=== PATIENT | female | born 1995 | race Caucasian/White ===

== ENCOUNTER → 2017-02-18 | Outpatient (CLI) | payer MEDICAID, OTHER ==
--- NOTE | 2017-02-18 21:12 | REP ---
Left knee, complete: 02/18/2017: Clinical history: Knee pain no known trauma or injury. Findings: No prior studies. Five views are provided. The medial and lateral compartments show no narrowing. The patellofemoral compartment is intact. There is no subluxation or dislocation of the patella. No loose body or osteochondral defect. No suprapatellar effusion evident. Impression: 1. Negative left knee series. Signed by Ismael Franklin MD 02/18/2017 09:35 P
== END ==
LOC: M ADAMS 18:01
PROVIDERS: ATTEND Physician Assistant
DX: M25.562 Pain in left knee (principal)

== ENCOUNTER → 2018-09-02 | Outpatient (REF) | payer MEDICAID ==
[2018-09-02 14:54] LABS: INFLUENZA A AMPLIFICATION POSITIVE (NEGATIVE); INFLUENZA B AMPLIFICATION NEGATIVE (NEGATIVE)
== END ==
LOC: M LAB REF 14:09
PROVIDERS: ATTEND Physician Assistant Medical
DX: J11.1 Influenza due to unidentified influenza virus with other respiratory manifestations (principal)

== ENCOUNTER 2020-09-03 12:37 | Emergency (ER) | payer OTHER ==
[~2020-09-03] VITALS: Ht 162.6 cm; Wt 103.9 kg
--- OUTSIDE RECORDS SUMMARY | 2020-09-03 12:44 | CCD ---
Author Author [facility] Organization [facility] Address Unknown Phone Unavailable Care Team Providers Care Open Claims Representative Name Role Phone Kourtney ALFRED Unavailable Unavailable TURRIN, EUFEMIA Unavailable Unavailable TURRIN, EUFEMIA Unavailable Unavailable TURRIN, EUFEMIA Unavailable Unavailable TURRIN, EUFEMIA Unavailable Unavailable Berta GAMINO MD Unavailable Unavailable Berta GAMINO MD Unavailable Unavailable Berta GAMINO MD Unavailable Unavailable Berta GAMINO MD Unavailable Unavailable Berta GAMINO MD Unavailable Unavailable Berta GAMINO MD Unavailable Unavailable Berta GAMINO MD Unavailable Unavailable Berta GAMINO MD Unavailable Unavailable Berta GAMINO MD Unavailable Unavailable Berta GAMINO MD Unavailable Unavailable Berta GAMINO MD Unavailable Unavailable Berta GAMINO MD Unavailable Unavailable Berta GAMINO MD Unavailable Unavailable Berta GAMINO MD Unavailable Unavailable Berta GAMINO MD Unavailable Unavailable Berta GAMINO MD Unavailable Unavailable Berta GAMINO MD Unavailable Unavailable Berta GAMINO MD Unavailable Unavailable Berta GAMINO MD Unavailable Unavailable Berta GAMINO MD Unavailable Unavailable Berta GAMINO MD Unavailable Unavailable Berta GAIMNO MD Unavailable Unavailable HANNYBerta SLOAN MD Unavailable Unavailable LETTIERE, A JUAN PA Unavailable Unavailable LETTIERE, A JUAN PA Unavailable Unavailable LETTIERE, A JUAN PA Unavailable Unavailable LETTIERE, A JUAN PA Unavailable Unavailable LETTIERE, A JUAN PA Unavailable Unavailable LETTIERE, A JUAN PA Unavailable Unavailable LETTIERE, A JUAN PA Unavailable Unavailable LETTIERE, A JUAN PA Unavailable Unavailable LETTIERE, A JUAN PA Unavailable Unavailable LETTIERE, A JUAN PA Unavailable Unavailable LETTIERE, A JUAN PA Unavailable Unavailable LETTIERE, A JUAN PA Unavailable Unavailable LETTIERE, A JUAN PA Unavailable Unavailable LETTIERE, A JUAN PA Unavailable Unavailable LETTIERE, A JUAN PA Unavailable Unavailable LETTIERE, A JUAN PA Unavailable Unavailable LETTIERE, A JUAN PA Unavailable Unavailable LETTIERE, A JUAN PA Unavailable Unavailable LETTIERE, A JUAN PA Unavailable Unavailable LETTIERE, A JUAN PA Unavailable Unavailable LETTIERE, A JUAN PA Unavailable Unavailable LETTIERE, A JUAN PA Unavailable Unavailable LETTIERE, A JUAN PA Unavailable Unavailable LETTIERE, A JUAN PA Unavailable Unavailable LETTIERE, A JUAN PA Unavailable Unavailable LETTIERE, A JUAN PA Unavailable Unavailable LETTIERE, A JUAN PA Unavailable Unavailable LETTIERE, A JUAN PA Unavailable Unavailable LETTIERE, A JUAN PA Unavailable Unavailable NO, PCP Unavailable Unavailable Re-disclosure Warning The records that you are about to access may contain information from federally-assisted alcohol or drug abuse programs. If such information is present, then the following federally mandated warning applies: This information has been disclosed to you from records protected by federal confidentiality rules (42 CFR part 2). The federal rules prohibit you from making any further disclosure of this information unless further disclosure is expressly permitted by the written consent of the person to whom it pertains or as otherwise permitted by 42 CFR part 2. A general authorization for the release of medical or other information is NOT sufficient for this purpose. The Federal rules restrict any use of the information to criminally investigate or prosecute any alcohol or drug abuse patient.The records that you are about to access may contain highly sensitive health information, the redisclosure of which is protected by Article 27-F of the [facility] Public Health law. If you continue you may have access to information: Regarding HIV / AIDS; Provided by facilities licensed or operated by the [facility] Office of Mental Health; or Provided by the [facility] Office for People With Developmental Disabilities. If such information is present, then the following [facility] mandated warning applies: This information has been disclosed to you from confidential records which are protected by state law. State law prohibits you from making any further disclosure of this information without the specific written consent of the person to whom it pertains, or as otherwise permitted by law. Any unauthorized further disclosure in violation of state law may result in a fine or detention sentence or both. A general authorization for the release of medical or other information is NOT sufficient authorization for further disc losure. Allergies and Adverse Reactions Type Description Substance Reaction Status Data Source(s ) No Known Drug Allergies No Known Drug Allergies [facility] No Known Environmental Allergies No Known Environmental Al lergies [facility] No Known Food Allergies No Known Food Allergies [facility] Family History Family Member Name Family Member Gender Family Member Status Date o f Status Description Data Source(s) Unknown Unknown Problem [facility] ([facility], [facility]) Encounters Encounter Providers Location Date Indications Data Source(s ) Emergency Attender: LIZY ALFREDConsultant: PCP NO 08/23/2020 09:50:00 PM EST - 08/23/2020 11:15:00 PM EST [facility] Patient discharged. Emergency Attender: EVA GAMINO MDConsultant: PCP NO 08/02/2020 11:04:00 PM EST - 08/03/2020 01:40:00 AM EST [facility] Patient discharged. Emergency Attender: EUFEMIA SLAUGHTERConsultant: PCP NO 04/11/2020 07:45:00 PM EDT - 04/11/2020 08:30:00 PM EDT [facility] Patient admitted. Outpatient Attender: JUAN torres 09/26/2019 03:50:00 PM EST [facility] ([facility], [facility]) Medications Medication Brand Name Start Date Product Form Dose Route Admi nistrative Instructions Pharmacy Instructions Status Indications Reaction Description Data Source(s) 20 mg 08/03/2020 12:00:00 AM EST tablet 15 TAKE THREE TABLETS BY MOUTH EVERY DAY TAKE THREE TABLETS BY MOUTH EVERY DAY SOLD: 08/04/2020 [facility] 300 mg 08/03/2020 12:00:00 AM EST capsule 40 TAKE ONE CAPSULE BY MOUTH FOUR TIMES A DAY TAKE ONE CAPSULE BY MOUTH FOUR TIMES A DAY SOLD: 08/04/2020 [facility] 500 mg 08/02/2020 12:00:00 AM EST capsule 22 TAKE 2 CAPSULES BY MOUTH IMMEDIATELY THEN 1 CAPSULE THREE TIMES A DAY TAKE 2 CAPSULES BY MOUTH IMMEDIATELY THEN 1 CAPSULE THREE TIMES A DAY SOLD: 08/02/2020 [facility] 5-325 mg 08/02/2020 12:00:00 AM EST tablet 15 TAKE ONE TABLET BY MOUTH TWICE A DAY NEEDED FOR PAIN MAXIMUM DAILY DOSE = 2 TABLETS TAKE ONE TABLET BY MOUTH TWICE A DAY NEEDED FOR PAIN MAXIMUM DAILY DOSE = 2 TABLETS SOLD: 08/02/2020 [facility] Amoxicillin 875 MG Oral Tablet Amoxicillin 09/26/2019 12:00:00 AM EST active [facility] ([facility]) Insurance Providers Payer name Policy type / Coverage type Policy ID Covered libertarian ID Covered libertarian's relationship to peters Policy Peters Plan Information UN COMM[employer]AN [facility] [id number] SP [id number] [facility] [id number] 18 [id number] UNHC AMERICHOICE XIX -O [id number] 18 [id number] MEDICAID [id number] SP [id number] MEDICAID M [id number] S [id number] [facility] [employer] Organization (HMO) [id number] Self [id number] [facility] [employer] (HMO) [id number] Self [id number] [facility] [employer] (HMO) [id number] Self [id number] [facility] [employer] (HMO) [id number] Self [id number] [facility] [employer] (HMO) [id number] Self [id number] [facility] [employer] (HMO) [id number] Self [id number] [employer]AN [facility] [id number] SP [id number] MEDICAID -O/P EMERGENCY ROOM [id number] 18 [id number] AMERICHOICE UNHC XIX HMO -I/P [id number] 18 [id number] AMERICHOICE UNHC XIX HMO -I/P [id number] 18 [id number] UNHC AMERICHOICE XIX -HMO [id number] 18 [id number] [facility]) P [id number] S [id number] [facility]) P [id number] S [id number] UNHC XIX HMO-O/P [id number] 18 [id number] [employer] [id number] SP [id number] MEDICAID - CLINIC [id number] Problems, Conditions, and Diagnoses Code Display Name Description Problem Type Effective Dates Data Source(s) K047 Periapical abscess without sinus Periapical absc ess without sinus Diagnosis 08/23/2020 09:50:00 PM [facility] K0889 Other specified disorders of teeth and s upporting structures Other specified disorders of teeth and supporting structures Diagnosis 08/23/2020 09:50:00 PM [facility] [id number] Unspecified place in unspeci fied non-institutional (private) residence as the place of occurrence of the external cause Unspecified place in unspecified non-institutional (private) residence as the place of occurrence of the external cause Diagnosis 08/02/2020 11:04:00 PM [facility] [id number] Striking against or struck by other obje cts, initial encounter Striking against or struck by other objects, initial encounter Diagnosis 08/02/2020 11:04:00 PM [facility] [id number] Allergy, unspecified, initial encounter Allergy, unspecified, initial encounter Diagnosis 08/02/2020 11:04:00 PM [facility] [id number] Cellulitis of face Cellulitis of face Diagnosis 06/2021 11:04:00 PM [facility] [id number] Unspecified injury of neck, initial enco unter Unspecified injury of neck, initial encounter Diagnosis 08/02/2020 11:04:00 PM [facility] [id number] Nicotine dependence, cigarettes, uncompl icated Nicotine dependence, cigarettes, uncomplicated Diagnosis 04/11/2020 07:45:00 PM EDT [facility] K046 Periapical abscess with sinus Periapical abscess with sinus Diagnosis 04/11/2020 07:45:00 PM EDT [facility] Results ID Date Data Source [id number] 08/23/2020 09:50:00 PM [facility] 1 OrderSheet [facility] Emergency Department [address] [place] [address] Phone #: ext- [phone] 08/23/2020 21:50 Patient: MARIA TERESA MATTHEW Sex: F : 1995 Age: 25yWEIGHT:81.6 kg HEIGHT:64 inches BMI:30.9ALLERGIES: AmoxicillinCHIEF COMPLAINT: jaw painDIAGNOSIS: Abscess, ToothacheLAB ORDERSOrder Description Priority Entered Acknowledged InitialedDIAGNOSTIC STUDY ORDERSOrder Description Priority Entered Acknowledged InitialedMEDICATION/IV/DRIP/FLUID ORDERSOrder Description Priority Entered Acknowledged InitialedToradol IM 60 mg 22:02 08/23/2020 Initialed: 22:09 Artemio Osorio(NOW x1) Lizy Alfred Refused: 22:09 Toradol IM 60 mg (NOW ; x1) was refused by patient because of states it does work.Lidocaine Viscous 22:15 08/23/2020 22:21 Bulluck,PO 20 mL (NOW) Rylan Ross ; Rylan Verbal order per; Lizy AlfredClindamycin PO 22:25 08/23/2020 22:30 Bulluck,150 mg Lizy Alfred Rylan ;Flexeril PO 10 mg 23:00 08/23/2020 Cancelled: Wrong Patient 23:02(NOW) Lizy Alfred Victoria ;Lidocaine Viscous 23:01 08/23/2020 23:12 Bulluck,PO 15 mL (NOW) Rylan Ross ; Rylan Verbal order per; Lizy AlrfedGENERAL ORDERSOrder Description Priority Entered Acknowledged Initialed[Electronically signed by Britt Petersen R.N. (23:35 08/23/2020)][Electronically signed by Lizy Alfred (05:10 08/24/2020)] 2 OrderSheet [facility] Emergency Department [address] [place] [address] Phone #: ext- [phone] 08/23/2020 21:50 Patient: MARIA TERESA MATTHEW Sex: F : 1995 Age: 25y[Electronically locked by Britt Petersen R.N. (23:35 08/23/2020)] Name Value Range Interpretation Code Description Data Sera rce(s) Supporting Document(s) ID Date Data Source [id number] 08/23/2020 09:50:00 PM EST [facility] 1 Medication Reconciliation Report [facility] Emergency Department [address] [place] [address] Phone #: ext- [phone] 08/23/2020 21:50 Patient: MARIA TERESA MATTHEW Sex: F : 1995 Age: 25yWeight: 81.6 kgHeight/Length: 64 in.BMI: 30.9ALLERGIES: AmoxicillinThe patient's Home Medications are listed below:CONTINUE TAKING THE FOLLOWING MEDICATIONS: Ibuprofen Oral predniSONE Oral 20 mg, dailyThe source(s) of the original Home Medication information:Not obtained.The following Medications were given to the patient in the Emergency Department:Lidocaine Viscous [PO] PO 20 mL, administered: 22:21 1Clindamycin [PO] PO 150 mg, administered: 22:30 1Lidocaine Viscous [PO] PO 15 mL, administered: 23:12 08/23/2020The following Medications were prescribed to the patient:clindamycin HCl 150 mg capsule Take 1 capsule four times a day for 7 days -- Dispense 28 capsule.Refills: 0. Substitution permitted.Pharmacy - [id number] - [id number] ; [place] [address]. Phone: FaxNumber: . -- Lizy Alfred Name Value Range Interpretation Code Description Data Sera rce(s) Supporting Document(s) ID Date Data Source [id number] 08/23/2020 09:50:00 PM [facility] 1 Medication Administration Record [facility] Emergency Department [address] [place] [address] Phone #: ext [phone] 08/23/2020 21:50 Patient: MARIA TERESA MATHTEW Sex: F : 1995 Age: 25yWeight: 81.6 kgHeight/Length: 64 inBMI: 30.9ALLERGIES: Amoxicillin Date/Time Medication Administered Medication OrderedGiven LIDOCAINE VISCOUS [PO] Lidocaine Viscous PO 20 mL22:21 08/23/2020 Dose: 20 mL PO (NOW)Rylan Ross,Given CLINDAMYCIN [PO] Clindamycin PO 150 mg22:30 08/23/2020 Dose: 150 mg POBuRylan snowden,Given LIDOCAINE VISCOUS [PO] Lidocaine Viscous PO 15 mL23:12 08/23/2020 Dose: 15 mL PO (NOW)Rylan Ross, Name Value Range Interpretation Code Description Data Sera rce(s) Supporting Document(s) ID Date Data Source [id number] 08/23/2020 09:50:00 PM [place] [address] General Instructions [facility] Emergency Department [address] [place] [address] Phone #: ext [phone] 08/23/2020 21:50 Patient: MARIA TERESA MATTHEW Sex: F : 1995 Age: 25yModerate dental pain.Single dental abscess (periapical abscess right upper incisor).INSTRUCTIONS(gargle with warm salt solution. take the antibiotic as prescribed. take motrin for pain. use the viscouslidocaine for pain and follow up with your dentist in am).Your Current Medications: Your current home medications have been reviewed.CONTINUE TAKING THE FOLLOWING MEDICATIONS:Ibuprofen Oral.predniSONE Oral : 20 mg daily.Prescription Medications:clindamycin HCl 150 mg capsule Take 1 capsule four times a day for 7 days -- Dispense 28 capsule.Refills: 0. Substitution permitted.Pharmacy - [id number] - [id number] ; [place] [address]. FaxNumber: .Follow-up:Follow up with your healthcare provider your dentist tomorrow. Call for an appointment. Reason for referral:evaluation and treatment. Summary of care provided to patient via paper. Screening today revealed thepatient's blood pressure to be in the hypertensive stage 2 range. The patient should follow up with aprimary care provider for blood pressure management. ADDITIONAL INFORMATIONDental Pain 2 General Instructions [facility] Emergency Department [address] [place] [address] Phone #: ext- [phone] 08/23/2020 21:50 Patient: MARIA TERESA MATTHEW Sex: F : 1995 Age: 25yA crack or cavity in a tooth can cause tooth pain. This is because the crack or cavity exposes thesensitive inner area of the tooth. An infection in the gum or the tooth's root can cause pain andswelling. The pain is often made worse when you have a hot or cold drink. It can also be worse whenyou bite on hard foods. Pain may spread from the tooth to your ear, or to the part of the jaw on thesame side.Home careFollow these tips when caring for yourself at home: Don't have hot and cold foods and drinks. Your tooth may be sensitive to changes in temperature. Use toothpaste made for sensitive teeth. [place] gently up and down instead of sideways. Brushing sideways can wear away root surfaces if they are exposed. If your tooth is chipped or cracked, see a dentist right away. For short-term pain relief, put clove oil right on the tooth. You can buy clove oil at pharmacies. Some pharmacies carry an rasg-xuy-rmecptm toothache kit. This has a paste you can put on the exposed tooth to make it less sensitive. 3 General Instructions [facility] Emergency Department [address] [place] [address] Phone #: ext- [phone] 08/23/2020 21:50 Patient: MARIA TERESA MATTHEW Sex: F : 1995 Age: 25y Use a cold pack. Put a cold pack on your jaw over the sore area to help reduce pain. Ask your healthcare provider about using zvjy-zxn-hcyntea medicine for pain. You may use this unless your provider prescribed another medicine. If you have long-term (chronic) liver or kidney disease, talk with your provider before using acetaminophen or ibuprofen. Also talk with your provider if you've had a stomach ulcer or GI (gastrointestinal) bleeding. Be aware of infection. If you have signs of an infection, you will be given an antibiotic. Take it as directed.Follow-up careFollow up with your dentist, or as advised. Your pain may go away with the treatment given today. Butonly a dentist can fully check and treat the cause of your pain. This will keep the pain from comingback.Call [phone] if any of these occur: Abnormal drowsiness Headache or stiff neck Weakness or fainting Trouble swallowing or breathingWhen to get medical adviceCall your healthcare provider right away if any of these occur: Your face gets swollen or red Pain gets worse or spreads to your neck Fever of 100.4F (38.0C) or higher, or as directed by your provider Pus drains from the tooth [phone] [employer]. [address] [place] [address]. All rights reserved. This information is not intended as asubstitute for professional medical care. Always follow your healthcare professional's instructions.Dental AbscessA dental abscess is an infection of the tooth socket. It often starts with a crack or cavity in the tooth. Apocket of pus forms between the tooth and the bone. The infection causes pain and swelling of the 4 General Instructions [facility] Emergency Department [address] [place] [address] Phone #: ext- [phone] 08/23/2020 21:50 Patient: MARIA TERESA MATTHEW Sex: F : 1995 Age: 25ygum, cheek, or jaw. The pain is often made worse by drinking hot or cold fluids, or biting on hardfoods. Pain may be felt in the facial sinus or in the ear. A severe infection can cause problems withswallowing and breathing.Causes Cavities Trauma Previous dental workSymptoms Pain Swelling around the tooth or face and cheek Redness Bad breath Bad taste in the mouth FeverYou will be started on an antibiotic. But, final treatment requires draining the pus. This can be done byremoving the tooth or getting a root canal. An oral surgeon typically removes diseased teeth. Anendodontist does a root canal. This involves drilling an opening in the tooth to get to access thecanals in the root. Once these are reached, the pus can be drained. Then the canals are cleaned andshaped before filling them with a special material called cm percha. After the infection has healed, acrown is placed over the tooth.Home careThe following guidelines will help you care for your abscess at home: Don't have hot or cold foods and liquids. Your tooth may be sensitive to temperature changes. If your tooth is chipped or cracked, or if there is a large open cavity, apply oil of cloves directly to the tooth to reduce pain. Oil of cloves is sold kaus-qrf-mthdsed in pharmacies. Some pharmacies carry an hugm-dak-jyyzsze "toothache kit." This contains oil of cloves and a paste, which can be applied over the exposed tooth to decrease sensitivity. Apply an ice pack (ice cubes in a plastic bag, wrapped in a towel) over the injured area for 10 to 20 minutes every 1 to 2 hours the first day for pain relief. Continue this 3 to 4 times a day until the pain and swelling goes away. To make an ice pack, put ice cubes in a plastic bag that 5 General Instructions [facility] Emergency Department [address] [place] [address] Phone #: ext- [phone] 08/23/2020 21:50 Patient: MARIA TERESA MATTHEW Sex: F : 1995 Age: 25y seals at the top. Wrap the bag in a clean, thin towel or cloth. Never put ice or an ice pack directly on the skin. You can take acetaminophen or ibuprofen for pain, unless you were given a different pain medicine to use. If you have chronic liver or kidney disease, have ever had a stomach ulcer or gastrointestinal bleeding, or are taking blood- thinning medicines, talk with your healthcare provider before using these medicines. An antibiotic will be prescribed. Take it as directed until completed, even if you are feeling better sooner.Follow-up careFollow up as advised with an filling station equipment mechanic, or oral surgeon. Even though your pain may improve withthe treatment given today, only a dentist, filling station equipment mechanic, or oral surgeon can provide full treatment forthis problem. If a culture was done, you will be told if the treatment needs to be changed. You can call in as directed for the results. If X-rays were taken, they will be reviewed by a specialist. You will be given the results, especially if they affect treatment.Call [phone] if any of these occur: Trouble breathing or swallowing, or wheezing Hoarse voice or trouble speaking Confusion Extreme drowsiness or trouble awakening Fainting or loss of consciousness Rapid heart rateWhen to seek medical adviceCall your healthcare provider right away if any of these occur: Swollen or red face or eyelid Pain gets worse or spreads to the neck You have a fever of 100.4F (38C) or higher, or as directed by your healthcare provider 6 General Instructions [facility] Emergency Department [address] [place] [address] Phone #: ext- [phone] 08/23/2020 21:50 Patient: MARAI TERESA MATTHEW Sex: F : 1995 Age: 25y Unusual drowsiness, a headache or stiff neck, or weakness Pus drains from the gum or tooth You can't open your mouth wide [phone] [employer]. [address] [place] [address]. All rights reserved. This information is not intended as asubstitute for professional medical care. Always follow your healthcare professional's instructions. You have been given the following additional information: Dental Pain Tooth Abscess(Electronically signed by Lizy Alfred 08/24/2020 05:10) Name Value Range Interpretation Code Description Data Sera rce(s) Supporting Document(s) ID Date Data Source [id number] 08/23/2020 09:50:00 PM EST [facility] 1 Clinical Report - Nurses [facility] Emergency Department [address] [place] [address] Phone #: ext- [phone] 08/23/2020 21:50 Patient: MARIA TERESA MATTHEW Sex: F : 1995 Age: 25yTRIAGEArrived by private vehicle. Historian: patient.Triage time: 21:45 08/23/2020. Acuity: LEVEL 5.Chief Complaint: JAW PAIN.Alert. No acute distress.Symptoms are intermittent (2 months). She has had facial pain. She has had swelling of the jaw.SEPSIS SCREEN: SEPSIS SCREEN NEGATIVE. No suspected or confirmed signs of infection present.--22:00 08/23/20 Artemio Osorio21:52 08/23/20. BP: 151/87 taken on the right arm, via an automated monitor, while sitting. MAP: 108.HR: 99. RR: 16 (regular, unlabored and normal). O2 saturation: 99% on room air. Temp: 98.4 F (oral). Painlevel now: 04/30. --22:00 08/23/20 Artemio Osorio.Weight: 81.6 kg. Height/Length: 64 inches. BMI: 30.9. --21:59 08/23/20 Artemio Osorio.MedicationspredniSONE Oral 20 mg, daily. --21:54 08/23/20 Artemio Osorio Ibuprofen Oral. --21:55 08/23/20 Artemio Osorio.AllergiesAmoxicillin.(facial swelling) --21:55 08/23/20 Artemio Osorio.HistorySOCIAL HX: Current every day heavy tobacco smoker- less than 1 pack per day. No alcohol use or druguse. She was offered HIV testing but declined and hepatitis C testing but declined.SELF HARM ASSESSMENT: Self harm assessment was performed. The patient answered "no" to thequestion(s) "Have you recently felt down, depressed, or hopeless?", "Do you have thoughts of harming orkilling yourself?", "Do you have a plan for harming or killing yourself?", "Have you recently had thoughtsabout harming or killing others?", "Do you have any dangerous items in your possession?", "Have younoticed less interest or pleasure in doing things?", "Are you here because you tried to hurt yourself?" and"Have you ever tried to hurt yourself before today?".ABUSE ASSESSMENT: Abuse assessment. Abuse denied. No report of abuse.NUTRITIONAL RISK ASSESSMENT: The nutritional risk assessment revealed no deficiencies. 2 Clinical Report - Nurses [facility] Emergency Department [address] [place] [address] Phone #: ext- [phone] 08/23/2020 21:50 Patient: MARIA TERESA MATTHEW Sex: F : 1995 Age: 25y FUNCTIONAL ASSESSMENT: Functional assessment: no impairments noted. LEARNING NEEDS ASSESSMENT: The learning needs assessment revealed no barriers. FALL RISK ASSESSMENT: Fall risk assessment completed. No risk factors identified. SKIN INTEGRITY ASSESSMENT: Skin integrity risk assessment completed. No skin integrity risk identified. --22:00 08/23/20 Artemio Osorio SOCIAL HX: The patient has not traveled outside the [place] Infectious disease exposure: The patient was not exposed to Coronavirus. --22:08/23/20 Artemio Osorio. Interventions Identification and allergy band on patient. --22:00 08/23/20 Artemio Osorio.PHYSICAL ASSESSMENTGENERAL / NEURO / PSYCH: Alert. Oriented X 4. Appears in no acute distress. Appears in pain.HEENT: Dental tenderness. Dental decay. --22:08/23/20 Artemio Osorio.NURSING PROGRESS NOTESThe plan of care for this patient has been created. Two patient identifiers checked. Call light placed inreach. Bed placed in lowest position. Brakes of bed on. --22:08/23/20 Artemio Osorio 22:08/23/2020 Toradol IM 60 mg (NOW x1) was refused by patient because of states it does work. --22:08/23/20 Artemio Osorio 22:08/23/2020 Lidocaine Viscous PO 20 mL given. Allergies verified and confirmed 5 rights. Information reviewed with patient including reason for taking this medication, signs of allergic reaction and precautions. Verbalizes understanding. --22:08/23/20 Rylan Ross 22:30 08/23/2020 Clindamycin PO 150 mg given. Allergies verified and confirmed 5 rights. Information reviewed with patient including reason for taking this medication, signs of allergic reaction and precautions. Verbalizes understanding. --22:30 08/23/20 Rylan Ross 23:12 08/23/2020 Lidocaine Viscous PO 15 mL given Allergies verified and confirmed 5 rights. Information reviewed with patient including reason for taking this medication, signs of allergic reaction and precautions. Verbalizes understanding. (Sent home w/ pt per MD orders). --23:12 08/23/20 Rylan Ross.DISPOSITION / DISCHARGE 23:15 08/23/20. Condition at departure: stable. ( DC instructions explained, s/s of concern and follow up care discussed. Pt verbalizes understanding. Pt to bring dose of viscous lidocaine home to use - instructions reviewed. No other needs.). No learning barriers present. Discharge instructions provided and reviewed with the patient. Patient verbalized understanding. Written instructions provided in [place]. The patient was discharged by the physician. She was discharged home and accompanied by family. 3 Clinical Report - Nurses [facility] Emergency Department [address] [place] [address] Phone #: ext- [phone] 08/23/2020 21:50 Patient: MARIA TERESA MATTHEW Sex: F : 1995 Age: 25y She left ambulatory and via private vehicle. Family member driving. --23:27 08/23/20 Britt Petersen R.N. 23:15 08/23/20. BP: 140/92. MAP: 108. HR: 98. RR: 20. O2 saturation: 99% on room air. Temp: deferred. Pain level now: 6/10. Additional comments: Pain worse when standing up / chewing / facial movement. --23:27 08/23/20 Britt Petersen R.N.Locked/Released at 08/23/2020 23:35 by Britt Petersen R.N. Name Value Range Interpretation Code Description Data Sera rce(s) Supporting Document(s) ID Date Data Source [id number] 08/23/2020 09:50:00 PM EST [facility] 1 Clinical Report - Physicians/Mid Levels [facility] Emergency Department [address] [place] [address] Phone #: ext- [phone] 08/23/2020 21:50 Patient: MARIA TERESA MATTHEW Sex: F : 1995 Age: 25y Time Seen: 21:52 08/23/2020; initial patient contact, initial documentation. Arrived- By private vehicle. Historian- patient. Disposition decision: 22:59 08/23/2020.HISTORY OF PRESENT ILLNESS Chief Complaint: mouth pain. This started since february. she has domenic seen by a dentist and had caps placed on the upper incisor. she has had multiple dental xrays done. no evidence of infection but was placed on Amoxicillin by her dentist. she developed an allergic reaction to it and was seen in the ER 2 weeks ago and placed on Clindamycin. she felt better but now started having unbearable pain again. no drooling of saliva no facial swelling and is still present and worsening. It was gradual in onset. Pain described as severe. No sore throat, mouth sores, nasal discharge or congestion or ear pain. No swollen jaw or face, jaw pain or facial pain. She has had toothache.REVIEW OF SYSTEMSLast normal menstrual period- 1 week ago. No fever, eye discomfort, cough, difficulty breathing or chestpain. No nausea, diarrhea, abdominal pain, difficulty with uri nation or headache. No fainting episodes,joint pain, skin rash, enlarged lymph nodes or vomiting. All other systems reviewed and are negative.PAST HISTORYSee nurses notes. Problems: . Otitis Media. Vomiting. UTI - Urinary Tract Infection. Cellulitis Check. Abnormal Test. Ear Infection. Dental Abscess. Dental Pain. Allergic Reaction. Cellulitis. MENIGIOMA. None. Normal Exam. Tonsillitis [Resolved]. Additional Surgeries: Adenoidectomy. Tonsillectomy. 2 Clinical Report - Physicians/Mid Levels [facility] Emergency Department [address] [place] [address] Phone #: ext- [phone] 08/23/2020 21:50 Patient: MARIA TERESA MATTHEW Sex: F : 1995 Age: 25y Tympanostomy Tubes. Medications: Ibuprofen Oral. predniSONE Oral 20 mg, daily. Allergies: Amoxicillin.(facial swelling).SOCIAL HISTORYNever smoker. No alcohol use or drug use.ADDITIONAL NOTESThe nursing notes have been reviewed.PHYSICAL EXAMVital Signs: 08/23/2020 21:52 BP: sitting 151/87. MAP: 108. HR: 99. RR: 16. O2 saturation: 99% on roomair. Temp: 98.4 F. Pain level now: 04/30. Oxygen sa turation normal.Appearance: Alert. No acute distress.Head: Normal external inspection.Eyes: Pupils equal, round and reactive to light. Conjunctivae and eyelids normal.ENT: Dental tenderness. Pharynx normal. Lips normal. No trismus present. Uvula midline. Nopharyngeal erythema, mouth ulcerations, tonsillar exudate, peritonsillar mass or dental decay. No trismus.(patient has tenderness on palpation on the right upper incisor gum area. tooth is tender on palpation.no visible abscess noted.).Neck: Lymphadenopathy. Thyroid not normal. Neck not supple. Trachea midline.CVS: Normal heart rhythm and rate. Heart sounds normal. Pulses normal.Respiratory: No respiratory distress. Painless inspiration. Breath sounds normal. Chest nontender.Abdomen: Soft and nontender. No organomegaly.Skin: Normal skin color. No rash. Normal skin turgor.Extremities: Extremities exhibit normal ROM. Extremities nontender.Neuro: Oriented X 3.PROGRESS AND PROCEDURESCourse of Care: 22:08 08/23/20. Patient offered toradol and refused. 22:34 08/23/20. Patient given viscous lidocaine for pain and clindamycin. advised to follow up with her dentist in am. Patient counseled in person regarding the patient's stable condition, diagnosis and need for follow-up. Patient agrees with plan of care. 22:37. Disposition: Discharged home in stable condition. Condition: good and stable. Discharge decision based on the following: patient's condition is stable; patient's exam is stable; stable condition on multiple repeat evaluations; social support is adequate; transportation is available; follow-up is 3 Clinical Report - Physicians/Mid Levels [facility] Emergency Department [address] [place] [address] Phone #: ext- [phone] 08/23/2020 21:50 Patient: MARIA TERESA MATTHEW Sex: F : 1995 Age: 25y available; clinical impression is consistent with outpatient treatment.CLINICAL IMPRESSION Moderate dental pain. Single dental abscess (periapical abscess right upper incisor).INSTRUCTIONS (gargle with warm salt solution. take the antibiotic as prescribed. take motrin for pain. use the visc ous lidocaine for pain and follow up with your dentist in am). Your Current Medications: Your current home medications have been reviewed. CONTINUE TAKING THE FOLLOWING MEDICATIONS: Ibuprofen Oral. predniSONE Oral : 20 mg daily. Prescription Medications: clindamycin HCl 150 mg capsule Take 1 capsule four times a day for 7 days -- Dispense 28 capsule. Refills: 0. Substitution permitted. Pharmacy - [facility] #04 - [id number] ; [place] [address]. . Follow-up: Follow up with your healthcare provider your dentist tomorrow. Call for an appointment. Reason for referral: evaluation and treatment. Summary of care provided to patient via paper. Screening today revealed the patient's blood pressure to be in the hypertensive stage 2 range. The patient should follow up with a primary care provider for blood pressure management.(Electronically signed by Lizy Alfred 08/24/2020 05:10) Name Value Range Interpretation Code Description Data Sera rce(s) Supporting Document(s) ID Date Data Source [id number] 08/02/2020 11:04:00 PM EST [facility] 1 OrderSheet [facility] Emergency Department [address] [place] [address] Phone #: ext- [phone] 08/02/2020 22:50 Patient: MARIA TERESA MATTHEW Sex: F : 1995 Age: 24yWEIGHT:81.6 kg (S) HEIGHT:64 inches (S) BMI:30.9ALLERG IES: No Known Drug AllergyCHIEF COMPLAINT: neckDIAGNOSIS: Cellulitis of skin, Cellulitis check, Immune hypersensitivity reactionLAB ORDERSOrder Description Priority Entered Acknowledged InitialedCBC w Diff STAT 23:17 08/02/2020 23:27 Eva Pace MD; Rebecca RNCMP STAT 23:08/02/2020 23:27 Eva Pace MD; Rebecca LOPEZHCG Serum Qual STAT 23:17 08/02/2020 23:27 Eva Pace MD; Rebecca LOPEZDIAGNOSTIC STUDY ORDERSOrder Description Priority Entered Acknowledged InitialedCT Maxillofacial W/ STAT 23:08/02/2020 Ack'd: 23:27 00:27 08/03/2020Eva Donovan MD; Lupillo Fernandez RN Lupillo Fernandez RN(Oxygen?(No))(IV?(Yes)) Reason for Study: Infection, SwellingMEDICATION/IV/DRIP/FLUID ORDERSOrder Description Priority Entered Acknowledged InitialedBenadryl IVP 25 mg 00:03 08/03/2020 00:28 Eva Pace MD; Rebecca RNPepcid IVPB 20 00:03 08/03/2020 00:29 Stevmorenomg/50mL (Hanny Ness Norma MD; Rebecca LOPEZInfuse over 30minutes.)SOLU-Medrol IVP 00:03 08/03/2020 00:28 Eva Corcoran MD; Rebecca LOPEZGENERAL ORDERSOrder Description Priority Entered Acknowledged Initialed[Electronically signed by Lupillo Fernandez RN (01:40 08/03/2020)][Electronically signed by Eva Gamino MD (02:53 08/03/2020)] 2 OrderSheet [facility] Emergency Department [address] [place] [address] Phone #: ext- [phone] 08/02/2020 22:50 Patient: MARIA TERESA MATTHEW Sex: F : 1995 Age: 24y[Electronically locked by Lupillo Fernandez RN (01:40 08/03/2020)] Name Value Range Interpretation Code Description Data Sera rce(s) Supporting Document(s) ID Date Data Source [id number] 08/02/2020 11:04:00 PM EST [facility] 1 Medication Reconciliation Report [facility] Emergency Department [address] [place] [address] Phone #: ext- [phone] 08/02/2020 22:50 Patient: MARIA TERESA MATTHEW Sex: F : 1995 Age: 24yWeight: 81.6 kgHeight/Length: 64 in.BMI: 30.9ALLERGIES: No Known Drug AllergyThe patient's Home Medications are listed below:STOP TAKING THE FOLLOWING MEDICATIONS: Amoxicillin Oral (500 mg) 1 capsule, 3x a dayCONTINUE TAKING THE FOLLOWING MEDICATIONS: HYDROcodone-Acetaminophen Oral (5-325 mg) 1 tablet, 2x a day Ibuprofen Oral 200 mg, q4h, prnThe source(s) of the original Home Medication information:patientThe following Medications were given to the patient in the Emergency Department:Benadryl [IVP] IVP 25 mg, administered: 00:23 08/03/2020olu-Medrol [IVP] IVP 125 mg, administered: 00:23 1Pepcid [IVPB] IVPB bolus 0, then 20 mg 100 mg/min, administered: 00:29 08/03/2020The following Medications were prescribed to the patient:clindamycin HCl 300 mg capsule Take 1 capsule four times a day for 10 days -- Dispense 40 capsule.Refills: 0. Substitution permitted.[facility] #[facility] - [id number] ; [place] [address]. FaxNumber: [phone].prednisone 20 mg tablet Take 3 tablet once a day -- Dispense 15 tablet. Refills: 0. Substitutionpermitted.[facility] #[facility] - [id number] ; [place] [address]. 2 Medication Reconciliation Report [facility] Emergency Department [address] [place] [address] Phone #: [phone]- [phone] 08/02/2020 22:50 Patient: MARIA TERESA MATTHEW Sex: F : 1995 Age: 24yFaxNumber: . -- Eva Gamino MD Name Value Range Interpretation Code Description Data Sera rce(s) Supporting Document(s) ID Date Data Source [id number] 08/02/2020 11:04:00 PM EST [facility] 1 Medication Administration Record [facility] Emergency Department [address] [place] [address] Phone #: [phone] 08/02/2020 22:50 Patient: MARIA TERESA MATTHEW Sex: F : 1995 Age: 24yWeight: 81.6 kgHeight/Length: 64 inBMI: 30.9ALLERGIES: No Known Drug Allergy Date/Time Medication Administered Medication OrderedGiven BENADRYL [IVP] (DIPHENHYDRAMINE Benadryl IVP 25 mg00:08/03/2020 HCL)Lupillo Fernandez RN Dose: 25 mg IVP Site: #1 left ACStart PEPCID [IVPB] Pepcid IVPB 20 mg/50mL (NOW00:08/03/2020 Dose: 20 mg IVPB x1, Infuse over 30 minutes.)Lupillo Fernandez RN Rate: 100 mg/min---- Dispensed: 50 mL bagStop Site: #1 left AC00:51 1Sjonnathan Fernandez RNGiven SOLU-MEDROL [IVP] SOLU-Medrol IVP 125 mg00:23 08/03/2020 (METHYLPREDNISOLONE SODIUMStevmoreno Fernandez RN SUCC) Dose: 125 mg IVP Site: #1 left AC Name Value Range Interpretation Code Description Data Sera rce(s) Supporting Document(s) ID Date Data Source [id number] 08/02/2020 11:04:00 PM EST [facility] 1 General Instructions [facility] Emergency Department [address] [place] [address] Phone #: ext- [phone] 08/02/2020 22:50 Patient: MARIA TERESA MATTHEW Sex: F : 1995 Age: 24yAllergic reaction.Cellulitis.Cellulitis of the right and left cheek area.INSTRUCTIONS(Stop taking the amoxil. I have sent a prescription to your pharmacy for clindamycin. it is a differentantibiotic. I have also sent a prescription for prednisone. please also take benadryl and pepcid asinstructed. return if worse or any new symptoms. Please follow up with your primary care physician andyour dentist in 1-2 days. I would strongly suggest you try to not take the hydrocodone. take tylenol andmotrin instead for your pain.).Warnings: INFECTION: Watch for signs of infection (increasing heat and redness, pus-like drainage,swelling, or increased pain). Return or see your doctor if these signs occur.GENERAL WARNINGS: Return or contact your physician immediately if your condition worsens orchanges unexpectedly, if not improving as expected, or if other problems arise.Your Current Medications: Your current home medications have been reviewed.STOP TAKING THE FOLLOWING MEDICATIONS:Amoxicillin Oral : Capsule 500 mg, 1 capsule 3x a day.CONTINUE TAKING THE FOLLOWING MEDICATIONS:HYDROcodone-Acetaminophen Oral : Tablet 5-325 mg, 1 tablet 2x a day.Ibuprofen Oral : 200 mg q4h, prn.Prescription Medications:clindamycin HCl 300 mg capsule Take 1 capsule four times a day for 10 days -- Dispense 40 capsule.Refills: 0. Substitution permitted.[facility] [address] - [id number] ; [place] [address]. FaxNumber: [phone].prednisone 20 mg tablet Take 3 tablet once a day -- Dispense 15 tablet. Refills: 0. Substitutionpermitted.[facility] #[address] - [id number] ; [place] [address]. FaxNumber: .Follow- up:Follow up with your doctor in two days even if well. Call for an appointment. Reason for referral: evaluation.Summary of care provided to patient via paper. 2 General Instructions [facility] Emergency Department [address] [place] [address] Phone #: ext- [phone] 08/02/2020 22:50 Patient: MARIA TERESA MATTHEW Sex: F : 1995 Age: 24yUnderstanding of the discharge instructions verbalized by patient. ADDITIONAL INFORMATIONGeneral Allergic ReactionsAn allergic reaction is a set of symptoms caused by an allergen. An allergen is something that causesyour immune system to react abnormally. It releases various chemicals. These include histamine.Histamine causes swelling and itching. An allergic reaction may affect the entire body. This is called ageneral allergic reaction. Often symptoms affect only one part of the body. This is called a localallergic reaction.You are having an allergic reaction. Almost anything can cause one. Different people are allergic todifferent things. It is usually something that you ate or swallowed, came into contact with by getting orputting it on your skin or clothes, or something you breathed in the air. This can be very annoying andsometimes scary.Most people think of allergic reactions when they have a rash or itchy skin. Other symptoms caninclude: Itching of the eyes, nose, and roof of the mouth Runny or stuffy nose Watery eyes Sneezing or coughing A blocked feeling in the ear Red, raised, itchy rash called hives Red and purple spots Rash, redness, welts, blisters Itching, burning, stinging, pain Dry, flaky, cracking, scaly skinSevere symptoms include: Swelling of the face, lips, or other parts of the body Hoarse voice Trouble swallowing, feeling like your throat is closing 3 General Instructions [facility] Emergency Department [address] [place] [address] Phone #: ext- [phone] 08/02/2020 22:50 Patient: MARIA TERESA MATTHEW Sex: F : 1995 Age: 24y Trouble breathing, wheezing Nausea, vomiting, diarrhea, stomach cramps Feeling faint or lightheaded, rapid heart rateSometimes the cause may be obvious. But there are so many things that can cause a reaction thatyou may not be able to figure it out. The most important things to help find your allergen are toremember: When it started What you were doing at the time or just before that What activities you were involved in If you were exposed to anything newBelow are some common causes of allergies. Some of these can cause severe general allergicreactions. Others can cause mild to moderate symptoms. But remember that almost anything cancause a reaction. You may not even be aware that you came into contact with one of these things: Dust, mold, pollen Plants (common ones are poison elvie and poison oak, but there are many others) Animals Foods such as shrimp, shellfish, peanuts, milk products, gluten, and eggs Food colorings, flavorings, and additives Insect bites or stings such as bees, mosquitoes, fleas, and ticks Medicines such as penicillin, sulfa medicines, aspirin, and ibuprofen. But any medicine can cause a reaction. Jewelry such as nickel or gold. This can be new, or something you've worn for a while, including zippers and buttons. Latex such as in gloves, clothes, toys, balloons, or some tapes. Some people allergic to latex may also have problems with foods like bananas, avocados, kiwi, papaya, or chestnuts. Lotions, perfumes, cosmetics, soaps, shampoos, skincare products, nail products Chemicals or dyes in clothing, linen, threshing machine operator, hair dyes, soaps, iodineMany viruses and common colds can cause a rash that is not an allergic reaction. Sometimes it ishard to tell the difference between allergies, sensitivity, or an intolerance to something. This is 4 General Instructions [facility] Emergency Department [address] [place] [address] Phone #: [phone]- [phone] 08/02/2020 22:50 [facility]: [id number] Sex[facility] F : 1995 Age: 24yespecially true with food. Many things can cause diarrhea, vomiting, stomach cramps, and skinirritation.Home careThe goal of treatment is to help relieve the symptoms and get you feeling better. The rash will usuallyfade over several days. But it can sometimes last a couple of weeks. Over the next couple of days,there may be times when it gets a little worse, and then better again. Here are some things to do: If you know what you are allergic to, stay away from it. Future exposures may cause similar or sometimes worse symptoms. Don't wear tight clothing and stay away from anything that heats up your skin such as hot showers or baths, and direct sunlight. Heat will make itching worse. An ice pack will relieve local areas of intense itching and redness. To make an ice pack, put ice cubes in a plastic bag that seals at the top. Wrap it in a thin, clean towel. Don't put the ice directly on the skin because it can damage the skin. Oral diphenhydramine is an [id number] antihistamine sold at pharmacies and grocery stores. Unless a prescription antihistamine was given, diphenhydramine may be used to reduce itching if large areas of the skin are involved. It may make you sleepy. So be careful using it in the daytime or when going to school, working, or driving. Note: Don't use diphenhydramine if you have glaucoma or if you are a man with trouble urinating because of an enlarged prostate. There are other antihistamines that won't make you so sleepy. These are good choices for daytime use. Ask your healthcare provider or pharmacist for suggestions. Don't use diphenhydramine cream on your skin unless prescribed. It may cause a worse reaction in some people. To help prevent an infection, don't scratch the affected area. Scratching may worsen the reaction and damage your skin. It can also lead to an infection. Always check the affected 5 General Instructions [facility] Emergency Department [address] [place] [address] Phone #: ext- [phone] 08/02/2020 22:50 Patient: MARIA TERESA MATTHEW Sex: F : 1995 Age: 24y areas for signs of an infection. Call your healthcare provider and ask what you can use to help decrease the itching. To decrease your exposure to allergens, try the following: o Use heat-steam to clean your home. o Use high-efficiency particulate (HEPA) vacuums and filters. o Stay away from food and pet triggers. o Kill any cockroaches and use pest control to keep further infestations from happening. o Clean your house often.Follow-up careFollow up with your healthcare provider, or as advised. If you had a severe reaction today, or if youhave had several mild to medium allergic reactions in the past, ask your provider about allergytesting. This can help you find out what you are allergic to. If you had a severe reaction that includeddizziness, fainting, or trouble breathing or swallowing, ask your provider about carryingauto-injectable epinephrine.Call [phone] if any of these occur: Trouble breathing or swallowing, wheezing Cool, moist, pale skin Shortness of breath Hoarse voice or trouble speaking Confusion Very drowsy or trouble awakening Fainting or loss of consciousness Rapid heart rate Feeling of dizziness or weakness or a sudden drop in blood pressure Feeling of doom Feeling lightheaded 6 General Instructions [facility] Emergency Department [address] [place] [address] Phone #: ext- [phone] 08/02/2020 22:50 Patient: MARIA TERESA MATTHEW Sex: F : 1995 Age: 24y Severe nausea or vomiting, or diarrhea Seizure Swelling in the face, eyelids, lips, mouth, throat, or tongue DroolingWhen to seek medical adviceCall your healthcare provider or get medical care right away if any of these occur: Spreading areas of itching, redness, or swelling Nausea or stomach cramps or abdominal pain Continuing or recurring symptoms Spreading areas of redness, swelling, or itching Signs of infection at the affected site: o Spreading redness o Increased pain or swelling o Fluid or colored drainage from the site o Fever of 100.4F (38C) or above lasting for 24 to 48 hours, or as directed by your provider 2019 [employer]. [address] [place] [address]. All rights reserved. This information is not intended as asubstitute for professional medical care. Always follow your healthcare professional's instructions.Medicine Reaction: AllergicYou are having an allergic reaction to a medicine you have taken. This may cause an itchy rash andsometimes swelling of various parts of the body. It could also cause trouble swallowing or breathing.The rash may take a few hours or up to 2 weeks to go away. In the future, remember to tell yourhealthcare provider about your allergy to this medicine so that medicines of this type won't be usedagain.Any medicine can cause an allergic reaction. But most allergic reactions are caused by: Penicillin and related medicines Antibiotics containing sulfonamides (sulfa ,medicines) Aspirin 7 General Instructions [facility] Emergency Department [address] [place] [address] Phone #: ext- [phone] 08/02/2020 22:50 Patient: MARIA TERESA MATTHEW Sex: F : 1995 Age: 24y Ibuprofen or other nonsteroidal anti-inflammatory drugs (NSAIDs) Seizure medicinesVaccines may also trigger allergies. People whose parents or siblings have allergies are at a higherrisk of developing a medicine allergy. Allergy testing may sometimes be needed to figure out thecause.Symptoms may occur within minutes, hours, or even weeks after exposure to the medicine. It can michelle mild or severe reaction, or potentially life threatening. Most of us think of allergic reactions when wehave a rash or itchy skin. Symptoms can include: Rash, hives, redness, welts, blisters Itching, burning, stinging, pain Dry, flaky, cracking, scaly skin Belly (abdominal) cramps or nausea or stomach pain Fever. Sometimes fever is the only symptom of a medicine reaction. In older adults, the risk of fever increases with the number of medicines the person takes.More severe symptoms include: Swelling of the face or lips, or drooling Trouble swallowing, feeling like your throat is closing Trouble breathing, wheezing Hoarse voice or trouble speaking Severe nausea or vomiting or diarrhea Feeling faint or lightheaded, rapid heart rate Blistering of the skin or ulcers in the mouth or on the genitalsHome care 8 General Instructions [facility] Emergency Department [address] [place] [address] Phone #: ext- [phone] 08/02/2020 22:50 Patient: MARIA TERESA MATTHEW Sex: F : 1995 Age: 24yThe goal of treatment is to help relieve the symptoms and get you feeling better. Mild to mediummedicine reactions usually respond quickly to taking antihistamines or steroids and stopping themedicine. The rash will usually fade over several days. But it can sometimes last a couple of weeks.Over the next couple of days, there may be times when it gets a little worse and then better again.Here are some things to do: Dispose of the medicine safely and don't take it again. The next reaction could be the same or worse. Call your healthcare provider to discuss adding this medicine's allergy reaction to your electronic medical record. When getting a new medicine, always tell the healthcare provider that you are allergic to this medicine. Make certain the provider writes it down in your medical record. Don't wear tight clothing and stay way from anything that heats up your skin (hot showers or baths, direct sunlight). Heat will make itching worse. An ice pack will relieve local areas of intense itching and redness. To make an ice pack, put ice cubes in a plastic bag that seals at the top. Wrap the bag in a clean, thin towel or cloth. Don't put ice directly on the skin. To help prevent an infection, don't scratch the affected area. Scratching may worsen the reaction. It can damage your skin and lead to an infection. Always check the affected site for signs of an infection. Your provider may give you a prescription antihistamine. If you are not given a prescription antihistamine, oral diphenhydramine is an utxa-yev-nfptvps antihistamine available at pharmacies and grocery stores. This may be used to reduce itching if large areas of the skin are involved. This antihistamine may make you sleepy, so be careful us ing it in the daytime or when going to school, working, or driving. Note: Don't use diphenhydramine if you have glaucoma or if you are a man with trouble urinating due to an 9 [facility] Emergency Department [address] [place] [address] Phone #: ext- [phone] 08/02/2020 22:50 Patient: MARIA TERESA MATTHEW Sex: F : 1995 Age: 24y enlarged prostate. There are other antihistamines that cause less drowsiness and are a good choice for daytime use. Ask your pharmacist or healthcare provider for suggestions. Don't use diphenhydramine cream on your skin. It can cause a worse skin reaction for some people. Contact your healthcare provider and ask what can be used on the affected area to help decrease the itching.Follow-up careFollow up with your healthcare provider, or as advised, if your symptoms do not continue to improveor they get worse.Call [phone] if any of these occur: Shortness of breath Cool, moist, pale skin Swelling in the face, eyelids, mouth, tongue, or lips Drooling Trouble breathing or swallowing, wheezing New or worsening swelling in the mouth, throat, or tongue Hoarse voice or trouble speaking Fainting or loss of consciousness Rapid heart rate Feeling of dizziness or weakness or a sudden drop in blood pressure Feeling of doom Feeling lightheaded Severe nausea, vomiting, or diarrheaWhen to seek medical adviceCall your healthcare provider or get medical care right away if any of these occur: Continuing or recurring symptoms 10 General Instructions [facility] Emergency Department [address] [place] [address] Phone #: ext- [phone] 08/02/2020 22:50 Patient: MARIA TERESA MATTHEW Sex: F : 1995 Age: 24y Nausea, abdominal cramps, or stomach pain Spreading areas of itching, redness, or swelling Blistering of the skin, or sores or ulcers in the mouth or on the genitals Signs of infection: o Spreading redness o Increased pain or swelling o Fever of 100.4F (38C) or above lasting for 24 to 48 hours, or as directed by your provider o Fluid or colored drainage from the affected area [employer]. [address] [place] [address], [place] [address]. All rights reserved. This information is not intended as asubstitute for professional medical care. Always follow your healthcare professional's instructions.CellulitisCellulitis is an infection of the deep layers of skin. A break in the skin, such as a cut or scratch, can letbacteria under the skin. If the bacteria get to deep layers of the skin, it can be serious. If not treated,cellulitis can get into the bloodstream and lymph nodes. The infection can then spread throughout thebody. This causes serious illness.Cellulitis causes the affected skin to become red, swollen, warm, and sore. The reddened areas havea visible border. An open sore may leak fluid (pus). You may have a fever, chills, and pain.Cellulitis is treated with antibiotics taken for 7 to 10 days. An open sore may be cleaned and coveredwith cool wet gauze. Symptoms should get better 1 to 2 days after treatment is started. Make sure totake all the antibiotics for the full number of days until they are gone. Keep taking the medicine even ifyour symptoms go away.Home careFollow these tips: Limit the use of the part of your body with cellulitis. If the infection is on your leg, keep your leg raised while sitting. This helps reduce swelling. Take all of the antibiotic medicine exactly as directed until it is gone. Don't miss any doses, especially dur ing the first 7 days. Don't stop taking the medicine when your symptoms get better. Keep the affected area clean and dry. 11 General Instructions [facility] Emergency Department [address] [place] [address] Phone #: ext- [phone] 08/02/2020 22:50 Patient: MARIA TERESA MATTHEW Sex: F : 1995 Age: 24y Wash your hands with soap and clean, running water before and after touching your skin. Anyone else who touches your skin should also wash his or her hands. Don't share towels.Follow- up careFollow up with your healthcare provider, or as advised. If your infection doesn't go away on the firstantibiotic, your healthcare provider will prescribe a different one.When to seek medical adviceCall your healthcare provider right away if any of these occur: Red areas that spread Swelling or pain that gets worse Fluid leaking from the skin (pus) Fever higher of 100.4 F (38.0 C) or higher after 2 days on antibiotics [id number] [employer]. [address] [place] [address], [place] [address]. All rights reserved. This information is not intended as asubstitute for professional medical care. A lways follow your healthcare professional's instructions. You have been given the following additional information: General Allergic Reactions Medicine Reaction: Allergic Cellulitis(Electronically signed by Eva Gamino MD 08/03/2020 02:53) Name Value Range Interpretation Code Description Data Sera rce(s) Supporting Document(s) ID Date Data Source [id number] 08/02/2020 11:04:00 PM EST [facility] 1 Clinical Report - Nurses [facility] Emergency Department [address] [place] [address] Phone #: ext- [phone] 08/02/2020 22:50 Patient: MARIA TERESA MATTHEW Sex: F : 1995 Age: 24yTRIAGEArrived by private vehicle. Historian: patient.Triage time: 22:54 08/02/2020. Acuity: LEVEL 4.Chief Complaint: (swelling to upper lip).Onset was gradual. (2 days ago). 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 SEPSIS SCREEN NEGATIVE. No suspected or confirmedsigns of infection present. --23:08/02/20 Lupillo Fernandez RN22:54 08/02/20. BP: 146/99 (regular adult cuff) taken on the right arm, via an automated monitor, whilelying. MAP: 114. HR: 106 (regular, normal rate and strong). RR: 16 (regular, unlabored and normal). Q2pnljvikpgu: 99% on room air. Temp: 97.2 F (oral). Pain level now: 7/10. --23:01 08/02/20 Lupillo Fernandez RN.Weight: 81.6 kg stated. Height/Length: 64 inches Per Patient. BMI: 30.9. --22:59 08/02/20 Lupillo Fernandez RN.MedicationsAmoxicillin Oral (Capsule 500 mg) 1 capsule, 3x a day. --22:56 08/02/20 Lupillo Fernandez RN HYDROcodone-Acetaminophen Oral (Tablet 5-325 mg) 1 tablet, 2x a day. --22:57 08/02/20 JOHN Coleman Ibuprofen Oral 200 mg, q4h as needed. --22:58 08/02/20 Lupillo Fernandez RN.AllergiesNo Known Drug Allergy. --22:58 08/02/20 Lupillo Fernandez RN.Medication/allergy information source: the patient. --23:08/02/20 Lupillo Fernandez RN.HistoryPAST MEDICAL HX: Negative. Immunizations: up-to-date. Last normal menstrual period- Jul 26 2020.SURGERY HX: Adenoidectomy. Tympanostomy tube placement. Tonsillectomy.SOCIAL HX: Current every day heavy tobacco smoker (cigarette)- less than 1 pack per day. No alcoholuse or drug use. The patient was offered HIV testing but declined and hepatitis C testing but declined. 2 Clinical Report - Nurses [facility] Emergency Department [address] [place] [address] Phone #: ext- [phone] 08/02/2020 22:50 Patient: MARIA TERESA MATTHEW Sex: F : 1995 Age: 24y The patient has not traveled outside the [place] Infectious disease exposure: No infectious disease exposure. Patient is not a known carrier of tuberculosis, hepatitis, HIV, MRSA or VRE. SELF HARM ASSESSMENT: Self harm assessment was performed. The patient answered "no" to the question(s) "Have you recently felt down, depressed, or hopeless?", "Do you have thoughts of harming or killing yourself?", "Do you have a plan for harming or killing yourself?", "Have you recently had thoughts about harming or killing others?", "Do you have any dangerous items in your possession?", "Have you noticed less interest or pleasure in doing things?", "Are you here because you tried to hurt yourself?" and "Have you ever tried to hurt yourself before today?". ABUSE ASSESSMENT: No report of abuse. FALL RISK ASSESSMENT: Fall risk assessment completed. No risk factors identified. --23:08/02/20 Lupillo Fernandez RN. Assessment The patient states feels the same. --:08/02/20 Lupillo Fernandez RN.PHYSICAL ASSESSMENTAmbulatory to room.GENERAL / NEURO / PSYCH: Alert. Oriented X 4. Appears in distress.HEENT: Pupils equal, round and reactive to light. No facial asymmetry noted. Mucous membranes arepink.RESPIRATORY: Respirations not labored. Chest nontender. Breath sounds within normal limits.CVS: Capillary refill less than 2 seconds. Pulses within normal limits.GI / : Abdomen soft and nontender and normal bowel sounds.SKIN: Skin intact. Skin is warm and dry. Normal skin turgor. --23:08/02/20 Lupillo Fernandez RN.NURSING PROGRESS NOTESHead of bed elevated 30 degrees. Reassurance given to the patient. Call light placed in reach of patient.Bed placed in lowest position. Brakes of bed on. Patient ready for evaluation- ED physician notified.--23:08/02/20 Lupillo Fernandez RN 00:17 08/03/2020 Site #1 started via IV in the left antecubital space with an 20g angiocath, with aseptic technique and good blood return; one attempt. Saline lock flushed with 10 mL saline. --00:27 08/03/20 Lupillo Fernandez RN 00:23 08/03/2020 Benadryl (diphenhydrAMINE HCl) IVP 25 mg given over 30 second(s) via site #1. Allergies verified and confirmed 5 rights. IV patency established. IV site checked: no pain, redness, or swelling. IV flushed thoroughly pre- and post-medication administration. IVP given by RN. Information reviewed with patient including reason for taking this medication, signs of allergic reaction, precautions and sedative warning. Verbalizes understanding. --00:08/03/20 Lupillo Fernandez RN 3 Clinical Report - Nurses [facility] Emergency Department [address] [place] [address] Phone #: ext- [phone] 08/02/2020 22:50 --- Patient: MARIA TERESA MATTHEW Sex: F : 1995 Age: 24y 00:23 08/03/2020 Solu-Medrol (methylPREDNISolone Sodium Succ) IVP 125 mg given over 2 minute(s) via site #1. Allergies verified and confirmed 5 rights. IV patency established. IV site checked: no pain, redness, or swelling. IV flushed thoroughly pre- and post-medication administration. IVP given by RN. Information reviewed with patient including reason for taking this medication, signs of allergic reaction and precautions. Verbalizes understanding. --00:08/03/20 Lupillo Fernandez RN 00:29 08/03/2020 Started 20 mg of Pepcid IVPB in bag #1 50 mL; at 100 mg/min via site #1. via IV pump. Allergies verified and confirmed 5 rights. IV patency established. IV site checked: no pain, redness, or swelling. IV flushed thoroughly pre- and post-medication administration. Information reviewed with patient including reason for taking this medication, signs of allergic reaction and precautions. Verbalizes understanding. --00:29 08/03/20 Lupillo Fernandez RN 00:51 08/03/2020 Pepcid IVPB via IV site #1 Discontinued: bag #1 completed. Total amount infused: 50 mL. IV patency established. IV site checked: no pain, redness, or swelling. IV flushed thoroughly. --00:51 08/03/20 Lupillo Fernandez RN.DISPOSITION / DISCHARGE Sterling Coma Scale: 15- eyes open- spontaneous (4); best verbal response- oriented (5); best motor response- obeys commands (6). Departure time: 01:40 08/03/2020. Condition at departure: improved. No learning barriers present. Discharge instructions provided and reviewed with the patient. Reviewed medication(s) side effects, precautions, dosing and course information. Prescription(s) sent electronically to pharmacy. Reviewed referral to a dentist and family practice for followup. Patient verbalized understanding. Written instructions provided in [place]. The patient was discharged home and accompanied by in processing instructor. She left ambulatory and via private vehicle. Physics Tutor driving. --01:40 08/03/20 Lupillo Fernandez RN 01:38 08/03/20. BP: 128/78 (regular adult cuff) taken on the right arm, via an automated monitor, while lying. MAP: 94. HR: 72 (regular, normal rate and strong). RR: 16 (regular, unlabored and normal). O2 saturation: 98% on room air. Temp: 98.3 F (oral). Pain level now: 10. --01:40 08/03/20 Lupillo Fernandez RN.Locked/Released at 08/03/2020 01:40 by Lupillo Fernandez RN Name Value Range Interpretation Code Description Data Sera rce(s) Supporting Document(s) ID Date Data Source [id number] 0001 08/02/2020 11:04:00 PM [facility] 1 Clinical Report - Physicians/Mid Levels [facility] Emergency Department [address] [place] [address] Phone #: ext- [phone] 08/02/2020 22:50 [id number] Sex[facility] F : 1995 Age: 24y Arrived- By private vehicle. Historian- patient. Disposition decision: 01:13 08/03/2020.HISTORY OF PRESENT ILLNESS Chief Complaint: INJURY TO NECK. The injury occurred yesterday. This was not caused by a direct blow or an incised wound. Patient did not fall. ( veneers placed in june). Occurred at home. The patient complains of mild pain. No blow to the head, neck pain or loss of consciousness. Not dazed.REVIEW OF SYSTEMSThe patient has had oral swelling of the lip (upper). No difficulty swallowing. No seizure, numbness,hearing loss or loss of vision. No chest pain or pain, weakness, difficulty breathing or bladder dysfunction.No laceration, fever, chills, fever or eye irritation. No ear pain, nasal congestion, runny nose, sinus pain orcough. No abdominal pain, constipation, diarrhea, nausea or vomiting. No urinary frequency, hematuria,back pain, skin rash or headache. No weakness, easy bruising or difficulty with urination. Has notrecently been ill.PAST HISTORYSee nurses notes. Additional Surgeries: Adenoidectomy. Tonsillectomy. Tonsillectomy Adenoidectomy. Tympanostomy Tubes. Medications: Ibuprofen Oral 200 mg, q4h as needed. HYDROcodone-Acetaminophen Oral (Tablet 5-325 mg) 1 tablet, 2x a day. Amoxicillin Oral (Capsule 500 mg) 1 capsule, 3x a day. Allergies: No Known Drug Allergy.SOCIAL HISTORYNo drug use.ADDITIONAL NOTESThe nursing notes have been reviewed. 2 Clinical Report - Physicians/Mid Levels [facility] Emergency Department [address] [place] [address] Phone #: ext- [phone] 08/02/2020 22:50 Patient: MARIA TERESA MATTHEW 10 Sex: F : 1995 Age: 24yPHYSICAL EXAMVital Signs: 08/03/2020 01:38 BP: lying 128/78. MAP: 94. HR: 72. RR: 16. O2 saturation: 98% on roomair. Temp: 98.3 F. Pain level now: 10/29.08/02/2020 22:54 BP: lying 146/99. MAP: 114. HR: 106. RR: 16. O2 saturation: 99% on room air. Temp:97.2 F. Pain level now: 01/28. Have been reviewed and appear to be correct. Blood pressure normal.Mean arterial pressure- normal. Heart rate normal. Respiratory rate normal. Temperature normal.Oxygen saturation normal.Appearance: Alert. No acute distress.Head: Head non-tender. No swelling of head. Right cheek: mild swelling. Left cheek: mild swelling.Mouth: mild swelling (upper lip).Eyes: Pupils equal, round and reactive to light. EOM intact.ENT: Pharynx normal.Neck: Painless ROM. Non-tender.CVS: Normal heart rhythm and rate. Heart sounds normal. Pulses normal.Respiratory: Painless inspiration. Breath sounds normal. Chest nontender.Abdomen: Soft and nontender.Back: No tenderness. ROM normal.Skin: Skin intact. Skin warm and dry. Normal skin color. Normal skin turgor. (no gas in the tissue tothe face. no palpable abscess).Extremities: Normal inspection. Pelvis stable. Extremities atraumatic. No lower extremity edema.Neuro: Oriented X 3. Mood/affect normal. Speech normal.LABS, X-RAYS, AND EKGLaboratory Tests: CBC w Diff: (NAS: 08/02/2020 23:26) ( MsgRcvd 08/02/2020 23:38) Final results Test Result Flag Units (Reference) CBC W/AUTOMATED DIFF COMPLETE BLOOD COUNT WB C 13.2 H 10/uL (4.2 - 11.0) RBC 5.04 10/uL (4.20 - 5.40) HEMOGLOBIN 14.1 g/dL (12.0 - 16.0) HEMATOCRIT 42.1 % (37.0 - 47.0) MCV 83.5 fL (81.0 - 101) MCH 28.0 pg (27.0 - 34.0) MCHC 33.5 g/dL (31.0 - 36.0) RDW 13.2 % (11.5 - 14.5) PLATELETS 364 10/uL (150 - 450) MPV 9.7 fL (7.4 - 10.4) NEUT 61.0 % (37.0 - 80.0) LYMPH 30.1 % (25.0 - 40.0) MONO 6.5 % (3.0 - 8.0) EOS 1.6 % (0.0 - 7.0) BASO 0.4 % (0.0 - 2.5) %IG 0.4 H % (0.0 - 0.0) %NRBC 0.0 % (0.0 - 0.0) #NEUT 8.06 H 10/uL (2.00 - 6.90) #LYMPH 3.98 H 10/uL (0.60 - 3.40) #MONO 0.86 10/uL (0.00 - 0.90) #EOS 0.21 10/uL (0.00 - 0.70) #BASO 0.05 10/uL (0.00 - 0.20) 3 Clinical Report - Physicians/Mid Levels [facility] Emergency Department [address] [place] [address] Phone #: ext- [phone] 08/02/2020 22:50 Patient: MARIA TERESA MATTHEW Sex: F : 1995 Age: 24y #IG 0.05 10/uL (0.00 - 0.10) #NRBC 0.00 10/uL (0.00 - 0.00) MANUAL DIFF NOT INDICATED RBC MORPH NOT INDICATEDCMP: (NAS: 08/02/2020 23:26) ( MsgRcvd 08/03/2020 00:12) Final results Test Result Flag Units (Reference) COMPREHENSIVE METABOLIC PANEL COMPREHENSIVE METABOLIC PANEL SODIUM 138 mEq/L (134 - 153) POTASSIUM 4.0 mEq/L (3.6 - 5.0) CHLORIDE 103 mEq/L (98 - 107) CO2 26 MEQ/L (22 - 30) GLUCOSE 112 H MG/DL (65 - 110) BUN <4 L MG/DL (7 - 21) CREATININE 0.6 L MG/DL (0.7 - 1.5) BUN/CREAT 7 L (8 - 27) TOTAL PROTEIN 6.4 G/DL (6.3 - 8.2) ALBUMIN 3.9 G/DL (3.9 - 5.0) GLOBULIN 2.5 GM/DL (2.4 - 3.2) A/G RATIO 1.6 (0.8 - 2.0) CALCIUM 8.9 MG/DL (8.4 - 10.2) TOTAL BILI <0.7 MG/DL (0.2 - 1.3) ALKALINE PHOS 69 U/L (38 - 126) SGOT/AST 9 U/L (5 - 40) SGPT/ALT 15 U/L (7 - 56) ANI ON GAP 9.0 mmol/L (8.0 - 16.0) AGE 24 yrs NON-AA GFR >60 mL/min AFR AMER GFR >60 mL/min Male GFR Interprentation 20-49 yrs >60 mL/min Elngkf86-12 yrs >56 mL/min Normal 60-69 yrs >49 mL/min Normal 70-79yrs>42 mL/min Normal 80 and above >35 mL/min Normal Female GFRInterpretation 20-39 yrs >60 mL/min Normal 40-49 yrs >58 mL/minNormal 50- 59 yrs >51 mL/min Normal 60-69 yrs >45 mL/min Ybchgy40-80 yrs >39 mL/min Normal 80 and above >32 mL/min NormalBeta-HCG, Qual Serum: (NAS: 08/02/2020 23:26) ( MsgRcvd 08/02/2020 23:58) Final results Test Result Flag Units (Reference) HCG SERUM QUAL NEGATIVE (NORMAL: NEGAT HCG SERUM QL REENTER NEGATIVE (NORMAL: NEGAT { KIT LOT # [id number] ){ KIT EXP [id number] ){ PROCEDURAL CONTROL VALID)CT Maxillofacial W/ Cont: (NAS: 08/02/2020 23:17) ( MsgRcvd 08/03/2020 00:39) Final results Exam CT MAXILLOFACIAL W/CONTRAST [facility] [address] [place] [address] ---------NAME--------- NUMBER SEX AGE ADMIT DISC. XRAY# F/C TYPE VIPUL [place] [id number] F 24 08/02/20 [id number] NA E/R DATE OF : 1995 M/R# [id number] #: [id number] TR-04 LOCATION: EMERGENCY DEPT TRANSCRIBED: 08/03/[address] MAXILLOFACIAL W/CONTRAST [id number] COMPLETED:08/03/20 27 DLA 2101 4 Clinical Report - Physicians/Mid Levels [facility] Emergency Department [address] [place] [address] Phone #: ext- [phone] 08/02/2020 22:50 Patient: MARIA TERESA MATTHEW Sex: F : 1995 Age: 24y Reason(s): Infection Swelling PHYSICIAN: ALEC R A D I O L O G Y R E P O R T ======= PATIENT HISTORY: ACTUAL DOSE 299.2 mGy*cm swollen lip Patient has negative beta. Verification of 2 patient identifiers performed. Time Out performed. correct body part and side all verified prior to examination. Exam has been sent to [facility] Radiology - If further information is needed, the number is . Report will be faxed to ED and/or Xray. / COR (DICOM Hx) EXAM: CT Maxillofacial Without IV contrast. CLINICAL HISTORY:ACTUAL DOSE 299.2 mGy*cm swollen lip Patient has negative beta. Verification of 2 patient identifiers performed. Time Out performed. correct body part and side all verified prior to examination. Exam has been sent to [facility] - If further information is needed, the number is . Report will be faxed to ED and/or Xray. TECHNIQUE: Axial computed tomography images of the face without intravenous contrast. Sagittal and coronal reformatted images were generated. CONTRAST:Without COMPARISON:None provided. FINDINGS: FACIAL BONES/ORBITS: No acute fracture or aggressive appearing osseous lesion. The mandible is intact. The orbits are normal. No retrobulbar hematoma or mass. The paranasal sinuses appear clear. SOFT TISSUES: The soft tissues are unremarkable. No radiopaque foreign body or focal fluid collection seen. IMPRESSION: No acute facial bone fracture. While performing the above CT examination, radiation dose reduction was accomplished utilizing automated exposure control, adjusting of the mA and kV based on the patient's body size and/or the use of imperative reconstructive techniques. Electronically Signed By: Chaitanya Sanderson MD , Radiologist Date/Time: 08/03/20 00:38.PROGRESS AND PROCEDURESCourse of Care: pt is a 24 year old female who presents to the ED for evaluation of her swelling to herupper lip. she had new veneers placed to her 2 front teeth. she states she has had mild swelling. she 5 Clinical Report - Physicians/Mid Levels [facility] Emergency Department [address] [place] [address] Phone #: ext- [phone] 08/02/2020 22:50 Patient: MARIA TERESA MATTHEW Sex: F : 1995 Age: 24y saw her dentist and was started on amoxicillin today. she developed significant swelling to her upper lip and midface. she denied any fever or chills. labs grossly nl with exception of mildly elevated wbc. ct maxillofacial shows no obvious abscess. Pt was instructed to stop taking the amoxicillin and a rx for doxycycline was written for the patient. she was given solumedrol, pepcid and benadryl in the ED. She felt better. I instructed her to f/u with her pcp and dentist in 1-2 days or to return if worse or any new symptoms. pt voiced understanding of all instructions. Patient/family counseled. Disposition: Condition: good and stable.CLINICAL IMPRESSION Allergic reaction. Cellulitis. Cellulitis of the right and left cheek area.INSTRUCTIONS (Stop taking the amoxil. I have sent a prescription to your pharmacy for clindamycin. it is a different antibiotic. I have also sent a prescription for prednisone. please also take benadryl and pepcid as instructed. return if worse or any new symptoms. Please follow up with your primary care physician and your dentist in 1-2 days. I would strongly suggest you try to not take the hydrocodone. take tylenol and motrin instead for your pain.). Warnings: INFECTION: Watch for signs of infection (increasing heat and redness, pus-like drainage, swelling, or increased pain). Return or see your doctor if these signs occur. GENERAL WARNINGS: Return or contact your physician immediately if your condition worsens or changes unexpectedly, if not improving as expected, or if other problems arise. Your Current Medications: Your current home medications have been reviewed. STOP TAKING THE FOLLOWING MEDICATIONS: Amoxicillin Oral : Capsule 500 mg, 1 capsule 3x a day. CONTINUE TAKING THE FOLLOWING MEDICATIONS: HYDROcodone- Acetaminophen Oral : Tablet 5-325 mg, 1 tablet 2x a day. Ibuprofen Oral : 200 mg q4h, prn. Prescription Medications: clindamycin HCl 300 mg capsule Take 1 capsule four times a day for 10 days -- Dispense 40 capsule. Refills: 0. Substitution permitted. Pharmacy - [facility] - [id number] ; [place] [address]. . 6 Clinical Report - Physicians/Mid Levels [facility] Emergency Department [address] [place] [address] Phone #: ext- [phone] 08/02/2020 22:50 Patient: MARIA TERESA MATTHEW Sex: F : 1995 Age: 24y prednisone 20 mg tablet Take 3 tablet once a day -- Dispense 15 tablet. Refills: 0. Substitution permitted. Pharmacy - [facility] - [id number] ; [place] [address]. . Follow-up: Follow up with your doctor in two days even if well. Call for an appointment. Reason for referral: evaluation. Summary of care provided to patient via paper. Understanding of the discharge instructions verbalized by patient.(Electronically signed by Eva Gamino MD 08/03/2020 02:53) Name Value Range Interpretation Code Description Data Sera rce(s) Supporting Document(s) ID Date Data Source [id number] 08/03/2020 12:38:[address] [address] ---------NAME--------- NUMBER SEX AGE ADMIT DISC. XRAY# F/C TYPE VIPUL Hampton [id number] F 24 08/02/20 [id number] NA E/R DATE OF : 1995 M/R# [id number] PH#: [phone] TR-04 LOCATION: EMERGENCY DEPT TRANSCRIBED: 08/03/[address] MAXILLOFACIAL W/CONTRAST 45065 COMPLETED:08/03/20 27 DLA 3836 Reason(s): Infection Swelling PHYSICIAN: ALEC======= R A D I O L O G Y R E P O R T PATIENT HISTORY:ACTUAL DOSE 299.2 mGy*cm swollen lipPatient has negative beta. Verification of 2 patient identifiers performed.Time Out performed. correct body part and side all verified prior toexamination. Exam has been sent to [facility] Radiology - If further informationis needed, the number is . Report will be faxed to ED and/orXray. / COR (DICOM Hx)EXAM: CT Maxillofacial Without IV contrast.CLINICAL HISTORY:ACTUAL DOSE 299.2 mGy*cm swollen lip Patient has negative beta.Verification of 2 patient identifiers performed. Time Out performed. correctbody part and side all verified prior to examination. [facility] If further information is needed, the number [phone]. Report will be faxed to ED and/or Xray.TECHNIQUE: Axial computed tomography images of the face without intravenouscontrast. Sagittal and coronal reformatted images were generated.CONTRAST:WithoutCOMPARISON:None provided.FINDINGS:FACIAL BONES/ORBITS: No acute fracture or aggressive appearing osseous lesion.The mandible is intact. The orbits are normal. No retrobulbar hematoma or mass.The paranasal sinuses appear clear.SOFT TISSUES: The soft tissues are unremarkable. No radiopaque foreign body orfocal fluid collection seen.IMPRESSION:No acute facial bone fracture.While performing the above CT examination, radiation dose reduction wasaccomplished utilizing automated exposure control, adjusting of the mA and kVbased on the patient's body size and/or the use of imperative reconstructivetechniques.Electronically Signed By:Chaitanya Sanderson MD , RadiologistDate/Time: 08/03/20 00:38 Name Value Range Interpretation Code Description Data Sera rce(s) Supporting Document(s) ID Date Data Source [id number] 08/03/2020 12:11:00 AM EST [facility] Name Value Range Interpretation Code Description Data [facility](s) Supporting Document(s) COMPREHENSIVE METABOLIC PANEL [facility] COMPREHENSIVE METABOLIC PANEL Sodium [Moles/volume] in Serum or Plasma 138 mEq/L 134 - 153 [facility] Potassium [Moles/volume] in Serum or Plasma 4.0 mEq/L 3.6 - 5.0 [facility] Chloride [Moles/volume] in Serum or Plasma 103 mEq/L 98 - 107 [facility] Carbon dioxide, total [Moles/volume] in Serum or Plasma 26 MEQ/L 22 - 30 [facility] Glucose [Mass/volume] in Serum or Plasma 112 MG/DL 65 - 110 H [facility] BUN <4 MG/DL 7 - 21 L [facility] Creatinine [Mass/volume] in Serum or Plasma 0.6 MG/DL 0.7 - 1.5 L [facility] BUN/CREAT 7 8 - 27 L [facility] Protein [Mass/volume] in Serum or Plasma 6.4 G/DL 6.3 - 8.2 [facility] Albumin [Mass/volume] in Serum or Plasma 3.9 G/DL 3.9 - 5.0 [facility] Globulin [Mass/volume] in Serum by calculation 2.5 GM/DL 2.4 - 3.2 [facility] A/G RATIO 1.6 0.8 - 2.0 [facility] Calcium [Mass/volume] in Serum or Plasma 8.9 MG/DL 8.4 - 10.2 [facility] Bilirubin.total [Mass/volume] in Serum or Plasma <0.7 MG/DL 0.2 - 1.3 [facility] Alkaline phosphatase [Enzymatic activity/volume] in Serum or Plasma 69 U/L 38 - 126 [facility] Aspartate aminotransferase [Enzymatic activity/volume] in Se rum or Plasma 9 U/L 5 - 40 [facility] Alanine aminotransferase [Enzymatic activity/volume] in Seru m or Plasma 15 U/L 7 - 56 [facility] Anion gap 3 in Serum or Plasma 9.0 mmol/L 8.0 - 16.0 [facility] AGE 24 yrs [facility] NON-AA GFR >60 mL/min [facility] AFR AMER GFR >60 mL/min [facility] Male GFR In terprentation 20-49 yrs >60 mL/min Normal 50-59 yrs >56 mL/min Normal 60-69 yrs >49 mL/min Normal 70-79yrs >42 mL/min Normal 80 and above >35 mL/min Normal Female GFR Interpretation 20-39 yrs >60 mL/min Normal 40-49 yrs >58 mL/min Normal 50-59 yrs >51 mL/min Normal 60-69 yrs >45 mL/min Normal 70-79 yrs >39 mL/min Normal 80 and above >32 mL/min Normal ID Date Data Source [id number] 08/02/2020 11:56:00 PM EST [facility] Name Value Range Interpretation Code Description Data Sera rce(s) Supporting Document(s) HCG SERUM QUAL NEGATIVE NORMAL: NEGATIVE [facility] HCG SERUM QL REENTER NEGATIVE NORMAL: NEGATIVE [facility] { KIT LOT # [id number] ){ KIT EXP DATE 04-26-21 ){ PROCEDURAL CONTROL VALID ) ID Date Data Source [id number] 08/02/2020 11:38:00 PM [facility] Name Value Range Interpretation Code Description Data Sera rce(s) Supporting Document(s) CBC W/AUTOMATED DIFF [facility] COMPLETE BLOOD COUNT Leukocytes [#/volume] in Blood by Automated count 13.2 10^3/uL 4.2 - 11.0 H [facility] Erythrocytes [#/volume] in Blood by Automated count 5.04 10^6/uL 4. 20 - 5.40 [facility] Hemoglobin [Mass/volume] in Blood 14.1 g/dL 12.0 - 16.0 [facility] Hematocrit [Volume Fraction] of Blood by Automated count 42.1 % 3 7.0 - 47.0 [facility] Erythrocyte mean corpuscular volume [Entitic volume] by Auto mated count 83.5 fL 81.0 - 101 [facility] Erythrocyte mean corpuscular hemoglobin [Entitic mass] by Automated count 28.0 pg 27.0 - 34.0 [facility] Erythrocyte mean corpuscular hemoglobin concentration [Mass/volume] by Automated count 33.5 g/dL 31.0 - 36.0 [facility] Erythrocyte distribution width [Ratio] by Automated count 13.2 % 11.5 - 14.5 [facility] Platelets [#/volume] in Blood by Automated count 364 10^3/uL 150 - 45 0 [facility] Platelet mean volume [Entitic volume] in Blood by Automated count 9.7 fL 7.4 - 10.4 [facility] Neutrophils/100 leukocytes in Blood by Automated count 61.0 % 37. 0 - 80.0 [facility] Lymphocytes/100 leukocytes in Blood by Manual count 30.1 % 25.0 - 40.0 [facility] Monocytes/100 leukocytes in Blood by Automated count 6.5 % 3.0 - 8.0 [facility] Eosinophils/100 leukocytes in Blood by Automated count 1.6 % 0.0 - 7.0 [facility] Basophils/100 leukocytes in Blood by Automated count 0.4 % 0.0 - 2.5 [facility] %IG 0.4 % 0.0 - 0.0 H [facility] %NRBC 0.0 % 0.0 - 0.0 [facility] al Neutrophils [#/volume] in Blood by Automated count 8.06 10^3/uL 2.00 - 6.90 H [facility] Lymphocytes [#/volume] in Blood by Automated count 3.98 10^3/uL 0.60 - 3.40 H [facility] Monocytes [#/volume] in Blood by Automated count 0.86 10^3/uL 0.00 - 0.90 [facility] Eosinophils [#/volume] in Blood by Automated count 0.21 10^3/uL 0.00 - 0.70 [facility] Basophils [#/volume] in Blood by Automated count 0.05 10^3/uL 0.00 - 0.20 [facility] #IG 0.05 10^3/uL 0.00 - 0.10 [facility] #NRBC 0.00 10^3/uL 0.00 - 0.00 [facility] MANUAL DIFF NOT INDICATED [facility] RBC MORPH NOT INDICATED [facility] ID Date Data Source [id number] 04/11/2020 07:45:00 PM EDT [facility] 1 OrderSheet [facility] Emergency Department [address] [place] [address] Phone #: ext- [phone] 04/11/2020 19:29 Patient: MARIA TERESA MATTHEW Sex: F : 1995 Age: 24yWEIGHT:89.8 kg (S) HEIGHT:64 inches (S) BMI:34.0ALLERGIES: No Known Drug AllergyCHIEF COMPLAINT: dental pain, swelling of jaw/face, toothacheDIAGNOSIS: Dental abscessLAB ORDERSOrder Description Priority Entered Acknowledged InitialedDIAGNOSTIC STUDY ORDERSOrder Description Priority Entered Acknowledged InitialedMEDICATION/IV/DRIP/FLUID ORDERSOrder Description Priority Entered Acknowledged InitialedAugmentin PO 875 20:03 04/11/2020 20:16 mg Grey Vieyra R.N.;Toradol IM 30 mg 20:03 04/11/2020 20:16 Grey Vieyra R.N.;Lidocaine Viscous 20:03 04/11/2020 20:17 IRINEO Vieyra 20 mL (now and Grey Chawla R.N.to go home) [place];GENERAL ORDERSOrder Description Priority Entered Acknowledged Initialed[Electronically signed by Cammy Vieyra R.N. (20:30 04/11/2020)][Electronically signed by Grey Davison (21:25 04/11/2020)][Electronically locked by Cammy Vieyra R.N. (20:30 04/11/2020)] Name Value Range Interpretation Code Description Data Sera rce(s) Supporting Document(s) ID Date Data Source [id number] 04/11/2020 07:45:00 PM EDT [facility] 1 Medication Reconciliation Report [facility] Emergency Department [address] [place] [address] Phone #: ext- [phone] 04/11/2020 19:29 Patient: MARIA TERESA MATTHEW Sex: F : 1995 Age: 24yWeight: 89.8 kgHeight/Length: 64 in.BMI: 34.0ALLERGIES: No Known Drug AllergyThe patient's Home Medications are listed below:NONE.The source(s) of the original Home Medication information:Not obtained.The following Medications were given to the patient in the Emergency Department:Augmentin [PO] PO 875 mg, administered: 04/11/2020 8:16:00 PMToradol [IM] IM 30 mg, administered: 04/11/2020 8:16:00 PMLidocaine Viscous [PO] PO 20 mL, administered: 04/11/2020 8:17:00 PMThe following Medications were prescribed to the patient:Augmentin 875 mg-125 mg tablet Take 1 tablet twice a day as directed for 10 days -- Dispense 20tablet. Refills: 0. Substitution permitted.Pharmacy - [facility] [id number] [place] [facility] - [address] [place] [address] ; [place] [address]. . -- MARIA DE JESUS Ruiz Name Value Range Interpretation Code Description Data Sera rce(s) Supporting Document(s) ID Date Data Source [id number] 04/11/2020 07:45:00 PM EDT [facility] 1 Medication Administration Record [facility] Emergency Department [address] [place] [address] Phone #: ext- [phone] 04/11/2020 19:29 Patient: MARIA TERESA MATTHEW Sex: F : 1995 Age: 24yWeight: 89.8 kgHeight/Length: 64 inBMI: 34ALLERGIES: No Known Drug Allergy Date/Time Medication Administered Medication OrderedGiven AUGMENTIN [PO] (AMOXICILLIN-POT Augmentin PO 875 mg20:16 04/11/2020 CLAVULANATE)Cammy Vieyra R.N. Dose: 875 mg Tablets POGiven TORADOL [IM] (KETOROLAC Toradol IM 30 mg20:16 04/11/2020 TROMETHAMINE)Camym Vieyra R.N. Dose: 30 mg IMGiven LIDOCAINE VISCOUS [PO] Lidocaine Viscous PO 20 mL (now20:17 04/11/2020 Dose: 20 mL Solution/Elixir PO and to go h ome)Cammy Vieyra R.N. Name Value Range Interpretation Code Description Data Sera rce(s) Supporting Document(s) ID Date Data Source [id number] 04/11/2020 07:45:00 PM EDT [facility] 1 General Instructions [facility] Emergency Department [address] [place] [address] Phone #: ext- [phone] 04/11/2020 19:29 Patient: MARIA TERESA MATTHEW Sex: F : 1995 Age: 24yPeriapical dental abscess with sinus tract.INSTRUCTIONSYour Current Medications: .No home medication.Prescription Medications:Augmentin 875 mg-125 mg tablet Take 1 tablet twice a day as directed for 10 days -- Dispense 20tablet. Refills: 0. Substitution permitted.Pharmacy - [facility] [id number] [place] [facility] - [id number] [place] [address] ; [place] [address]. .Follow-up:Follow up with a specialist Dentist as scheduled. Reason for referral: evaluation and treatment. Summaryof care provided to patient.Understanding of the discharge instructions verbalized by patient. ADDITIONAL INFORMATIONDental AbscessA dental abscess is an infection of the tooth socket. It often starts with a crack or cavity in the tooth. Apocket of pus forms between the tooth and the bone. The infection causes pain and swelling of thegum, cheek, or jaw. The pain is often made worse by drinking hot or cold fluids, or biting on hardfoods. Pain may be felt in the facial sinus or in the ear. A severe infection can cause problems withswallowing and breathing.Causes Cavities Trauma Previous dental work 2 General Instructions [facility] Emergency Department [address] [place] [address] Phone #: ext- [phone] 04/11/2020 19:29 Patient: MARIA TERESA MATTHEW Sex: F : 1995 Age: 24ySymptoms Pain Swelling around the tooth or face and cheek Redness Bad breath Bad taste in the mouth FeverYou will be started on an antibiotic. But, final treatment requires draining the pus. This can be done byremoving the tooth or getting a root canal. An oral surgeon typically removes diseased teeth. Anendodontist does a root canal. This involves drilling an opening in the tooth to get to access thecanals in the root. Once these are reached, the pus can be drained. Then the canals are cleaned andshaped before filling them with a special material called cm percha. After the infection has healed, acrown is placed over the tooth.Home careThe following guidelines will help you care for your abscess at home: Don't have hot or cold foods and liquids. Your tooth may be sensitive to temperature changes. If your tooth is chipped or cracked, or if there is a large open cavity, apply oil of cloves directly to the tooth to reduce pain. Oil of cloves is sold ypna-fcb-kxxapye in pharmacies. Some pharmacies carry an rwfa-ecl-hzebger "toothache kit." This contains oil of cloves and a paste, which can be applied over the exposed tooth to decrease sensitivity. Apply an ice pack (ice cubes in a plastic bag, wrapped in a towel) over the injured area for 10 to 20 minutes every 1 to 2 hours the first day for pain relief. Continue this 3 to 4 times a day until the pain and swelling goes away. To make an ice pack, put ice cubes in a plastic bag that seals at the top. Wrap the bag in a clean, thin towel or cloth. Never put ice or an ice pack directly on the skin. You can take acetaminophen or ibuprofen for pain, unless you were given a different pain medicine to use. If you have chronic liver or kidney disease, have ever had a stomach ulcer or gastrointestinal bleeding, or are taking blood-thinning medicines, talk with your healthcare provider before using these medicines. An antibiotic will be prescribed. Take it as directed until completed, even if you are feeling better sooner. 3 General Instructions [facility] Emergency Department [address] [place] [address] Phone #: ext- [phone] 04/11/2020 19:29 Patient: MARIA TERESA MATTHEW Sex: F : 1995 Age: 24yFollow-up careFollow up as advised with an filling station equipment mechanic, or oral surgeon. Even though your pain may improve withthe treatment given today, only a dentist, filling station equipment mechanic, or oral surgeon can provide full treatment forthis problem. If a culture was done, you will be told if the treatment needs to be changed. You can call in as directed for the results. If X-rays were taken, they will be reviewed by a specialist. You will be given the results, especially if they affect treatment.Call [phone] if any of these occur: Trouble breathing or swallowing, or wheezing Hoarse voice or trouble speaking Confusion Extreme drowsiness or trouble awakening Fainting or loss of consciousness Rapid heart rateWhen to seek medical adviceCall your healthcare provider right away if any of these occur: Swollen or red face or eyelid Pain gets worse or spreads to the neck You have a fever of 100.4F (38C) or higher, or as directed by your healthcare provider Unusual drowsiness, a headache or stiff neck, or weakness Pus drains from the gum or tooth You can't open your mouth wide [id number] [employer]. [address] [place] [address]. All rights reserved. This information is not intended as asubstitute for professional medical care. Always follow your healthcare professional's instructions.Dental Cavity 4 General Instructions [facility] Emergency Department [address] [place] [address] Phone #: ext- [phone] 04/11/2020 19:29 Patient: MARIAT ERESA MATTHEW Sex: F : 1995 Age: 24yA dental cavity is a pit or crater in the surface of a tooth. This exposes the sensitive inner layer of thetooth and causes pain. If the cavity isn't treated, it will get bigger. It may enter the pulp and cause aninfection or abscess in the bone at the root end (apex) of the tooth. An infection in the tooth is a muchmore serious problem than a cavity. If the tooth gets infected, you will need a root canal or the entiretooth taken out (extraction).The pain in your tooth may be made worse by eating sweets or drinking hot or cold beverages. It mayspread from the tooth to your ear or the area of your jaw on the same side.Home careFollow these tips when caring for yourself at home: Don't have sweets and hot and cold foods and drinks. Your tooth may be sensitive to changes in temperature. If your tooth is chipped or cracked, or if there is a large open cavity, put oil of cloves directly on the tooth to relieve pain. You can buy oil of cloves at drugstores. Some pharmacies carry an vjgq-fmz-pgfkqxf "toothache kit." This contains a paste that you can put on the exposed tooth to make it less sensitive. 5 General Instructions [facility] Emergency Department [address] [place] [address] Phone #: ext- [phone] 04/11/2020 19:29 Patient: MARIA TERESA MATTHEW Sex: F : 1995 Age: 24y Put a cold pack on your jaw over the sore area to help reduce pain. You may use alwr-xcp-gcaxbde medicine to ease pain, unless another medicine was prescribed. If you have chronic liver or kidney disease, talk with your healthcare provider before using acetaminophen or ibuprofen. Also talk with your provider if you've had a stomach ulcer or GI bleeding. If you have signs of an infection, you will be given an antibiotic. Take it as directed.Follow-up careFollow up with your dentist, or as advised. Your pain may go away with the treatment given today. Butonly a dentist can fully look at and treat this problem to prevent further tooth damage.Call [phone] if any of these occur: Difficulty swallowing or breathing Weakness or fainting Unusual drowsiness Headache or stiff neckWhen to seek medical adviceCall your healthcare provider right away if any of these occur: Redness or swelling of the face Pain gets worse or spreads to your neck Fever of 100.4 F (38C) or higher, or as directed by your healthcare provider Pus drains from the tooth or gum [phone] [employer]. [address] [place] [address], [place] [address]. All rights r eserved. This information is not intended as asubstitute for professional medical care. Always follow your healthcare professional's instructions.Dental Pain 6 General Instructions [facility] Emergency Department [address] [place] [address] Phone #: ext- [phone] 04/11/2020 19:29 Patient: MARIA TERESA MATTHEW Sex: F : 1995 Age: 24yA crack or cavity in a tooth can cause tooth pain. This is because the crack or cavity exposes thesensitive inner area of the tooth. An infection in the gum or the root of the tooth can cause pain andswelling. The pain is often made worse when you drink hot or cold beverages. It can also be worsewhen you bite on hard foods. Pain may spread from the tooth to your ear or the area of the jaw on thesame side.Home careFollow these tips when caring for yourself at home: Don't have hot and cold foods and drinks. Your tooth may be sensitive to changes in temperature. Use toothpaste made for sensitive teeth. [place] gently up and down instead of sideways. Brushing sideways can wear away root surfaces if they are exposed. If your tooth is chipped or cracked, or if there is a large open cavity, put oil of cloves directly on the tooth to relieve pain. You can buy oil of cloves at drugstores. Some pharmacies carry an amez-htj-knxziks "toothache kit." This contains a paste that you can put on the exposed tooth to make it less sensitive. 7 General Instructions [facility] Emergency Department [address] [place] [address] Phone #: [phone]- [phone] 04/11/2020 19:29 Patient: MARIA TERESA MATTHEW Sex: F : 1995 Age: 24y Put a cold pack on your jaw over the sore area to help reduce pain. You may use aegk-iuy-yvzsuqt medicine to ease pain, unless your doctor prescribed another medicine. If you have chronic liver or kidney disease, talk with your healthcare provider before using acetaminophen or ibuprofen. Also talk with your provider if you've had a stomach ulcer or GI bleeding. If you have signs of an infection, you will be given an antibiotic. Take it as directed.Follow-up careFollow up with your dentist, or as advised. Your pain may go away with the treatment given today. Butonly a dentist can fully look at and treat the cause of your pain. This will keep the pain from comingback.Call 911Call 911 if any of these occur: Unusual drowsiness Headache or stiff neck Weakness or fainting Difficulty swallowing or breathingWhen to seek medical adviceCall your health care provider right away if any of these occur: Your face becomes swollen or red Pain gets worse or spreads to your neck Fever of 100.4 F (38.0 C) or higher, or as directed by your healthcare provider Pus drains from the tooth [id number] [employer]. [address] [place] [address]. All rights reserved. This information is not intended as asubstitute for professional medical care. Always follow your healthcare professional's instructions. You have been given the following additional information: Tooth Abscess Dental Cavity Dental Pain 8 General Instructions [facility] Emergency Department [address] [place] [address] Phone #: ext- [phone] 04/11/2020 19:29 Patient: MARIA TERESA MATTHEW Sex: F : 1995 Age: 24y(Electronically signed by MARIA DE JESUS Ruiz 04/11/2020 21:25) Name Value Range Interpretation Code Description Data Sera rce(s) Supporting Document(s) ID Date Data Source [id number] 04/11/2020 07:45:00 PM EDT [facility] 1 Clinical Report - Nurses [facility] Emergency Department [address] [place] [address] Phone #: ext- [phone] 04/11/2020 19:29 Patient: MARIA TERESA MATTHEW Sex: F : 1995 Age: 24yTRIAGEArrived by private vehicle. Historian: patient.Triage time: 19:33 04/11/2020. Acuity: LEVEL 5.Chief Complaint: RIGHT LOWER TOOTHACHE and JAW PAIN.Alert. No acute distress.Onset was gradual. (2 days ago). 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 (last dose at 16:30 hrs).SEPSIS SCREEN: SIRS Screen negative. Sepsis Screen negative. No suspected or confirmed signs ofinfection present. --19:39 04/11/20 Brown Navarro R.N.19:33 04/11/20. BP: 151/91. MAP: 111. HR: 95. RR: 16. O2 saturation: 100%. Temp: 97.3 F. Pain levelnow: 7/10. --19:39 04/11/20 Brown Navarro R.N.Acuity: LEVEL 5. --19:39 04/11/20 Brown Navarro R.N.Weight: 89.8 kg stated. Height/Length: 64 inches Per Patient. BMI: 34. --19:36 04/11/20 Brown Navarro R.N.MedicationsNone. --19:34 04/11/20 Brown Navarro R.N.AllergiesNo Known Drug Allergy. --19:34 04/11/20 Brown Navarro R.N.PROBLEMS:None. --19:35 04/11/20 Brown Navarro R.N.ADDITIONAL SURGERIES:Adenoidectomy.Tonsillectomy.Tympanostomy Tubes. --19:35 04/11/20 Brown Navarro R.N.HistoryPAST MEDICAL HX: Immunizations: up-to-date. Last normal menstrual period- Apr 10.SOCIAL HX: Light tobacco smoker (cigarette)- less than 1/2 a pack per day. The patient was offered HIVtesting but declined. Patient education was provided. The patient was offered hepatitis C testing but 2 Clinical Report - Nurses [facility] Emergency Department [address] [place] [address] Phone #: ext- [phone] 04/11/2020 19:29 Patient: MARIA TERESA MATTHEW Sex: F : 1995 Age: 24y declined. Patient education was provided. The patient has not traveled outside the [place] Infectious disease exposure: The patient was not exposed to chicken pox, measles, mumps, meningitis, staph, strep, mono, C-diff, MRSA, VRE, CRE, influenza, Omar flu, H1N1 flu, Hepatitis A, B and C, Coronavirus, MERS, SARS, tuberculosis, Ebola, HIV or Typhoid. SELF HARM ASSESSMENT: Self harm assessment was performed. The patient answered "no" to the question(s) "Have you recently felt down, depressed, or hopeless?", "Do you have thoughts of harming or killing yourself?", "Do you have a plan for harming or killing yourself?", "Have you recently had thoughts about harming or killing others?", "Do you have any dangerous items in your possession?", "Have you noticed less interest or pleasure in doing things?", "Are you here because you tried to hurt yourself?" and "Have you ever tried to hurt yourself before today?". ABUSE ASSESSMENT: Abuse assessment. Abuse denied. No suspicion of abuse. NUTRITIONAL RISK ASSESSMENT: The nutritional risk assessment revealed no deficiencies. FUNCTIONAL ASSESSMENT: Functional assessment: no impairments noted. LEARNING NEEDS ASSESSMENT: The learning needs assessment revealed no barriers. FALL RISK ASSESSMENT: Fall risk assessment completed. No risk factors identified. SKIN INTEGRITY ASSESSMENT: Skin integrity risk assessment completed. No skin integrity risk identified. --19:39 04/11/20 Brown Navarro R.N. Assessment The patient states feels the same. --19:39 04/11/20 Brown Navarro R.N. Interventions Advanced care plan. Patient does not have advanced directive. --19:39 04/11/20 Brown Navarro R.N.PHYSICAL ASSESSMENTAmbulatory to room.GENERAL / NEURO / PSYCH: Alert. Oriented X 4. Appears in pain.HEENT: Pupils equal, round and reactive to light. Pharynx within normal limits. Voice within normallimits. Moderate dental tenderness (left lower molar). Left lower second molar(s): (partially brokenmolar). ( Pt reports feeling the L lower molar break while eating a few months ago. She has anappointment to be seen next week, but the pain worsened so she came to the ER.). Mucous membranesare pink.RESPIRATORY: Respirations not labored.CVS: Capillary refill less than 2 seconds.SKIN: Skin is warm and dry. Normal skin turgor. --19:45 04/11/20 Cammy Vieyra R.N.NURSING PROGRESS NOTES 3 Clinical Report - Nurses [facility] Emergency Department [address] [place] [address] Phone #: ext- [phone] 04/11/2020 19:29 Patient: MARIA TERESA MATTHEW Sex: F : 1995 Age: 24y 20:16 04/11/2020 Augmentin (Amoxicillin-Pot Clavulanate) PO Tablets 875 mg given. Allergies verified and confirmed 5 rights. Information reviewed with patient including reason for taking this medication. Verbalizes understanding. --20:16 04/11/20 Cammy Vieyra R.N. 20:16 04/11/2020 Toradol (Ketorolac Tromethamine) IM 30 mg given. Given in the right deltoid. Allergies verified and confirmed 5 rights. Information reviewed with patient including reason for taking this medication. Verbalizes understanding. --20:16 04/11/20 Cammy Vieyra R.N. 20:17 04/11/2020 Lidocaine Viscous PO Solution/Elixir 20 mL given. Allergies verified and confirmed 5 rights. Information reviewed with patient including reason for taking this medication. Verbalizes understanding. --20:17 04/11/20 Cammy Vieyra R.N.DISPOSITION / DISCHARGE Condition at departure: improved and stable. No learning barriers present. Discharge instructions provided and reviewed with the patient. Reviewed medication(s) side effects information. Prescription(s) sent electronically to pharmacy. Reviewed referral to a dentist. Patient verbalized understanding. Written instructions provided in [place]. No treatment instructions. The patient was discharged by the physician. She was discharged home. She left ambulatory and via private vehicle. Patient driving. --20:30 04/11/20 Cammy Vieyra R.N. 20:28 04/11/20. BP: 149/92. MAP: 111. HR: 90. RR: 16. O2 saturation: 99%. Temp: 98.1 F. Pain level now: 0/10. --20:30 04/11/20 Cammy Vieyra R.N.Locked/Released at 04/11/2020 20:30 by Cammy Vieyra R.N. Name Value Range Interpretation Code Description Data Sera rce(s) Supporting Document(s) ID Date Data Source [id number] 04/11/2020 07:45:00 PM EDT [facility] 1 Clinical Report - Physicians/Mid Levels [facility] Emergency Department [address] [place] [address] Phone #: ext- [phone] 04/11/2020 19:29 [id number] Sex[facility] F : 1995 Age: 24y Time Seen: 20:00 04/11/2020. Arrived- By private vehicle. Historian- patient.HISTORY OF PRESENT ILLNESS Chief Complaint: DENTAL PAIN. TOOTHACHE and SWELLING OF JAW / FACE. This started 3 days ago and is still present. It was abrupt in onset and has been constant. Pain described as moderate. No sore throat, mouth sores, nasal discharge or congestion or ear pain. No swollen face or facial pain. She has had toothache, swelling of the jaw and jaw pain. Similar symptoms previously. Patient has had similar symptoms once. Recent medical care: Not recently seen/assessed.REVIEW OF SYSTEMSLast normal menstrual period- ended yesterday. No fever, eye discomfort, cough, difficulty breathing orchest pain. No nausea, diarrhea, abdominal pain, difficulty with urination or headache. No faintingepisodes, joint pain, skin rash, enlarged lymph nodes or vomiting.PAST HISTORYProblems:None. Additional Surgeries: Adenoidectomy. Tonsillectomy. Tympanostomy Tubes. Medications: None. Allergies: No Known Drug Allergy.SOCIAL HISTORYLight tobacco smoker (cigarette)- less than 1/2 a pack per day. No alcohol use or drug use.PHYSICAL EXAMVital Signs: 04/11/2020 19:33 BP: 151/91. MAP: 111. HR: 95. RR: 16. O2 saturation: 100%. Temp: 97.3F. Pain level now: 7/10. Have been reviewed as abnormal. Hypertensive. Oxygen saturation normal.Appearance: Alert. No acute distress.Head: Normal external inspection. 2 Clinical Report - Physicians/[facility] Emergency Department [address] [place] [address] Phone #: ext- [phone] 04/11/2020 19:29 Patient: MARIA TERESA MATTHEW Sex: F : 1995 Age: 24y Eyes: Pupils equal, round and reactive to light. Conjunctivae and eyelids normal. ENT: Moderate, localized dental decay with gingival tenderness, induration and swelling (upper left second molar). Ears normal. Nose normal. Pharynx normal. Lips normal. Gums normal. No trismus present. Uvula midline. Neck: Normal inspection. Trachea midline. No adenopathy. Thyroid normal. Neck supple. CVS: Normal heart rate. Respiratory: No respiratory distress. Abdomen: Nontender. Skin: Normal skin color. No rash. Normal skin turgor. Extremities: Extremities nontender. Neuro: Oriented X 3.PROGRESS AND PROCEDURESCourse of Care: :Apr 11 2020. Evaluation after observation. (Discussed exam findings and pt isagreeable with dx and tx plan.). Patient counseled in person regarding the patient's stable condition, diagnosis and need for follow-up. Patient agrees with plan of care. 20:Apr 11 2020. Disposition: Discharged home in good and improved condition (:Apr 11 2020).CLINICAL IMPRESSION Periapical dental abscess with sinus tract.INSTRUCTIONS Your Current Medications: . No home medication. Prescription Medications: Augmentin 875 mg-125 mg tablet Take 1 tablet twice a day as directed for 10 days -- Dispense 20 tablet. Refills: 0. Substitution permitted. Pharmacy - [facility] [id number] [facility] [id number] [place] [address] ; [place] [address]. . Follow- up: Follow up with a specialist Dentist as scheduled. Reason for referral: evaluation and treatment. Summary of care provided to patient. Understanding of the discharge instructions verbalized by patient. 3 Clinical Report - Physicians/Mid Levels [facility] Emergency Department [address] [place] [address] Phone #: ext- [phone] 04/11/2020 19:29 Patient: MARIA TERESA MATTHEW Sex: F : 1995 Age: 24y(Electronically signed by MARIA DE JESUS Ruiz 04/11/2020 21:25) Name Value Range Interpretation Code Description Data Sera rce(s) Supporting Document(s) Procedure Vital Signs ID Date Data Source UNK Name Value Range Interpretation Code Description Data Source(s) Body mass index (BMI) [Ratio] 32.6 kg/m2 32.6 k g/m2 [facility] ([facility], [facility]) Body height 64 [in_i] 64 [in_i] [facility] ([facility], [facility]) 5'4" Body weight 190.00 [lb_av] 190.00 [lb_av] [facility] ([facility], [facility]) Body temperature 98.2 [degF] 98.2 [degF] [facility] ([facility], [facility]) Oxygen saturation in Arterial blood by Pulse oximetry 99 % 99 % [facility] ([facility], [facility]) Respiratory rate 16 /min 16 /min [facility] ( [facility], [facility]) Heart rate 102 /min 102 /min [facility] ([facility], [facility]) Diastolic blood pressure 85 mm[Hg] 85 mm[Hg] [facility] ([facility], [facility]) Systolic blood pressure 124 mm[Hg] 124 mm[Hg] [facility] ([facility], [facility])
[2020-09-03] MEDS ORDERED: IBUP200C25 PO (12:48)
[2020-09-03] MEDS ORDERED: CLIN150C15 (12:48)
[2020-09-03] MEDS ORDERED: ACET500T15 PO (12:48)
--- OUTSIDE RECORDS SUMMARY | 2020-09-03 13:15 | CCD ---
Author Author [facility] Organization [facility] Address Unknown Phone Unavailable Care Team Providers Care Carpenter Refrigerator Name Role Phone Kourtney ALFRED Unavailable Unavailable [...] Unavailable Unavailable Berta GAMINO MD Unavailable Unavailable HANNYBerta SLOAN MD Unavailable [...] is protected by Article 27-F of the [facility] Public Health law. If you continue you may have access to information: Regarding HIV / AIDS; Provided by facilities licensed or operated by the [facility] Office of Mental Health; or Provided by the [facility] Office for People With Developmental Disabilities. If such information is present, then the following [facility] mandated warning applies: This information has been [...] law may result in a fine or [place] health care [place] sentence or both. A general authorization for the release of medical or other information is NOT sufficient authorization for further disc losure. Allergies and Adverse Reactions Type Description Substance Reaction Status Data Source(s ) No Known Drug Allergies No Known Drug Allergies [facility] No Known Environmental Allergies No Known Environmental Al lergies [facility] No Known Food Allergies No Known Food Allergies [facility] Family History Family Member Name Family Member Gender Family Member Status Date o f Status Description Data Source(s) Unknown Unknown Problem [facility] ([facility], [facility]) Encounters Encounter Providers Location Date Indications Data Source(s ) Emergency Attender: LIZY ALFREDConsultant: PCP NO 08/23/2020 09:50:00 PM EST - 08/23/2020 11:15:00 PM EST [facility] Patient discharged. Emergency Attender: JOSÉ GAMINO MDConsultant: PCP NO 08/02/2020 11:04:00 PM EST - 08/03/2020 01:40:00 AM EST [facility] Patient discharged. Emergency Attender: EUFEMIA SLAUGHTERConsultant: PCP NO 04/11/2020 07:45:00 PM EDT - 04/11/2020 08:30:00 PM EDT [facility] Patient admitted. Outpatient Attender: JUAN torres 09/26/2019 03:50:00 PM EST [facility] ([facility], [facility]) Medications Medication Brand Name Start Date [...] MOUTH FOUR TIMES A DAY SOLD: 08/04/2020 [facility] 500 mg 08/02/2020 12:00:00 AM EST [...] Amoxicillin 09/26/2019 12:00:00 AM EST active [facility] ([facility], [facility] Insurance Providers Payer name Policy type / Coverage type Policy ID Covered green party ID Covered green party's relationship to peters Policy Peters Plan Information TULIO [id number] SP [id number] [facility] PLAN [facility] [id number] SP [id number] [place] [place] [id number] 18 [id number] UNHC AMERICHOICE XIX -O [id number] 18 [id number] MEDICAID [id number] SP [id number] MEDICAID M [id number] S [id number] [facility] Health Maintenance Organization (HMO) [id number] Self [id number] [facility] Health Maintenance Organization (HMO) [id number] Self [id number] [facility] Health Maintenance Organization (HMO) [id number] Self [id number] [facility] Health Maintenance Organization (HMO) [id number] Self [id number] [facility] Health Maintenance Organization (HMO) [id number] Self [id number] [facility] Health Maintenance Organization (HMO) [id number] Self [id number] [employer] PLAN [facility] [id number] SP [id number] MEDICAID -O/P EMERGENCY ROOM [id number] 18 [id number] AMERICHOICE UNHC XIX HMO -I/P [id number] 18 [id number] AMERICHOICE UNHC XIX HMO -I/P [id number] 18 [id number] UNHC AMERICHOICE XIX -HMO [id number] 18 [id number] [facility] P [id number] S [id number] [facility]) P [id number] S [id number] UNHC XIX HMO-O/P [id number] [facility] [id number] MEDICAID - CLINIC [id number] 18 CU [id number] Problems, Conditions, and Diagnoses Code Display Name Description Problem Type Effective Dates Data Source(s) K047 Periapical abscess without sinus Periapical absc ess without sinus Diagnosis 08/23/2020 09:50:00 PM [facility] K0889 Other specified disorders of teeth and s upporting structures Other specified disorders of teeth and supporting structures Diagnosis 08/23/2020 09:50:00 PM [facility] [id number] Unspecified place in unspeci fied non-institutional (private) residence as the place of occurrence of the external cause Unspecified place in unspecified non-institutional (private) residence as the place of occurrence of the external cause Diagnosis 08/02/2020 11:04:00 PM [facility] [id number] Striking against or struck by other obje cts, initial encounter Striking against or struck by other objects, initial encounter Diagnosis 08/02/2020 11:04:00 PM [facility] [id number] Allergy, unspecified, initial encounter Allergy, unspecified, initial encounter Diagnosis 08/02/2020 11:04:00 PM [facility] B50507 Cellulitis of face Cellulitis of face Diagnosis 06/2021 11:04:00 PM [facility] Z232ILL Unspecified injury of neck, initial enco unter Unspecified injury of neck, initial encounter Diagnosis 08/02/2020 11:04:00 PM [facility] V42671 Nicotine dependence, cigarettes, uncompl icated Nicotine dependence, cigarettes, uncomplicated Diagnosis 04/11/2020 07:45:00 PM EDT [facility] K046 Periapical abscess with sinus Periapical abscess with sinus Diagnosis 04/11/2020 07:45:00 PM EDT [facility] Results ID Date Data Source [id number] 08/23/2020 09:50:00 PM [facility] 1 OrderSheet [facility] Emergency Department [address] [place] [address] Phone #: ext- [phone] 08/23/2020 21:50 [id number] Sex: F : 1995 Age: 25yWEIGHT:81.6 kg [...] Ross ; Rylan Verbal order per; Lizy AlfredGENERAL ORDERSOrder Description Priority Entered Acknowledged Initialed[Electronically signed by Britt Petersen R.N. (23:35 08/23/2020)][Electronically signed by Lizy Alfred (05:10 08/24/2020)] 2 OrderSheet [facility] Emergency Department [address] [place] [address] Phone #: ext- [phone] 08/23/2020 21:50 Patient: MARIA TERESA MATTHEW Sex: F : 1995 Age: 25y[Electronically locked by Britt Petersen R.N. (23:35 08/23/2020)] Name Value Range Interpretation Code Description Data Sera rce(s) Supporting Document(s) ID Date Data Source [id number] 08/23/2020 09:50:00 PM EST [facility] 1 Medication Reconciliation Report [facility] Emergency Department [address] [place] [address] Phone #: ext- [phone] 08/23/2020 21:50 Patient: [...] Dispense 28 capsule.Refills: 0. Substitution permitted.Pharmacy - [facility] #[facility] - [id number] ; [place] [address]. Phone: FaxNumber: . -- Lizy Alfred Name Value Range Interpretation Code Description Data Sera rce(s) Supporting Document(s) ID Date Data Source [id number] 08/23/2020 09:50:00 PM [facility] 1 Medication Administration Record [facility] Emergency Department [address] [place] [address] Phone #: ext- [phone] 08/23/2020 21:50 Patient: [...] rce(s) Supporting Document(s) ID Date Data Source [id number] 08/23/2020 09:50:00 PM [facility] 1 General Instructions [facility] Emergency Department [address] [place] [address] Phone #: ext- [phone] 08/23/2020 21:50 Patient: [...] Dispense 28 capsule.Refills: 0. Substitution permitted.Pharmacy - [facility] - [id number] ; [place] [address]. FaxNumber: .Follow-up:Follow up with your healthcare provider your dentist tomorrow. Call for an appointment. Reason for referral:evaluation and treatment. Summary of care provided to patient via paper. Screening today revealed thepatient's blood pressure to be in the hypertensive stage 2 range. The patient should follow up with aprimary care provider for blood pressure management. ADDITIONAL INFORMATIONDental Pain 2 General Instructions [facility] Emergency Department [address] [place] [address] Phone #: ext- [phone] 08/23/2020 21:50 Patient: MARIA TERESA MATTHEW Sex: [...] temperature. Use toothpaste made for sensitive teeth. Bryant gently up and down instead of sideways. Brushing sideways can wear away root surfaces if they are exposed. If your tooth is chipped or cracked, see a dentist right away. For short-term pain relief, put clove oil right on the tooth. You can buy clove oil at pharmacies. Some pharmacies carry an mmbh-sku-tyhupjz toothache kit. This has a paste you can put on the exposed tooth to make it less sensitive. 3 General Instructions [facility] Emergency Department [address] [place] [address] Phone #: ext- [phone] 08/23/2020 21:50 Patient: MARIA TERESA MATTHEW Sex: F : 1995 Age: 25y Use a cold pack. Put a cold pack on your jaw over the sore area to help reduce pain. Ask your healthcare provider about using rgml-rma-eycitdl medicine for pain. You may use this [...] This will keep the pain from comingback.Call [phone] if any of these occur: Abnormal drowsiness Headache or stiff neck Weakness or fainting Trouble swallowing or breathingWhen to get medical adviceCall your healthcare provider right away if any of these occur: Your face gets swollen or red Pain gets worse or spreads to your neck Fever of 100.4F (38.0C) or higher, or as directed by your provider Pus drains from the tooth [phone] [employer] [address] [place] [address], [place] [address]. All rights reserved. This information is not intended as asubstitute for professional medical care. Always follow your healthcare professional's instructions.Dental AbscessA dental abscess is an infection of the tooth socket. It often starts with a crack or cavity in the tooth. Apocket of pus forms between the tooth and the bone. The infection causes pain and swelling of the 4 General Instructions [facility] Emergency Department [address] [place] [address] Phone #: ext- [phone] 08/23/2020 21:50 Patient: MARIA TERESA MATTHEW Sex: [...] reduce pain. Oil of cloves is sold uqle-gpa-ucskwqu in pharmacies. Some pharmacies carry an ulnc-jgi-qjgzkfe "toothache kit." This contains oil of cloves [...] a plastic bag that 5 General Instructions [facility] Emergency Department [address] [place] [address] Phone #: ext- [phone] 08/23/2020 21:50 Patient: [...] sooner.Follow-up careFollow up as advised with an drag car racer, or oral surgeon. Even though your pain may improve withthe treatment given today, only a dentist, drag car racer, or oral surgeon can provide full treatment forthis problem. If a culture was done, you will be told if the treatment needs to be changed. You can call in as directed for the results. If X-rays were taken, they will be reviewed by a specialist. You will be given the results, especially if they affect treatment.Call [phone] if any of these occur: Trouble breathing [...] by your healthcare provider 6 General Instructions [facility] Emergency Department [address] [place] [address] Phone #: ext- [phone] 08/23/2020 21:50 Patient: MARIA TERESA MATTHEW Sex: F : 1995 Age: 25y Unusual drowsiness, a headache or stiff neck, or weakness Pus drains from the gum or tooth You can't open your mouth wide [phone] [employer] [address] [place] [address]. All rights reserved. This information is not intended as asubstitute for professional medical care. Always follow your healthcare professional's instructions. You have been given the following additional information: Dental Pain Tooth Abscess(Electronically signed by Lizy Alfred 08/24/2020 05:10) Name Value Range Interpretation Code Description Data Sera rce(s) Supporting Document(s) ID Date Data Source [id number] 08/23/2020 09:50:00 PM EST [facility] 1 Clinical Report - Nurses [facility] Emergency Department [address] [place] [address] Phone #: ext- [phone] 08/23/2020 21:50 Patient: [...] no deficiencies. 2 Clinical Report - Nurses [facility] Emergency Department [address] [place] [address] Phone #: ext- [phone] 08/23/2020 21:50 Patient: MARIA TERESA MATTHEW Sex: F : 1995 Age: 25y FUNCTIONAL ASSESSMENT: Functional assessment: no impairments noted. LEARNING NEEDS ASSESSMENT: The learning needs assessment revealed no barriers. FALL RISK ASSESSMENT: Fall risk assessment completed. No risk factors identified. SKIN INTEGRITY ASSESSMENT: Skin integrity risk assessment completed. No skin integrity risk identified. --22:00 08/23/20 Arteimo Osorio SOCIAL HX: The patient has not traveled outside the [place] Infectious disease exposure: The patient was not exposed to Coronavirus. --22:02 08/23/20 Artemio Osorio. Interventions Identification and allergy band on patient. --22:00 08/23/20 Artemio Osorio.PHYSICAL ASSESSMENTGENERAL / NEURO / PSYCH: Alert. Oriented X 4. Appears in no acute distress. Appears in pain.HEENT: Dental tenderness. Dental decay. --22:03 08/23/20 Artemio Osorio.NURSING PROGRESS NOTESThe plan of care for this patient has been created. Two patient identifiers checked. Call light placed inreach. Bed placed in lowest position. Brakes of bed on. --22:01 08/23/20 Artemio Osorio 22:08/23/2020 Toradol IM 60 mg (NOW x1) was refused by patient because of states it does work. --22:08/23/20 Artemio Osorio 22:08/23/2020 Lidocaine Viscous PO 20 mL given. Allergies verified and confirmed 5 rights. Information reviewed with patient including reason for taking this medication, signs of allergic reaction and precautions. Verbalizes understanding. --22:21 08/23/20 Rylan Ross 22:30 08/23/2020 Clindamycin PO 150 [...] Patient verbalized understanding. Written instructions provided in Chadian. The patient was discharged by the physician. She was discharged home and accompanied by family. 3 Clinical Report - Nurses [facility] Emergency Department [address] [place] [address] Phone #: ext- [phone] 08/23/2020 21:50 Patient: [...] rce(s) Supporting Document(s) ID Date Data Source [id number] 08/23/2020 09:50:00 PM [facility] 1 Clinical Report - Physicians/Mid Levels [facility] Emergency Department [address] [place] [address] Phone #: ext- [phone] 08/23/2020 21:50 Patient: MARIA TERESA MATTHEW Sex: [...] Tonsillectomy. 2 Clinical Report - Physicians/Mid Levels [facility] Emergency Department [address] [place] [address] Phone #: ext- [phone] 08/23/2020 21:50 Patient: MARIA TERESA MATTHEW Sex: F : 1995 Age: 25y Tympanostomy Tubes. Medications: Ibuprofen Oral. predniSONE Oral 20 mg, daily. Allergies: Amoxicillin.(facial swelling).SOCIAL HISTORYNever smoker. No alcohol use or drug use.ADDITIONAL NOTESThe nursing notes have been reviewed.PHYSICAL EXAMVital Signs: 08/23/2020 21:52 BP: sitting 151/87. MAP: 108. HR: 99. RR: 16. O2 saturation: 99% on roomair. Temp: 98.4 F. Pain level now: 10/10. Oxygen sa turation normal.Appearance: Alert. No acute [...] 08/23/20. Patient offered toradol and refused. 22:34 02/02/21. Patient given viscous lidocaine for pain and [...] is 3 Clinical Report - Physicians/Mid Levels [facility] Emergency Department [address] [place] [address] Phone #: ext- [phone] 08/23/2020 21:50 Patient: MARIA TERESA MATTHEW Sex: [...] capsule. Refills: 0. Substitution permitted. Pharmacy - [facility] #[facility] - [id number] ; [place] [address]. . Follow-up: Follow up with your healthcare [...] rce(s) Supporting Document(s) ID Date Data Source [id number] 08/02/2020 11:04:00 PM EST [facility] 1 OrderSheet [facility] Emergency Department [address] [place] [address] Phone #: ext- [phone] 08/02/2020 22:50 Patient: MARIA TERESA MATTHEW Sex: F : 1995 Age: 24yWEIGHT:81.6 kg (S) HEIGHT:64 inches (S) BMI:30.9ALLERG IES: No Known Drug AllergyCHIEF COMPLAINT: neckDIAGNOSIS: Cellulitis of skin, Cellulitis check, Immune hypersensitivity reactionLAB ORDERSOrder Description Priority Entered Acknowledged InitialedCBC w Diff STAT 23:17 08/02/2020 23:27 José Pace MD; Rebecca RNCMP STAT 23:08/02/2020 23:27 José Pace MD; Rebecca LOPEZHCG Serum Qual STAT 23:08/02/2020 23:27 José Pace MD; Rebecca LOPEZDIAGNOSTIC STUDY ORDERSOrder Description Priority Entered Acknowledged InitialedCT Maxillofacial W/ STAT 23:08/02/2020 Ack'd: 23:27 00:27 08/03/2020José Donovan MD; Lupillo Fernandez RN(Oxygen?(No))(IV?(Yes)) Reason for Study: Infection, SwellingMEDICATION/IV/DRIP/FLUID ORDERSOrder Description Priority Entered Acknowledged InitialedBenadryl IVP 25 mg 00:03 08/03/2020 00:28 José Pace MD; Rebecca RNPepcid IVPB 20 00:03 08/03/2020 00:29 Stevmorenomg/50mL (NOW Hanny wilhelm Norma MD; Rebecca LOPEZInfuse over 30minutes.)SOLU-Medrol IVP 00:03 08/03/2020 00:28 José Corcoran MD; Rebecca LOPEZGENERAL ORDERSOrder Description Priority Entered Acknowledged Initialed[Electronically signed by Lupillo Fernandez RN (01:40 08/03/2020)][Electronically signed by José Gamino MD (02:53 08/03/2020)] 2 OrderSheet [facility] Emergency Department [address] [place] [address] Phone #: ext- [phone] 08/02/2020 22:50 Patient: MARIA TERESA MATTHEW Sex: F : 1995 Age: 24y[Electronically locked by Lupillo Fernandez RN (01:40 08/03/2020)] Name Value Range Interpretation Code Description Data Sera rce(s) Supporting Document(s) ID Date Data Source [id number] 08/02/2020 11:04:00 PM EST [facility] 1 Medication Reconciliation Report [facility] Emergency Department [address] [place] [address] Phone #: ext- [phone] 08/02/2020 22:50 Patient: [...] Emergency Department:Benadryl [IVP] IVP 25 mg, administered: 00:08/03/2020olu-Medrol [IVP] IVP 125 mg, administered: 00:1Pepcid [IVPB] IVPB bolus 0, then 20 mg 100 mg/min, administered: 00:29 08/03/2020The following Medications were prescribed to the patient:clindamycin HCl 300 mg capsule Take 1 capsule four times a day for 10 days -- Dispense 40 capsule.Refills: 0. Substitution permitted.[facility] #[facility] - [id number] ; [place] [address]. FaxNumber: .prednisone 20 mg tablet Take 3 tablet once a day -- Dispense 15 tablet. Refills: 0. Substitutionpermitted.[facility] #93 - [id number] ; [place] [address]. 2 Medication Reconciliation Report [facility] Emergency Department [address] [place] [address] Phone #: ext- [phone] 08/02/2020 22:50 Patient: MARIA TERESA MATTHEW Sex: F : 1995 Age: 24yFaxNumber: . -- José Gamino MD Name Value Range Interpretation Code Description Data Sera rce(s) Supporting Document(s) ID Date Data Source [id number] 08/02/2020 11:04:00 PM EST [facility] 1 Medication Administration Record [facility] Emergency Department [address] [place] [address] Phone #: [phone] 08/02/2020 22:50 Patient: MARIA TERESA MATTHEW Sex: F : 1995 Age: 24yWeight: 81.6 kgHeight/Length: 64 inBMI: 30.9ALLERGIES: No Known Drug Allergy Date/Time Medication Administered Medication OrderedGiven BENADRYL [IVP] (DIPHENHYDRAMINE Benadryl IVP 25 mg00:23 08/03/2020 HCL)Lupillo Fernandez RN Dose: 25 mg IVP Site: #1 left ACStart PEPCID [IVPB] Pepcid IVPB 20 mg/50mL (NOW00:29 08/03/2020 Dose: 20 mg IVPB x1, Infuse over 30 minutes.)Lupillo Fernandez RN Rate: 100 mg/min---- Dispensed: 50 mL bagStop Site: #1 left AC00:51 08/03/2020jonnathan Fernandez RNGiven SOLU-MEDROL [IVP] SOLU-Medrol IVP 125 mg00:23 08/03/2020 (METHYLPREDNISOLONE SODIUMStevmoreno Fernandez RN SUCC) Dose: 125 mg IVP Site: #1 left AC Name Value Range Interpretation Code Description Data Sera rce(s) Supporting Document(s) ID Date Data Source [id number] 08/02/2020 11:04:00 PM EST [facility] 1 General Instructions [facility] Emergency Department [address] [place] [address] Phone #: ext- [phone] 08/02/2020 22:50 Patient: [...] days -- Dispense 40 capsule.Refills: 0. Substitution permitted.[facility] #96 - [id number] ; [place] [address]. FaxNumber: .prednisone 20 mg tablet Take 3 tablet once a day -- Dispense 15 tablet. Refills: 0. Substitutionpermitted.[facility] #31 - [id number] ; [place] [address]. FaxNumber: .Follow- up:Follow up with your doctor in two days even if well. Call for an appointment. Reason for referral: evaluation.Summary of care provided to patient via paper. 2 General Instructions [facility] Emergency Department [address] [place] [address] Phone #: ext- [phone] 08/02/2020 22:50 Patient: [...] your throat is closing 3 General Instructions [facility] Emergency Department [address] [place] [address] Phone #: ext- [phone] 08/02/2020 22:50 Patient: MARIA TERESA MATHTEW Sex: F : 1995 Age: 24y Trouble [...] products Chemicals or dyes in clothing, linen, industrial machine assembler, hair dyes, soaps, iodineMany viruses and common colds can cause a rash that is not an allergic reaction. Sometimes it ishard to tell the difference between allergies, sensitivity, or an intolerance to something. This is 4 General Instructions [facility] Emergency Department [address] [place] [address] Phone #: [phone]- [phone] 08/02/2020 22:50 Patient: MARIA TERESA MATTHEW Sex: F : 1995 Age: 24yespecially true [...] damage the skin. Oral diphenhydramine is an ghdi-lqb-vcponnw antihistamine sold at pharmacies and grocery stores. [...] Always check the affected 5 General Instructions [facility] Emergency Department [address] [place] [address] Phone #: ext- [phone] 08/02/2020 22:50 Patient: [...] swallowing, ask your provider about carryingauto-injectable epinephrine.Call [phone] [phone] if any of these occur: Trouble breathing or swallowing, wheezing Cool, moist, pale skin Shortness of breath Hoarse voice or trouble speaking Confusion Very drowsy or trouble awakening Fainting or loss of consciousness Rapid heart rate Feeling of dizziness or weakness or a sudden drop in blood pressure Feeling of doom Feeling lightheaded 6 General Instructions [facility] Emergency Department [address] [place] [address] Phone #: ext- [phone] 08/02/2020 22:50 Patient: [...] as directed by your provider 2019 [employer] [address] [place] [address]. All rights reserved. This information is not [...] sulfonamides (sulfa ,medicines) Aspirin 7 General Instructions [facility] Emergency Department [address] [place] [address] Phone #: ext- [phone] 08/02/2020 22:50 Patient: [...] on the genitalsHome care 8 General Instructions [facility] [facility] Emergency Department [address] [place] [address] Phone #: ext- [phone] 08/02/2020 22:50 Patient: [...] a prescription antihistamine, oral diphenhydramine is an ncne-ogq-tygwzhk antihistamine available at pharmacies and grocery stores. [...] with trouble urinating due to an 9 General Instructions [facility] Emergency Department [address] [place] [address] Phone #: ext- [phone] 08/02/2020 22:50 Patient: [...] not continue to improveor they get worse.Call [phone] if any of these occur: Shortness of [...] Continuing or recurring symptoms 10 General Instructions [facility] Emergency Department [address] [place] [address] Phone #: ext- [phone] 08/02/2020 22:50 Patient: [...] colored drainage from the affected area [employer] [address] [place] [address], [place] [address]. All rights reserved. This information is not [...] area clean and dry. 11 General Instructions [facility] Emergency Department [address] [place] [address] Phone #: ext- [phone] 08/02/2020 22:50 Patient: [...] or higher after 2 days on antibiotics [id number] [employer] [address] [place] [address], [place] [id number]. All rights reserved. This information is not intended as asubstitute for professional medical care. A lways follow your healthcare professional's instructions. You have been given the following additional information: General Allergic Reactions Medicine Reaction: Allergic Cellulitis(Electronically signed by José Gamino MD 08/03/2020 02:53) Name Value Range Interpretation Code Description Data Sera rce(s) Supporting Document(s) ID Date Data Source [id number] 08/02/2020 11:04:00 PM EST [facility] 1 Clinical Report - Nurses [facility] Emergency Department [address] [place] [address] Phone #: ext- [phone] 08/02/2020 22:50 Patient: MARIA TERESA MATTHEW Sex: F : 1995 Age: 24yTRIAGEArrived by private vehicle. Historian: patient.Triage time: 22:54 08/02/2020. Acuity: LEVEL 4.Chief Complaint: (swelling to upper lip).Onset was gradual. (2 days ago). ( around upper gum and has moved to upper lip with pain going intonose and left eye).Treatment CONSERVATION PLANNER:(Amoxi cillin,hydrocodone 5-325).SEPSIS SCREEN: SIRS SCREEN NEGATIVE. SEPSIS SCREEN NEGATIVE. No suspected or confirmedsigns of infection present. --23:01 08/02/20 Lupillo Fernandez RN22:54 08/02/20. BP: 146/99 (regular adult cuff) taken on the right arm, via an automated monitor, whilelying. MAP: 114. HR: 106 (regular, normal rate and strong). RR: 16 (regular, unlabored and normal). J8ixfshajwyb: 99% on room air. Temp: 97.2 F (oral). Pain level now: 01/28. --23:01 08/02/20 Lupillo Fernandez RN.Weight: 81.6 kg [...] Lupillo Fernandez RN.Medication/allergy information source: the patient. --23:01 08/02/20 Lupillo Fernandez RN.HistoryPAST MEDICAL HX: Negative. Immunizations: up-to-date. Last normal menstrual period- Jul 26 2020.SURGERY HX: Adenoidectomy. Tympanostomy tube placement. Tonsillectomy.SOCIAL HX: Current every day heavy tobacco smoker (cigarette)- less than 1 pack per day. No alcoholuse or drug use. The patient was offered HIV testing but declined and hepatitis C testing but declined. 2 Clinical Report - Nurses [facility] Emergency Department [address] [place] [address] Phone #: ext- [phone] 08/02/2020 22:50 Patient: [...] Assessment The patient states feels the same. --23:08/02/20 Lupillo Fernandez RN.PHYSICAL ASSESSMENTAmbulatory to room.GENERAL / [...] and dry. Normal skin turgor. --23:08/02/20 Lupillo Feranndez RN.NURSING PROGRESS NOTESHead of bed elevated 30 [...] Fernandez RN 3 Clinical Report - Nurses [facility] Emergency Department [address] [place] [address] Phone #: ext- [phone] 08/02/2020 22:50 --- Patient: [id number] Sex[facility] : 1995 Age: 24y 00:23 [...] precautions. Verbalizes understanding. --00:08/03/20 Lupillo Fernandez RN 00:51 08/03/2020 Pepcid IVPB via IV site #1 Discontinued: bag #1 completed. Total amount infused: 50 mL. IV patency established. IV site checked: no pain, redness, or swelling. IV flushed thoroughly. --00:51 08/03/20 Lupillo Fernandez RN.DISPOSITION / DISCHARGE [place] Coma Scale: 15- eyes open- spontaneous (4); [...] Patient verbalized understanding. Written instructions provided in Chadian. The patient was discharged home and accompanied by physician's assistant. She left ambulatory and via private vehicle. 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 --01:40 08/03/20 Lupillo Fernandez RN 01:38 08/03/20. BP: 128/78 (regular adult cuff) taken on the right arm, via an automated monitor, while lying. MAP: 94. HR: 72 (regular, normal rate and strong). RR: 16 (regular, unlabored and normal). O2 saturation: 98% on room air. Temp: 98.3 F (oral). Pain level now: 10/29. --01:40 08/03/20 Lupillo Fernandez RN.Locked/Released at 08/03/2020 01:40 by Lupillo Fernandez RN Name Value Range Interpretation Code Description Data Sera rce(s) Supporting Document(s) ID Date Data Source [id number] 08/02/2020 11:04:00 PM [facility] 1 Clinical Report - Physicians/Mid Levels [facility] Emergency Department [address] [place] [address] Phone #: ext- [phone] 08/02/2020 22:50 Patient: MARIA TERESA MATTHEW Sex: F : 1995 Age: 24y Arrived- [...] reviewed. 2 Clinical Report - Physicians/Mid Levels [facility] Emergency Department [address] [place] [address] Phone #: ext- [phone] 08/02/2020 22:50 Patient: [...] 0.20) 3 Clinical Report - Physicians/Mid Levels [facility] Emergency Department [address] [place] [address] Phone #: ext- [phone] 08/02/2020 22:50 Patient: [...] Male GFR Interprentation 20-49 yrs >60 mL/min Iftsdi85-47 yrs >56 mL/min Normal 60-69 yrs >49 mL/min Normal 70-79yrs>42 mL/min Normal 80 and above >35 mL/min Normal Female GFRInterpretation 20-39 yrs >60 mL/min Normal 40-49 yrs >58 mL/minNormal 50- 59 yrs >51 mL/min Normal 60-69 yrs >45 mL/min Azujkr87-60 yrs >39 mL/min Normal 80 and above >32 mL/min NormalBeta-HCG, Qual Serum: (NAS: 08/02/2020 23:26) ( MsgRcvd 08/02/2020 23:58) Final results Test Result Flag Units (Reference) HCG SERUM QUAL NEGATIVE (NORMAL: NEGAT HCG SERUM QL REENTER NEGATIVE (NORMAL: NEGAT { KIT LOT # [id number] ){ KIT EXP [id number] ){ PROCEDURAL CONTROL VALID)CT Maxillofacial W/ Cont: (NAS: 08/02/2020 23:17) ( MsgRcvd 08/03/2020 00:39) Final results Exam CT MAXILLOFACIAL W/CONTRAST [address] [place] [address] ---------NAME--------- NUMBER SEX AGE ADMIT DISC. XRAY# F/C TYPE VIPUL Hampton [id number] F 24 08/02/20 [id number] NA E/R DATE OF : 1995 M/R# [id number] #: [id number] TR-04 LOCATION: EMERGENCY DEPT TRANSCRIBED: 08/03/[address] MAXILLOFACIAL W/CONTRAST 11754 COMPLETED:08/03/20 27 DLA 2101 4 Clinical Report - Physicians/Mid Levels [facility] Emergency Department [address] [place] [address] Phone #: ext- [phone] 08/02/2020 22:50 Patient: MARIA TERESA MATTHEW Sex: [...] to examination. Exam has been sent to [facility] - If further information is needed, [...] to examination. Exam has been sent to [facility] - If further information is needed, [...] she 5 Clinical Report - Physicians/Mid Levels [facility] Emergency Department [address] [place] [address] Phone #: [phone] ext- [phone] 08/02/2020 22:50 Patient: MARIA TERESA MATTHEW Sex: [...] capsule. Refills: 0. Substitution permitted. Pharmacy - [facility] - [id number] ; [place] [address]. . 6 Clinical Report - Physicians/Mid Levels [facility] Emergency Department [address] [place] [address] Phone #: ext- [phone] 08/02/2020 22:50 Patient: MARIA TERESA MATTHEW Sex: F : 1995 Age: 24y prednisone 20 mg tablet Take 3 tablet once a day -- Dispense 15 tablet. Refills: 0. Substitution permitted. Pharmacy - [facility] - [id number] ; [place] [address]. . Follow-up: Follow up with your doctor in two days even if well. Call for an appointment. Reason for referral: evaluation. Summary of care provided to patient via paper. Understanding of the discharge instructions verbalized by patient.(Electronically signed by José Gamino MD 08/03/2020 02:53) Name Value Range Interpretation Code Description Data Sera rce(s) Supporting Document(s) ID Date Data Source [id number] 08/03/2020 12:38:00 [place] [address] ---------NAME--------- NUMBER SEX AGE ADMIT DISC. XRAY# F/C TYPE VIPUL Hampton [id number] F 24 08/02/20 [id number] NA E/R DATE OF : 1995 M/R# [id number] #: [id number] TR-04 LOCATION: EMERGENCY DEPT TRANSCRIBED: 08/03/[address] MAXILLOFACIAL W/CONTRAST 87461 COMPLETED:08/03/20 27 DLA 1523 Reason(s): Infection Swelling PHYSICIAN: ALEC======= R A D I O L O G Y R E P O R T PATIENT HISTORY:ACTUAL DOSE 299.2 mGy*cm swollen lipPatient has negative beta. Verification of 2 patient identifiers performed.Time Out performed. correct body part and side all verified prior toexamination. Exam has been sent to [facility] - If further informationis needed, the number is . Report will be faxed to ED and/orXray. / COR (DICOM Hx)EXAM: CT Maxillofacial Without IV contrast.CLINICAL HISTORY:ACTUAL DOSE 299.2 mGy*cm swollen lip Patient has negative beta.Verification of 2 patient identifiers performed. Time Out performed. correctbody part and side all verified prior to examination. [facility] further information is needed, the number [phone]. Report will be faxed to ED and/or [...] rce(s) Supporting Document(s) ID Date Data Source [id number] 08/03/2020 12:11:00 AM EST [facility] Name Value Range Interpretation Code Description Data Sera rce(s) Supporting Document(s) COMPREHENSIVE METABOLIC PANEL [facility] COMPREHENSIVE METABOLIC PANEL Sodium [Moles/volume] in Serum or Plasma 138 mEq/L 134 - 153 [facility] Potassium [Moles/volume] in Serum or Plasma 4.0 mEq/L 3.6 - 5.0 [facility] Chloride [Moles/volume] in Serum or Plasma 103 mEq/L 98 - 107 [facility] Carbon dioxide, total [Moles/volume] in Serum or Plasma 26 MEQ/L 22 - 30 [facility] Glucose [Mass/volume] in Serum or Plasma 112 MG/DL 65 - 110 H [facility] BUN <4 MG/DL 7 - 21 L [facility] al Creatinine [Mass/volume] in Serum or Plasma 0.6 MG/DL 0.7 - 1.5 L [facility] BUN/CREAT 7 8 - 27 L [facility] al Protein [Mass/volume] in Serum or Plasma 6.4 G/DL 6.3 - 8.2 [facility] Albumin [Mass/volume] in Serum or Plasma 3.9 G/DL 3.9 - 5.0 [facility] Globulin [Mass/volume] in Serum by calculation 2.5 GM/DL 2.4 - 3.2 [facility] A/G RATIO 1.6 0.8 - 2.0 [facility] Calcium [Mass/volume] in Serum or Plasma 8.9 MG/DL 8.4 - 10.2 [facility] Bilirubin.total [Mass/volume] in Serum or Plasma <0.7 MG/DL 0.2 - 1.3 [facility] Alkaline phosphatase [Enzymatic activity/volume] in Serum or Plasma 69 U/L 38 - 126 [facility] Aspartate aminotransferase [Enzymatic activity/volume] in Se rum or Plasma 9 U/L 5 - 40 [facility] Alanine aminotransferase [Enzymatic activity/volume] in Seru m or Plasma 15 U/L 7 - 56 [facility] Anion gap 3 in Serum or Plasma 9.0 mmol/L 8.0 - 16.0 [facility] AGE 24 yrs [facility] NON-AA GFR >60 mL/min [facility] AFR AMER GFR >60 mL/min [facility] Male GFR In terprentation 20-49 [...] >32 mL/min Normal ID Date Data Source [id number] 08/02/2020 11:56:00 PM EST [facility] Name Value Range Interpretation Code Description Data Sera rce(s) Supporting Document(s) HCG SERUM QUAL NEGATIVE NORMAL: NEGATIVE [facility] HCG SERUM QL REENTER NEGATIVE NORMAL: NEGATIVE [facility] { KIT LOT # [id number] ){ KIT EXP DATE 04-26-21 ){ PROCEDURAL CONTROL VALID ) ID Date Data Source [id number] 08/02/2020 11:38:00 PM [facility] Name Value Range Interpretation Code Description Data Sera rce(s) Supporting Document(s) CBC W/AUTOMATED DIFF [facility] COMPLETE BLOOD COUNT Leukocytes [#/volume] in Blood by Automated count 13.2 10^3/uL 4.2 - 11.0 H [facility] Erythrocytes [#/volume] in Blood by Automated count 5.04 10^6/uL 4. 20 - 5.40 [facility] Hemoglobin [Mass/volume] in Blood 14.1 g/dL 12.0 - 16.0 [facility] Hematocrit [Volume Fraction] of Blood by Automated count 42.1 % 3 7.0 - 47.0 [facility] Erythrocyte mean corpuscular volume [Entitic volume] by Auto mated count 83.5 fL 81.0 - 101 [facility] Erythrocyte mean corpuscular hemoglobin [Entitic mass] by Automated count 28.0 pg 27.0 - 34.0 [facility] Erythrocyte mean corpuscular hemoglobin concentration [Mass/volume] by Automated count 33.5 g/dL 31.0 - 36.0 [facility] Erythrocyte distribution width [Ratio] by Automated count 13.2 % 11.5 - 14.5 [facility] Platelets [#/volume] in Blood by Automated count 364 10^3/uL 150 - 45 0 [facility] Platelet mean volume [Entitic volume] in Blood by Automated count 9.7 fL 7.4 - 10.4 [facility] Neutrophils/100 leukocytes in Blood by Automated count 61.0 % 37. 0 - 80.0 [facility] Lymphocytes/100 leukocytes in Blood by Manual count 30.1 % 25.0 - 40.0 [facility] Monocytes/100 leukocytes in Blood by Automated count 6.5 % 3.0 - 8.0 [facility] Eosinophils/100 leukocytes in Blood by Automated count 1.6 % 0.0 - 7.0 [facility] Basophils/100 leukocytes in Blood by Automated count 0.4 % 0.0 - 2.5 [facility] %IG 0.4 % 0.0 - 0.0 [facility] 0.0 % 0.0 - 0.0 [facility] al Neutrophils [#/volume] in Blood by Automated count 8.06 10^3/uL 2.00 - 6.90 H [facility] Lymphocytes [#/volume] in Blood by Automated count 3.98 10^3/uL 0.60 - 3.40 H [facility] Monocytes [#/volume] in Blood by Automated count 0.86 10^3/uL 0.00 - 0.90 [facility] Eosinophils [#/volume] in Blood by Automated count 0.21 10^3/uL 0.00 - 0.70 [facility] Basophils [#/volume] in Blood by Automated count 0.05 10^3/uL 0.00 - 0.20 [facility] #IG 0.05 10^3/uL 0.00 - 0.10 [facility] ospital #NRBC 0.00 10^3/uL 0.00 - 0.00 [facility] MANUAL DIFF NOT INDICATED [facility] RBC MORPH NOT INDICATED [facility] spital ID Date Data Source [id number] 04/11/2020 07:45:00 PM EDT [facility] 1 OrderSheet [facility] Emergency Department [address] [place] [address] Phone #: ext- [phone] 04/11/2020 19:29 Patient: [...] (now and Grey Chawla R.N.to go home) MARIA DE JESUS;GENERAL ORDERSOrder Description Priority Entered Acknowledged Initialed[Electronically signed by Cammy Vieyra R.N. (20:30 04/11/2020)][Electronically signed by Grey Davison (21:25 04/11/2020)][Electronically locked by Cammy Vieyra R.N. (20:30 04/11/2020)] Name Value Range Interpretation Code Description Data Sera rce(s) Supporting Document(s) ID Date Data Source [id number] 04/11/2020 07:45:00 PM EDT [facility] 1 Medication Reconciliation Report [facility] Emergency Department [address] [place] [address] Phone #: ext- [phone] 04/11/2020 19:29 Patient: [...] Dispense 20tablet. Refills: 0. Substitution permitted.Pharmacy - [facility] [address] [place] - [address] [facility] [place] ; [place] [address]. . -- MARIA DE JESUS Ruiz Name Value Range Interpretation Code Description Data Sera rce(s) Supporting Document(s) ID Date Data Source [id number] 04/11/2020 07:45:00 PM EDT [facility] 1 Medication Administration Record [facility] Emergency Department [address] [place] [address] Phone #: ext- [phone] 04/11/2020 19:29 Patient: MARIA TERESA MATTHEW Sex: F : 1995 Age: 24yWeight: 89.8 kgHeight/Length: 64 inBMI: 34ALLERGIES: No Known Drug Allergy Date/Time Medication Administered Medication OrderedGiven AUGMENTIN [PO] (AMOXICILLIN-POT Augmentin PO 875 mg20:16 04/11/2020 CLAVULANATE)Cammy Vieyra R.N. Dose: 875 mg Tablets POGiven TORADOL [IM] (KETOROLAC Toradol IM 30 mg20:16 04/11/2020 TROMETHAMINE)Cammy Vieyra R.N. Dose: 30 mg IMGiven LIDOCAINE VISCOUS [PO] Lidocaine Viscous PO 20 mL (now20:17 04/11/2020 Dose: 20 mL Solution/Elixir PO and to go h ome)Cammy Vieyra R.N. Name Value Range Interpretation Code Description Data Sera rce(s) Supporting Document(s) ID Date Data Source [id number] 04/11/2020 07:45:00 PM EDT [facility] 1 General Instructions [facility] Emergency Department [address] [place] [address] Phone #: ext- [phone] 04/11/2020 19:29 Patient: MARIA TERESA MATTHEW Sex: F : 1995 Age: 24yPeriapical dental abscess with sinus tract.INSTRUCTIONSYour Current Medications: .No home medication.Prescription Medications:Augmentin 875 mg-125 mg tablet Take 1 tablet twice a day as directed for 10 days -- Dispense 20tablet. Refills: 0. Substitution permitted.Pharmacy - [facility] [address] [place]AB[place] - [address] [facility] [place] ; [place] [address]. .Follow-up:Follow up with a specialist Dentist as [...] Trauma Previous dental work 2 General Instructions [facility] Emergency Department [address] [place] [address] Phone #: ext- [phone] 04/11/2020 19:29 Patient: [...] reduce pain. Oil of cloves is sold pcqc-qej-eblalio in pharmacies. Some pharmacies carry an vmxd-tdd-zfhngkw "toothache kit." This contains oil of cloves [...] are feeling better sooner. 3 General Instructions [facility] Emergency Department [address] [place] [address] Phone #: ext- [phone] 04/11/2020 19:29 Patient: MARIA TERESA MATTHEW Sex: F : 1995 Age: 24yFollow-up careFollow up as advised with an drag car racer, or oral surgeon. Even though your pain may improve withthe treatment given today, only a dentist, drag car racer, or oral surgeon can provide full treatment forthis problem. If a culture was done, you will be told if the treatment needs to be changed. You can call in as directed for the results. If X-rays were taken, they will be reviewed by a specialist. You will be given the results, especially if they affect treatment.Call [phone] if any of these occur: Trouble breathing [...] tooth You can't open your mouth wide [phone] [employer] [address] [place] [address]. All rights reserved. This information is not intended as asubstitute for professional medical care. Always follow your healthcare professional's instructions.Dental Cavity 4 General Instructions [facility] Emergency Department [address] [place] [address] Phone #: ext- [phone] 04/11/2020 19:29 Patient: [...] cloves at drugstores. Some pharmacies carry an seht-ctz-kdpkbrh "toothache kit." This contains a paste that you can put on the exposed tooth to make it less sensitive. 5 General Instructions [facility] Emergency Department [address] [place] [address] Phone #: ext- [phone] 04/11/2020 19:29 Patient: MARIA TERESA MATTHEW Sex: F : 1995 Age: 24y Put a cold pack on your jaw over the sore area to help reduce pain. You may use qynl-vbl-tpizjod medicine to ease pain, unless another medicine [...] this problem to prevent further tooth damage.Call [phone] if any of these occur: Difficulty swallowing [...] Pus drains from the tooth or gum [phone] [employer] [address] [place] [address]. All rights r eserved. This information is not intended as asubstitute for professional medical care. Always follow your healthcare professional's instructions.Dental Pain 6 General Instructions [facility] Emergency Department [address] [place] [address] Phone #: ext- [phone] 04/11/2020 19:29 Patient: [...] temperature. Use toothpaste made for sensitive teeth. Bryant gently up and down instead of sideways. Brushing sideways can wear away root surfaces if they are exposed. If your tooth is chipped or cracked, or if there is a large open cavity, put oil of cloves directly on the tooth to relieve pain. You can buy oil of cloves at drugstores. Some pharmacies carry an zgbv-tbw-ksertxq "toothache kit." This contains a paste that you can put on the exposed tooth to make it less sensitive. 7 General Instructions [facility] Emergency Department [address] [place] [address] Phone #: [phone] ext- [phone] 04/11/2020 19:29 Patient: MARIA TERESA MATTHEW Sex: F : 1995 Age: 24y Put a cold pack on your jaw over the sore area to help reduce pain. You may use ihez-lyz-yahxezq medicine to ease pain, unless your doctor [...] healthcare provider Pus drains from the tooth [phone] [employer] [address] [place] [address]. All rights reserved. This information is not intended as asubstitute for professional medical care. Always follow your healthcare professional's instructions. You have been given the following additional information: Tooth Abscess Dental Cavity Dental Pain 8 General Instructions [facility] Emergency Department [address] [place] [address] Phone #: ext- [phone] 04/11/2020 19:29 Patient: MARIA TERESA MATTHEW Sex: F : 1995 Age: 24y(Electronically signed by MARIA DE JESUS Ruiz 04/11/2020 21:25) Name Value Range Interpretation Code Description Data Sera rce(s) Supporting Document(s) ID Date Data Source [id number] 04/11/2020 07:45:00 PM EDT [facility] 1 Clinical Report - Nurses [facility] Emergency Department [address] [place] [address] Phone #: ext- [phone] 04/11/2020 19:29 Patient: MARIA TERESA MATTHEW Sex: F : 1995 Age: 24yTRIAGEArrived by private vehicle. Historian: patient.Triage time: 19:33 04/11/2020. Acuity: LEVEL 5.Chief Complaint: RIGHT LOWER TOOTHACHE and JAW PAIN.Alert. No acute distress.Onset was gradual. (2 days ago). 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 (last dose at 16:30 hrs).SEPSIS SCREEN: [...] testing but 2 Clinical Report - Nurses [facility] Emergency Department [address] [place] [address] Phone #: ext- [phone] 04/11/2020 19:29 Patient: MARIA TERESA MATTHEW Sex: [...] PROGRESS NOTES 3 Clinical Report - Nurses [facility] Emergency Department [address] [place] [address] Phone #: ext- [phone] 04/11/2020 19:29 Patient: MARIA TERESA MATTHEW Sex: [...] Patient verbalized understanding. Written instructions provided in [place]. No treatment instructions. The patient was discharged [...] rce(s) Supporting Document(s) ID Date Data Source [id number] 04/11/2020 07:45:00 PM EDT [facility] 1 Clinical Report - Physicians/Mid Levels [facility] Emergency Department [address] [place] [address] Phone #: ext- [phone] 04/11/2020 19:29 Patient: MARIA TERESA MATTHEW Sex: F : 1995 Age: 24y Time [...] Normal external inspection. 2 Clinical Report - Physicians/Mid Levels [facility] Emergency Department [address] [place] [address] Phone #: ext- [phone] 04/11/2020 19:29 Patient: MARIA TERESA MATTHEW Sex: [...] Oriented X 3.PROGRESS AND PROCEDURESCourse of Care: 20:Apr 11 2020. Evaluation after observation. (Discussed exam [...] tablet. Refills: 0. Substitution permitted. Pharmacy - [facility] [id number] [facility] - [id number] [place] [address] ; [place] [address]. . Follow- up: Follow up with a specialist Dentist as scheduled. Reason for referral: evaluation and treatment. Summary of care provided to patient. Understanding of the discharge instructions verbalized by patient. 3 Clinical Report - Physicians/Mid Levels [facility] Emergency Department [address] [place] [address] Phone #: ext- [phone] 04/11/2020 19:29 Patient: MARIA TERESA MATTHEW Sex: F : 1995 Age: 24y(Electronically signed by MARIA DE JESUS Ruiz 04/11/2020 21:25) Name Value Range Interpretation Code Description Data Sera rce(s) Supporting Document(s) Procedure Vital Signs ID Date Data Source UNK Name Value Range Interpretation Code Description Data Source(s) Body mass index (BMI) [Ratio] 32.6 kg/m2 32.6 k g/m2 [facility] ([facility], [facility]) Body height 64 [in_i] 64 [in_i] [facility] ([facility], [facility]) 5'4" Body weight 190.00 [lb_av] 190.00 [lb_av] [facility] ([facility], [facility]) Body temperature 98.2 [degF] 98.2 [degF] [facility] ([facility], [facility]) Oxygen saturation in Arterial blood by Pulse oximetry 99 % 99 % [facility] ([facility], [facility]) Respiratory rate 16 /min 16 /min [facility] ( [facility], [facility]) Heart rate 102 /min 102 /min [facility] ([facility], [facility]) Diastolic blood pressure 85 mm[Hg] 85 mm[Hg] [facility] ([facility], [facility]) Systolic blood pressure 124 mm[Hg] 124 mm[Hg] [facility] ([facility], [facility])
[2020-09-03] MEDS ORDERED: MORPHINE 4 MG/ML 1ML VIAL/SYRINGE (J2270) IV ONE (14:45)
[2020-09-03] MEDS ORDERED: PANTOPRAZOLE 40MG VIAL (C9113 PER 1) IV ONE (14:45)
[2020-09-03] MEDS ORDERED: NS 1,000 ML IV ONE (14:45)
[2020-09-03 15:00] LABS: BASO # 0.1 10^3/uL (0.0-0.2); BASO % 0.4 % (0.0-1.0); EOS # 0.1 10^3/uL (0.0-0.5); EOS % 0.8 % (0.0-3.0); HEMOGLOBIN 14.2 g/dl (12.0-15.5); LYMPH # 3.4 10^3/uL (1.5-5.0); LYMPH % 22.6 % (24.0-44.0); MEAN CORPUSCULAR HEMOGLOBIN 26.8 pg (27.0-33.0); MEAN CORPUSCULAR HGB CONC 31.6 g/dl (32.0-36.5); MEAN CORPUSCULAR VOLUME 84.9 fl (80.0-96.0); MONO # 0.9 10^3/uL (0.0-0.8); MONO % 5.8 % (2.0-8.0); NEUTROPHILS # 10.3 10^3/uL (1.5-8.5); NEUTROPHILS % 69.8 % (36.0-66.0); PLATELET COUNT, AUTOMATED 343 10^3/uL (150-450); WHITE BLOOD COUNT 14.8 10^3/uL (4.0-10.0)
[2020-09-03] MEDS ORDERED: ISOVUE-370 76% 100ML VIAL As Ordered ONE (15:21)
[2020-09-03] MEDS ORDERED: CLINDAMYCIN 600 MG in IV 1 EA IV ONE (15:30)
[2020-09-03] MEDS ORDERED: KETOROLAC 30 MG/ML 1ML VIAL IV ONE (15:30)
--- NOTE | 2020-09-03 16:09 | REP ---
INDICATION: right upper 3rd molar infection r/o abscess. COMPARISON: None. TECHNIQUE: Helical scanning is acquired following the intravenous injection of 75 mL of Isovue 370. Coronal and sagittal MPR images are generated. 3 mm axial slices are re-formatted. FINDINGS: There is moderate mucosal thickening in the inferior aspect of the right maxillary sinus. The paranasal sinuses are otherwise clear. The posterior most maxillary molar on each side demonstrates erosion consistent with dental caries bilaterally, right more so than left. On the right, there is a periapical radiolucency in the maxillary alveolus around the root of this posterior maxillary molar. This radiolucency measures 10 mm x 5 mm. It has broken through the lateral cortex of the maxillary alveolus and there is adjacent soft tissue swelling. There is no evidence of fluid collection or abscess. There is mild shotty lymphadenopathy in the neck. The largest lymph node is a right submandibular lymph node measuring 2.1 x 1.2 by 1.2 cm. The submandibular and parotid glands are normal and symmetric. Deep facial soft tissues are symmetric and unremarkable. No vascular abnormality is seen. No mandibular abnormality is observed. IMPRESSION: Findings consistent with a small periapical abscess associated with the right posterior-most maxillary molar which has eroded through the lateral cortex of the maxillary alveolus. There is adjacent soft tissue swelling but no abscess seen. There is a carious molar in the maxilla on the left as well. Mild submandibular lymphadenopathy. <Electronically signed by Jayme Monge > 09/03/20 [id number]
[2020-09-03 16:29] VITALS: BP 126/82
[2020-09-03] MEDS ORDERED: CLEO300C2 PO (16:31)
[2020-09-03] MEDS ORDERED: ULTR50TA8 PO (16:31)
[2020-09-03] MEDS ORDERED: DIFL150T PO (16:36)
== END 2020-09-03 16:47 | disposition home or self-care (01) ==
LOC: M ED 12:37
DX: K04.7 Periapical abscess without sinus (principal); Z88.1 Allergy status to other antibiotic agents
CPT/HCPCS: 70487; 80047; 84702; 85025; 96361; 96365; 96375; 99283; C9113; J1885; J2270; Q9967

== ENCOUNTER 2021-06-12 16:20 | Emergency (ER) | payer OTHER ==
[~2021-06-12] VITALS: Ht 162.6 cm; Wt 90.9 kg
[~2021-06-12 16:20] MED LIST: ACET500T15 PO; CLEO300C2 PO; CLIN150C17; DIFL150T PO; IBUP200C25 PO; ULTR50TA8 PO
--- NOTE | 2021-06-12 17:37 | REP ---
INDICATION: VAGINAL BLEEDING COMPARISON: None. TECHNIQUE: Transabdominal and transvaginal 1st trimester obstetrical ultrasound with color Doppler evaluation FINDINGS: Anteverted uterus measures 9.3 x 4.9 x 5.6 cm. The endometrial complex is distended to 30 mm and demonstrates hemorrhagic debris without intrauterine . Findings are most compatible with spontaneous in progress and correlation with serial HCG levels recommended. The right ovary is normal in appearance and vascularity measuring 4.0 x 4.0 x 4.5 cm (RI 0.48) and includes 4.3 cm presumed corpus luteal cyst. Left ovary not visualized. IMPRESSION: Hemorrhagic debris distends the endometrial canal without intrauterine . Findings suggest spontaneous in progress and correlation with serial HCG levels recommended. <Electronically signed by Kailash Hinson > 06/12/21 [id number]
[2021-06-12 17:41] LABS: BASO % 0.3 % (0.0-1.0); EOS # 0.2 10^3/uL (0.0-0.5); EOS % 1.4 % (0.0-3.0); HEMATOCRIT 42.2 % (36.0-47.0); HEMOGLOBIN 13.8 g/dl (12.0-15.5); LYMPH # 3.3 10^3/uL (1.5-5.0); LYMPH % 26.7 % (24.0-44.0); MEAN CORPUSCULAR HEMOGLOBIN 27.1 pg (27.0-33.0); MEAN CORPUSCULAR HGB CONC 32.7 g/dl (32.0-36.5); MEAN CORPUSCULAR VOLUME 82.7 fl (80.0-96.0); MONO # 0.7 10^3/uL (0.0-0.8); MONO % 5.8 % (2.0-8.0); NEUTROPHILS # 8.2 10^3/uL (1.5-8.5); NEUTROPHILS % 65.2 % (36.0-66.0); PLATELET COUNT, AUTOMATED 312 10^3/uL (150-450); WHITE BLOOD COUNT 12.5 10^3/uL (4.0-10.0)
--- OUTSIDE RECORDS SUMMARY | 2021-06-12 17:58 | CCD ---
Author Author [facility] Organization [facility] Address Unknown Phone Unavailable Care Team Providers Care Flight Engineer Helicopter Name Role Phone NO, PCP Unavailable Unavailable TURRIN, EUFEMIA Unavailable Unavailable TURRIN, [...] Unavailable Unavailable Berta GAMINO MD Unavailable Unavailable Kourtney ALFRED MD Unavailable Unavailable Kourtney ALFRED MD Unavailable Unavailable Kourtney ALFRED MD Unavailable Unavailable Kourtney ALFRED MD Unavailable Unavailable Kourtney ALFRED MD Unavailable Unavailable Kourtney ALFRED MD Unavailable Unavailable Kourtney ALFRED MD Unavailable Unavailable Kourtney ALFRED MD Unavailable Unavailable Kourtney ALFRED MD Unavailable Unavailable Kourtney ALFRED MD Unavailable Unavailable Kourtney ALFRED MD Unavailable Unavailable Re-disclosure Warning The records that [...] is protected by Article 27-F of the [facility] Public Health law. If you continue you may have access to information: Regarding HIV / AIDS; Provided by facilities licensed or operated by the [facility] Office of Mental Health; or Provided by the [facility] Office for People With Developmental Disabilities. If such information is present, then the following [facility] mandated warning applies: This information has [...] law may result in a fine or group home sentence or both. A general authorization for the release of medical or other information is NOT sufficient authorization for further disc losure. Allergies and Adverse Reactions Type Description Substance Reaction Status Data Source(s ) No Known Drug Allergies No Known Drug Allergies [facility] No Known Environmental Allergies No Known [facility] No Known Food Allergies No Known Food Allergies [facility] Family History Family Member Name Family Member Gender Family Member Status Date o f Status Description Data Source(s) Unknown Unknown Problem [facility] ([facility] Encounters Encounter Providers Location Date Indications Data Source(s ) Emergency Attender: EUFEMIA Rizviant: PCP NO 03/29/2021 11:50:00 AM EDT - 03/29/2021 08:09:[address] [facility] Patient discharged. Emergency Attender: LIZY ALFRED MDConsultant: PCP NO 08/23/2020 09:50:00 PM EST - 08/23/2020 11:15:00 PM [facility] Patient discharged. Emergency Attender: JOSÉ GAMINO MDConsultant: PCP NO 08/02/2020 11:04:00 PM EST - 08/03/2020 01:40:00 AM [facility] Patient discharged. Emergency Attender: EUFEMIA Tuttlesultant: PCP NO 04/11/2020 07:45:00 PM EDT - 04/11/2020 08:30:[address] [facility] Patient admitted. Medications Medication Brand Name Start Date Product Form Dose Route Admi nistrative Instructions Pharmacy Instructions Status Indications Reaction Description Data Source(s) 300 mg 03/29/2021 12:00:00 AM EDT capsule 14 TAKE ONE CAPSULE BY MOUTH TWICE A DAY TAKE ONE CAPSULE BY MOUTH TWICE A DAY SOLD: 03/30/2021 [facility] 250 mg 03/29/2021 12:00:00 AM EDT tablet 4 TAKE ONE TABLET BY MOUTH EVERY DAY TAKE ONE TABLET BY MOUTH EVERY DAY SOLD: 03/30/2021 [facility] 20 mg 08/03/2020 12:00:00 AM EST tablet [...] DAILY DOSE = 2 TABLETS SOLD: 08/02/2020 [facility] Insurance Providers Payer name Policy type / Coverage type Policy ID Covered green party ID Covered green party's relationship to peters Policy Peters Plan Information [facility] [id number] 18 [id number] [place] [id number] SP [id number] UNHC COMMUNITY PLAN [id number] SP [id number] UNHC AMERICHOICE XIX -HMO [id number] 18 [id number] MEDICAID [id number] SP [id number] MEDICAID M [id number] S [id number] [facility] Health Maintenance Organization ([facility]) [id number] Self 1 [id number] [facility] Health Maintenance Organization (O) [id number] Self 1 [id number] [facility] Health Maintenance Organization (O) [id number] Self 1 [id number] [facility] Health Maintenance Organization (O) [id number] Self 1 [id number] [facility] Health Maintenance Organization (O) [id number] Self 1 [id number] [facility] Health Maintenance Organization ([facility]) [id number] Self 1 [id number] UNHC COMMUNITY PLAN [facility] [id number] SP [id number] MEDICAID -O/P EMERGENCY ROOM [id number] 18 [id number] AMERICHOICE UNHC XIX HMO -I/P [id number] 18 [id number] AMERICHOICE UNHC XIX HMO -I/P [id number] 18 [id number] UNHC AMERICHOICE XIX -HMO [id number] 18 [id number] [facility](MCAID) P [id number] S [id number] [facility](MCAID) P [id number] S [id number] UNHC XIX HMO-O/P [id number] BLUE [employer] THOMAS PLAN [id number] MEDICAID - CLINIC [id number] Problems, Conditions, and Diagnoses Code Display Name Description Problem Type Effective Dates Data Source(s) Z3A00 Weeks of gestation of not spec ified Weeks of gestation of not specified Diagnosis 03/29/2021 11:50:00 AM EDT [facility] [id number] CONTACT WITH AND SUSPECTED EXPOSURE TO C OVID-19 CONTACT WITH AND SUSPECTED EXPOSURE TO COVID-19 Diagnosis 03/29/2021 11:50:00 AM EDT [facility] B42744 Nicotine dependence, cigarettes, uncompl icated Nicotine dependence, cigarettes, uncomplicated Diagnosis 03/29/2021 11:50:00 AM EDT [facility] V14738 Smoking (tobacco) complicating , first trimester Smoking (tobacco) complicating , first trimester Diagnosis 02/2021 11:50:00 AM EDT [facility] J159 Unspecified bacterial pneumonia Unspecified bacterial pneumonia Diagnosis 03/29/2021 11:50:00 AM EDT [facility] C23278 Diseases of the respiratory system complicating , first trimester Diseases of the respiratory system compl icating , first trimester Diagnosis 03/29/2021 11:50:00 AM EDT [facility] M30201 Other specified related condit ions, first trimester Other specified related conditions, first trimester Diagnosis 03/29/2021 11:50:00 AM EDT [facility] K047 Periapical abscess without sinus Periapical absc ess without sinus Diagnosis 08/23/2020 09:50:00 PM [facility] K0889 Other specified disorders of teeth and s upporting structures Other specified disorders of teeth and supporting structures Diagnosis 08/23/2020 09:50:00 PM [facility] U78072 Unspecified place in unspeci fied non-institutional (private) residence as the place of occurrence of the external cause Unspecified place in unspecified non-institutional (private) residence as the place of occurrence of the external cause Diagnosis 08/02/2020 11:04:00 PM [facility] [id number] Striking against or struck by other obje cts, initial encounter Striking against or struck by other objects, initial encounter Diagnosis 08/02/2020 11:04:00 PM [facility] [id number] Allergy, unspecified, initial encounter Allergy, unspecified, initial encounter Diagnosis 08/02/2020 11:04:00 PM [facility] D07928 Cellulitis of face Cellulitis of face Diagnosis 06/2021 11:04:00 PM [facility] [id number] Unspecified injury of neck, initial enco unter Unspecified injury of neck, initial encounter Diagnosis 08/02/2020 11:04:00 PM [facility] Surgeries/Procedures No Information Results ID Date Data Source [id number] 03/29/2021 11:50:00 AM EDT [facility] 1 OrderSheet [facility] Emergency Department [address] [place] [address] Phone #: ext- [phone] 03/29/2021 11:39 Patient: MARIA TERESA MATTHEW Sex: F : 1995 Age: 25yWEIGHT:90.7 kg (S) HEIGHT:64 inches (S) BMI:34.3ALLERGIES: PenicillinsCHIEF COMPLAINT: fever, sore throat, muscle aches, possible, COVID-19 exposure:, possible, flu exposure:DIAGNOSIS: Patient currently , Pneumonia, Severe acute respiratory syndrome coronavirusLAB ORDERSOrder Description Priority Entered Acknowledged InitialedCBC w Diff STAT 12:03/29/2021 Ack'd: 12:07 12:31 David Gan Ryan Ryan P.A.-C;CMP STAT 12:03/29/2021 Ack'd: 12:07 12:31 David Gan Ryan Ryan P.A.-C;Lipase STAT 12:06 03/29/2021 Ack'd: 12:07 12:31 David Gan Ryan Ryan P.A.-C;PT/PTT STAT 12:06 03/29/2021 Ack'd: 12:07 12:31 David Gan Ryan Ryan P.A.-C;Troponin-T STAT 12:06 03/29/2021 Ack'd: 12:07 12:31 David Gan Ryan Ryan P.A.-C;TSH STAT 12:06 03/29/2021 Ack'd: 12:07 12:31 David Gan Ryan Ryan P.A.-C;Urinalysis (Clean STAT 12:06 03/29/2021 Ack'd: 12:07Catch) Homer Darling P.A.-C;HCG Serum Qual STAT 12:06 03/29/2021 Ack'd: 12:07 12:31 David Gan Ryan Ryan P.A.-C;Influenza Nasal A B STAT 12:06 03/29/2021 Ack'd: 12:07 12:31 David Gan Ryan Ryan P.A.-C;Influenza Nasal A B STAT 12:19 03/29/2021 12:31 David Gan P.A.-C;COVID-19 CAH STAT 12:19 03/29/2021 12:31 Malik 2 Sheebaheet [facility] Emergency Department [address] [place] [address] Phone #: ext- [phone] 03/29/2021 11:39 Patient: MARIA TERESA MATTHEW Sex: F : 1995 Age: 25y(Symptomatic as David CoronelDefined by CDC) P.A.-C;() (NotFirst Test) (NotHospitalized)(Unknown if) (NotResident inCongregate CareSetting) (NotEmployed inHealthcare Setting)HCG Serum Quant STAT 13:27 03/29/2021 Ack'd: 14:52 Homer Darling P.A.-C;CORONAVIRUS STAT 13:27 03/29/2021 Ack'd: 14:52COVID-19 Homer Darling(Symptomatic as P.A.-C;Defined by CDC)() (NotFirst Test) (NotHospitalized)() (NotResident inCongregate CareSetting) (NotEmployed inHealthcare Setting)DIAGNOSTIC STUDY ORDERSOrder Description Priority Entered Acknowledged InitialedCT CTA CHEST STAT 12:06 03/29/2021 Ack'd: 12:07 Homer Gan(NONCOR) W LEE ANN Lieberman Cancelled: Other 13:25 Zach PP P.A.-C; Nohemy P.A.-C(Oxygen?(No))(IV?(Yes)) Reason for Study: PENDING HCG and CMP: Tachy; ? PE vs COVID vs other.CT CTA CHEST STAT 14:52 03/29/2021 Ack'd: 15:16(NONCOR) W Homer VelazquezINC PP P.A.-C;(Oxygen?(No))(IV?(Yes)) Reason for Study: Tachy, low o2; ? PE vs COVID vs other. Pt is unvaccinated and noted slight rhonic 3 OrderSheet [facility] Emergency Department [address] [place] [address] Phone #: ext- [phone] 03/29/2021 11:39 [facility]: [id number] Sex[facility] F : 1995 Age: 25yMEDICATION/IV/DRIP/FLUID ORDERSOrder Description Priority Entered Acknowledged InitialedIV NS : Bolus 500 12:06 03/29/2021 12:35 Malik,mL, then 100 mL/hr David Faulkner.A.-C;Tylenol 1 g PO X1 12:06 03/29/2021 12:36 Malik,dose: 1000 mg David Coronel(NOW x1) P.A.-C;Ativan IVP 1 mg 12:03/29/2021 12:36 Malik,(HIGH ALERT David CoronelMEDICATION) P.A.-C;Rocephin 18:11 03/29/2021 18:25 Mili(1gm/50mL) IVPB David Ratliff [id number] mg with P.A.-C;Dextrose 50 mlspike bag (D5W) Reason for ordering with alerts: Clinical consideration given -- 18:11 03/29/2021 David Del Rio-CAzithromycin PO 18:11 03/29/2021 18:25 Enjqu388 mg X1 Dose: David Ratliff RN500 mg (NOW x1) P.A.-C; Reason for ordering with alerts: Clinical consideration given -- 18:11 03/29/2021 David Del Rio-CGENERAL ORDERSOrder Description Priority Entered Acknowledged InitialedBlood Pressure 12:06 03/29/2021 12:06 Malik,Monitor David Del Rio-C;Procurement Clerk 12:03/29/2021 12:06 Malik,(continuous) David Del Rio-C;EKG 12:06 03/29/2021 12:19 Tristan Tori Whitaker P.A.-C; Stwx0NIH 12:06 03/29/2021 12:06 David Gan P.A.-C;Obtain Old EKG 12:03/29/2021 12:06 David Gan P.A.-C;Obtain Old Records 12:03/29/2021 12:07 Malik, 4 OrderSheet [facility] Emergency Department [address] [place] [address] Phone #: ext- [phone] 03/29/2021 11:39 Patient: MARIA TERESA MATTHEW Sex: F : 1995 Age: 25y David Coronel P.A.-C;Pulse oximeter 12:06 03/29/2021 12:07 Malik(Continuous) David Coronel P.A.-C;Saline Lock 12:06 03/29/2021 12:07 David Gan P.A.-C;Vitals 12:06 03/29/2021 12:07 David Gan;[Electronically signed by Kristina Soler (20:09 03/29/2021)][Electronically signed by David Lieberman P.A.-C (12:58 03/31/2021)][Electronically locked by Kristina Soler (20:09 03/29/2021)] Name Value Range Interpretation Code Description Data Sera rce(s) Supporting Document(s) ID Date Data Source [id number] 03/29/2021 11:50:00 AM EDT [facility] 1 Medication Reconciliation Report [facility] Emergency Department [address] [place] [address] Phone #: [phone]- [phone] 03/29/2021 11:39 Patient: [facility]THE[id number] Sex: F : 1995 Age: 25yWeight: 90.7 kgHeight/Length: 64 in.BMI: 34.3ALLERGIES: PenicillinsThe patient's Home Medications are listed below:NONE.The source(s) of the original Home Medication information:Not obtained.The following Medications were given to the patient in the Emergency Department:IV NS IV Fluids bolus 500 mL wide open, then 100 mL/hr, administered: 12:35 03/29/2021Tylenol [PO] PO 1000 mg, administered: 12:36 03/29/2021tivan [IVP] IVP 1 mg, administered: 12:36 03/29/2021OCEPHIN (1GM/50ML) [IVPB] IVPB bolus 0, then 1 gm 100 mL/hr, administered: 18:20 03/29/2021zithromycin [PO] PO 500 mg, administered: 18:20 03/29/2021The following Medications were prescribed to the patient:azithromycin 250 mg tablet Take 1 tablet once a day for 4 days -- Day 1 given in the ER. Dispense 4tablet. Refills: 0. Substitution permitted.[facility] - [id number] ; [place] [address]. FaxNumber: .cefdinir 300 mg capsule Take 1 capsule twice a day for 7 days -- Dispense 14 capsule. Refills: 0.Substitution permitted.[facility] #[facility] - [id number] ; [place] [address]. FaxNumber: . -- David Lieberman P.A.-C Name Value Range Interpretation Code Description Data Sera rce(s) Supporting Document(s) ID Date Data Source [id number] 03/29/2021 11:50:00 AM EDT [facility] 1 Medication Administration Record [facility] Emergency Department [address] [place] [address] Phone #: ext- [phone] 03/29/2021 11:39 Patient: MARIA TERESA MATTHEW Sex: F : 1995 Age: 25yWeight: 90.7 kgHeight/Length: 64 inBMI: 34.3ALLERGIES: Penicillins Date/Time Medication Administered Medication OrderedStart IV NS IV NS : Bolus 500 mL, then 35300:35 03/29/2021 Dose: IV Fluids mL/hrHomer Gan, Rate: 100 mL/hr over 4 hour(s)---- Bolus: 500 mL wide openStop Dispensed: 1000 mL bag20:07 03/29/2021 Site: #1 left Kristina Pablo,Given TYLENOL [PO] (APAP) Tylenol 1 g PO X1 dose: 1000 mg12:36 03/29/2021 Dose: 1000 mg Tablets PO (NOW x1)Homer GanGiven ATIVAN [IVP] (LORAZEPAM) Ativan IVP 1 mg (HIGH ALERT12:36 03/29/2021 Dose: 1 mg IVP MEDICATION)Homer Gan, Site: #1 left ACStart ROCEPHIN (1GM/50ML) [IVPB] Rocephin (1gm/50mL) IVPB 959874:20 03/29/2021 (CEFTRIAXONE SODIUM) mg with Dextrose 50 ml spike Spencer Ratliff RN Dose: 1 gm IVPB (D5W)---- Rate: 100 mL/hr over 30 minute(s)Stop Dispensed: 50 mL bag20:08 03/29/2021 Site: #1 left Kristina Pablo,Given AZITHROMYCIN [PO] Azithromycin PO 500 mg X1 Dose:18:20 03/29/2021 Dose: 500 mg Tablets PO 500 mg (NOW x1)Mili Ratliff RN Name Value Range Interpretation Code Description Data Sera rce(s) Supporting Document(s) ID Date Data Source [id number] 03/29/2021 11:50:00 AM EDT [facility] 1 General Instructions [facility] Emergency Department [address] [place] [address] Phone #: ext- [phone] 03/29/2021 11:39 Patient: MARIA TERESA MATTHEW Sex: F : 1995 Age: 25y Bacterial pneumonia. First trimester ; positive test in emergency department. Coronavirus COVID- 19 presumed (confirmatory testing pending) with pneumonia.INSTRUCTIONS Rest at home (You are on a self quarantine x 10 days. This may be extended or decreased by [facility]. It is all dependent on when your test results are in.). Drink plenty of fluids. No dietary restrictions. ([facility]: [phone]. Please contact them in approx 3-4 days if you have not heard from them. You are on a self quarantine x 10 days. This may be extended or decreased by [facility]. It is all dependent on when your test results are in. I recommend to purchase a small finger pulse oximeter to monitor your O2 saturation at home. If becomes too low (<90%), please contact your PCP or return to the ER. Recommend to utilize OTC Tylenol to control inflammation and pain management. Recommend to follow the instructions on the bottle and not to exceed.). Warnings: GENERAL WARNINGS: Return or contact your physician immediately if your condition worsens or changes unexpectedly, if not improving as expected, or if other problems arise. SPECIFICALLY, return if you develop chest pain, difficulty breathing or fever. Prescription Medications: azithromycin 250 mg tablet Take 1 tablet once a day for 4 days -- Day 1 given in the ER. Dispense 4 tablet. Refills: 0. Substitution permitted. Pharmacy - [facility] #21 - [id number] ; [place] [address]. . cefdinir 300 mg capsule Take 1 capsule twice a day for 7 days -- Dispense 14 capsule. Refills: 0. Substitution permitted. Pharmacy - [facility] #04 - [id number] ; [place] [address]. . Follow-up: Return to the emergency department as needed. Follow up with your healthcare provider in about two 2 General Instructions [facility] Emergency Department [address] [place] [address] Phone #: ext- [phone] 03/29/2021 11:39 Patient: MARIA TERESA MATTHEW Sex: F : 1995 Age: 25y days if not better. Call for an appointment. Understanding of the discharge instructions verbalized by patient. ADDITIONAL INFORMATIONUnderstanding Coronavirus Disease 2019 (COVID- 19)Coronavirus disease 2019 (COVID-19) is a virus that causes a respiratory illness. It is caused by acoronavirus called 2019 novel coronavirus (2019-nCoV). There are many types of coronavirus.Coronaviruses are a very common cause of br onchitis. They may sometimes cause lung infection(pneumonia). Symptoms can range from mild to severe respiratory illness. These viruses are alsofound in some animals. COVID-19 was first found in people in [facility], in late 2019. In 2020,several cases of COVID-19 have been confirmed in the [place] COVID-19 is a rapidly-emerginginfectious disease. This means that scientists are actively researching it. There are informationupdates regularly.Public health officials are working to find the source. How the virus spreads is not yet fullyunderstood, but it seems to spread and infect people fairly easily. Some people who have beeninfected in an area may be unsure how or where they became infected. The virus may be spreadthrough droplets of fluid that a person coughs or sneezes into the air. It may be spread if you touch asurface with virus on it, such as a handle or object, and then touch your eyes, nose, or mouth.For the latest information, visit the CDC website at www.cdc.gov/coronavirus/2019-ncov. What are the symptoms of COVID-19?Some people have no symptoms or mild symptoms. Symptoms may appear 2 to 14 days aftercontact with the virus. Symptoms can include: Fever Coughing Trouble breathingWhat are possible complications from COVID-19?In many cases, this virus can cause infection (pneumonia) in both lungs. In some cases, this cancause .How is COVID-19 diagnosed?Your healthcare provider will ask about your symptoms. He or she will also ask about your recent 3 General Instructions [facility] Emergency Department [address] [place] [address] Phone #: ext- [phone] 03/29/2021 11:39 Patient: MARIA TERESA MATTEHW Sex: F : 1995 Age: 25ytravel and contact with sick people. If your healthcare provider thinks you may have COVID-19, sonali espinoza will work closely with your local health department and the CDC on testing. Follow all instructionsfrom your healthcare provider. COVID-19 is diagnosed by: Nasal and throat swab. A cotton-tipped swab is wiped inside your nose or throat. This is done to check for viruses in your nasal mucus. Sputum culture. A small sample of mucus coughed from your lungs (sputum) is collected if you have a cough. It is checked for the virus.How is COVID-19 treated?There is currently no medicine to treat the virus. Treatment is done to help your body while it fightsthe virus. This is known as supportive care. Supportive care may include: Pain medicine. These include acetaminophen and ibuprofen. They are used to help ease pain and reduce fever. Bed rest. This helps your body fight the illness.For severe illness, you may need to stay in the hospital. Care during severe illness may include: IV (intravenous) fluids.These are given through a vein to help keep your body hydrated. Oxygen. Supplemental oxygen or ventilation with a breathing machine (ventilator) may be given. This is done so you get enough oxygen in your body.Are you at risk for COVID-19?You are at risk for infection if you've been to a place where people have been sick with this virus or ifthere are people with COVID-19 in your area. You are at risk if you: Recently traveled to an area with a COVID-19 outbreak Had contact with a sick person who recently traveled to an area with a COVID-19 outbreak Had contact with a person who was diagnosed with or who may have COVID-19How can COVID-19 be prevented?There is no vaccine yet. The best prevention is to not have contact with the virus. The CDC advisesthat people should not travel to areas where there are COVID-19 outbreaks right now for any reasonthat is not urgent. For the most current CDC travel advisories, visit the CDC website atwww.cdc.gov/coronavirus/2019-ncov/travelers. 4 General Instructions [facility] Emergency Department [address] [place] [address] Phone #: ext- [phone] 03/29/2021 11:39 Patient: MARIA TERESA MATTHEW Sex: F : 1995 Age: 25y To help prevent spreading the infection, wash your hands often, or use an alcohol-based hand avionics technician.The CDC advises that you shouldn't wear a face mask if you are not sick.To protect yourself from COVID-19: Wash your hands often with soap and clean, running water for at least 20 seconds. If you don't have access to soap and water, use an alcohol-based hand avionics technician often. Make sure it has at least 60% alcohol. Don't touch your eyes, nose, or mouth unless you have clean hands. Don't have contact with people who are sick. Follow local instructions about being in public. For example, you may be told to not use public transport for a period of time. Experts don't know if animals spread 2019-nCoV. But it's always a good idea to wash your hands after touching any animals. Don't touch animals that may be sick. 5 General Instructions [facility] Emergency Department [address] [place] [address] Phone #: ext- [phone] 03/29/2021 11:39 -- Patient: MARIA TERESA MATTHEW Sex: F : 1995 Age: 25y Don't share eating or drinking tools with sick people. Don't kiss someone who is sick. Clean surfaces often with disinfectant.If you were in an area with COVID-19 in the last 14 days: Call your healthcare provider. He or she can talk with local health staff to see what action may be needed. Follow all instructions from your provider. Take your temperature every morning and evening for at least 14 days. This is to check for fever. Keep a record of the readings. Keep watch for symptoms of the virus. Tell your provider right away if you have symptoms. Stay home if you are sick for any reason.If you were in an area with COVID-19 and have a fever or other symptoms: Stay home. Don't panic. Keep in mind that other illnesses can cause similar symptoms. Stay away from work, school, and public places. Limit physical contact with family members. Don't kiss anyone or share eating or drinking utensils. Clean surfaces you touch with disinfectant. This is to help prevent the virus from spreading. Cough or sneeze into a tissue, then throw away the tissue in the trash. Or cough or sneeze into the bend of your elbow. Wear a face mask. Call your healthcare provider. Explain that you have been exposed to COVID-19 and have symptoms. Do this before going to any hospital. Wait for instructions. Keep in mind that healthcare staff may wear protective equipment such as masks, gowns, gloves, and eye protection. You may be put in a separate room. This is to prevent the possible virus from spreading. Tell the healthcare staff about recent travel. This includes local travel on public transport. Staff may need to find other people you have been in contact with. Follow all instructions the [facility] staff give you.If you have been diagnosed with COVID-19 6 General Instructions [facility] [address] [place] [address] Phone #: [phone]- [phone] 03/29/2021 11:39 Patient: MARIA TERESA MATTHEW Sex: F : 1995 Age: 25y Stay home. Don't leave your home unless you need to get medical care. Follow all instructions from your healthcare provider. Call your healthcare provider's office before going. They can prepare and give you instructions. This will help prevent the virus from spreading. Don't go to work, school, or public areas. Don't use public transport or taxis. Stay away from other people in your home. Wear a face mask. This is to protect other people from your germs. They do not need to wear face masks. Don't share household items or food. Cover your face with a tissue when you cough or sneeze. Throw the tissue away. Then wash your hands. Wash your hands often.Caregivers should: Follow all instructions from healthcare staff. Wear protective clothing as advised. Make sure the sick person wears a mask. Wash hands often. Keep track of the sick person's symptoms. Clean surfaces, fabrics, and laundry thoroughly. Keep other people away from the sick person.When to call your healthcare providerCall your healthcare provider: If you've recently traveled and have symptoms If you have been diagnosed with COVID-19 and your symptoms are worse 5440-[address] [employer] [place] [address], [place] [address]. All rights reserved. This information is not intended as asubstitute for professional medical care. Always follow your healthcare professional's instructions. 7 Ge neral Instructions [facility] Department [address] [place] [address] Phone #: [phone]- [phone] 03/29/2021 11:39 Patient: MARIA TERESA MATTHEW Sex: F : 1995 Age: 25yPneumonia (Adult)Pneumonia is an infection deep in the lungs. It is in the small air sacs (alveoli). It may be caused by avirus, fungus, or bacteria. Pneumonia caused by bacteria is often treated with an antibiotic. Severecases may need to be treated in the hospital. Milder cases can be treated at home. Pneumoniasymptoms are a lot like flu symptoms. They include fever, cough (dry or with phlegm), headache,muscle weakness, and pain. These symptoms often get worse in the first 2 days. But they often startto get better in the first week of treatment.Home care 8 General Instructions [facility] [address] [place] [address] Phone #: [phone]- [phone] 03/29/2021 11:39 Patient: MARIA TERESA MATTHEW Sex: F : 1995 Age: 25yFollow these guidelines when caring for yourself at home: Get plenty of rest. Don't let yourself get overly tired when you go back to your activities. Participate in activities as directed by your healthcare provider. Stop smoking. This is the most important step you can take to help treat pneumonia. If you need help stopping smoking, talk with your healthcare provider. Stay away from smoke and other irritants. Stay away from secondhand smoke. Don't let anyone smoke in your home. Prevent lung infections. Ask your healthcare provider about the flu and pneumonia vaccines. Take steps to prevent colds and other lung infections. Practice correct handwashing. Wash your hands often with soap and water. Use hand avionics technician when you can't wash your hands. Stay away from crowds during cold and flu season. Use pain medicine as directed. You may use acetaminophen or ibu profen to control fever or pain, unless another medicine was prescribed. If you have chronic liver or kidney disease, talk with your healthcare provider before using these medicines. Also talk with your provider if you've had a stomach ulcer or GI (gastrointestinal) bleeding. Don't give aspirin to a child younger than age 19 unless directed by the provider. Taking aspirin can put a child at risk for Renee syndrome. This is a rare but very serious disorder. It most often affects the brain and the liver. Eat a light diet as needed. You may not feel like eating, so a light diet is fine. Follow the treatment plan as advised by your healthcare provider. Drink plenty of water and fluids. This can make mucus thinner and easier to cough up. Ask your healthcare provider how much water you should drink. For many people, 6 to 8 glasses (8 ounces each) a day is a good goal. Other fluids include sport drinks, sodas without caffeine, juices, tea, or soup. If you also have heart or kidney disease, check with your provider before you drink extra fluids. Finish all prescription medicine. Take antibiotic or antiviral medicine as prescribed by your healthcare provider, even if you are feeling better after a few days. Take the medicine until it is all gone. Try to stay away from air pollution. If you live in an area with air pollution, track the Air Quality Index (AQI) reports and plan your outdoor activities with the AQI recommendations in mindFollow-up careFollow up with your healthcare provider in the next 2 to 3 days, or as advised. This is to be sure themedicine is helping you get better. 9 General Instructions [facility] Department [address] [place] [address] Phone #: [phone]- [phone] 03/29/2021 11:39 Patient: MARIA TERESA MATTHEW Sex: F : 1995 Age: 25 yIf you are 65 or older, you should get a pneumococcal vaccine and a yearly flu (influenza) shot. Youshould also get these vaccines if you have chronic lung disease such as asthma, emphysema, orCOPD. A second type of pneumonia vaccine is also available for people over age 65 and thoseyounger than 65 with certain health conditions. Talk with your healthcare provider about whichpneumococcal vaccine is best for you.Call 450Rall 838if any of these occur: Unable to speak or swallow Lips or skin looks blue, purple, or gorman Feeling dizzy or faint Unable to wake up or loss of consciousness Feeling of doom Trouble breathing or wheezing Shortness of breath gets worse or doesn't get better with treatment Rapid breathing (more than 25 breaths per minute) Coughing up blood Chest pain gets worse with breathing or doesn't get better with treatmentWhen to get medical adviceCall your healthcare provider right away if any of these occur: You don't get better in the first 2 days of treatment Fever of 100.4F (38C) or higher, or as directed by your healthcare provider Shaking chills Cough with phlegm that doesn't get better, or get worse Shortness of breath with activities Weakness, dizziness, or fainting that gets worse Thirst or dry mouth that gets worse Sinus pain, headache, or a stiff neck 10 General Instructions [facility] Department [address] [place] [address] Phone #: [phone]- [phone] 03/29/2021 11:39 Patient: MARIA TERESA MATTHEW Sex: F : 1995 Age: 25y Chest pain with breathing or coughing Symptoms that get worse or not improving [id number] [employer]. [address] [place] [address]. All rights reserved. This information is not intendedas a substitute for professional medical care. Always follow your healthcare professional's instructions.PregnancyYour exam today shows that you are . symptomsDuring your body's hormones change. This causes physical and emotional changes. Thisis normal. Knowing what to expect is important for your piece of mind and so you know when to seekhelp for a problem. Here are some of the most common symptoms: Morning sickness or nausea. This can happen any time of the day or night. Tender, swollen breasts Need to urinate frequently Tiredness or fatigue Dizziness Indigestion or heartburn 11 General Instructions [facility] [address] [place] [address] Phone #: [phone]- [phone] 03/29/2021 11:39 Patient: MARIA TERESA MATTHEW Sex: F : 1995 Age: 25y Food cravings or turn-offs Constipation Emotional changes. This can range from anxiety to excitement to depression.General care for a healthy pregnancyHere are things you can do to help make sure your baby is born healthy: Rest when you feel tired. This is especially true in the later months of . Drink more fluids. Your body needs more fluids than you may be used to. Drink 8 to10 glasses of juice, milk, or water every day. Eat well-balanced meals. Eat at regular times to give your body enough protein. You can expect to gain about 30 pounds during the . Don't try to diet or lose weight while you are . Take a vitamin every day. This helps you meet the extra nutritional needs of . Don't take any other medicine during your unless your healthcare provider tells you to. This includes prescription medicines and those you buy over the counter. Many medicines can harm the growing baby. If you have nausea or vomiting, don't eat greasy or fried foods. Eat several smaller meals throughout the day rather than 3 large meals. If you smoke, you must stop. The nicotine you breathe in goes right to the baby. Stay away from alcohol, even in moderate amounts. Daily drinking will harm your baby and can cause permanent brain damage. Don't use recreational drugs, especially cocaine, crack, and heroin. These will harm your baby. Also avoid marijuana. If you were using recreational drugs or prescribed medicine when you found out that you were , talk with your healthcare provider about possible effects on your growing baby. If you have medical problems that you need to take medicine for, talk with your healthcare provider.Follow-up careCall your healthcare provider to arrange for care. care is important. You can seeyour family provider, a specialist (bag hanger), a activity manager, or a primary care clinic. 12 General Instructions [facility] [address] [place] [address] Phone #: [phone]- [phone] 03/29/2021 11:39 --- Patient: MARIA TERESA MATTHEW Sex: F : 1995 Age: 25yWhen to seek medical adviceCall your healthcare provider right away if any of these occur: Vaginal bleeding Pain in your belly (abdomen) or back that is moderate or severe Lots of vomiting, or you can't keep any fluids down for 6 hours Burning feeling when you urinate Headache, dizziness, or rapid weight gain Fever Vision changes or blurred vision 4880-[address] [employer] [place] [address], [place] [address]. All rights reserved. This information is not intended as asubstitute for professional medical care. Always follow your healthcare professional's instructions.PregnancyYour exam today shows that you are . symptomsDuring your body's hormones change. This causes physical and emotional changes. This 13 General Instructions [facility] [address] [place] [address] Phone #: [phone]- [phone] 03/29/2021 11:39 Patient: MARIA TERESA MATTHEW Sex: F : 1995 Age: 25yis normal. Knowing what to expect is important for your piece of mind and so you know when to seekhelp for a problem. Here are some of the most common symptoms: Morning sickness or nausea. This can happen any time of the day or night. Tender, swollen breasts Need to urinate frequently Tiredness or fatigue Dizziness Indigestion or heartburn Food cravings or turn-offs Constipation Emotional changes. This can range from anxiety to excitement to depression.General care for a healthy pregnancyHere are things you can do to help make sure your baby is born healthy: Rest when you feel tired. This is especially true in the later months of . Drink more fluids. Your body needs more fluids than you may be used to. Drink 8 to10 glasses of juice, milk, or water every day. Eat well-balanced meals. Eat at regular times to give your body enough protein. You can expect to gain about 30 pounds during the . Don't try to diet or lose weight while you are . Take a vitamin every day. This helps you meet the extra nutritional needs of . Don't take any other medicine during your unless your healthcare provider tells you to. This includes prescription medicines and those you buy over the counter. Many medicines can harm the growing baby. If you have nausea or vomiting, don't eat greasy or fried foods. Eat several smaller meals throughout the day rather than 3 large meals. If you smoke, you must stop. The nicotine you breathe in goes right to the baby. Stay away from alcohol, even in moderate amounts. Daily drinking will harm your baby and can cause permanent brain damage. 14 General Instructions [facility] Emergency Department [address] [place] [address] Phone #: [phone]- [phone] 03/29/2021 11:39 Patient: [facility]W [id number] Sex: F : 1995 Age: 25y Don't use recreational drugs, especially cocaine, crack, and heroin. These will harm your baby. Also avoid marijuana. If you were using recreational drugs or prescribed medicine when you found out that you were , talk with your healthcare provider about possible effects on your growing baby. If you have medical problems that you need to take medicine for, talk with your healthcare provider.Follow-up careCall your healthcare provider to arrange for care. care is important. You [facility] provider, a specialist (bag hanger), a activity manager, or a primary care clinic.When to seek medical adviceCall your healthcare provider right away if any of these occur: Vaginal bleeding Pain in your belly (abdomen) or back that is moderate or severe Lots of vomiting, or you can't keep any fluids down for 6 hours Burning feeling when you urinate Headache, dizziness, or rapid weight gain Fever Vision changes or blurred vision [id number] [employer]. [address] [place] [address], [place] [address]. All rights reserved. This information is not intended as asubstitute for professional medical care. Always follow your healthcare professional's instructions. Prevention steps for People with confirmed or suspected COVID-19 (including persons under investigation) who do not need to be hospitalized And People with confirmed COVID-19 who were hospitalized and determined to be medically stable to go home Your healthcare provider and public health staff will evaluate whether you can be cared for at home. If it isdetermined that you do not need to be hospitalized and can be isolated at home, you will be monitored by [facility] [place]. You should follow the prevention steps below until a healthcare provider or[facility] or [place] [facility] says you can return to your normal activities. 15 General Instructions [facility] [address] [place] [address] Phone #: [phone] 03/29/2021 11:39 Patient: MARIA TERESA MATTHEW Sex: F : 1995 Age: 25y Stay home except to get medical care People who are m ildly ill with COVID-19 are able to isolate at home during their illness. You should restrict activities outside yourhome, except for getting medical care. Do not go to work, school, or public areas. Avoid using public transportation, ride-sharing, ortaxis. Separate yourself from other people and animals in your home People: As much as possible, you should stay in a specificroom and away from other people in your home. Also, you should use a separate bathroom, if available.Animals: You should restrict contact with pets and other animals while you are sick with COVID-19, just like you would around otherpeople. Although there have not been reports of pets or other animals becoming sick with COVID- 19, it is still recommended thatpeople sick with COVID-19 limit contact with animals until more information is known about the virus. When possible, have anothermember of your household care for your animals while you are sick. If you are sick with COVID-19, avoid contact with your pet,including petting, snuggling, being kissed or licked, and sharing food. If you must care for your pet or be around animals while you aresick, wash your hands before and after you interact with pets and wear a facemask. See https://www.cdc.gov/coronavirus/2019-ncov/faq.html#4654-gBtQ-fvf-animals for more information. Call ahead before visiting your doctor If you have a medical appointment, call the healthcare provider and tell them that you have or may have COVID-19. This will helpthe healthcare provider's office take steps to keep other people from getting infected or exposed. Wear a facemask You should wear a facemask when you are around other people {e.g., sharing a room or vehicle} or pets and before you enter [facility]. If you are not able to wear a facemask {for example, because it causes trouble breathing}, thenpeople who live with you should not stay in the same room with you, or they should wear a facemask if they enter your room. Cover your coughs and sneezes Cover your mouth and nose with a tissue when you cough or sneeze. Throw used tissues in a lined trash can. Immediately washyour hands with soap and water for at least 20 seconds or, if soap and water are not available, clean your hands with analcohol-based hand avionics technician that contains at least 60% alcohol. Clean your hands often Wash your hands often with soap and water for at least 20 seconds, especially after blowing your nose, coughing, or sneezing;going to the bathroom; and before eating or preparing food. If soap and water are not readily available, use an alcohol-based handsanitizer with at least 60% alcohol, coverin g all surfaces of your hands and rubbing them together until they feel dry. Soap and water are the best option if hands are visibly dirty. Avoid touching your eyes, nose, and mouth with unwashedhands. Flu Like Symptoms / Coronavirus Exposure - 30a Page 1 of 2 Avoid sharing personal household items You should not share dishes, drinking glasses, cups, eating utensils, towels, or bedding with other people or pets in yourhome. After using these items, they should be washed thoroughly with soap and water. Clean all "high-touch" surfaces everyday High touch surfaces include counters, tabletops, doorknobs, bathroom fixtures, toilets, phones, keyboards, tablets, and bedsidetables. Also, clean any surfaces that may have blood, stool, or body fluids on them. Use a household cleaning spray or wipe,according to the label instructions. Labels contain instructions for safe and effective use of the cleaning product including precautions you should take when applyingthe product, such as wearing gloves and making sure you have good ventilation during use of the product. Monitor your symptomshttps://www.tsystem.com/index.php Seek prompt medical attention if your illness is worsening {e.g., difficulty breathing}. Before seeking care, call your healthcareprovider and tell them that you have, or are being evaluated for, COVID-19. Put on a facemask before you enter the facility. 16 General Instructions [facility] Department [address] [place] [address] Phone #: [phone]- [phone] 03/29/2021 11:39 Patient: MARIA TERESA MATTHEW Sex: F : 1995 Age: 25yThese steps will help the healthcare provider's office to keep other people in the office or waiting room from getting infected orexposed. Ask your healthcare provider to call the local or state health department. Persons who are placed under activemonitoring or facilitated self-monitoring should follow instructions provided by their local health department or occupational healthprofessionals, as appropriate. When working with your local health department check their available hours.If you have a medical emergency and need to call 911, notify the dispatch personnel that you have, or are being evaluated forCOVID-19. If possible, put on a facemask before emergency medical services arrive.Discontinuing home isolationPatients with confirmed COVID-19 should remain under home isolation precautions until the risk of secondary transmission toothers is thought to be low. The decision to discontinue home isolation precautions should be made on a [id number] basis, inconsultation with healthcareproviders and state and local health departments.Contacts Fotofeedback.Online informationhttps://www.cdc.gov/coronavirus/2019- ncov/about/index.html Content source: National Center for Immunization and Respiratory Diseases (NCIRD), Division of Viral Diseases Recommended precautions for household members, intimate partners, and caregivers in a nonhealthcare setting1 of A patient with symptomatic laboratory-confirmed COVID-19 or A patient under investigationHousehold members, intimate partners, and caregivers in a nonhealthcare setting may have close contact2 with aperson with symptomatic, laboratory-confirmed COVID-19 or a person under investigation. Close contacts shouldmonitor their health; they should call their healthcare provider right away if they develop symptoms suggestive of COVID-19 {e.g., fever, cough, shortness of breath} {see Interim [place] Guidance for Risk Assessment and Public Health Management of Persons with Potential 17 General Instructions [facility] Department [address] [place] [address] Phone #: [phone]- [phone] 03/29/2021 11:39 Patient: MARIA TERESA MATTHEW Sex: F : 1995 Age: 25y Coronavirus Disease 2019 {COVID-19} Exposure in Travel- associated or Community Settings.}Close contacts should also follow these recommendations: Make sure that you understand and can help the patient follow their healthcare provider's instructions for medication{s} and care. You should help the patient with basic needs in the home and provide support for getting groceries, prescriptions, and other personal needs. Monitor the patient's symptoms. If the patient is getting sicker, call his or her healthcare provider and tell them that the patient has laboratory-confirmed COVID-19. This will help the healthcare provider's office take steps to keep other people in the office or waiting room from getting infected. Ask the healthcare p sagar to call the local or state health department for additional guidance. If the patient has a medical emergency and you need to call 911, notify the dispatch personnel that the patient has, or is being evaluated for COVID-19. Household members should stay in another room or be from the patient as much as possible. Household members should use a separate bedroom and bathroom, if available. Prohibit visitors who do not have an essential need to be in the home. Household members should care for any pets in the home. Do not handle pets or other animals while sick. For more information, see COVID-19 and Animals. Make sure that shared spaces in the home have good air flow, such as by an air conditioner or an opened window, weather permitting. Perform hand hygiene frequently. Wash your hands often with soap and water for at least 20 seconds or use an alcohol-based hand avionics technician that contains 60 to 95% alcohol, covering all surfaces of your hands and rubbing them together until they feel dry. Soap and water should be used preferentially if hands are visibly dirty.Avoid touching your eyes, nose, and mouth with unwashed hands. The patient should wear a facemask when around other people, except when unable {for example, because it causes trouble breathing}. You, as the caregiver should always wear a mask, regardless if the patient has one on or not whenever you are in the same room as the patient. Wear a disposable facemask and gloves when you touch or have contact with the patient's blood, stool, or body fluids, such as saliva, sputum, nasal mucus, vomit, urine. Throw out disposable facemasks and gloves after using them. Do not reuse. When removing personal protective equipment, first remove and dispose of gloves. Then, immediately clean your hands with soap and water or alcohol- based hand avionics technician. Next, remove and dispose of facemask, and immediately clean your hands again with soap and water or alcohol-based hand avionics technician. Avoid sharing household items with the patient. You should not share dishes, drinking glasses, cups, eating utensils, towels, bedding, or other items. After the patient uses these items, you should wash them thoroughly {see below "Wash laundry thoroughly"}. Flu Like Symptoms / Coronavirus Exposure - 30a Page 2 of 2 Clean all "high-touch" surfaces, such as counters, tabletops, doorknobs, bathroom fixtures, toilets, phones, keyboards, tablets, and bedside tables, every day. Also, clean any surfaces that may have blood, stool, or body fluids on them. Use a household cleaning spray or wipe, according to the label instructions. Labels contain instructions for safe and effective use of the cleaning product including precautions you should take when applying the product, such as wearing gloves and making sure you have good ventilation during use of the product. Wash laundry thoroughly. Immediately remove and wash clothes or bedding that have blood, stool, or body fluids on them. Wear disposable gloves while handling soiled items and keep soiled items away from your body. Clean your hands {with soap and water or an alcohol-based hand avionics technician} immediately after removing your gloves. https://www.[employer]/index.php Read and follow directions on labels of laundry or clothing items and detergent. In general, using a normal laundry detergent according to washing machine instructions and dry thoroughly using the warmest temperatures recommended on the clothing label. 18 General Instructions [facility] Emergency Department [address] [place] [address] Phone #: ext- [phone] 03/29/2021 11:39 Patient: MARIA TERESA MATTHEW Sex: F : 1995 Age: 25[address] Place all used disposable gloves, facemasks, and other contaminated items in a lined container before disposing of them with other household waste. Clean your hands {with soap and water or an alcohol-based hand avionics technician} immediately after handling these items. Soap and water should be used preferentially if hands are visibly dirty. Discuss any additional questions with your state or local health department or healthcare provider. Check available hours when contacting your local health department.Contacts 2020 [employer].Online information https://www.cdc.gov/coronavirus/2019-ncov/about/index.htmlContent source: National Center for Immunization and Respiratory Diseases (NCIRD), Division of Viral DiseasesFootnotes 1Home healthcare personnel should refer to I nterim Infection Prevention and Control Recommendations for Patients with Known or Patients Under Investigationfor Coronavirus Disease 2019 (COVID-19) in a Healthcare Setting. 2Close contact is defined as-1. being within approximately 6 feet (2 meters) of a COVID-19 case for a prolonged period of time; close contact can occur while caring for, living with, visiting, or sharing a health care waiting area or room with a COVID-19 case - or -2. having direct contact with infectious secretions of a COVID-19 case (e.g., being coughed on 19 General Instructions [facility] Emergency Department [address] [place] [address] Phone #: ext- [phone] 03/29/2021 11:39 Patient: MARIA TERESA MATTHEW Sex: F : 1995 Age: 25y You have been given the following additional information: Coronavirus Di sease 2019 (COVID-19) Pneumonia (Adult) , New Dx , New Dx COVID-19 Rest at home (You are on a self quarantine x 10 days. This may be extended or decreased by [facility]. It is all dependent on when your test results are in.).(Electronically signed by David Lieberman P.A.-C 03/31/2021 12:58) Name Value Range Interpretation Code Description Data Sera rce(s) Supporting Document(s) ID Date Data Source [id number] 03/29/2021 11:50:00 AM EDT [facility] 1 Clinical Report - Nurses [facility] Emergency Department [address] [place] [address] Phone #: ext- [phone] 03/29/2021 11:39 Patient: MARIA TERESA MATTHEW Sex: F : 1995 Age: 25yTRIAGEArrived by private vehicle. Historian: patient.Triage time: 11:40 03/29/2021. Acuity: LEVEL 3.Chief Complaint: SHORTNESS OF BREATH and COUGH.11:40 03/29/21. Alert. No acute distress.Onset. (4 days ago). ( Cough began 03/25 clear to yellowish sputum, started feeling SOB yesterday).SEPSIS SCREEN: SIRS SCREEN NEGATIVE: heart rate greater than 90. SEPSIS SCREEN NEGATIVE.Possible sources of infection: pneumonia. --11:46 03/29/21 Mili Ratliff RN11:40 03/29/21. BP: 126/66. MAP: 86. HR: 125. RR: 18. O2 saturation: 97%. Temp: 98 F. Pain level now:4/10. Describes the quality as aching. It has been constant. Pain level at maximum: 7/10. No radiationnoted. It is worsened by movement and deep breathing. --11:46 03/29/21 Mili Ratliff RN.Weight: 90.7 kg stated. Height/Length: 64 inches Per Patient. BMI: 34.3. --11:39 03/29/21 Mili Ratliff RN.MedicationsNone. --11:43 03/29/21 Mili Ratliff RN.AllergiesPenicillins.(facial swelling) --11:43 03/29/21 Mili Ratliff RN.PROBLEMS:no known problems.ADDITIONAL SURGERIES:Adenoidectomy.Tonsillectomy.Tympanostomy Tubes. --11:44 03/29/21 Mili Ratliff RN.Xhhrwjj37:40 03/29/21.PAST MEDICAL HX: Immunizations: up-to-date. Last normal menstrual period was 2 weeks ago.SOCIAL HX: Heavy tobacco smoker (cigarette)- less than 1 pack per day. No alcohol use or drug use.The patient was offered HIV testing but declined. Hepatitis C testing offered to patient. The patient hasnot traveled outside the [place] 2 Clinical Report - Nurses [facility] Emergency Department [address] [place] [address] Phone #: ext- [phone] 03/29/2021 11:39 [id number] Sex[facility] F : 1995 Age: 25y Infectious disease exposure: No infectious disease exposure. It is unknown if the patient has been exposed to Coronavirus. (Denies travel). Patient is not a known carrier of hepatitis, HIV, MRSA, VRE or CRE. SELF HARM ASSESSMENT: Self harm assessment was performed. The patient answered "no" to the question(s) "Do you have thoughts of harming or killing yourself?" and "Have you recently had thoughts about harming or killing others?". ABUSE ASSESSMENT: Abuse assessment. The patient had positive responses to the question(s) "Do you feel safe in your home?" (yes). Abuse denied. No report of abuse. NUTRITIONAL RISK ASSESSMENT: The nutritional risk assessment revealed no deficiencies. FUNCTIONAL ASSESSMENT: Functional assessment: no impairments noted. LEARNING NEEDS ASSESSMENT: The learning needs assessment revealed no barriers. FALL RISK ASSESSMENT: Fall risk assessment completed. No risk factors identified. SKIN INTEGRITY ASSESSMENT: Skin integrity risk assessment completed. No skin integrity risk identified. --11:46 03/29/21 Mili Ratliff RN. Interventions 11:40 03/29/21. To treatment room. Transported via stretcher. --11:46 03/29/21 Mili Ratliff RN.PHYSICAL ASSESSMENTGENERAL / NEURO / PSYCH: Alert. Oriented X 4. Appears anxious.HEENT: Mucous membranes are pink.RESPIRATORY: Mild respiratory distress. The patient can speak in full sentences. Cough productive ofclear, yellow sputum. Chest nontender. No chest wall tenderness. Decreased breath sounds in thebases bilaterally. Expiratory and inspiratory bilateral wheezes diffusely. No accessory muscle use,rhonchi, prolonged expiration or crackles.CVS: Cardiac rhythm: sinus tachycardia. Capillary refill less than 2 seconds.GI / : Abdomen soft and nontender. Bowel sounds within normal limits.SKIN: Skin is warm and dry. Normal skin turgor. --12:41 03/29/21 Homer Gan.NURSING PROGRESS NOTES11:40 03/29/21. Head of bed elevated. Two patient identifiers checked. Call light placed in reach. Siderails up x 1. Bed placed in lowest position. Brakes of bed on. Patient ready for evaluation- ED physiciangurjit PRETTY notified. --11:46 03/29/21 Mili Ratliff RN 12:03 03/29/21. BP: 130/96. HR: 120. RR: 16. O2 saturation: 97%. --12:03 03/29/21 Tristan international logistics analystTori BoykinC[facility]1 EKG time: (12:13 03/29/2021). EKG was performed by a mary and shown to the PA. --12:19 03/29/21 Tristan 3 Cl inical Report - Nurses [facility] Emergency Department [address] [place] [address] Phone #: ext- [phone] 03/29/2021 11:39 Patient: MARIA TERESA MATTHEW Sex: F : 1995 Age: 25yED Tori BoykinCleveland Clinic [facility] Hospital112:35 03/29/2021 Site #1 started via IV in the left antecubital space with an 20g angiocath, with aseptictechnique and good blood return; one attempt. Saline lock flushed with 10 mL saline. --12:35 03/29/21Homer Gan12:35 03/29/2021 Started bag #1 1000 mL IV Fluids IV NS; bolus of 500 mL wide open then at 100 mL/hrover 4 hour(s) via site #1 via IV pump. Allergies verified and confirmed 5 rights. IV patency established. IVsite checked: no pain, redness, or swelling. IV flushed thoroughly pre- and post-medication administration.Information reviewed with patient including reason for taking this medication and precautions. Verbalizesunderstanding. --12:35 03/29/21 Homer Gan12:36 03/29/2021 Tylenol (APAP) PO Tablets 1000 mg given. Allergies verified and confirmed 5 rights.Information reviewed with patient including reason for taking this medication, signs of allergic reaction andprecautions. Verbalizes understanding. --12:36 03/29/21 Homer Gan12:36 03/29/2021 Ativan (LORazepam) IVP 1 mg given via site #1. Allergies verified and confirmed 5rights. IV patency established. IV site checked: no pain, redness, or swelling. IV flushed thoroughly pre-and post-medication administration. IVP given by RN. Information reviewed with patient including reasonfor taking this medication, signs of allergic reaction, precautions and sedative warning. Verbalizesunderstanding. --12:36 03/29/21 Homer Gan13:03/29/21. BP: 97/77. HR: 99. RR: 29. O2 saturation: 98%. --13:03/29/21 [facility] Cfcc219:03/29/21. BP: 124/76. HR: 103. RR: 29. O2 saturation: 93%. --14:03/29/21 Sumpto,Flazio Slce7Owpzrcshbb of patient in place. Reassurance given to the patient.Rounding: Pain: assessed pain level. Position: states comfortable. Personal care / toileting: denies toiletingneeds. Proximity of possessions / care items: call light within easy reach. Plug ins: assured IV pumpplugged in; checked status of equipment in use; located all cords, tubes, and lines to prevent fall hazard.Set expectations: advised patient of rounding protocol timing and asked if they needed anything else at thistime. Reassessment after fluids administered. She is calm and resting quietly. Overall patient status isthe same- she states feels the same. Two patient identifiers checked. Call light placed in reach. Siderails up x 2. Bed placed in lowest position. Brakes of bed on. --14:03/29/21 Homer Gan15:03/29/21. BP: 97/55. HR: 91. RR: 22. O2 saturation: 97%. --15:03/29/21 [facility] Duuo312:06 03/29/21. BP: 106/57. HR: 91. RR: 28. O2 saturation: 95%. --16:06 03/29/[address] [facility] 4 Clinical Report - Nurses [facility] Emergency Department [address] [place] [address] Phone #: ext- [phone] 03/29/2021 11:39 Patient: MARIA TERESA MATTHEW Sex: F : 1995 Age: 25yMonitoring of patient in place. Reassurance given to the patient. Reassessment after fluidsadministered. She reports no complaints and she is calm and resting quietly.RESPIRATORY: Breath sounds normal.CVS: Normal sinus rhythm noted.SKIN: Skin is warm and dry. Skin color within normal limits. Two patient identifiers checked. Call lightplaced in reach. Side rails up x 2. Bed placed in lowest position. Brakes of bed on. --16:14 03/29/21Homer Gan17:03/29/21. BP: 125/81. HR: 82. RR: 21. O2 saturation: 98%. --17:26 03/29/[address] [facility] ClinicsDaneToriPremier Health [facility] Hospital NorthAuor7Xgmktikvec of patient in place. Reassurance given to the patient. Reassessment after fluidsadministered. She reports no complaints and she is calm and resting quietly. Overall patient status is thesame- she states feels the same.CVS: Normal sinus rhythm noted.SKIN: Skin is warm and dry. Skin color within normal limits. Call light placed in reach. Side rails up x 2.Bed placed in lowest position. Brakes of bed on. Patient waiting for results and disposition. --17: Homer Gan18:03/29/21. BP: 125/74. HR: 103. RR: 26. O2 saturation: 99%. --18:06 03/29/[address] [facility] Tori Boykin ER Hyix155:20 03/29/2021 Started 1 gm of ROCEPHIN (1GM/50ML) (cefTRIAXone Sodium) IVPB in bag #1 50 mL;at 100 mL/hr over 30 minute(s) via site #1. via IV pump. Allergies verified and confirmed 5 rights. IVpatency established. IV site checked: no pain, redness, or swelling. IV flushed thoroughly pre- andpost- medication administration. Information reviewed with patient including reason for taking thismedication, signs of allergic reaction and precautions. Verbalizes understanding. --18:25 03/29/21 JOHN Lin18:20 03/29/2021 Azithromycin PO Tablets 500 mg given. Allergies verified and confirmed 5 rights.Information reviewed with patient including reason for taking this medication, signs of allergic reaction andprecautions. Verbalizes understanding. --18:25 03/29/21 Mili Ratliff RNRounding: Pain: assessed pain level and denies pain. Position: states comfortable and repositioned.Personal care / toileting: denies toileting needs. Proximity of possessions / care items: call light within easyreach. Plug ins: assured IV pump plugged in; checked status of equipment in use; located all cords, tubes,and lines to prevent fall hazard. Set expectations: advised patient of rounding protocol timing and asked ifthey needed anything else at this time. Reassessment after medication administered. No adversereaction. Reassessment after fluids administered. She reports no complaints and she is calm and restingquietly. Overall patient status is the same- she states feels the same. Two patient identifiers checked.Call light placed in reach. Side rails up x 2. Bed placed in lowest position. Brakes of bed on. --18: Homer Gan19:02 03/29/21. BP: 129/89. HR: 92. RR: 21. O2 saturation: 97%. --19:03 03/29/[address] [facility] Tori Boykin, Lul Clinical Report - Nurses [facility] Emergency Department [address] [place] [address] Phone #: ext- [phone] 03/29/2021 11:39 Patient: [facility] TERESA MATTHEW [id number] Sex: F : 1995 Age: 25y ER Tech1.DISPOSITION / DISCHARGE 19:57 03/29/21. BP: 124/78. HR: 91. RR: 17. O2 saturation: 100%. Temp: 97.9 F. --19:57 03/29/[address] [facility], [facility] Tech1 20:07 03/29/2021 Site #1 removed upon discharge. Catheter intact. Bandaid applied. --20:03/29/21 Kristina Soler 20:07 03/29/2021 IV Fluids IV NS via IV site #1 Discontinued: bag #1 infused. Total amount infused: 1000 mL. IV patency established. IV site checked: no pain, redness, or swelling. IV flushed thoroughly. --20:03/29/21 Kristina Soler Departure time: 20:03/29/2021. Condition at departure: stable. No learning barriers present. Discharge instructions provided and reviewed with the patient. Reviewed warnings. Reviewed medication(s). Treatments reviewed. Activity restrictions reviewed. Patient verbalized understanding. Written instructions provided in Omani. The patient was discharged by the physician. She was discharged home and unaccompanied at time of discharge. She left ambulatory and via private vehicle. [employer] driving. --20:03/29/21 Kristina Soler 20:03/29/21. Pain level now 0/10. --20:08 03/29/21 Kristina Soler 20:03/29/2021 ROCEPHIN (1GM/50ML) IVPB via IV site #1 Discontinued: completed. Total amount infused: 50 mL. IV patency established. IV site checked: no pain, redness, or swelling. IV flushed thoroughly. --20:03/29/21 Kristina Soler.Locked/Released at 03/29/2021 20:09 by Kristina Soler Name Value Range Interpretation Code Description Data Sera rce(s) Supporting Document(s) ID Date Data Source [id number] 03/29/2021 11:50:00 AM EDT [facility] 1 Clinical Report - Physicians/Mid Levels [facility] Emergency Department [address] [place] [address] Phone #: ext- [phone] 03/29/2021 11:39 Patient: MARIA TERESA MATTHEW Sex: F : 1995 Age: 25y Time Seen: 12:03 03/29/2021; initial patient contact, initial documentation. Arrived- By private vehicle. Historian- patient. Disposition decision: 19:44 03/29/2021.HISTORY OF PRESENT ILLNESS Chief Complaint: FEVER, SORE THROAT and MUSCLE ACHES and possible FLU EXPOSURE and COVID-19 EXPOSURE. This started about 4 days ago and is still present. The patient has had a cough, chest discomfort, difficulty breathing, fever and chills. She has had muscle aches but not been confused. No headache, sinus drainage, nasal congestion or discharge or sore throat. No chest pain, nausea, vomiting, diarrhea or loss of appetite. No sputum production. The patient is not a healthcare worker. No recent travel. No significant recent events. (Pt presents toe ER with productive cough for the last few days adn ntoed slight increased SOB. No CP or dyspnea. Pt denies any recent travel and indicdates she is NOT vaccinated.). Similar symptoms previously. None. Recent medical care: Not recently seen/assessed.REVIEW OF SYSTEMSLast normal menstrual period was 2 weeks ago. She has had fatigue. No weight loss, photophobia,sinus pain, toothache or weakness. No dizziness, palpitations, calf pain, abdominal pain or bloody stools.No urinary incontinence, joint pain, enlarged lymph nodes or back pain. All other systems reviewed andare negative.PAST HISTORYSee nurses notes. Problems: Cellulitis Check. Dental Pain. Dental Abscess. Cellulitis. Abnormal Test. Allergic Reaction. Ear Infection. UTI - Urinary Tract Infection. Vomiting. Otitis Media. MENIGIOMA. None. Normal Exam. 2 Clinical Report - Physicians/Mid Levels [facility] Emergency Department [address] [place] [address] Phone #: ext- [phone] 03/29/2021 11:39 Patient: MARIA TERESA MATTHEW Sex: F : 1995 Age: 25y Tonsillitis [Resolved]. Abscess [Resolved]. [Resolved]. Additional Surgeries: Adenoidectomy. Tonsillectomy. Tonsillectomy Adenoidectomy. Tympanostomy Tubes. Immunizations: Immunization status is up-to-date. Immunizations received: (NO COVID). Medications: None. Allergies: Penicillins.(facial swelling).SOCIAL HISTORYHeavy tobacco smoker- less than 1 pack per day. No alcohol use or drug use.ADDITIONAL NOTESThe nursing notes have been reviewed.PHYSICAL EXAMVital Signs: 03/29/2021 11:40 BP: 126/66. MAP: 86. HR: 125. RR: 18. O2 saturation: 97%. Temp: 98 F.Pain level now: 4/10. Have been reviewed. Blood pressure normal. Tachycardic. Oxygen saturationnormal.Appearance: Alert. No acute distress.Eyes: Eyelids appear norm al to inspection. Conjunctivae and sclerae appear normal to inspection.Corneas appear normal to inspection. Pupils equal, round and reactive to light. Accommodation normal.EOMs intact. Periorbital areas appear normal to inspection. Anterior chambers clear.ENT: Normal ENT inspection. Airway intact. TM's normal. Ears normal. Nose normal. Nares normal.Pharynx normal. Moist mucous membranes. Uvula midline. Voice normal.Neck: Normal inspection. Neck supple.CVS: Tachycardia. Normal heart rhythm. No JVD present. Pulses normal. Capillary refill normal.Strong peripheral pulses. Pulses: right radial 2+; left radial 2+; right dorsalis pedis 2+; left dorsalis pedis2+; right posterior tibial 2+; left posterior tibial 2+.Respiratory: Chest normal on inspection. No respiratory distress. Unlabored respirations. Mild rhonchipresent bilaterally. Good chest movement. Breath sounds normal and equal.Abdomen: Normal inspection. Soft and nontender. Bowel sounds normal. No distention.Skin: Skin warm and dry.Extremities: Extremities exhibit normal ROM. No lower extremity edema. No calf tenderness. No lowerextremity edema.Neuro: Awake. Alert. Mood/affect normal. Speech normal. No motor deficit. No sensory deficit. 3 Clinical Report - Physicians/Mid Levels [facility] Department [address] [place] [address] Phone #: [phone]- [phone] 03/29/2021 11:39 Patient: MARIA TERESA MATTHEW Sex: F : 1995 Age: 25y Psych: Cognition normal. Thought process and content normal. Insight and judgement normal.LABS, X-RAYS, AND EKGEKG: sinus rhythm w/ PAC; o/w normal ECG. Reviewed by attendgn. Laboratory Tests: CT CTA CHEST NON-CORONARY W CON INC PP: (NAS: 03/29/2021 14:52) ( MsgRcvd 03/29/2021 19:36) In Progress Test Result Flag Units (Reference) CT CTA CHEST NON-CORONARY [place] [address] PHONE: [phone] FAX: [phone] -- Name .................. : VIPUL Hampton Acct Number.................. : [id number] ROOM. ................. : TR-05 MR Number ................... : [id number] Stay type ............. : E/R Discharge Date......... ... : Admit Date ......... : 03/29/21 Admit Phys .................... : KASANDRA NEREYDA Date of ....... : 1995 Family Phys ................... : NO PCP Phone .................. : [phone] Age ................................ : 25 Film# .................. .:[id number] Sex ................................. : F -- Unsigned transcriptions are preliminary reports and do not represent a medical or legal document CT CTA CHEST NON-CORONARY W C [id number] COMPLETE:03/29/21 14:52 [id number] Reason(s): Tachy, low o2; ? PE vs COVID vs other. Pt is unvaccinated and n -- -- -- -- CT CHEST WITH IV CONTRAST -- INDICATION: Tachycardia, hypoxia, pulmonary embolism versus Covid 19. Patient is not -- vaccinated. COMPARISON: None CONTRAST: 75 mL IsoVue 370 -- One or more of the following dose reduction techniques were utilized in effectively lowering the patient's radiation dose for this examination: Automated Exposure Control, Adjustment of the mA and/or kV according to patient size, or Iterative reconstruction. -- FINDINGS: The examination is degraded by patient motion. -- VASCULAR: The main and segmental pulmonary vessels are presumably well-visualized and no filling defects are seen. Peripheral pulmonary vessels are not well-visualized due to patient -- motion. -- LUNGS: Multifocal patchy groundglass o pacities are seen in both lungs in a perihilar and peripheral distribution. -- PLEURA AND PERICARDIUM: No pleural or pericardial effusions. -- MEDIASTINUM AND LORETA: No mediastinal or hilar adenopathy or masses. -- CHEST WALL: No axillary adenopathy. -- SKELETAL: Skeletal structures are within normal limits. 4 Clinical Report - Physicians/Mid Levels [facility] Department [address] [place] [address] Phone #: ext- [phone] 03/29/2021 11:39 Patient: MARIA TERESA MATTHEW Sex: F : 1995 Age: 25y -- UPPER ABDOMEN: Unremarkable. -- -- IMPRESSION: -- -- Page 1of 2 [place] [address] PHONE: [phone] FAX: [phone] -- Name .................. : VIPUL Hampton Acct Number.................. : [id number] ROOM. ................. : TR-05 MR Number ................... : [id number] Stay type ............. : E/R Discharge Date......... ... : Admit Date ......... : 03/29/21 Admit Phys .................... : KASANDRA DAWN Date of ....... : 1995 Family Phys ................... : NO PCP Phone .................. : [phone] Age ................................ : 25 Film# .................. .:[id number] Sex ................................. : F -- Unsigned transcriptions are preliminary reports and do not represent a medical or legal document CT CTA CHEST NON-CORONARY W C [id number] COMPLETE:03/29/21 14:52 [id number] Reason(s): Tachy, low o2; ? PE vs COVID vs other. Pt is unvaccinated and n -- -- 1. The examination is degraded by patient motion. 2. Multifocal pulmonary opacities suspicious for Covid pneumonia. 3. No pulmonary embolism identified. -- -- Electronically Reviewed and Signed By JOCELYNE SIGNMIRACLETECELE -- Transcribe Initials: JOHNNY , Transcribe Date: 03/29/21 19:21, Dictation Date: -- -- <<REPDIST>> -- -- -- -- Page 2of 2 --Beta-HCG, Quant Serum: (NAS: 03/29/2021 12:31) ( MsgRcvd 03/29/2021 15:52) Final results Test Result Flag Units (Reference) HCG QUANT 103.7 mIU/mL Interpretation: Less than 5 mU/mL: Negative6-10 mU/mL: Borderline (suggest repeat in 48 hours) >10: PositiveApprox HCG range (mU/mL) Weeks post LMP 5.4-708 mU/mL 3-4 Tyahk086-56855 mU/mL 5-6 Weeks 4059-128502 mU/mL 7-8 Nbdfo75141-936176 mU/mL 9-10 Weeks 27066-07824 mU/mL 12-14 Tzuyg36503-05938 mU/mL 15-16 Weeks 8240-14960 mU/mL 17-18 WeeksInfluenza Nasal A B: (NAS: 03/29/2021 12:31) ( MsgRcvd 03/29/2021 12:50) CanceledCOVID-19 CAH: (NAS: 03/29/2021 12:31) ( MsgRcvd 03/29/2021 13:02) Final results 5 Clinical Report - Physicians/Mid Levels [facility] Emergency Department [address] [place] [address] Phone #: ext- [phone] 03/29/2021 11:39 Patient: MARIA TERESA MATTHEW Sex: F : 1995 Age: 25y Test Result Flag Units (Reference) COVID-19 NOT DETECTED COVID-19 REENTER NOT DETECTED { PROCEDURAL CONTROL VALID KIT LOT # _[id number] 03/29/21.1302.TAD. KIT EXP DATE _05.16.21 03/29/21.130.TAD. NORMAL RANGE IS NOT DETECTEDThe COVID-19 assay is a rapidmolecular in vitro diagnostic testutilizing an isothermal nucleic acid amplification technology for thequalitativedetection of nucleic acid from the SARS-CoV-2 viral RNA in directnasal or nasopharyngeal swabs. Testing shouldbe performed within the first 7days of the onset of symptoms.NEGATIVE RESULTS SHOULD BE TREATED PRESUMPTIVEAND, IF INCONSISTENT WITHCLINICAL SIGNS AND SYMPTOMS OR NECESSARY FOR PATIENT MANAGEMENT, SHOULD BETESTED WITHDIFFERENT AUTHORIZED OR CLEARED MOLECULAR TESTS. NEGATIVE RESULTSDO NOT PRECLUDE SARS-CoV-2 INFECTION AND SHOULDNOT BE USED THE SOLE BASISFOR PATIENT MANAGEMENT DECISIONS.CBC w Diff: (NAS: 03/29/2021 12:31) ( [facility] 03/29/2021 12:46) Final results Test Result Flag Units (Reference) CBC W/AUTOMATED DIFF COMPLETE BLOOD COUNT WBC 11.6 H 10/uL (4.2 - 11.0) RBC 4.99 10/uL (4.20 - 5.40) HEMOGLOBIN 14.0 g/dL (12.0 - 16.0) HEMATOCRIT 40.5 % (37.0 - 47.0) MCV 81.2 fL (81.0 - 101) MCH 28.1 pg (27.0 - 34.0) MCHC 34.6 g/dL (31.0 - 36.0) RDW 12.9 % (11.5 - 14.5) PLATELETS 288 10/uL (150 - 450) MPV 10.0 fL (7.4 - 10.4) NEUT 71.8 % (37.0 - 80.0) LYMPH 18.0 L % (25.0 - 40.0) MONO 8.4 H % (3.0 - 8.0) EOS 1.0 % (0.0 - 7.0) BASO 0.4 % (0.0 - 2.5) %IG 0.4 H % (0.0 - 0.0) %NRBC 0.0 % (0.0 - 0.0) #NEUT 8.32 H 10/uL (2.00 - 6.90) #LYMPH 2.09 10/uL (0.60 - 3.40) #MONO 0.97 H 10/uL (0.00 - 0.90) #EOS 0.12 10/uL (0.00 - 0.70) #BASO 0.05 10/uL (0.00 - 0.20) #IG 0.05 10/uL (0.00 - 0.10) #NRBC 0.00 10/uL (0.00 - 0.00) MANUAL DIFF NOT INDICATED RBC MORPH NOT INDICATEDCMP: (NAS: 03/29/2021 12:31) ( [facility] 03/29/2021 13:08) Final results Test Result Flag Units (Reference) COMPREHENSIVE METABOLIC PANEL COMPREHENSIVE METABOLIC PANEL SODIUM 138 mEq/L (134 - 153) POTASSIUM 3.7 mEq/L (3.6 - 5.0) CHLORIDE 102 mEq/L (98 - 107) CO2 20 L MEQ/L (22 - 30) GLUCOSE 115 H MG/DL (70 - 99) BUN 3 L MG/DL (7 - 21) CREATININE 0.6 L MG/DL (0.7 - 1.5) BUN/CREAT 5 L (8 - 27) 6 Clinical Report - Physicians/Mid Levels [facility] Emergency Department [address] [place] [address] Phone #: ext- [phone] 03/29/2021 11:39 Patient: MARIA TERESA MATTHEW Sex: F : 1995 Age: 25y TOTAL PROTEIN 6.5 G/DL (6.3 - 8.2) ALBUMIN 4.2 G/DL (3.9 - 5.0) GLOBULIN 2.3 L GM/DL (2.4 - 3.2) A/G RATIO 1.8 (0.8 - 2.0) CALCIUM 9.3 MG/DL (8.4 - 10.2) TOTAL BILI <0.7 MG/DL (0.2 - 1.3) ALKALINE PHOS 71 U/L (38 - 126) SGOT/AST 14 U/L (5 - 40) SGPT/ALT 14 U/L (7 - 56) ANION GAP 16.0 mmol/L (8.0 - 16.0) AGE 25 yrs NON- AA GFR >60 mL/min AFR AMER GFR >60 mL/min Male GFR Interprentation 20-49 yrs >60 mL/min Moomop83-11 yrs >56 mL/min Normal 60-69 yrs >49 mL/min Normal 70-79yrs>42 mL/min Normal 80 and above >35 mL/min Normal Female GFRInterpretation 20-39 yrs >60 mL/min Normal 40-49 yrs >58 mL/minNormal 50-59 yrs >51 mL/min Normal 60-69 yrs >45 mL/min Asqibb70-35 yrs >39 mL/min Normal 80 and above >32 mL/min NormalLipase: (NAS: 03/29/2021 12:31) ( [facility] 03/29/2021 13:07) Final results Test Result Flag Units (Reference) LIPASE 18 U/L (13 - 60)PT/PTT: (NAS: 03/29/2021 12:06) ( [facility] 03/29/2021 12:39) CanceledTroponin-T: (NAS: 03/29/2021 12:31) ( [facility] 03/29/2021 13:08) Final results Test Result Flag Units (Reference) TROPONIN T <0.01 NG/ML (0.00 - 0.10) TROPONIN T0.1 ng/ml Recommended as the clinical threshold value forTroponin T.TSH: (NAS: 03/29/2021 12:31) ( [facility] 03/29/2021 13:18) Final results Test Result Flag Units (Reference) TSH 2.75 uIU/mL (0.47 - 5.01)Beta-HCG, Qual Serum: (NAS: 03/29/2021 12:31) ( [facility] 03/29/2021 13:03) Final results Test Result Flag Units (Reference) HCG SERUM QUAL POSITIVE (NORMAL: NEGAT HCG SERUM QL REENTER POSITIVE (NORMAL: NEGAT { KIT LOT # [id number] ){ KIT EXP DATE07.21.22 ){ PROCEDURAL CONTROL VALID)Influenza Nasal A B: (NAS: 03/29/2021 12:31) ( [facility] 03/29/2021 12:59) Final results Test Result Flag Units (Reference) INFLUENZA A NEGATIVE (NORMAL: NEGAT INFLUENZA B NEGATIVE (NORMAL: NEGAT INFLUENZA A REENTER NEGATIVE (NORMAL: NEGAT INFLUENZA B REENTER NEGATIVE (NORMAL: NEGAT PROCEDURAL CONTROL VALID KIT LOT # _[id number] 03/29/21.1256.JNL. KIT EXP DATE _10/29/21 03/29/21.1256.JNL.The Influenza A utilizing an isothermal nucleic acid amplification technology for thequalitativedetection of influenza A and B viral RNA.Negative results do not preclude influenza virus infection and should 7 Clinical Report - Physicians/Mid Levels [facility] Emergency Department [address] [place] [address] Phone #: ext- [phone] 03/29/2021 11:39 Patient: MARIA TERESA MATTHEW Sex: F : 1995 Age: 25y not beused as the sole basis for diagnosis, treatment or other patient managementdecisions. EKG: (NAS: 03/29/2021 12:06) ( MsgRcvd 03/29/2021 15:20) In Progress CT CTA CHEST NON-CORONARY W CON INC PP: (NAS: 03/29/2021 12:06) ( MsgRcvd 03/29/2021 13:25) Canceled Reason(s): PENDING HCG and CMP: Tachy; ? PE vs COVID vs other. Reason(s): PENDING HCG and CMP: Tachy; ? PE vs COVID vs other. TRANSPORTATION: WC IV? IV?(Yes) O2? Oxygen?(No) Ro.PROGRESS AND PROCEDURESCourse of Care: Enter room and pt lying peacefully in bed in NAD. Patient stable. Denies a ny newissues, concerns, or complaints. NAD, AOx3, interacting well and appropriately, no use of accessory muscle, able to speak full sentences, stable, non-toxic looking. Pt is unvaccinated. Pt sts she has had fever/chills and productive cough since . Progressviely gettig worse. PE demos NV intact b/l UE adn LE. Noted tachy. Slgiht b/l rhonic. ? COVID vs PE vs other. WIll obtian labs and imaigng for furhter eval. Pending results. 13:28 03/29/21. Reviewed results. Noted positive pregnacy; will cancel CTA for now. Pending further labs. Enter room and patient lying and sleeping peacefully in bed in NAD. Patient stable. Denies any new issues, concerns, or complaints. Is surprised by . LMP 2 weeks ago; sts must be significally early. 14:10 03/29/21. Discussed wiht attending results; and vitals. Sts can shield pt for CTA as pt is tachy and flucutating hypoxia. ? PE vs COVID vs other. 14:53 03/29/21. Discussed iw pt and sts she is willing to sign waiver for eval. Understands risks of radiation/contrast and pregancy. 18:13 03/29/21. Reviewed results. Discussed iwth attending. Enter room and patient lying peacefully in bed in NAD. Patient stable. Denies any new issues, concerns, or complaints. Expresses she understnads and agrees. Indicates she is willing to try rocephin. discussed wiht attending and agrees to utilize. Very small chance of cross-reactivity. Reviewed results. Discussed with attending. Contemplate admission due to high suspicion and ? early vitals, but pt has been stable and noted currenlty normal. Attendign indicates to discharge. 8 Clinical Report - Physicians/Mid Levels [facility] Emergency Department [address] [place] [address] Phone #: ext- [phone] 03/29/2021 11:39 Patient: MARIA TERESA MATTHEW Sex: F : 1995 Age: 25y Enter room and patient lying peacefully in bed in NAD. Patient stable. Denies any new issues, concerns, or complaints. Discussed results with pt. Discussed tx plan with pt. Discussed and counseled on stable condition. Discussed importance of a f/u with PCP. Discussed return to ER criteria. Answered their questions. Indicates and verbalizes that they understand, agree, and will comply with above. Denies any new questions or concerns. Patient has ca pacity to understand. Discharge decision based on the following: patient's condition is stable; patient's exam is stable; social support is adequate; transportation is available; follow-up is available. Discussed of OTC Tylenol to control inflammation and pain management. Informed to follow directions on bottle that are appropriate for age and/or weight. Discussed case with health care provider (Kasandra). Disposition: Discharged home in good and improved condition. Condition: good and stable.CLINICAL IMPRESSION Bacterial pneumonia. First trimester ; positive test in emergency department. Coronavirus COVID-19 presumed (confirmatory testing pending) with pneumonia.INSTRUCTIONS Rest at home (You are on a self quarantine x 10 days. This may be extended or decreased by [facility]. It is all dependent on when your test results are in.). Drink plenty of fluids. No dietary restrictions. ([facility]: [phone]. Please contact them in approx 3-4 days if you have not heard from them. You are on a self quarantine x 10 days. This may be extended or decreased by [facility]. It is all dependent on when your test results are in. I recommend to purchase a small finger pulse oximeter to monitor your O2 saturation at home. If becomes too low (<90%), please contact your PCP or return to the ER. Recommend to utilize OTC Tylenol to control inflammation and pain management. Recommend to follow the instructions on the bottle and not to exceed.). Warnings: GENERAL WARNINGS: Return or contact your physician immediately if your condition 9 Clinical Report - Physicians/Mid Levels [facility] Emergency Department [address] [place] [address] Phone #: ext- [phone] 03/29/2021 11:39 Patient: MARIA TERESA MATTHEW Sex: F : 1995 Age: 25y worsens or changes unexpectedly, if not improving as expected, or if other problems arise. SPECIFICALLY, return if you develop chest pain, difficulty breathing or fever. Prescription Medications: azithromycin 250 mg tablet Take 1 tablet once a day for 4 days -- Day 1 given in the ER. Dispense 4 tablet. Refills: 0. Substitution permitted. [facility] #28 - [id number] ; [place] [address]. . cefdinir 300 mg capsule Take 1 capsule twice a day for 7 days -- Dispense 14 capsule. Refills: 0. Substitution permitted. [facility] [employer] #17 - [id number] ; [place] [address]. FaxNumber: [phone]. Follow-up: Return to the emergency department as needed. Follow up with your healthcare provider in about two days if not better. Call for an appointment. Understanding of the discharge instructions verbalized by patient.(Electronically signed by David Lieberman P.A.-C 03/31/2021 12:58) Name Value Range Interpretation Code Description Data Sera rce(s) Supporting Document(s) ID Date Data Source [id number] 03/29/2021 11:50:00 AM EDT [facility] for MARIA TERESA MATTHEW VisitID: [id number] Date: 10:43covid test negative, senior writer called pt's phone number no answer and unable to leave message(Electronically signed by Joyce Figueroa R.N. - 04/02/2021 10:43) Name Value Range Interpretation Code Description Data Sera rce(s) Supporting Document(s) ID Date Data Source [id number] 03/30/2021 01:27:00 PM EDT [facility] [address] [place] [address] PHONE: [phone] FAX: [phone] Name ..............: VIPUL Hampton Acct Number ...........................: [id number] ROOM. ............: TR-05 Number ............................: [id number] Stay type.........: E/R Discharge Date...............:03/29/21 Admit Date .....: 03/29/21 Admit Phys .............................: KASANDRA DAWN Date of ..: 1995 Family Phys ...........................: NO PCP Phone..............: [phone] Age.................................:25 Film# ...............:[id number] Sex.................................:F Unsigned transcriptions are preliminary reports and do [id number] COMPLETE:03/29/21 15:17 [id number] [id number] Please See Scanned Results. Name Value Range Interpretation Code Description Data Sera rce(s) Supporting Document(s) ID Date Data Source [id number] 03/29/2021 09:08:00 PM EDT [facility] [address] [place] [address] PHONE: [phone] FAX: [phone] Name .................. : VIPUL Hampton Acct Number.................. : [id number] ROOM. ................. : TR-05 MR Number ................... : [id number] Stay type ............. : E/R Discharge Date......... ... : Admit Date ......... : 03/29/21 Admit Phys .................... : KASANDRA DAWN Date of ....... : 1995 Family Phys ................... : NO PCP Phone .................. : [phone] Age ................................ : 25 Film# .................. .:[id number] Sex ................................. : F Unsigned transcriptions are preliminary reports and do not represent a medical or legal document CT CTA CHEST NON-CORONARY W C [id number] COMPLETE:03/29/21 14:52 Reason(s): Tachy, low o2; ? PE vs COVID vs other. Pt is unvaccinated and n CT CHEST WITH IV CONTRAST INDICATION: Tachycardia, hypoxia, pulmonary embolism versus Covid 19. Patient is not vaccinated. COMPARISON: None CONTRAST: 75 mL IsoVue 370 One or more of the following dose reduction techniques were utilized in effectively lowering the patient's radiation dose for this examination: Automated Exposure Control, Adjustment of the mA and/or kV according to patient size, or Iterative reconstruction. FINDINGS: The examination is degraded by patient motion. VASCULAR: The main and segmental pulmonary vessels are presumably well-visualized and no filling defects are seen. Peripheral pulmonary vessels are not well-visualized due to patient motion. LUNGS: Multifocal patchy groundglass opacities are seen in both lungs in a perihilar and peripheral distribution. PLEURA AND PERICARDIUM: No pleural or pericardial effusions. MEDIASTINUM AND LORETA: No mediastinal or hilar adenopathy or masses. CHEST WALL: No axillary adenopathy. SKELETAL: Skeletal structures are within normal limits. UPPER ABDOMEN: Unremarkable. IMPRESSION: Page 1 of 2 [facility] [address] [place] [address] PHONE: [phone] FAX: [phone] Name .................. : VIPUL Hampton Acct Number.................. : [id number] ROOM. ................. : TR-05 MR Number ................... : [id number] Stay type ............. : E/R Discharge Date......... ... : Admit Date ......... : 03/29/21 Admit Phys .................... : KASANDRA DAWN Date of ....... : 1995 Family Phys ................... : NO PCP Phone .................. : [phone] Age ................................ : 25 Film# .................. .:[id number] Sex ................................. : F Unsigned transcriptions are preliminary reports and do not represent a medical or legal document CT CTA CHEST NON-CORONARY W C [id number] COMPLETE:03/29/21 14:52 [id number] Reason(s): Tachy, low o2; ? PE vs COVID vs other. Pt is unvaccinated and n 1. The examination is degraded by patient motion. 2. Multifocal pulmonary opacities suspicious for Covid pneumonia. 3. No pulmonary embolism identified. Electronically Reviewed and Signed By Eric Leung MD , 03/29/21 21:08, CELE Transcribe Initials: DZ , Transcribe Date: 03/29/21 19:21, Dictation Date: Co py for: [facility] via fax Copy for: EMERGENCY DEPT via modem Copy for: [facility] MED REC DISCHARGED Page 2 of 2 Name Value Range Interpretation Code Description Data Sera rce(s) Supporting Document(s) ID Date Data Source [id number] 03/29/2021 02:55:00 PM EDT [facility] Name Value Range Interpretation Code Description Data Sera rce(s) Supporting Document(s) SARS coronavirus 2 RNA Not Detected [facility] and reported by [facility]. ID Date Data Source [id number] 04/01/2021 03:49:00 PM EDT [facility] Name Value Range Interpretation Code Description Data Sera rce(s) Supporting Document(s) SARS-CoV-2, YESSI Not Detected Not Detected [facility] This nucleic acid amplification test was developed and its performancecharacteristics determined by [employer]. Nucleic acidamplification tests include RT-PCR and TMA. This test has not beenFDA cleared or approved. This test has been authorized by FDA underan Emergency Use Authorization (EUA). This test is only authorizedfor the duration of time the declaration that circumstances existjustifying the authorization of the emergency use of in vitrodiagnostic tests for detection of SARS-CoV-2 virus and/or diagnosisof COVID-19 infection under section 564(b)(1) of the Act, 21 U.S.C.360bbb-3(b) (1), unless the authorization is terminated or revokedsooner.When diagnostic testing is negative, the possibility of a falsenegative result should be considered in the context of a patient'srecent exposures and the presence of clinical signs and symptomsconsistent with COVID- 19. An individual without symptoms of COVID-19and who is not shedding SARS-CoV-2 virus would expect to have anegative (not detected) result in this assay. ID Date Data Source [id number] 03/29/2021 12:31:00 PM EDT [facility] Name Value Range Interpretation Code Description Data Sera rce(s) Supporting Document(s) COVID19 Case rprt NOT DETECTED [facility] This lab was ordered by [facility] and reported by [facility]. ID Date Data Source [id number] 03/29/2021 01:02:00 PM EDT [facility] NOT DETECTEDNOT DETECTED{ PROC EDURAL CONTROL VALID KIT LOT # _[id number] 03/29/21.1302.TAD. KIT EXP DATE _05.16.21 03/29/21.1302.TAD. NORMAL RANGE IS NOT DETECTEDThe COVID-19 assay is a rapid molecular in vitro diagnostic testutilizing an isothermal nucleic acid amplification technology for thequalitative detection of nucleic acid from the SARS-CoV-2 viral RNA in directnasal or nasopharyngeal swabs. Testing should be performed within the first 7days of the onset of symptoms.NEGATIVE RESULTS SHOULD BE TREATED PRESUMPTIVE AND, IF INCONSISTENT WITHCLINICAL SIGNS AND SYMPTOMS OR NECESSARY FOR PATIENT MANAGEMENT, SHOULD BETESTED WITH DIFFERENT AUTHORIZED OR CLEARED MOLECULAR TESTS. NEGATIVE RESULTSDO NOT PRECLUDE SARS-CoV-2 INFECTION AND SHOULD NOT BE USED THE SOLE BASISFOR PATIENT MANAGEMENT DECISIONS. Name Value Range Interpretation Code Description Data Sera rce(s) Supporting Document(s) ID Date Data Source [id number] 03/29/2021 03:51:00 PM EDT [facility] Name Value Range Interpretation Code Description Data Sera rce(s) Supporting Document(s) Choriogonadotropin.intact [Units/volume] in Serum or Plasma 103.7 mIU /mL [facility] Interpr etation: Less than 5 mU/mL: Negative 6-10 mU/mL: Borderline (suggest repeat in 48 hours) >10: Positive Approx HCG range (mU/mL) Weeks post LMP 5.4-708 mU/mL 3-4 Weeks 217-86286 mU/mL 5-6 Weeks 4059-743853 mU/mL 7-8 Weeks 43013-786846 mU/mL 9-10 Weeks 01842-67797 mU/mL 12-14 Weeks 40425-66633 mU/mL 15-16 Weeks 8240- 44936 mU/mL 17-18 Weeks ID Date Data Source [id number] 03/29/2021 01:18:00 PM EDT [facility] Name Value Range Interpretation Code Description Data Sera rce(s) Supporting Document(s) Thyrotropin [Units/volume] in Serum or Plasma by Detec tion limit <= 0.05 mIU/L 2.75 uIU/mL 0.47 - 5.01 [facility] ID Date Data Source [id number] 03/29/2021 01:08:00 PM EDT [facility] Name Value Range Interpretation Code Description Data Sera rce(s) Supporting Document(s) COMPREHENSIVE METABOLIC PANEL [facility] COMPREHENSIVE METABOLIC PANEL Sodium [Moles/volume] in Serum or Plasma 138 mEq/L 134 - 153 [facility] Potassium [Moles/volume] in Serum or Plasma 3.7 mEq/L 3.6 - 5.0 [facility] Chloride [Moles/volume] in Serum or Plasma 102 mEq/L 98 - 107 [facility] Carbon dioxide, total [Moles/volume] in Serum or Plasma 20 MEQ/L 22 - 30 L [facility] Glucose [Mass/volume] in Serum or Plasma 115 MG/DL 70 - 99 H [facility] BUN 3 MG/DL 7 - 21 L [facility] Creatinine [Mass/volume] in Serum or Plasma 0.6 MG/DL 0.7 - 1.5 L [facility] BUN/CREAT 5 8 - 27 L [facility] Protein [Mass/volume] in Serum or Plasma 6.5 G/DL 6.3 - 8.2 [facility] Albumin [Mass/volume] in Serum or Plasma 4.2 G/DL 3.9 - 5.0 [facility] Globulin [Mass/volume] in Serum by calculation 2.3 GM/DL 2.4 - 3.2 L [facility] A/G RATIO 1.8 0.8 - 2.0 [facility] Calcium [Mass/volume] in Serum or Plasma 9.3 MG/DL 8.4 - 10.2 [facility] Bilirubin.total [Mass/volume] in Serum or Plasma <0.7 MG/DL 0.2 - 1.3 [facility] Alkaline phosphatase [Enzymatic activity/volume] in Serum or Plasma 71 U/L 38 - 126 [facility] Aspartate aminotransferase [Enzymatic activity/volume] in Serum or Plasma 14 U/L 5 - 40 [facility] Alanine aminotransferase [Enzymatic activity/volume] in Seru m or Plasma 14 U/L 7 - 56 [facility] Anion gap 3 in Serum or Plasma 16.0 mmol/L 8.0 - 16.0 [facility] AGE 25 yrs [facility] al NON-AA GFR >60 mL/min [facility] ital AFR AMER GFR >60 mL/min [facility] Male GFR In terprentation 20-49 [...] >32 mL/min Normal ID Date Data Source [id number] 03/29/2021 01:08:00 PM EDT [facility] Name Value Range Interpretation Code Description Data Sera rce(s) Supporting Document(s) TROPONIN T <0.01 NG/ML 0.00 - 0.10 [facility] ospital TROPONIN T0.1 ng/ml Recommended as the c linical threshold value forTroponin T. ID Date Data Source [id number] 03/29/2021 01:07:00 PM EDT [facility] Name Value Range Interpretation Code Description Data Sera rce(s) Supporting Document(s) Lipase [Enzymatic activity/volume] in Serum or Plasma 18 U/L 13 - 60 [facility] ID Date Data Source [id number] 03/29/2021 01:02:00 PM EDT [facility] Name Value Range Interpretation Code Description Data Sera rce(s) Supporting Document(s) HCG SERUM QUAL POSITIVE NORMAL: NEGATIVE [facility] HCG SERUM QL REENTER POSITIVE NORMAL: NEGATIVE [facility] { KIT LOT # [id number] ){ KIT EXP DATE 07.21.22 ){ PROCEDURAL CONTROL VALID ) ID Date Data Source [id number] 03/29/2021 12:56:00 PM EDT [facility] Name Value Range Interpretation Code Description Data Sera rce(s) Supporting Document(s) Influenza virus A Ag [Presence] in Nasopharynx by Immunoassa y NEGATIVE NORMAL: NEGATIVE [facility] Influenza virus B Ag [Presence] in Nasopharynx by Immunoassa y NEGATIVE NORMAL: NEGATIVE [facility] NEGATIVENEGATIVE PROCEDURAL CO NTROL VALID KIT LOT # _[id number] 03/29/21.1256.JNL. KIT EXP DATE _10/29/21 03/29/21.1256.JNL.The Influenza A & B assay is a rapid molecular in vitro diagnostic testutilizing an isothermal nucleic acid amplification technology for thequalitative detection of influenza A and B viral RNA.Negative results do not preclude influenza virus infection and should not beused as the sole basis for diagnosis, treatment or other patient managementdecisions. ID Date Data Source [id number] 03/29/2021 12:44:00 PM EDT [facility] Name Value Range Interpretation Code Description Data Sera rce(s) Supporting Document(s) CBC W/AUTOMATED DIFF [facility] COMPLETE BLOOD COUNT Leukocytes [#/volume] in Blood by Automated count 11.6 10^3/uL 4.2 - 11.0 H [facility] Erythrocytes [#/volume] in Blood by Automated count 4.99 10^6/uL 4. 20 - 5.40 [facility] Hemoglobin [Mass/volume] in Blood 14.0 g/dL 12.0 - 16.0 [facility] Hematocrit [Volume Fraction] of Blood by Automated count 40.5 % 3 7.0 - 47.0 [facility] Erythrocyte mean corpuscular volume [Entitic volume] by Auto mated count 81.2 fL 81.0 - 101 [facility] Erythrocyte mean corpuscular hemoglobin [Entitic mass] by Automated count 28.1 pg 27.0 - 34.0 [facility] Erythrocyte mean corpuscular hemoglobin concentration [Mass/volume] by Automated count 34.6 g/dL 31.0 - 36.0 [facility] Erythrocyte distribution width [Ratio] by Automated count 12.9 % 11.5 - 14.5 [facility] Platelets [#/volume] in Blood by Automated count 288 10^3/uL 150 - 45 0 [facility] Platelet mean volume [Entitic volume] in Blood by Automated count 10.0 fL 7.4 - 10.4 [facility] Neutrophils/100 leukocytes in Blood by Automated count 71.8 % 37. 0 - 80.0 [facility] Lymphocytes/100 leukocytes in Blood by Manual count 18.0 % 25.0 - 40.0 L [facility] Monocytes/100 leukocytes in Blood by Automated count 8.4 % 3.0 - 8.0 H [facility] Eosinophils/100 leukocytes in Blood by Automated count 1.0 % 0.0 - 7.0 [facility] Basophils/100 leukocytes in Blood by Automated count 0.4 % 0.0 - 2.5 [facility] %IG 0.4 % 0.0 - 0.0 [facility] 0.0 % 0.0 - 0.0 [facility] al Neutrophils [#/volume] in Blood by Automated count 8.32 10^3/uL 2.00 - 6.90 H [facility] Lymphocytes [#/volume] in Blood by Automated count 2.09 10^3/uL 0.60 - 3.40 [facility] Monocytes [#/volume] in Blood by Automated count 0.97 10^3/uL 0.00 - 0.90 H [facility] Eosinophils [#/volume] in Blood by Automated count 0.12 10^3/uL 0.00 - 0.70 [facility] Basophils [#/volume] in Blood by Automated count 0.05 10^3/uL 0.00 - 0.20 [facility] #IG 0.05 10^3/uL 0.00 - 0.10 [facility] #NRBC 0.00 10^3/uL 0.00 - 0.00 [facility] MANUAL DIFF NOT INDICATED [facility] RBC MORPH NOT INDICATED [facility] spital ID Date Data Source [id number] 08/23/2020 09:50:00 PM EST [facility] 1 OrderSheet [facility] Emergency Department [address] [place] [address] Phone #: ext- [phone] 08/23/2020 21:50 Patient: [...] per; Lizy AlfredClindamycin PO 22:25 08/23/2020 22:30 Vandana,150 mg Lizy Alfred ;Flexeril PO 10 mg 23:00 08/23/2020 Cancelled: Wrong Patient 23:02(NOW) Lizy Alfred Victoria ;Lidocaine Viscous 23:01 08/23/2020 23:12 Vandana,PO 15 mL (NOW) Rylan Ross ; Rylan Verbal order per; Lizy AlfredGENERAL ORDERSOrder Description Priority Entered Acknowledged Initialed[Electronically signed by Britt Petersen R.N. (23:35 08/23/2020)][Electronically signed by Lizy Alfred (05:10 08/24/2020)] 2 OrderSheet [facility] Emergency Department [address] [place] [address] Phone #: ext- [phone] 08/23/2020 21:50 Patient: MARIA TERESA MATTHEW Sex: F : 1995 Age: 25y[Electronically locked by Britt Petersen R.N. (23:35 08/23/2020)] Name Value Range Interpretation Code Description Data Sera rce(s) Supporting Document(s) ID Date Data Source [id number] 08/23/2020 09:50:00 PM EST [facility] 1 Medication Reconciliation Report [facility] Emergency Department [address] [place] [address] Phone #: ext- [phone] 08/23/2020 21:50 Patient: [...] Viscous [PO] PO 20 mL, administered: 22:21 08/23/2020lindamycin [PO] PO 150 mg, administered: 22:30 08/23/2020idocaine Viscous [PO] PO 15 mL, administered: 23:12 08/23/2020The following Medications were prescribed to the patient:clindamycin HCl 150 mg capsule Take 1 capsule four times a day for 7 days -- Dispense 28 capsule.Refills: 0. Substitution permitted.Pharmacy - [facility] #04 - [id number] ; [place] [address]. Phone: FaxNumber: . -- Lizy Alfred Name Value Range Interpretation Code Description Data Sera rce(s) Supporting Document(s) ID Date Data Source [id number] 08/23/2020 09:50:00 PM EST [facility] 1 Medication Administration Record [facility] Emergency Department [address] [place] [address] Phone #: ext- [phone] 08/23/2020 21:50 Patient: MARIA TERESA MATTHEW Sex: F : 1995 Age: 25yWeight: 81.6 kgHeight/Length: 64 inBMI: 30.9ALLERGIES: Amoxicillin Date/Time Medication Administered Medication OrderedGiven LIDOCAINE VISCOUS [PO] Lidocaine Viscous PO 20 mL22:21 08/23/2020 Dose: 20 mL PO (NOW)Rylan Ross,Given CLINDAMYCIN [PO] Clindamycin PO 150 mg22:30 08/23/2020 Dose: 150 mg PORylan Ross,Given LIDOCAINE VISCOUS [PO] Lidocaine Viscous PO 15 mL23:12 08/23/2020 Dose: 15 mL PO (NOW)Rylan Ross, Name Value Range Interpretation Code Description Data Sera e(s) Supporting Document(s) ID Date Data Source [id number] 08/23/2020 09:50:00 PM EST [facility] 1 General Instructions [facility] Emergency Department [address] [place] [address] Phone #: ext- [phone] 08/23/2020 21:50 Patient: [...] Dispense 28 capsule.Refills: 0. Substitution permitted.Pharmacy - [facility] #04 - [id number] ; [place] [address]. FaxNumber: .Follow-up:Follow up with your healthcare provider your dentist tomorrow. Call for an appointment. Reason for referral:evaluation and treatment. Summary of care provided to patient via paper. Screening today revealed thepatient's blood pressure to be in the hypertensive stage 2 range. The patient should follow up with aprimary care provider for blood pressure management. ADDITIONAL INFORMATIONDental Pain 2 General Instructions [facility] Emergency Department [address] [place] [address] Phone #: ext- [phone] 08/23/2020 21:50 Patient: [...] temperature. Use toothpaste made for sensitive teeth. [place] gently up and down instead of sideways. Brushing sideways can wear away root surfaces if they are exposed. If your tooth is chipped or cracked, see a dentist right away. For short-term pain relief, put clove oil right on the tooth. You can buy clove oil at pharmacies. Some pharmacies carry an govo-vgb-pywthrl toothache kit. This has a paste you can put on the exposed tooth to make it less sensitive. 3 General Instructions [facility] Emergency Department [address] [place] [address] Phone #: ext- [phone] 08/23/2020 21:50 Patient: MARIA TERESA MATTHEW Sex: F : 1995 Age: 25y Use a cold pack. Put a cold pack on your jaw over the sore area to help reduce pain. Ask your healthcare provider about using nqen-kgz-uornscw medicine for pain. You may use this [...] 911Call 911 if any of these occur: Abnormal [...] your provider Pus drains from the tooth [phone] [employer]. [address] [place] [address]. All rights reserved. This information is not intended as asubstitute for professional medical care. Always follow your healthcare professional's instructions.Dental AbscessA dental abscess is an infection of the tooth socket. It often starts with a crack or cavity in the tooth. Apocket of pus forms between the tooth and the bone. The infection causes pain and swelling of the 4 General Instructions [facility] Emergency Department [address] [place] [address] Phone #: ext- [phone] 08/23/2020 21:50 Patient: MARIA TERESA MATTHEW Sex: [...] reduce pain. Oil of cloves is sold bokc-xiu-kmespzl in pharmacies. Some pharmacies carry an vjph-syt-pjhteza "toothache kit." This contains oil of cloves [...] a plastic bag that 5 General Instructions [facility] Emergency Department [address] [place] [address] Phone #: ext- [phone] 08/23/2020 21:50 Patient: [...] sooner.Follow-up careFollow up as advised with an pharmacy operations specialist, or oral surgeon. Even though your pain may improve withthe treatment given today, only a dentist, pharmacy operations specialist, or oral surgeon can provide full treatment forthis problem. If a culture was done, you will be told if the treatment needs to be changed. You can call in as directed for the results. If X-rays were taken, they will be reviewed by a specialist. You will be given the results, especially if they affect treatment.Call [phone] if any of these occur: Trouble breathing [...] by your healthcare provider 6 General Instructions [facility] Emergency Department [address] [place] [address] Phone #: ext- [phone] 08/23/2020 21:50 Patient: MARIA TERESA MATTHEW Sex: F : 1995 Age: 25y Unusual drowsiness, a headache or stiff neck, or weakness Pus drains from the gum or tooth You can't open your mouth wide [phone] [employer]. [address] [place] [address]. All rights reserved. This information is not intended as asubstitute for professional medical care. Always follow your healthcare professional's instructions. You have been given the following additional information: Dental Pain Tooth Abscess(Electronically signed by Lizy Alfred 08/24/2020 05:10) Name Value Range Interpretation Code Description Data Sera rce(s) Supporting Document(s) ID Date Data Source [id number] 08/23/2020 09:50:00 PM EST [facility] 1 Clinical Report - Nurses [facility] Emergency Department [address] [place] [address] Phone #: ext- [phone] 08/23/2020 21:50 Patient: MARIA TERESA MATTHEW Sex: [...] no deficiencies. 2 Clinical Report - Nurses [facility] Emergency Department [address] [place] [address] Phone #: ext- [phone] 08/23/2020 21:50 Patient: [...] states it does work. --22:08/23/20 Artemio Osorio 22:21 08/23/2020 Lidocaine Viscous PO 20 mL given. Allergies verified and confirmed 5 rights. Information reviewed with patient including reason for taking this medication, signs of allergic reaction and precautions. Verbalizes understanding. --:08/23/20 Rylan Ross 22:30 08/23/2020 Clindamycin PO 150 mg given. Allergies verified and confirmed 5 rights. Information reviewed with patient including reason for taking this medication, signs of allergic reaction and precautions. Verbalizes understanding. --:30 08/23/20 Rylan Ross 23:12 08/23/2020 Lidocaine Viscous [...] Patient verbalized understanding. Written instructions provided in Omani. The patient was discharged by the physician. She was discharged home and accompanied by family. 3 Clinical Report - Nurses [facility] Emergency Department [address] [place] [address] Phone #: ext- [phone] 08/23/2020 21:50 Patient: MARIA TERESA MATTHEW Sex: F : 1995 Age: 25y She left ambulatory and via private vehicle. Family member driving. --23:27 08/23/20 Britt Petersen R.N. 23:15 08/23/20. BP: 140/92. MAP: 108. HR: 98. RR: 20. O2 saturation: 99% on room air. Temp: deferred. Pain level now: 12/29. Additional comments: Pain worse when standing up / chewing / facial movement. --23:27 08/23/20 Britt Petersen R.N.Locked/Released at 08/23/2020 23:35 by Britt Petersen R.N. Name Value Range Interpretation Code Description Data Sera rce(s) Supporting Document(s) ID Date Data Source [id number] 08/23/2020 09:50:00 PM [facility] 1 Clinical Report - Physicians/Mid Levels [facility] Emergency Department [address] [place] [address] Phone #: ext- [phone] 08/23/2020 21:50 Patient: MARIA TERESA MATTHEW Sex: [...] Adenoidectomy. Tonsillectomy. 2 Clinical Report - Physicians/Mid [facility] Emergency Department [address] [place] [address] Phone #: ext- [phone] 08/23/2020 21:50 Patient: [...] is 3 Clinical Report - Physicians/Mid Levels [facility] Emergency Department [address] [place] [address] Phone #: ext- [phone] 08/23/2020 21:50 [id number] Sex[facility] F : 1995 Age: 25y available; [...] capsule. Refills: 0. Substitution permitted. Pharmacy - [facility] #04 - [id number] ; [place] [address]. . Follow-up: Follow up with your healthcare [...] rce(s) Supporting Document(s) ID Date Data Source [id number] 08/02/2020 11:04:00 PM EST [facility] 1 OrderSheet [facility] Emergency Department [address] [place] [address] Phone #: ext- [phone] 08/02/2020 22:50 Patient: MARIA TERESA MATTHEW Sex: F : 1995 Age: 24yWEIGHT:81.6 kg (S) HEIGHT:64 inches (S) BMI:30.9ALLERG IES: No Known Drug AllergyCHIEF COMPLAINT: neckDIAGNOSIS: Cellulitis of skin, Cellulitis check, Immune hypersensitivity reactionLAB ORDERSOrder Description Priority Entered Acknowledged InitialedCBC w Diff STAT 23:17 08/02/2020 23:27 José Pace MD; Rebecca RNCMP STAT 23:17 08/02/2020 23:27 José Pace MD; Rebecca LOPEZHCG Serum Qual STAT 23:17 08/02/2020 23:27 José Pace MD; Rebecca LOPEZDIAGNOSTIC STUDY ORDERSOrder Description Priority Entered Acknowledged InitialedCT Maxillofacial W/ STAT 23:17 08/02/2020 Ack'd: 23:27 00:27 08/03/2020ont José Gamino MD; Lupillo Fernandez RN(Oxygen?(No))(IV?(Yes)) Reason for Study: Infection, SwellingMEDICATION/IV/DRIP/FLUID ORDERSOrder Description Priority Entered Acknowledged InitialedBenadryl IVP 25 mg 00:03 08/03/2020 00:28 José Pace MD; Rebecca RNPepcid IVPB 20 00:03 08/03/2020 00:29 Lupillomg/50mL (NOW x1Skip Norma MD; Rebecca LOPEZInfuse over 30minutes.)SOLU-Medrol IVP 00:03 08/03/2020 00:28 Deepti vieyra g José Gamino MD; Rebecca LOPEZGENERAL ORDERSOrder Description Priority Entered Acknowledged Initialed[Electronically signed by Lupillo Fernandez RN (01:40 08/03/2020)][Electronically signed by José Gamnio MD (02:53 08/03/2020)] 2 OrderSheet [facility] Emergency Department [address] [place] [address] Phone #: ext- [phone] 08/02/2020 22:50 Patient: MARIA TERESA MATTHEW Sex: F : 1995 Age: 24y[Electronically locked by Lupillo Fernandez RN (01:40 08/03/2020)] Name Value Range Interpretation Code Description Data Sera rce(s) Supporting Document(s) ID Date Data Source [id number] 08/02/2020 11:04:00 PM EST [facility] 1 Medication Reconciliation Report [facility] Emergency Department [address] [place] [address] Phone #: ext- [phone] 08/02/2020 22:50 Patient: [...] days -- Dispense 40 capsule.Refills: 0. Substitution permitted.[facility] #53 - [id number] ; [place] [address]. FaxNumber: .prednisone 20 mg tablet Take 3 tablet once a day -- Dispense 15 tablet. Refills: 0. Substitutionpermitted.[facility] #12 - [id number] ; [place] [id number]. 2 Medication Reconciliation Report [facility] Emergency Department [address] [place] [address] Phone #: vjn- [phone] 08/02/2020 22:50 Patient: MARIA TERESA MATTHEW Sex: F : 1995 Age: 24yFaxNumber: . -- José Gamino MD Name Value Range Interpretation Code Description Data Sera rce(s) Supporting Document(s) ID Date Data Source [id number] 08/02/2020 11:04:00 PM EST [facility] 1 Medication Administration Record [facility] Emergency Department [address] [place] [address] Phone #: [phone]- [phone] 08/02/2020 22:50 Patient: MARIA TERESA MATTHEW Sex: [...] [IVP] SOLU-Medrol IVP 125 mg00:23 08/03/2020 (METHYLPREDNISOLONE ARTUROStevmoreno Fernandez RN SUCC) Dose: 125 mg IVP Site: #1 left Name Value Range Interpretation Code Description Data Sera rce(s) Supporting Document(s) ID Date Data Source [id number] 08/02/2020 11:04:00 PM EST [facility] 1 General Instructions [facility] Emergency Department [address] [place] [address] Phone #: ext- [phone] 08/02/2020 22:50 Patient: [...] days -- Dispense 40 capsule.Refills: 0. Substitution permitted.[facility] #16 - [id number] ; [place] [address]. FaxNumber: [phone].prednisone 20 mg tablet Take 3 tablet once a day -- Dispense 15 tablet. Refills: 0. Substitutionpermitted.[facility] #00 - [id number] ; [place] [address]. FaxNumber: .Follow- up:Follow up with your doctor in two days even if well. Call for an appointment. Reason for referral: evaluation.Summary of care provided to patient via paper. 2 General Instructions [facility] Emergency Department [address] [place] [address] Phone #: ext- [phone] 08/02/2020 22:50 Patient: [...] your throat is closing 3 General Instructions [facility] Emergency Department [address] [place] [address] Phone #: ext- [phone] 08/02/2020 22:50 Patient: [...] products Chemicals or dyes in clothing, linen, editor, hair dyes, soaps, iodineMany viruses and common colds can cause a rash that is not an allergic reaction. Sometimes it ishard to tell the difference between allergies, sensitivity, or an intolerance to something. This is 4 General Instructions [facility] Emergency Department [address] [place] [address] Phone #: [phone] jgc- [phone] 08/02/2020 22:50 Patient: MARIA TERESA MATTHEW Sex: [...] damage the skin. Oral diphenhydramine is an qmji-lzl-lvypbnx antihistamine sold at pharmacies and grocery stores. [...] Always check the affected 5 General Instructions [facility] Emergency Department [address] [place] [address] Phone #: ext- [phone] 08/02/2020 22:50 Patient: [...] swallowing, ask your provider about carryingauto-injectable epinephrine.Call [phone] if any of these occur: Trouble breathing or swallowing, wheezing Cool, moist, pale skin Shortness of breath Hoarse voice or trouble speaking Confusion Very drowsy or trouble awakening Fainting or loss of consciousness Rapid heart rate Feeling of dizziness or weakness or a sudden drop in blood pressure Feeling of doom Feeling lightheaded 6 General Instructions [facility] Emergency Department [address] [place] [address] Phone #: ext- [phone] 08/02/2020 22:50 Patient: [...] as directed by your provider 2019 [employer]. [address] [place] [address], [place] [address]. All rights reserved. This information is not [...] sulfonamides (sulfa ,medicines) Aspirin 7 General Instructions [facility] Emergency Department [address] [place] [address] Phone #: ext- [phone] 08/02/2020 22:50 Patient: [...] on the genitalsHome care 8 General Instructions [facility] Emergency Department [address] [place], [place] [address] Phone #: ext- [phone] 08/02/2020 22:50 Patient: MARIA TERESA MATTHEW [id number] Sex: F : 1995 Age: 24yThe goal [...] a prescription antihistamine, oral diphenhydramine is an kfej-vbi-aswgrth antihistamine available at pharmacies and grocery stores. [...] urinating due to an 9 General Instructions [facility] Emergency Department [address] [place] [address] Phone #: ext- [phone] 08/02/2020 22:50 Patient: [...] not continue to improveor they get worse.Call [phone] [phone] if any of these occur: Shortness of [...] Continuing or recurring symptoms 10 General Instructions [facility] Emergency Department [address] [place] [address] Phone #: ext- [phone] 08/02/2020 22:50 Patient: [...] colored drainage from the affected area [employer]. [address] [place] [address]. All rights reserved. This information is not [...] area clean and dry. 11 General Instructions [facility] Emergency Department [address] [place] [address] Phone #: ext- [phone] 08/02/2020 22:50 Patient: MARIA TERESA MATTHEW Sex: [...] or higher after 2 days on antibiotics [id number] [employer]. [address] [place] [address]. All rights reserved. This information is not intended as asubstitute for professional medical care. A lways follow your healthcare professional's instructions. You have been given the following additional information: General Allergic Reactions Medicine Reaction: Allergic Cellulitis(Electronically signed by José Gamino MD 08/03/2020 02:53) Name Value Range Interpretation Code Description Data Sera rce(s) Supporting Document(s) ID Date Data Source [id number] 08/02/2020 11:04:00 PM EST [facility] 1 Clinical Report - Nurses [facility] Emergency Department [address] [place] [address] Phone #: ext- [phone] 08/02/2020 22:50 Patient: MARIA TERESA MATTHEW Sex: F : 1995 Age: 24yTRIAGEArrived by private vehicle. Historian: patient.Triage time: 22:54 08/02/2020. Acuity: LEVEL 4.Chief Complaint: (swelling to upper lip).Onset was gradual. (2 days ago). ( around upper gum and has moved to upper lip with pain going intonose and left eye).Treatment INGOT PASSER:(Amoxi cillin,hydrocodone 5-325).SEPSIS SCREEN: SIRS SCREEN NEGATIVE. SEPSIS SCREEN NEGATIVE. No suspected or confirmedsigns of infection present. --23:01 08/02/20 Lupillo Fernandez RN22:54 08/02/20. BP: 146/99 (regular adult cuff) taken on the right arm, via an automated monitor, whilelying. MAP: 114. HR: 106 (regular, normal rate and strong). RR: 16 (regular, unlabored and normal). L4uppnkocbyf: 99% on room air. Temp: 97.2 F (oral). Pain level now: 10. --23:01 08/02/20 Lupillo Fernandez RN.Weight: 81.6 kg [...] but declined. 2 Clinical Report - Nurses [facility] Emergency Department [address] [place] [address] Phone #: ext- [phone] 08/02/2020 22:50 Patient: MARIA TERESA MATTHEW Sex: [...] risk assessment completed. No risk factors identified. --23:01 08/02/20 Lupillo Fernandez RN. Assessment The patient states feels the same. --23:01 08/02/20 Lupillo Fernandez RN.PHYSICAL ASSESSMENTAmbulatory to room.GENERAL / [...] is warm and dry. Normal skin turgor. --23:02 08/02/20 Lupillo Fernandez RN.NURSING PROGRESS NOTESHead of bed elevated 30 degrees. Reassurance given to the patient. Call light placed in reach of patient.Bed placed in lowest position. Brakes of bed on. Patient ready for evaluation- ED physician notified.--23:02 08/02/20 Lupillo Fernandez RN 00:17 08/03/2020 Site #1 [...] reaction, precautions and sedative warning. Verbalizes understanding. --00:28 08/03/20 Lupillo Fernandez RN 3 Clinical Report - Nurses [facility] Emergency Department [address] [place] [address] Phone #: ext- [phone] 08/02/2020 22:50 --- [...] of allergic reaction and precautions. Verbalizes understanding. --00:28 08/03/20 Lupillo Fernandez RN 00:29 08/03/2020 Started 20 [...] --00:51 08/03/20 Lupillo Fernandez RN.DISPOSITION / DISCHARGE Prashant Coma Scale: 15- eyes open- spontaneous (4); [...] Patient verbalized understanding. Written instructions provided in Omani. The patient was discharged home and accompanied by imcu specialist. She left ambulatory and via private vehicle. [employer] driving. --01:40 08/03/20 Lupillo Fernandez RN 01:38 [...] rce(s) Supporting Document(s) ID Date Data Source [id number] 08/02/2020 11:04:00 PM EST [facility] 1 Clinical Report - Physicians/Mid Levels [facility] Emergency Department [address] [place] [address] Phone #: ext- [phone] 08/02/2020 22:50 Patient: [...] reviewed. 2 Clinical Report - Physicians/Mid Levels [facility] Emergency Department [address] [place] [address] Phone #: ext- [phone] 08/02/2020 22:50 Patient: MARIA TERESA MATTHEW 10 [...] 0.20) 3 Clinical Report - Physicians/Mid Levels [facility] Emergency Department [address] [place] [address] Phone #: ext- [phone] 08/02/2020 22:50 Patient: MAR[facility] TERESA MATTHEW [id number] Sex: F : 1995 Age: 24y #IG [...] Male GFR Interprentation 20-49 yrs >60 mL/min Pfjitw77-06 yrs >56 mL/min Normal 60-69 yrs >49 mL/min Normal 70-79yrs>42 mL/min Normal 80 and above >35 mL/min Normal Female GFRInterpretation 20-39 yrs >60 mL/min Normal 40-49 yrs >58 mL/minNormal 50- 59 yrs >51 mL/min Normal 60-69 yrs >45 mL/min Htsqdw10-68 yrs >39 mL/min Normal 80 and above >32 mL/min NormalBeta-HCG, Qual Serum: (NAS: 08/02/2020 23:26) ( MsgRcvd 08/02/2020 23:58) Final results Test Result Flag Units (Reference) HCG SERUM QUAL NEGATIVE (NORMAL: NEGAT HCG SERUM QL REENTER NEGATIVE (NORMAL: NEGAT { KIT LOT # [id number] ){ KIT EXP [id number] ){ PROCEDURAL CONTROL VALID)CT Maxillofacial W/ Cont: (NAS: 08/02/2020 23:17) ( MsgRcvd 08/03/2020 00:39) Final results Exam CT MAXILLOFACIAL W/[place] [address] ---------NAME--------- NUMBER SEX AGE ADMIT DISC. XRAY# F/C TYPE VIPUL [place] [id number] F 24 08/02/20 [id number] NA E/R DATE OF : 1995 M/R# [id number] #: [id number] TR-04 LOCATION: EMERGENCY DEPT TRANSCRIBED: 08/03/[address] MAXILLOFACIAL W/CONTRAST [id number] COMPLETED:08/03/20 27 DLA 4846 4 Clinical Report - Physicians/Mid Levels [facility] Emergency Department [address] [place] [address] Phone #: ext- [phone] 08/02/2020 22:50 Patient: MARIA TERESA MATTHEW Sex: F : 1995 Age: 24y Reason(s): Infection Swelling PHYSICIAN: BENITEZRM R A D I O L O G Y R E P O R T ======= PATIENT HISTORY: ACTUAL DOSE 299.2 mGy*cm swollen lip Patient has negative beta. Verification of 2 patient identifiers performed. Time Out performed. correct body part and side all verified prior to examination. Exam has been sent to [facility] - If further information is needed, [...] to examination. Exam has been sent to [facility] - If further information is needed, [...] she 5 Clinical Report - Physicians/Mid Levels [facility] Emergency Department [address] [place] [address] Phone #: [phone]- [phone] 08/02/2020 22:50 Patient: MARIA TERESA MATTHEW Sex: [...] Dispense 40 capsule. Refills: 0. Substitution permitted. [employer] #04 - [id number] ; [place] [address]. . 6 Clinical Report - Physicians/Mid Levels [facility] Emergency Department [address] [place] [address] Phone #: ext- [phone] 08/02/2020 22:50 Patient: MARIA TERESA MATTHEW Sex: F : 1995 Age: 24y prednisone 20 mg tablet Take 3 tablet once a day -- Dispense 15 tablet. Refills: 0. Substitution permitted. [employer] #04 - [id number] ; [place] [address]. . Follow-up: Follow up with your doctor in two days even if well. Call for an appointment. Reason for referral: evaluation. Summary of care provided to patient via paper. Understanding of the discharge instructions verbalized by patient.(Electronically signed by José Gamino MD 08/03/2020 02:53) Name Value Range Interpretation Code Description Data Sera rce(s) Supporting Document(s) ID Date Data Source [id number] 08/03/2020 12:38:00 AM [facility] [address] [facility] [place] [address] ---------NAME--------- NUMBER SEX AGE ADMIT DISC. XRAY# F/C TYPE VIPUL [place] [id number] F 24 08/02/20 [id number] NA E/R DATE OF : 1995 M/R# [id number] #: [id number] TR-04 LOCATION: EMERGENCY DEPT TRANSCRIBED: 08/03/[address] MAXILLOFACIAL W/CONTRAST [id number] COMPLETED:08/03/20 27 DLA 3 Reason(s): Infection Swelling PHYSICIAN: ALEC======= R A D I O L O G Y R E P O R T PATIENT HISTORY:ACTUAL DOSE 299.2 mGy*cm swollen lipPatient has negative beta. Verification of 2 patient identifiers performed.Time Out performed. correct body part and side all verified prior toexamination. Exam has been sent to [facility] - If further informationis needed, the number is . Report will be faxed to ED and/orXray. / COR (DICOM Hx)EXAM: CT Maxillofacial Without IV contrast.CLINICAL HISTORY:ACTUAL DOSE 299.2 mGy*cm swollen lip Patient has negative beta.Verification of 2 patient identifiers performed. Time Out performed. correctbody part and side all verified prior to examination. [facility] - If further information is needed, the number [phone]. Report will be faxed to ED and/or [...] rce(s) Supporting Document(s) ID Date Data Source [id number] 08/03/2020 12:11:00 AM EST [facility] Name Value Range Interpretation Code Description Data Sera rce(s) Supporting Document(s) COMPREHENSIVE METABOLIC PANEL [facility] COMPREHENSIVE METABOLIC PANEL Sodium [Moles/volume] in Serum or Plasma 138 mEq/L 134 - 153 [facility] Potassium [Moles/volume] in Serum or Plasma 4.0 mEq/L 3.6 - 5.0 [facility] Chloride [Moles/volume] in Serum or Plasma 103 mEq/L 98 - 107 [facility] Carbon dioxide, total [Moles/volume] in Serum or Plasma 26 MEQ/L 22 - 30 [facility] Glucose [Mass/volume] in Serum or Plasma 112 MG/DL 65 - 110 H [facility] BUN <4 MG/DL 7 - 21 L [facility] Creatinine [Mass/volume] in Serum or Plasma 0.6 MG/DL 0.7 - 1.5 L [facility] BUN/CREAT 7 8 - 27 [facility] Protein [Mass/volume] in Serum or Plasma 6.4 G/DL 6.3 - 8.2 [facility] Albumin [Mass/volume] in Serum or Plasma 3.9 G/DL 3.9 - 5.0 [facility] Globulin [Mass/volume] in Serum by calculation 2.5 GM/DL 2.4 - 3.2 [facility] A/G RATIO 1.6 0.8 - 2.0 [facility] Calcium [Mass/volume] in Serum or Plasma 8.9 MG/DL 8.4 - 10.2 [facility] Bilirubin.total [Mass/volume] in Serum or Plasma <0.7 MG/DL 0.2 - 1.3 [facility] Alkaline phosphatase [Enzymatic activity/volume] in Serum or Plasma 69 U/L 38 - 126 [facility] Aspartate aminotransferase [Enzymatic activity/volume] in Se rum or Plasma 9 U/L 5 - 40 [facility] Alanine aminotransferase [Enzymatic activity/volume] in Seru m or Plasma 15 U/L 7 - 56 [facility] Anion gap 3 in Serum or Plasma 9.0 mmol/L 8.0 - 16.0 [facility] AGE 24 yrs [facility] al NON-AA GFR >60 mL/min [facility] ital AFR AMER GFR >60 mL/min [facility] Male GFR In terprentation 20-49 [...] >32 mL/min Normal ID Date Data Source [id number] 08/02/2020 11:56:00 PM EST [facility] Name Value Range Interpretation Code Description Data Sera rce(s) Supporting Document(s) HCG SERUM QUAL NEGATIVE NORMAL: NEGATIVE [facility] HCG SERUM QL REENTER NEGATIVE NORMAL: NEGATIVE [facility] { KIT LOT # [id number] ){ KIT EXP DATE 04-26-21 ){ PROCEDURAL CONTROL VALID ) ID Date Data Source [id number] 08/02/2020 11:38:00 PM EST [facility] Name Value Range Interpretation Code Description Data Sera rce(s) Supporting Document(s) CBC W/AUTOMATED DIFF [facility] COMPLETE BLOOD COUNT Leukocytes [#/volume] in Blood by Automated count 13.2 10^3/uL 4.2 - 11.0 H [facility] Erythrocytes [#/volume] in Blood by Automated count 5.04 10^6/uL 4. 20 - 5.40 [facility] Hemoglobin [Mass/volume] in Blood 14.1 g/dL 12.0 - 16.0 [facility] Hematocrit [Volume Fraction] of Blood by Automated count 42.1 % 3 7.0 - 47.0 [facility] Erythrocyte mean corpuscular volume [Entitic volume] by Auto mated count 83.5 fL 81.0 - 101 [facility] Erythrocyte mean corpuscular hemoglobin [Entitic mass] by Automated count 28.0 pg 27.0 - 34.0 [facility] Erythrocyte mean corpuscular hemoglobin concentration [Mass/volume] by Automated count 33.5 g/dL 31.0 - 36.0 [facility] Erythrocyte distribution width [Ratio] by Automated count 13.2 % 11.5 - 14.5 [facility] Platelets [#/volume] in Blood by Automated count 364 10^3/uL 150 - 45 0 [facility] Platelet mean volume [Entitic volume] in Blood by Automated count 9.7 fL 7.4 - 10.4 [facility] Neutrophils/100 leukocytes in Blood by Automated count 61.0 % 37. 0 - 80.0 [facility] Lymphocytes/100 leukocytes in Blood by Manual count 30.1 % 25.0 - 40.0 [facility] Monocytes/100 leukocytes in Blood by Automated count 6.5 % 3.0 - 8.0 [facility] Eosinophils/100 leukocytes in Blood by Automated count 1.6 % 0.0 - 7.0 [facility] Basophils/100 leukocytes in Blood by Automated count 0.4 % 0.0 - 2.5 [facility] %IG 0.4 % 0.0 - 0.0 [facility] %NRBC 0.0 % 0.0 - 0.0 [facility] Neutrophils [#/volume] in Blood by Automated count 8.06 10^3/uL 2.00 - 6.90 H [facility] Lymphocytes [#/volume] in Blood by Automated count 3.98 10^3/uL 0.60 - 3.40 H [facility] Monocytes [#/volume] in Blood by Automated count 0.86 10^3/uL 0.00 - 0.90 [facility] Eosinophils [#/volume] in Blood by Automated count 0.21 10^3/uL 0.00 - 0.70 [facility] Basophils [#/volume] in Blood by Automated count 0.05 10^3/uL 0.00 - 0.20 [facility] #IG 0.05 10^3/uL 0.00 - 0.10 [facility] #NRBC 0.00 10^3/uL 0.00 - 0.00 [facility] MANUAL DIFF NOT INDICATED [facility] RBC MORPH NOT INDICATED [facility] Procedure Social History No Information
[2021-06-12 18:23] LABS: ALBUMIN 3.4 GM/DL (3.2-5.2); ALT/SGPT 59 U/L (12-78); BILIRUBIN,DIRECT < 0.1 MG/DL (0.0-0.2); BILIRUBIN,TOTAL 0.1 MG/DL (0.2-1.0); BLOOD UREA NITROGEN 9 MG/DL (7-18); CALCIUM LEVEL 9.1 MG/DL (8.5-10.1); CARBON DIOXIDE LEVEL 25 MEQ/L (21-32); CHLORIDE LEVEL 109 MEQ/L (98-107); CREATININE FOR GFR 0.67 MG/DL (0.55-1.30); GLOMERULAR FILTRATION RATE > 60.0 (>60); GLUCOSE, FASTING 90 MG/DL (70-100); HCG, SERUM QUANTITATIVE 5 MIU/ML; POTASSIUM SERUM 4.4 MEQ/L (3.5-5.1); SODIUM LEVEL 140 MEQ/L (136-145); TOTAL PROTEIN 6.8 GM/DL (6.4-8.2)
[2021-06-12] MEDS ORDERED: NS 1,000 ML IV ONE (19:00)
[2021-06-12 20:41] VITALS: BP 122/61
== END 2021-06-12 20:42 | disposition home or self-care (01) ==
LOC: EDBD 16:20 → M ED 16:20
DX: N92.0 Excessive and frequent menstruation with regular cycle (principal); E66.9 Obesity, unspecified; F17.210 Nicotine dependence, cigarettes, uncomplicated; Z88.0 Allergy status to penicillin

== ENCOUNTER 2021-06-21 18:09 | Emergency (ER) | payer OTHER ==
[~2021-06-21] VITALS: Ht 162.6 cm; Wt 90.9 kg
[2021-06-21] MEDS ORDERED: NS 1,000 ML IV ONE ×2 (18:45→20:50)
[2021-06-21] MEDS ORDERED: KETOROLAC 30 MG/ML 1ML VIAL IV ONE (18:45)
[2021-06-21 19:10] LABS: BASO % 0.3 % (0.0-1.0); EOS # 0.1 10^3/uL (0.0-0.5); EOS % 0.5 % (0.0-3.0); HEMATOCRIT 43.1 % (36.0-47.0); HEMOGLOBIN 14.4 g/dl (12.0-15.5); LYMPH # 1.7 10^3/uL (1.5-5.0); LYMPH % 18.4 % (24.0-44.0); MEAN CORPUSCULAR HEMOGLOBIN 27.2 pg (27.0-33.0); MEAN CORPUSCULAR HGB CONC 33.4 g/dl (32.0-36.5); MEAN CORPUSCULAR VOLUME 81.5 fl (80.0-96.0); MONO # 0.5 10^3/uL (0.0-0.8); MONO % 5.8 % (2.0-8.0); NEUTROPHILS # 6.9 10^3/uL (1.5-8.5); NEUTROPHILS % 74.7 % (36.0-66.0); PLATELET COUNT, AUTOMATED 369 10^3/uL (150-450); RED BLOOD COUNT 5.29 10^6/uL (4.00-5.40); WHITE BLOOD COUNT 9.2 10^3/uL (4.0-10.0)
[2021-06-21 19:45] LABS: C REACTIVE PROTEIN QUANTITATIV 3.58 MG/DL (0.00-0.30); HCG, SERUM QUANTITATIVE < 1.0 MIU/ML; LIPASE 95 U/L (73-393)
[2021-06-21] MEDS ORDERED: ISOVUE-370 76% 100ML VIAL As Ordered ONE (19:49)
[2021-06-21 21:02] VITALS: BP 136/88
[2021-06-21] MEDS ORDERED: ACETAMINOPHEN 325 MG TAB PO ONE (21:50)
[2021-07-21] MEDS ORDERED: OMEP40CA5 (22:55)
[2021-07-27] MEDS ORDERED: SUCR1TAB56 (21:31)
[2021-07-27] MEDS ORDERED: ONDA4TAB6 (21:31)
[2021-07-27] MEDS ORDERED: FAMO20TA5 (21:31)
== END 2021-06-21 22:09 | disposition home or self-care (01) ==
LOC: EDBD 18:09 → M ED 18:09
DX: R10.2 Pelvic and perineal pain (principal); N92.6 Irregular menstruation, unspecified; E86.0 Dehydration; K76.0 Fatty (change of) liver, not elsewhere classified; F17.200 Nicotine dependence, unspecified, uncomplicated; Z88.0 Allergy status to penicillin
CPT/HCPCS: 74177; 76705; 76830; 76856; 80047; 81001; 83605; 83690; 84702; 85025; 86140; 86850; 86900; 86901; 87040; 87086; 88307; 93976; 96361; 96374; 99284; J1885; Q9967

== ENCOUNTER 2021-06-27 21:32 | Emergency (ER) | payer OTHER ==
[~2021-06-27] VITALS: Ht 162.6 cm; Wt 101.6 kg
--- OUTSIDE RECORDS SUMMARY | 2021-06-27 21:37 | CCD | Continuity of Care Document ---
Author Author Edilma CABRERA DO Organization Unknown Address [address] [place] [address] Phone [phone] Problems Description No Information Available Social History Type Date Description Comments Sex Unknown ETOH Use Denies alcohol use Recreational Drug Use THC Tobacco Use Start: Unknown Patient is a current smoker, smo kes every day Tattoo/Piercing Tattoo Allergies and adverse reactions Active Allergies Criticality Reaction | Severity Comments Date Penicillin G Unable to assess criticality Difficulty swallowing, Swelling of eyelid, Tongue swelling 06/22/2021 Medications Description No Active Medications Immunizations Description No Information Available Vital Signs Date Vital Result Comment 06/22/2021 2:25pm BP Systolic 118 mmHg BP Diastolic 76 mmHg Heart Rate 106 /min Body Temperature 97.6 F O2 % BldC Oximetry 97 % Weight 228.25 lb Weight 103.534 kg Height 64 inches 5'4" BMI (Body Mass Index) 39.2 kg/m2 BSA (Body Surface Area) 2.07 m2 Results Test Acquired Date Facility Test Result H/L Range Note Xray 06/22/2021 [facility] [address] [place] [address] [phone] Pelvic <pending> Procedures Date Code Description Status 06/22/2021 [id number] Office/Outpatient [facility] 30 -44 Minutes Completed Medical Devices Description No Information Available Encounters Type Date Location Provider Dx Diagnosis Office Visit 06/22/2021 2:15p [facility] Eriberto Cabrera DO O03.9 Complete or unsp spontaneous without complication Assessments Date Code Description Provider 06/22/2021 O03.9 Complete or unspecif ied spontaneous without complication Eriberto Cabrera DO Plan of Treatment 06/22/2021 - Eriberto Cabrera DO* O03.9 Complete or unspecified spontaneous without complication* Instructions:* 1) will get beta-hCG today and Saturday. 2) will get pelvic ultrasound on Saturday to see if there is anything left in the uterus. 3) return to clinic as needed. * All * New Medication:* No Active Medications - Functional Status Description No Information Available Mental Status Description No Information Available Referrals Description No Information Available
--- OUTSIDE RECORDS SUMMARY | 2021-06-27 21:37 | CCD | Continuity of Care Document ---
Author Author Edilma CABRERA DO Organization Unknown Address [address] [place] [address] Phone [phone] Problems Description No Information Available Social History [...] Test Result H/L Range Note Xray 06/22/2021 [facility] [address] [place] [address] [phone] Pelvic <pending> Procedures Date Code Description Status 06/22/2021 [id number] Office/Outpatient [facility] 30 -44 Minutes Completed Medical Devices [...]
--- OUTSIDE RECORDS SUMMARY | 2021-06-27 21:38 | CCD | Continuity of Care Document ---
Author Author Edilma CABRERA DO Organization Unknown Address [address] [place] [address] Phone [phone] Problems Description No Information Available Social History [...] Test Result H/L Range Note Xray 06/22/2021 [facility] [address] [place] [address] [phone] Pelvic <pending> Procedures Date Code Description Status 06/22/2021 [id number] Office/Outpatient [facility] 30 -44 Minutes Completed Medical Devices [...]
--- OUTSIDE RECORDS SUMMARY | 2021-06-27 21:38 | CCD ---
Author Author [facility] Organization [facility] Address Unknown Phone Unavailable Care Team Providers Care Consulting It Architect Name Role Phone Nwogu, U Eriberto DO Unavailable Unavailable Nwogu, U Eriberto DO Unavailable Unavailable Nwogu, U Eriberto DO Unavailable Unavailable Nwogu, U Eriberto DO Unavailable Unavailable Nwogu, U Eriberto DO Unavailable Unavailable Nwogu, U Eriberto DO Unavailable Unavailable Nwogu, U Eriberto DO Unavailable Unavailable Nwogu, U Eriberto DO Unavailable Unavailable Nwogu, U Eriberto DO Unavailable Unavailable Nwogu, U Eriberto DO Unavailable Unavailable Nwogu, U Eriberto DO Unavailable Unavailable Nwogu, U Eriberto DO Unavailable Unavailable Nwogu, U Eriberto DO Unavailable Unavailable Nwogu, U Eriberto DO Unavailable Unavailable Nwogu, U Eriberto DO Unavailable Unavailable Nwogu, U Eriberto DO Unavailable Unavailable Nwogu, U Eriberto DO Unavailable Unavailable Nwogu, U Eribetro DO Unavailable Unavailable Nwogu, U Eriberto DO Unavailable Unavailable Nwogu, U Eriberto DO Unavailable Unavailable Nwogu, U Eriberto DO Unavailable Unavailable NO, PCP Unavailable Unavailable Nwogu, U Eriberto DO Unavailable Unavailable Nwogu, U Eriberto DO Unavailable Unavailable Nwogu, U Eriberto DO Unavailable Unavailable Nwogu, U Eriberto DO Unavailable Unavailable Nwogu, U Eriberto DO Unavailable Unavailable Nwogu, U Eriberto DO Unavailable Unavailable Nwogu, U Eriberto DO Unavailable Unavailable Nwogu, U Eriberto DO Unavailable Unavailable Nwogu, U Eriberto DO Unavailable Unavailable Nwogu, U Eriberto DO Unavailable Unavailable Nwogu, U Eriberto DO Unavailable Unavailable Nwogu, U Eriberto DO Unavailable Unavailable Nwogu, U Eriberto DO Unavailable Unavailable Nwogu, U Eriberto DO Unavailable Unavailable Nwogu, U Eriberto DO Unavailable Unavailable Nwogu, U Eriberto DO Unavailable Unavailable Nwogu, U Eriberto DO Unavailable Unavailable Nwogu, U Eriberto DO Unavailable Unavailable Nwogu, U Eriberto DO Unavailable Unavailable Nwogu, U Eriberto DO Unavailable Unavailable Nwogu, U Eriberto DO Unavailable Unavailable TURRIN, EUFEMIA Unavailable Unavailable TURRIN, EUFEMIA Unavailable Unavailable TURRIN, EUFEMIA Unavailable Unavailable TURRIN, EUFEMIA Unavailable Unavailable Berta GAMINO MD Unavailable Unavailable Berta GAMINO MD Unavailable Unavailable Berta GAMINO MD Unavailable Unavailable Berta GAMINO MD Unavailable Unavailable Berta GAMINO MD Unavailable Unavailable HANNYBerta SLOAN MD Unavailable Unavailable Berta GAMINO MD Unavailable Unavailable Berta GAMINO MD Unavailable Unavailable Berta GAMINO MD Unavailable Unavailable Berta GAMINO MD Unavailable Unavailable Berta GAMINO MD Unavailable Unavailable Berta GAMINO MD Unavailable Unavailable HANNYBerta SLOAN MD Unavailable Unavailable Berta GAMINO MD Unavailable [...] is protected by Article 27-F of the [place] Public Health law. If you continue you may have access to information: Regarding HIV / AIDS; Provided by facilities licensed or operated by the [place] Office of Mental Health; or Provided by the [place] Office for People With Developmental Disabilities. If such information is present, then the following [place] mandated warning applies: This information has been [...] law may result in a fine or fdc sentence or both. A general authorization for the release of medical or other information is NOT sufficient authorization for further disc losure. Allergies and Adverse Reactions Type Description Substance Reaction Status Data Source(s ) No Known Drug Allergies No Known Drug Allergies [facility] No Known Environmental Allergies No Known Environmental Al lergies [facility] No Known Food Allergies No Known Food Allergies [facility] Family History Family Member Name Family Member Gender Family Member Status Date o f Status Description Data Source(s) Unknown Unknown Problem [facility] ([facility]) Encounters Encounter Providers Location Date Indications Data Source(s ) Outpatient Attender: Eriberto Cabrera DOConsultant: PCP NO 06/23/2021 12:16:22 PM [facility] Outpatient Attender: Eriberto Cabrera DOConsultant: PCP NO 06/22/2021 01:57:00 PM EST - 06/22/2021 01:57:00 PM EST [facility] Outpatient Attender: Eriberto Cabrera DO Family Practice 08/2020 01:15:00 PM EST [facility] ([facility] Emergency Attender: EUFEMIA Tuttlesultant: PCP NO 03/29/2021 11:50:00 AM EDT - 03/29/2021 08:09:00 PM EDT [facility] Patient discharged. Emergency Attender: LIZY ALFRED MDConsultant: PCP NO 08/23/2020 09:50:00 PM EST - 08/23/2020 11:15:00 PM EST [facility] Patient discharged. Emergency Attender: JOSÉ GAMINO MDConsultant: PCP NO 08/02/2020 11:04:00 PM EST - 08/03/2020 01:40:00 AM EST [facility] Patient discharged. Medications Medication Brand Name Start Date Product [...] type / Coverage type Policy ID Covered alliance party ID Covered alliance party's relationship to peters Policy Peters Plan Information TULIO [id number] SP [id number] [facility] [place] [id number] 18 [id number] [facility] [place] [id number] 18 [id number] [facility] [place] [id number] SP [id number] UN AMERICHOICE XIX -O [id number] 18 [id number] MEDICAID [id number] SP [id number] MEDICAID M [id number] S [id number] [facility] Maintenance Organization [place] [id number] Self 1 [id number] [facility] Maintenance Organization ([facility] [id number] Self 1 [id number] [facility] Maintenance Organization ([facility] [id number] Self 1 [id number] [facility] Maintenance Organization ([facility] [id number] Self 1 [id number] [facility] Maintenance Organization ([facility] [id number] Self 1 [id number] [facility] Maintenance Organization ([facility] [id number] Self 1 [id number] [facility] [id number] SP [id number] MEDICAID -O/P EMERGENCY ROOM [id number] 18 [id number] AMERICHOICE UNHC XIX HMO -I/P [id number] 18 [id number] AMERICHOICE UNHC XIX HMO -I/P [id number] 18 [id number] UNHC AMERICHOICE XIX -HMO [id number] 18 [id number] [facility]) P [id number] S [id number] [facility]) P [id number] S [id number] UNHC XIX HMO-O/P [id number] [employer] [id number] MEDICAID - CLINIC [id number] Problems, Conditions, and Diagnoses Code Display Name Description Problem Type Effective Dates Data Source(s) O039 Complete or unspecified spontaneous abor tion without complication Complete or unspecified spontaneous without complication Diagnosis 06/22/2021 01:57:00 PM [facility] Z3A00 Weeks of gestation of not spec ified Weeks of gestation of not specified Diagnosis 03/29/2021 11:50:00 AM EDT [facility] O65274 CONTACT WITH AND SUSPECTED EXPOSURE TO C OVID-19 CONTACT WITH AND SUSPECTED EXPOSURE TO COVID-19 Diagnosis 03/29/2021 11:50:00 AM EDT [facility] E12666 Nicotine dependence, cigarettes, uncompl icated Nicotine dependence, cigarettes, uncomplicated Diagnosis 03/29/2021 11:50:00 AM EDT [facility] A20996 Smoking (tobacco) complicating , first trimester Smoking (tobacco) complicating , first trimester Diagnosis 02/2021 11:50:00 AM EDT [facility] J159 Unspecified bacterial pneumonia Unspecified bacterial pneumonia Diagnosis 03/29/2021 11:50:00 AM EDT [facility] Y07218 Diseases of the respiratory system complicating , first trimester Diseases of the respiratory system compl icating , first trimester Diagnosis 03/29/2021 11:50:00 AM EDT [facility] U11450 Other specified related condit ions, first trimester Other specified related conditions, first trimester Diagnosis 03/29/2021 11:50:00 AM EDT [facility] K047 Periapical abscess without sinus Periapical absc ess without sinus Diagnosis 08/23/2020 09:50:00 PM [facility] K0889 Other specified disorders of teeth and s upporting structures Other specified disorders of teeth and supporting structures Diagnosis 08/23/2020 09:50:00 PM [facility] C92980 Unspecified place in unspeci fied non-institutional (private) residence as the place of occurrence of the external cause Unspecified place in unspecified non-institutional (private) residence as the place of occurrence of the external cause Diagnosis 08/02/2020 11:04:00 PM [facility] [id number] Striking against or struck by other obje cts, initial encounter Striking against or struck by other objects, initial encounter Diagnosis 08/02/2020 11:04:00 PM [facility] [id number] Allergy, unspecified, initial encounter Allergy, unspecified, initial encounter Diagnosis 08/02/2020 11:04:00 PM [facility] V97757 Cellulitis of face Cellulitis of face Diagnosis 06/2021 11:04:00 PM [facility] [id number] Unspecified injury of neck, initial enco unter Unspecified injury of neck, initial encounter Diagnosis 08/02/2020 11:04:00 PM [facility] Surgeries/Procedures Procedure Description Date Indications Data Source(s) OFFICE OUTPATIENT NEW 30 MINUTES 06/22/2021 12:00:00 A M EST [facility] ([facility]) Results ID Date Data Source [id number] 06/22/2021 03:16:00 PM EST [facility] ([facility]) Name Value Range Interpretation Code Description Data Sera rce(s) Supporting Document(s) US Pelvic Laboratory test result [facility] ([facility]) ID Date Data Source [id number] 03/29/2021 11:50:00 AM EDT [facility] 1 OrderSheet [facility] Emergency Department [address] [place] [address] Phone #: ext- [phone] 03/29/2021 11:39 [id number] Sex: F : 1995 Age: 25yWEIGHT:90.7 kg (S) HEIGHT:64 inches (S) BMI:34.3ALLERGIES: PenicillinsCHIEF COMPLAINT: fever, sore throat, muscle aches, possible, COVID-19 exposure:, possible, flu exposure:DIAGNOSIS: Patient currently , Pneumonia, Severe acute respiratory syndrome coronavirusLAB ORDERSOrder Description Priority Entered Acknowledged InitialedCBC w Diff STAT 12:03/29/2021 Ack'd: 12:07 12:31 David Gan Ryan Ryan P.A.-C;CMP STAT 12:03/29/2021 Ack'd: 12:07 12:31 David Gan Ryan Ryan P.A.-C;Lipase STAT 12:03/29/2021 Ack'd: 12:07 12:31 David Gan Ryan Ryan P.A.-C;PT/PTT STAT 12:03/29/2021 Ack'd: 12:07 12:31 David Gan Ryan Ryan P.A.-C;Troponin-T STAT 12:03/29/2021 Ack'd: 12:07 12:31 David Gan Ryan Ryan P.A.-C;TSH STAT 12:03/29/2021 Ack'd: 12:07 12:31 David Gan Ryan Ryan P.A.-C;Urinalysis (Clean STAT 12:03/29/2021 Ack'd: 12:07Catch) Homer Darling P.A.-C;HCG Serum Qual STAT 12:03/29/2021 Ack'd: 12:07 12:31 David Gan Ryan Ryan P.A.-C;Influenza Nasal A B STAT 12:06 03/29/2021 Ack'd: 12:07 12:31 David Gan Ryan Ryan P.A.-C;Influenza Nasal A B STAT 12:19 03/29/2021 12:31 David Gan P.A.-C;COVID-19 CAH STAT 12:19 03/29/2021 12:31 Naman Gan OrderSheet [facility] Emergency Department [address] [place] [address] Phone #: ext- [phone] 03/29/2021 11:39 Patient: MARIA TERESA MATTHEW Sex: F : 1995 Age: 25y(Symptomatic as David CoronelDefined by CDC) P.A.-C;() (NotFirst Test) (NotHospitalized)(Unknown if) (NotResident inCongregate CareSetting) (NotEmployed inHealthcare Setting)HCG Serum Quant STAT 13:27 03/29/2021 Ack'd: 14:52 Homer Darling P.A.-C;CORONAVIRUS STAT 13:03/29/2021 Ack'd: 14:52COVID-19 Homer Darling(Symptomatic as P.A.-C;Defined by CDC)() (NotFirst Test) (NotHospitalized)() (NotResident inCongregate CareSetting) (NotEmployed inHealthcare Setting)DIAGNOSTIC STUDY ORDERSOrder Description Priority Entered Acknowledged InitialedCT CTA CHEST STAT 12:06 03/29/2021 Ack'd: 12:07 Homer Gan(NONCOR) W CON David Lieberman Cancelled: Other 13:25 Zach KohlerA.-C; Nohemy P.A.-C(Oxygen?(No))(IV?(Yes)) Reason for Study: PENDING HCG and CMP: Tachy; ? PE vs COVID vs other.CT CTA CHEST STAT 14:52 03/29/2021 Ack'd: 15:16(NONCOR) W CON Sean Darling PP P.A.-C;(Oxygen?(No))(IV?(Yes)) Reason for Study: Tachy, low o2; ? PE vs COVID vs other. Pt is unvaccinated and noted slight rhonic 3 OrderSheet [facility] Emergency Department [address] [place] [address] Phone #: ext- [phone] 03/29/2021 11:39 Patient: MARIA TERESA MATTHEW Sex: F : 1995 Age: 25yMEDICATION/IV/DRIP/FLUID ORDERSOrder Description Priority Entered Acknowledged InitialedIV NS : Bolus 500 12:06 03/29/2021 12:35 Malik,mL, then 100 mL/hr David Coronel P.A.-C;Tylenol 1 g PO X1 12:06 03/29/2021 12:36 Malik,dose: 1000 mg David Coronel(NOW x1) P.A.-C;Ativan IVP 1 mg 12:06 03/29/2021 12:36 Malik(HIGH ALERT David CoronelMEDICATION) P.A.-C;Rocephin 18:11 03/29/2021 18:25 Mili(1gm/50mL) IVPB David Ratliff RD7900 mg with P.A.-C;Dextrose 50 mlspike bag (D5W) Reason for ordering with alerts: Clinical consideration given -- 18:11 03/29/2021 David KohlerAAmador-CAzithromycin PO 18:11 03/29/2021 18:25 Qotgb987 mg X1 Dose: David Ratliff RN500 mg (NOW x1) P.Derick; Reason for ordering with alerts: Clinical consideration given -- 18:11 03/29/2021 David RALPHENERAL ORDERSOrder Description Priority Entered Acknowledged InitialedBlood Pressure 12:06 03/29/2021 12:06 Malik,Monitor David Coronel P.A.-C;Agricultural Education Professor 12:03/29/2021 12:06 Malik(continuous) David Coronel P.A.-C;EKG 12:06 03/29/2021 12:19 Tristan ED Tori Mejia P.A.-C; [id number] 12:06 03/29/2021 12:06 David Gan P.A.-C;Obtain Old EKG 12:06 03/29/2021 12:06 David Gan P.A.-C;Obtain Old Records 12:06 03/29/2021 12:07 Malik, 4 OrderSheet [facility] Emergency Department [address] [place] [address] Phone #: ext- [phone] 03/29/2021 11:39 Patient: [...] rce(s) Supporting Document(s) ID Date Data Source [id number] 03/29/2021 11:50:00 AM EDT [facility] 1 Medication Reconciliation Report [facility] Emergency Department [address] [place] [address] Phone #: [phone]- [phone] 03/29/2021 11:39 Patient: MARIA TERESA MATTHEW Sex: [...] the ER. Dispense 4tablet. Refills: 0. Substitution permitted.[employer] #97 - [id number] ; [place] [address]. FaxNumber: .cefdinir 300 mg capsule Take 1 capsule twice a day for 7 days -- Dispense 14 capsule. Refills: 0.Substitution permitted.[employer] #81 - [id number] ; [place] [address]. FaxNumber: . -- David Lieberman P.A.-C Name Value Range Interpretation Code Description Data Sera rce(s) Supporting Document(s) ID Date Data Source [id number] 03/29/2021 11:50:00 AM EDT [facility] 1 Medication Administration Record [facility] Emergency Department [address] [place] [address] Phone #: ext- [phone] 03/29/2021 11:39 Patient: MARIA TERESA MATTHEW Sex: F : 1995 Age: 25yWeight: 90.7 kgHeight/Length: 64 inBMI: 34.3ALLERGIES: Penicillins Date/Time Medication Administered Medication OrderedStart IV NS IV NS : Bolus 500 mL, then 85443:35 03/29/2021 Dose: IV Fluids mL/hrHomer Gan, Rate: 100 mL/hr over 4 hour(s)---- Bolus: 500 mL wide openStop Dispensed: 1000 mL bag20:07 03/29/2021 Site: #1 left Kristina Pablo,Given TYLENOL [PO] (APAP) Tylenol 1 g PO X1 dose: 1000 mg12:36 03/29/2021 Dose: 1000 mg Tablets PO (NOW x1)Homer Gan,Given ATIVAN [IVP] (LORAZEPAM) Ativan IVP 1 mg (HIGH ALERT12:36 03/29/2021 Dose: 1 mg IVP MEDICATION)Homer Gan, Site: #1 left ACStart ROCEPHIN (1GM/50ML) [IVPB] Rocephin (1gm/50mL) IVPB 043965:20 03/29/2021 (CEFTRIAXONE SODIUM) mg with Dextrose 50 [...] rce(s) Supporting Document(s) ID Date Data Source [id number] 03/29/2021 11:50:00 AM EDT [facility] 1 General Instructions [facility] Emergency Department [address] [place] [address] Phone #: ext- [phone] 03/29/2021 11:39 Patient: AMRIA TERESA MATTHEW Sex: F : 1995 Age: [...] Drink plenty of fluids. No dietary restrictions. ([facility]: [phone]. Please contact them in approx 3-4 days [...] Dispense 4 tablet. Refills: 0. Substitution permitted. [employer] #56 - [id number] ; [place] [address]. . cefdinir 300 mg capsule Take 1 capsule twice a day for 7 days -- Dispense 14 capsule. Refills: 0. Substitution permitted. [employer] #21 - [id number] ; [place] [address]. . Follow-up: Return to the emergency department as needed. Follow up with your healthcare provider in about two 2 General Instructions [facility] Emergency Department [address] [place] [address] Phone #: ext- [phone] 03/29/2021 11:39 Patient: MARIA TERESA MATTHEW Sex: [...] COVID-19 was first found in people in [facility], in late 2019. In 2020,several cases of [...] ask about your recent 3 General Instructions [facility] Emergency Department [address] [place] [address] Phone #: ext- [phone] 03/29/2021 11:39 Patient: MARIA TERESA MATTHEW Sex: F : 1995 Age: 25ytravel and [...] the CDC website atwww.cdc.gov/coronavirus/2019-ncov/travelers. 4 General Instructions [facility] Emergency Department [address] [place] [address] Phone #: ext- [phone] 03/29/2021 11:39 Patient: MARIA TERESA MATTHEW Sex: F : 1995 Age: 25y To help prevent spreading the infection, wash your hands often, or use an alcohol-based hand paper folder.The CDC advises that you shouldn't wear a face mask if you are not sick.To protect yourself from COVID-19: Wash your hands often with soap and clean, running water for at least 20 seconds. If you don't have access to soap and water, use an alcohol-based hand paper folder often. Make sure it has at least [...] that may be sick. 5 General Instructions [facility] Emergency Department [address] [place] [address] Phone #: ext- [phone] 03/29/2021 11:39 -- [...] in contact with. Follow all instructions the [facility] staff give you.If you have been diagnosed with COVID-19 6 General Instructions [facility] Emergency Department [address] [place] [address] Phone #: vpe- [phone] 03/29/2021 11:39 Patient: MARIA TERESA MATTHEW Sex: [...] with COVID-19 and your symptoms are worse [phone] [employer]. [address] [place] [address]. All rights reserved. This information is not intended as asubstitute for professional medical care. Always follow your healthcare professional's instructions. 7 [facility] Instructions [facility] Emergency Department [address] [place] [address] Phone #: ext- [phone] 03/29/2021 11:39 Patient: [...] week of treatment.Home care 8 General Instructions [facility] Emergency Department [address] [place] [address] Phone #: ext- [phone] 03/29/2021 11:39 Patient: [...] often with soap and water. Use hand paper folder when you can't wash your hands. Stay [...] helping you get better. 9 General Instructions [facility] Emergency Department [address] [place] [address] Phone #: ext- [phone] 03/29/2021 11:39 Patient: [...] about whichpneumococcal vaccine is best for you.Call [id number] any of these occur: Unable to speak [...] or a stiff neck 10 General Instructions [facility] Emergency Department [address] [place] [address] Phone #: ext- [phone] 03/29/2021 11:39 Patient: MARIA TERESA MATTHEW Sex: F : 1995 Age: 25y Chest pain with breathing or coughing Symptoms that get worse or not improving [phone] [employer] [place] [address]. All rights reserved. This information is not [...] Dizziness Indigestion or heartburn 11 General Instructions [facility] Emergency Department [address] [place], [place] [address] Phone #: ext- [phone] 03/29/2021 11:39 Patient: [...] You can seeyour family provider, a specialist (medical assistant cardiology), a bail agent, or a primary care clinic. 12 General Instructions [facility] Emergency Department [address] [place] [address] Phone #: ext- [phone] 03/29/2021 11:39 --- Patient: MARIA TERESA MATTHEW [...] gain Fever Vision changes or blurred vision [id number] [employer] [place] [address], [place] [address]. All rights reserved. This information is not intended as asubstitute for professional medical care. Always follow your healthcare professional's instructions.PregnancyYour exam today shows that you are . symptomsDuring your body's hormones change. This causes physical and emotional changes. This 13 General Instructions [facility] Emergency Department [address] [place] [address] Phone #: ext- [phone] 03/29/2021 11:39 Patient: [...] cause permanent brain damage. 14 General Instructions [facility] Emergency Department [address] [place] [address] Phone #: ext- [phone] 03/29/2021 11:39 Patient: [facility]A [facility]THEW [id number] Sex: F : 1995 Age: 25y Don't [...] You can seeyour family provider, a specialist (medical assistant cardiology), a bail agent, or a primary care clinic.When to seek medical adviceCall your healthcare provider right away if any of these occur: Vaginal bleeding Pain in your belly (abdomen) or back that is moderate or severe Lots of vomiting, or you can't keep any fluids down for 6 hours Burning feeling when you urinate Headache, dizziness, or rapid weight gain Fever Vision changes or blurred vision [employer]. [address] [place] [address], [place] [address]. All rights reserved. This information is not [...] home, you will be monitored by staff [facility] or state health department. You should follow the prevention steps below until a healthcare provider [facility] or [facility] health department says you can return to your normal activities. 15 General Instructions [facility] Emergency Department [address] [place] [address] Phone #: ard- [phone] 03/29/2021 11:39 Patient: MARIA TERESA MATTHEW Sex: [...] with pets and wear a facemask. See https://www.cdc.gov/coronavirus/2019-ncov/faq.html#1802-iAdP-uka-animals for more information. Call ahead before visiting [...] vehicle} or pets and before you enter ahealthcare provider's office. If you are not able [...] available, clean your hands with analcohol-based hand paper folder that contains at least 60% alcohol. Clean [...] during use of the product. Monitor your symptomshttps://www.[employer]/index.php Seek prompt medical attention if your illness is worsening {e.g., difficulty breathing}. Before seeking care, call your healthcareprovider and tell them that you have, or are being evaluated for, COVID-19. Put on a facemask before you enter the facility. 16 General Instructions [facility] Emergency Department [address] [place] [address] Phone #: [phone] ext- [phone] 03/29/2021 11:39 Patient: MARIA TERESA MATTHEW Sex: [...] isolation precautions should be made on a btpv-[id number] basis, inconsultation with healthcareproviders and state and local health departments.Contacts The [employer] informationhttps://www.cdc.gov/coronavirus/2019- ncov/about/index.html Content source: National Center for [...] of Persons with Potential 17 General Instructions [facility] Emergency Department [address] [place] [address] Phone #: kux- [phone] 03/29/2021 11:39 Patient: MARIA TERESA MATTHEW Sex: [...] p sagar to call the local or [facility] health department for additional guidance. If the [...] 20 seconds or use an alcohol-based hand paper folder that contains 60 to 95% alcohol, covering [...] soap and water or alcohol- based hand paper folder. Next, remove and dispose of facemask, and immediately clean your hands again with soap and water or alcohol-based hand paper folder. Avoid sharing household items with the patient. [...] soap and water or an alcohol-based hand paper folder} immediately after removing your gloves. https://www.[employer]/index.php Read and follow directions on labels of laundry or clothing items and detergent. In general, using a normal laundry detergent according to washing machine instructions and dry thoroughly using the warmest temperatures recommended on the clothing label. 18 General Instructions [facility] Emergency Department [address] [place] [address] Phone #: ext- [phone] 03/29/2021 11:39 Patient: MARIA TERESA MATTHEW Sex: F : 1995 Age: 25y Place all used disposable gloves, facemasks, and other contaminated items in a lined container before disposing of them with other household waste. Clean your hands {with soap and water or an alcohol-based hand paper folder} immediately after handling these items. Soap and water should be used preferentially if hands are visibly dirty. Discuss any additional questions with your state or local health department or healthcare provider. Check available hours when contacting your local health department.Contacts 2020 [employer].Online information https://www.cdc.gov/coronavirus/2019-ncov/about/index.htmlContent source: National Center for Immunization and Respiratory Diseases (NCIRD), Division of Viral DiseasesFootnotes 1Home healthcare personnel should refer to I layne Infection Prevention and Control Recommendations for Patients [...] (e.g., being coughed on 19 General Instructions [facility] Emergency Department [address] [place] [address] Phone #: ext- [phone] 03/29/2021 11:39 Patient: [...] rce(s) Supporting Document(s) ID Date Data Source [id number] 03/29/2021 11:50:00 AM EDT [facility] 1 Clinical Report - Nurses [facility] Emergency Department [address] [place] [address] Phone #: ext- [phone] 03/29/2021 11:39 Patient: [...] problems.ADDITIONAL SURGERIES:Adenoidectomy.Tonsillectomy.Tympanostomy Tubes. --11:44 03/29/21 Mili Ratliff RN.Xwkmgwb65:40 03/29/21.PAST MEDICAL HX: Immunizations: up-to-date. Last normal menstrual period was 2 weeks ago.SOCIAL HX: Heavy tobacco smoker (cigarette)- less than 1 pack per day. No alcohol use or drug use.The patient was offered HIV testing but declined. Hepatitis C testing offered to patient. The patient hasnot traveled outside the [place] 2 Clinical Report - Nurses [facility] Emergency Department [address] [place] [address] Phone #: ext- [phone] 03/29/2021 11:39 Patient: MARIA TERESA MATTHEW Sex: F : 1995 Age: 25y Infectious [...] bed on. Patient ready for evaluation- ED physicianand MARIA DE JESUS notified. --11:46 03/29/21 Mili Ratliff RN 12:03 03/29/21. BP: 130/96. HR: 120. RR: 16. O2 saturation: 97%. --12:03 03/29/21 Tristan tree prunerTori Boykin ER Tech1 EKG time: (12:13 03/29/2021). EKG was performed by a mary and shown to the PA. --12:19 03/29/21 Tristan 3 Cl inical Report - Nurses [facility] Emergency Department [address] [place] [address] Phone #: ext- [phone] 03/29/2021 11:39 Patient: MARIA TERESA MATTHEW Sex: F : 1995 Age: 25yED Tori Boykin Afmk154:35 03/29/2021 Site #1 started via IV in [...] 99. RR: 29. O2 saturation: 98%. --13:03/29/21 [facility] Opmh016:03/29/21. BP: 124/76. HR: 103. RR: 29. O2 saturation: 93%. --14:03/29/21 [facility] ER Twvl5Cakruryarn of patient in place. Reassurance given to [...] in lowest position. Brakes of bed on. --14:14 03/29/21 Homer Gan15:03/29/21. BP: 97/55. HR: 91. RR: 22. O2 saturation: 97%. --15:03/29/21 [place] tree pruner, Tori,ER Gyju581:03/29/21. BP: 106/57. HR: 91. RR: 28. O2 saturation: 95%. --16:06 03/29/21 [place] tree pruner, Tori,ER Tech1 4 Clinical Report - Nurses [facility] Department [address] [place] [address] Phone #: ext- [phone] 03/29/2021 11:39 Patient: MARIA TERESA MATTHEW Sex: [...] position. Brakes of bed on. --16:14 03/29/21Homer Gan17:26 03/29/21. BP: 125/81. HR: 82. RR: 21. O2 saturation: 98%. --17:26 03/29/21 [facility]1Monitoring of patient in place. Reassurance given to [...] Patient waiting for results and disposition. --17: MalikHomer18:03/29/21. BP: 125/74. HR: 103. RR: 26. O2 saturation: 99%. --18:03/29/21 [facility] Lbvh447:20 03/29/2021 Started 1 gm of ROCEPHIN (1GM/50ML) [...] signs of allergic reaction andprecautions. Verbalizes understanding. --18:03/29/21 Mili Ratliff RNRounding: Pain: assessed pain level [...] lowest position. Brakes of bed on. --18: MalikHomer19:02 03/29/21. BP: 129/89. HR: 92. RR: 21. O2 saturation: 97%. --19:03 03/29/21 [facility] Tori Boykin, Clinical Report - Nurses [facility] Emergency Department [address] [place] [address] Phone #: [phone] ext- [phone] 03/29/2021 11:39 Patient: MARIA TERESA MATTHEW Sex: F : 1995 Age: 25y ER Tech1.DISPOSITION / DISCHARGE 19:57 03/29/21. BP: 124/78. HR: 91. RR: 17. O2 saturation: 100%. Temp: 97.9 F. --19:57 03/29/21 [facility] Tori Boykin, Tech1 20:07 03/29/2021 Site #1 removed upon discharge. Catheter intact. Bandaid applied. --20:07 03/29/21 Kristina Soler 20:07 03/29/2021 IV Fluids IV NS via IV site #1 Discontinued: bag #1 infused. Total amount infused: 1000 mL. IV patency established. IV site checked: no pain, redness, or swelling. IV flushed thoroughly. --20:07 03/29/21 Kristina Soler Departure time: 20:08 03/29/2021. Condition at departure: stable. No learning barriers present. Discharge instructions provided and reviewed with the patient. Reviewed warnings. Reviewed medication(s). Treatments reviewed. Activity restrictions reviewed. Patient verbalized understanding. Written instructions provided in Portuguese. The patient was discharged by the physician. She was discharged home and unaccompanied at time of discharge. She left ambulatory and via private vehicle. 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 --20:08 03/29/21 Kristina Soler 20:08 03/29/21. Pain level now 0/10. --20:08 03/29/21 Kristina Soler 20:08 03/29/2021 ROCEPHIN (1GM/50ML) IVPB via IV site #1 Discontinued: completed. Total amount infused: 50 mL. IV patency established. IV site checked: no pain, redness, or swelling. IV flushed thoroughly. --20:03/29/21 Kristina Soler.Locked/Released at 03/29/2021 20:09 by Kristina Soler Name Value Range Interpretation Code Description Data Sera rce(s) Supporting Document(s) ID Date Data Source [id number] 03/29/2021 11:50:00 AM EDT [facility] 1 Clinical Report - Physicians/Mid Levels [facility] Emergency Department [address] [place] [address] Phone #: ext- [phone] 03/29/2021 11:39 Patient: [...] Exam. 2 Clinical Report - Physicians/Mid Levels [facility] Emergency Department [address] [place] [address] Phone #: ext- [phone] 03/29/2021 11:39 Patient: [id number] Sex: F : 1995 Age: 25y Tonsillitis [...] saturation: 97%. Temp: 98 F.Pain level now: 10/29. Have been reviewed. Blood pressure normal. Tachycardic. [...] deficit. 3 Clinical Report - Physicians/Mid Levels [facility] Department [address] [place] [address] Phone #: ext- [phone] 03/29/2021 11:39 Patient: MARIA TERESA MATTHEW Sex: F : 1995 Age: 25y Psych: Cognition normal. Thought process and content normal. Insight and judgement normal.LABS, X-RAYS, AND EKGEKG: sinus rhythm w/ PAC; o/w normal ECG. Reviewed by attendgn. Laboratory Tests: CT CTA CHEST NON-CORONARY W [employer] PP: (NAS: 03/29/2021 14:52) ( MsgRcvd 03/29/2021 19:36) In Progress Test Result Flag Units (Reference) CT CTA CHEST NON-CORONARY W [employer] [facility] [address] [place] [address] PHONE: [phone] FAX: [phone] -- Name .................. : VIPUL Hampton Acct Number.................. : [id number] ROOM. ................. : TR-05 MR Number ................... : [id number] Stay type ............. : E/R Discharge Date......... ... : Admit Date ......... : 03/29/21 Admit Phys .................... : KASANDRA DAWN Date of ....... : 1995 Family Phys ................... : NO PCP Phone .................. : [phone] Age ................................ : 25 Film# .................. .:[id number] Sex ................................. : F -- Unsigned transcriptions are preliminary reports and do not represent a medical or legal document CT CTA CHEST NON-CORONARY Rick Oconnell [id number] COMPLETE:03/29/21 14:52 Reason(s): Tachy, low o2; ? [...] limits. 4 Clinical Report - Physicians/Mid Levels [facility] Department [address] [place] [address] Phone #: ext- [phone] 03/29/2021 11:39 Patient: MARIA TERESA MATTHEW Sex: F : 1995 Age: 25y -- UPPER ABDOMEN: Unremarkable. -- -- IMPRESSION: -- -- Page 1of 2 [place] [address] PHONE: [phone] FAX: [phone] -- Name .................. : VIPUL Hampton Acct Number.................. : [id number] ROOM. ................. : TR05 MR Number ................... : [id number] Stay type ............. : E/R Discharge Date......... ... : Admit Date ......... : 03/29/21 Admit Phys .................... : KASANDRA DAWN Date of ....... : 1995 Family Phys ................... : NO PCP Phone .................. : [phone] Age ................................ : 25 Film# .................. .:[id number] Sex ................................. : F -- Unsigned transcriptions are preliminary reports and do not represent a medical or legal document CT CTA CHEST NON-CORONARY W C [id number] COMPLETE:03/29/21 14:52 Reason(s): Tachy, low o2; ? PE vs COVID vs other. Pt is unvaccinated and n -- -- 1. The examination is degraded by patient motion. 2. Multifocal pulmonary opacities suspicious for Covid pneumonia. 3. No pulmonary embolism identified. -- -- Electronically Reviewed and Signed By ROMEL CASANOVA JWS -- Transcribe Initials: JOHNNY , Transcribe Date: 09/08/21 19:21, Dictation Date: -- -- <<REPDIST>> -- -- -- -- Page 2of 2 --Beta-HCG, Quant Serum: (NAS: 03/29/2021 12:31) ( MsgRcvd 03/29/2021 15:52) Final results Test Result Flag Units (Reference) HCG QUANT 103.7 mIU/mL Interpretation: Less than 5 mU/mL: Negative6-10 mU/mL: Borderline (suggest repeat in 48 hours) >10: PositiveApprox HCG range (mU/mL) Weeks post LMP 5.4-708 mU/mL 3-4 Aakzy458-46616 mU/mL 5-6 Weeks 4059-229100 mU/mL 7-8 Fqith75167-648022 mU/mL 9-10 Weeks 58789-59916 mU/mL 12-14 Cdejh22056-84536 mU/mL 15-16 Weeks 8240-32580 mU/mL 17-18 WeeksInfluenza Nasal A B: (NAS: 03/29/2021 12:31) ( MsgRcvd 03/29/2021 12:50) CanceledCOVID-19 CAH: (NAS: 03/29/2021 12:31) ( MsgRcvd 03/29/2021 13:02) Final results 5 Clinical Report - Physicians/Mid Levels [facility] Emergency Department [address] [place] [address] Phone #: ext- [phone] 03/29/2021 11:39 Patient: [...] DECISIONS.CBC w Diff: (NAS: 03/29/2021 12:31) ( MsgRcvd 03/29/2021 12:46) Final results Test Result Flag [...] MORPH NOT INDICATEDCMP: (NAS: 03/29/2021 12:31) ( MsgRcvd 03/29/2021 13:08) Final results Test Result Flag [...] 27) 6 Clinical Report - Physicians/Mid Levels [facility] Department [address] [place] [address] Phone #: ext- [phone] 03/29/2021 11:39 Patient: [...] Male GFR Interprentation 20-49 yrs >60 mL/min Zvdnyw34-16 yrs >56 mL/min Normal 60-69 yrs >49 mL/min Normal 70-79yrs>42 mL/min Normal 80 and above >35 mL/min Normal Female GFRInterpretation 20-39 yrs >60 mL/min Normal 40-49 yrs >58 mL/minNormal 50-59 yrs >51 mL/min Normal 60-69 yrs >45 mL/min Trkiev80-73 yrs >39 mL/min Normal 80 and above >32 mL/min NormalLipase: (NAS: 03/29/2021 12:31) ( [facility] 03/29/2021 13:07) Final results Test Result Flag Units (Reference) LIPASE 18 U/L (13 - 60)PT/PTT: (NAS: 03/29/2021 12:06) ( [facility] 03/29/2021 12:39) CanceledTroponin-T: (NAS: 03/29/2021 12:31) ( [facility] 03/29/2021 13:08) Final results Test Result Flag Units (Reference) TROPONIN T <0.01 NG/ML (0.00 - 0.10) TROPONIN T0.1 ng/ml Recommended as the clinical threshold value forTroponin T.TSH: (NAS: 03/29/2021 12:31) ( [facility] 03/29/2021 13:18) Final results Test Result Flag Units (Reference) TSH 2.75 uIU/mL (0.47 - 5.01)Beta-HCG, Qual Serum: (NSA: 03/29/2021 12:31) ( AlgRcvd 03/29/2021 13:03) Final results Test Result Flag Units (Reference) HCG SERUM QUAL POSITIVE (NORMAL: NEGAT HCG SERUM QL REENTER POSITIVE (NORMAL: NEGAT { KIT LOT # [id number] ){ KIT EXP DATE07.21.22 ){ PROCEDURAL CONTROL VALID)Influenza Nasal A B: (NAS: 03/29/2021 12:31) ( [facility] 03/29/[facility] 12:59) Final results Test Result Flag [...] should 7 Clinical Report - Physicians/Mid Levels [facility] Emergency Department [address] [place] [address] Phone #: ext- [phone] 03/29/2021 11:39 Patient: [...] vs COVID vs other. 14:53 03/29/21. Discussed [facility] pt and sts she is willing to [...] discharge. 8 Clinical Report - Physicians/Mid Levels [facility] Department [address] [place] [address] Phone #: ext- [phone] 03/29/2021 11:39 Patient: [...] Drink plenty of fluids. No dietary restrictions. ([facility]: [phone]. Please contact them in approx 3-4 days [...] condition 9 Clinical Report - Physicians/Mid Levels [facility] Department [address] [place] [address] Phone #: ext- [phone] 03/29/2021 11:39 Patient: [...] Dispense 4 tablet. Refills: 0. Substitution permitted. [employer] #52 - [id number] ; [place] [address]. . cefdinir 300 mg capsule Take 1 capsule twice a day for 7 days -- Dispense 14 capsule. Refills: 0. Substitution permitted. [employer] #63 - [id number] ; [place] [address]. FaxNumber: . Follow-up: Return to the emergency department as needed. Follow up with your healthcare provider in about two days if not better. Call for an appointment. Understanding of the discharge instructions verbalized by patient.(Electronically signed by David Lieberman P.A.-C 03/31/2021 12:58) Name Value Range Interpretation Code Description Data Sera rce(s) Supporting Document(s) ID Date Data Source [id number] 03/29/2021 11:50:00 AM EDT [facility] Addenda for MARIA TERESA MATTHEW VisitID: [id number] Date: 10:43covid test negative, clinical writer called pt's phone number no answer and unable to leave message(Electronically signed by Joyce Figueroa R.N. - 04/02/2021 10:43) Name Value Range Interpretation Code Description Data Sera rce(s) Supporting Document(s) ID Date Data Source [id number] 03/30/2021 01:27:00 PM EDT [facility] [address] [place] [address] PHONE: [phone] FAX: [phone] Name ..............: VIPUL Hampton Acct Number ...........................: [id number] ROOM. ............: TR-05 MR Number ............................: [id number] Stay type.........: E/R Discharge Date...............:03/29/21 Admit Date .....: 03/29/21 Admit Phys .............................: KASANDRA DAWN Date of ..: 1995 Family Phys ...........................: NO PCP Phone..............: [phone] Age.................................:25 Film# ...............:[id number] Sex.................................:F Unsigned transcriptions are preliminary reports and do not represent a medical or legal document EKG [id number] COMPLETE:03/29/21 15:17 BIS [id number] Please See Scanned Results. Name Value Range Interpretation Code Description Data Sera rce(s) Supporting Document(s) ID Date Data Source [id number] 03/29/2021 09:08:00 PM EDT [facility] [address] [place] [address] PHONE: [phone] FAX: [phone] Name .................. : VIPUL Hampton Acct Number.................. : [id number] ROOM. ................. : TR-05 Number ................... : [id number] Stay type ............. : E/R Discharge Date......... ... : Admit Date ......... : 03/29/21 Admit Phys .................... : KASANDRA DAWN Date of ....... : 1995 Family Phys ................... : NO PCP Phone .................. : [phone] Age ................................ : 25 Film# .................. .:[id number] Sex ................................. : F Unsigned transcriptions are preliminary reports and do not represent a medical or legal document CT CTA CHEST NON-CORONARY Rick Oconnell [id number] COMPLETE:03/29/21 14:52 [id number] Reason(s): Tachy, low o2; ? PE vs [...] ABDOMEN: Unremarkable. IMPRESSION: Page 1 of 2 [place] [address] PHONE: [phone] FAX: [phone] Name .................. : VIPUL MOREL Berta [facility] : [id number] ROOM. ................. : TR-05 Number ................... : [id number] Stay type ............. : E/R Discharge Date......... ... : Admit Date ......... : 03/29/21 Admit Phys .................... : KASANDRA NEREYDA Date of ....... : 1995 Family Phys ................... : NO PCP Phone .................. : [phone] Age ................................ : 25 Film# .................. .:[id number] Sex ................................. : F Unsigned transcriptions are preliminary reports and do not represent a medical or legal document CT CTA CHEST NON-CORONARY W C [id number] COMPLETE:03/29/21 14:52 [id number] Reason(s): Tachy, low o2; ? PE vs COVID vs other. Pt is unvaccinated and n 1. The examination is degraded by patient motion. 2. Multifocal pulmonary opacities suspicious for Covid pneumonia. 3. No pulmonary embolism identified. Electronically Reviewed and Signed By Eric Leung MD , 03/29/21 21:08, JWDee Dee Transcribe Initials: JOHNNY , Transcribe Date: 03/29/21 19:21, Dictation Date: Co py for: [employer] via fax Copy for: EMERGENCY DEPT via modem Copy for: 710 MED REC DISCHARGED Page 2 of 2 Name Value Range Interpretation Code Description Data Sera rce(s) Supporting Document(s) ID Date Data Source [id number] 03/29/2021 02:55:00 PM EDT [facility] Name Value Range Interpretation Code Description Data Sera rce(s) Supporting Document(s) SARS coronavirus 2 RNA Not Detected [facility] [place] This lab was ordered by Caren vee and reported by [facility]. ID Date Data Source [id number] 04/01/2021 03:49:00 PM EDT [facility] Name Value Range Interpretation Code Description Data Sera rce(s) Supporting Document(s) SARS-CoV-2, YESSI Not Detected Not Detected [facility] This nucleic acid amplification test was developed and its performancecharacteristics determined by [employer]. Nucleic acidamplification tests include RT-PCR and TMA. [...] in this assay. ID Date Data Source [id number] 03/29/2021 12:31:00 PM EDT [facility] Name Value Range Interpretation Code Description Data [facility] rce(s) Supporting Document(s) COVID19 Case rprt NOT DETECTED [facility] This lab was ordered by [facility] and reported by [facility]. ID Date Data Source [id number] 03/29/2021 01:02:00 PM EDT [facility] NOT DETECTEDNOT DETECTED{ PROC EDURAL CONTROL [...] rce(s) Supporting Document(s) ID Date Data Source [id number] 03/29/2021 03:51:00 PM EDT [facility] Name Value Range Interpretation Code Description Data Sera rce(s) Supporting Document(s) Choriogonadotropin.intact [Units/volume] in Serum or Plasma 103.7 mIU /mL [facility] Interpr etation: Less than 5 mU/mL: Negative 6-10 mU/mL: Borderline (suggest repeat in 48 hours) >10: Positive Approx HCG range (mU/mL) Weeks post LMP 5.4-708 mU/mL 3-4 Weeks 217-54808 mU/mL 5-6 Weeks 4059-136614 mU/mL 7-8 Weeks 47207-253934 mU/mL 9-10 Weeks 70884-65999 mU/mL 12-14 Weeks 17741-32472 mU/mL 15-16 Weeks 8240- 62718 mU/mL 17-18 Weeks ID Date Data Source [id number] 03/29/2021 01:18:00 PM EDT [facility] Name Value Range Interpretation Code Description Data [facility] Supporting Document(s) Thyrotropin [Units/volume] in Serum or Plasma by Detec tion limit <= 0.05 mIU/L 2.75 uIU/mL 0.47 - 5.01 [facility] ID Date Data Source [id number] 03/29/2021 01:08:00 PM EDT [facility] Name Value Range Interpretation Code Description Data Sera e(s) Supporting Document(s) COMPREHENSIVE METABOLIC PANEL [facility] COMPREHENSIVE METABOLIC PANEL Sodium [Moles/volume] in Serum or Plasma 138 mEq/L 134 - 153 [facility] Potassium [Moles/volume] in Serum or Plasma 3.7 mEq/L 3.6 - 5.0 [facility] Chloride [Moles/volume] in Serum or Plasma 102 mEq/L 98 - 107 [facility] Carbon dioxide, total [Moles/volume] in Serum or Plasma 20 MEQ/L 22 - 30 L [facility] Glucose [Mass/volume] in Serum or Plasma 115 MG/DL 70 - 99 H [facility] BUN 3 MG/DL 7 - 21 L [facility] al Creatinine [Mass/volume] in Serum or Plasma 0.6 MG/DL 0.7 - 1.5 L [facility] BUN/CREAT 5 8 - 27 L [facility] Protein [Mass/volume] in Serum or Plasma 6.5 G/DL 6.3 - 8.2 [facility] Albumin [Mass/volume] in Serum or Plasma 4.2 G/DL 3.9 - 5.0 [facility] Globulin [Mass/volume] in Serum by calculation 2.3 GM/DL 2.4 - 3.2 L [facility] A/G RATIO 1.8 0.8 - 2.0 [facility] Calcium [Mass/volume] in Serum or Plasma 9.3 MG/DL 8.4 - 10.2 [facility] Bilirubin.total [Mass/volume] in Serum or Plasma <0.7 MG/DL 0.2 - 1.3 [facility] Alkaline phosphatase [Enzymatic activity/volume] in Serum or Plasma 71 U/L 38 - 126 [facility] Aspartate aminotransferase [Enzymatic activity/volume] in Serum or Plasma 14 U/L 5 - 40 [facility] Alanine aminotransferase [Enzymatic activity/volume] in Seru m or Plasma 14 U/L 7 - 56 [facility] Anion gap 3 in Serum or Plasma 16.0 mmol/L 8.0 - 16.0 [facility] AGE 25 yrs [facility] al NON-AA GFR >60 mL/min [facility] ital AFR AMER GFR >60 mL/min [facility] Ho spital Male GFR In terprentation [...] >32 mL/min Normal ID Date Data Source [id number] 03/29/2021 01:08:00 PM EDT [facility] Value Range Interpretation Code Description Data Sera rce(s) Supporting Document(s) TROPONIN T <0.01 NG/ML 0.00 - 0.10 [facility] ospital TROPONIN T0.1 ng/ml Recommended as the c linical threshold value forTroponin T. ID Date Data Source [id number] 03/29/2021 01:07:00 PM EDT [facility] Value Range Interpretation Code Description Data Sera rce(s) Supporting Document(s) Lipase [Enzymatic activity/volume] in Serum or Plasma 18 U/L 13 - 60 [facility] ID Date Data Source [id number] 03/29/2021 01:02:00 PM EDT [facility] Value Range Interpretation Code Description Data Sera rce(s) Supporting Document(s) HCG SERUM QUAL POSITIVE NORMAL: NEGATIVE [facility] HCG SERUM QL REENTER POSITIVE NORMAL: NEGATIVE [facility] { KIT LOT # [id number] ){ KIT EXP DATE 07.21.22 ){ PROCEDURAL CONTROL VALID ) ID Date Data Source [id number] 03/29/2021 12:56:00 PM [facility] Value Range Interpretation Code Description Data Sera rce(s) Supporting Document(s) Influenza virus A Ag [Presence] in Nasopharynx by [facility] y NEGATIVE NORMAL: NEGATIVE [facility] Influenza virus B Ag [Presence] in Nasopharynx by [facility] y NEGATIVE NORMAL: NEGATIVE [facility] NEGATIVENEGATIVE PROCEDURAL CO NTROL VALID KIT [...] other patient managementdecisions. ID Date Data Source [id number] 03/29/2021 12:44:00 PM EDT [facility] Name Value Range Interpretation Code Description Data Sera rce(s) Supporting Document(s) CBC W/AUTOMATED DIFF [facility] COMPLETE BLOOD COUNT Leukocytes [#/volume] in Blood by Automated count 11.6 10^3/uL 4.2 - 11.0 H [facility] Erythrocytes [#/volume] in Blood by Automated count 4.99 10^6/uL 4. 20 - 5.40 [facility] Hemoglobin [Mass/volume] in Blood 14.0 g/dL 12.0 - 16.0 [facility] Hematocrit [Volume Fraction] of Blood by Automated count 40.5 % 3 7.0 - 47.0 [facility] Erythrocyte mean corpuscular volume [Entitic volume] by Auto mated count 81.2 fL 81.0 - 101 [facility] Erythrocyte mean corpuscular hemoglobin [Entitic mass] by Automated count 28.1 pg 27.0 - 34.0 [facility] Erythrocyte mean corpuscular hemoglobin concentration [Mass/volume] by Automated count 34.6 g/dL 31.0 - 36.0 [facility] Erythrocyte distribution width [Ratio] by Automated count 12.9 % 11.5 - 14.5 [facility] Platelets [#/volume] in Blood by Automated count 288 10^3/uL 150 - 45 0 [facility] Platelet mean volume [Entitic volume] in Blood by Automated count 10.0 fL 7.4 - 10.4 [facility] Neutrophils/100 leukocytes in Blood by Automated count 71.8 % 37. 0 - 80.0 [facility] Lymphocytes/100 leukocytes in Blood by Manual count 18.0 % 25.0 - 40.0 L [facility] Monocytes/100 leukocytes in Blood by Automated count 8.4 % 3.0 - 8.0 H [facility] Eosinophils/100 leukocytes in Blood by Automated count 1.0 % 0.0 - 7.0 [facility] Basophils/100 leukocytes in Blood by Automated count 0.4 % 0.0 - 2.5 [facility] %IG 0.4 % 0.0 - 0.0 H [facility] Hospit al %NRBC 0.0 % 0.0 - 0.0 [facility] al Neutrophils [#/volume] in Blood by Automated count 8.32 10^3/uL 2.00 - 6.90 H [facility] Lymphocytes [#/volume] in Blood by Automated count 2.09 10^3/uL 0.60 - 3.40 [facility] Monocytes [#/volume] in Blood by Automated count 0.97 10^3/uL 0.00 - 0.90 H [facility] Eosinophils [#/volume] in Blood by Automated count 0.12 10^3/uL 0.00 - 0.70 [facility] Basophils [#/volume] in Blood by Automated count 0.05 10^3/uL 0.00 - 0.20 [facility] #IG 0.05 10^3/uL 0.00 - 0.10 [facility] H ospital #NRBC 0.00 10^3/uL 0.00 - 0.00 [facility] MANUAL DIFF NOT INDICATED [facility] RBC MORPH NOT INDICATED [facility] spital ID Date Data Source [id number] 08/23/2020 09:50:00 PM EST [facility] 1 OrderSheet [facility] Emergency Department [address] [place] [address] Phone #: ext- [phone] 08/23/2020 21:50 Patient: [...] 22:15 08/23/2020 22:21 Bulluck,PO 20 mL (NOW) Vandana, Rylan ; Rylan Verbal order per; Lizy AlfredClindamycin PO 22:25 08/23/2020 22:30 Bulluck,150 mg Lizy Alfred Rylan ;Flexeril PO 10 mg 23:00 08/23/2020 Cancelled: Wrong Patient 23:02(NOW) Lizy Alfred Victoria ;Lidocaine Viscous 23:01 08/23/2020 23:12 Bulluck,PO 15 mL (NOW) Eric Rossir ; Rylan Verbal order per; Lizy AlfredGENERAL ORDERSOrder Description Priority Entered Acknowledged Initialed[Electronically signed by Britt Petersen R.N. (23:35 08/23/2020)][Electronically signed by Lizy Alfred (05:10 08/24/2020)] 2 OrderSheet [facility] Emergency Department [address] [place] [address] Phone #: ext- [phone] 08/23/2020 21:50 Patient: MARIA TERESA MATTHEW Sex: F : 1995 Age: 25y[Electronically locked by Britt Petersen R.N. (23:35 08/23/2020)] Name Value Range Interpretation Code Description Data Sera rce(s) Supporting Document(s) ID Date Data Source [id number] 08/23/2020 09:50:00 PM [facility] 1 Medication Reconciliation Report [facility] Emergency Department [address] [place] [address] Phone #: ext- [phone] 08/23/2020 21:50 Patient: [...] Dispense 28 capsule.Refills: 0. Substitution permitted.Pharmacy - [facility] #04 - [id number] ; [place] [address]. Phone: FaxNumber: . -- Lizy Alfred Name Value Range Interpretation Code Description Data Sera rce(s) Supporting Document(s) ID Date Data Source [id number] 08/23/2020 09:50:00 PM [facility] 1 Medication Administration Record [facility] Emergency Department [address] [place] [address] Phone #: ext- [phone] 08/23/2020 21:50 Patient: [facility]W [id number] Sex: F : 1995 Age: 25yWeight: 81.6 [...] rce(s) Supporting Document(s) ID Date Data Source [id number] 08/23/2020 09:50:00 PM EST [facility] 1 General Instructions [facility] Emergency Department [address] [place] [address] Phone #: ext- [phone] 08/23/2020 21:50 Patient: [...] Dispense 28 capsule.Refills: 0. Substitution permitted.Pharmacy - [facility] #04 - [id number] ; [place] [address]. FaxNumber: .Follow-up:Follow up with your healthcare provider your dentist tomorrow. Call for an appointment. Reason for referral:evaluation and treatment. Summary of care provided to patient via paper. Screening today revealed thepatient's blood pressure to be in the hypertensive stage 2 range. The patient [facility] pressure [facility]. ADDITIONAL INFORMATIONDental Pain 2 General Instructions [facility] Emergency Department [address] [place] [address] Phone #: ext- [phone] 08/23/2020 21:50 Patient: MARIA TERESA MATTHEW Sex: [...] temperature. Use toothpaste made for sensitive teeth. [place] gently up and down instead of sideways. Brushing sideways can wear away root surfaces if they are exposed. If your tooth is chipped or cracked, see a dentist right away. For short-term pain relief, put clove oil right on the tooth. You can buy clove oil at pharmacies. Some pharmacies carry an jwxo-myv-yzverpe toothache kit. This has a paste you can put on the exposed tooth to make it less sensitive. 3 General Instructions [facility] Emergency Department [address] [place] [address] Phone #: ext- [phone] 08/23/2020 21:50 Patient: MARIA TERESA MATTHEW Sex: F : 1995 Age: 25y Use a cold pack. Put a cold pack on your jaw over the sore area to help reduce pain. Ask your healthcare provider about using mhnc-dop-huxzkxb medicine for pain. You may use this [...] This will keep the pain from comingback.Call [phone] if any of these occur: Abnormal [...] your provider Pus drains from the tooth [phone] [employer]. [address] [place] [address], [place] [address]. All rights reserved. This information is not intended as asubstitute for professional medical care. Always follow your healthcare professional's instructions.Dental AbscessA dental abscess is an infection of the tooth socket. It often starts with a crack or cavity in the tooth. Apocket of pus forms between the tooth and the bone. The infection causes pain and swelling of the 4 General Instructions [facility] Emergency Department [address] [place] [address] Phone #: ext- [phone] 08/23/2020 21:50 Patient: [...] reduce pain. Oil of cloves is sold qahu-bmy-upshfry in pharmacies. Some pharmacies carry an bpbf-gyz-rowninp "toothache kit." This contains oil of cloves [...] a plastic bag that 5 General Instructions [facility] Emergency Department [address] [place] [address] Phone #: ext- [phone] 08/23/2020 21:50 Patient: [...] sooner.Follow-up careFollow up as advised with an component assembler, or oral surgeon. Even though your pain may improve withthe treatment given today, only a dentist, component assembler, or oral surgeon can provide full treatment forthis problem. If a culture was done, you will be told if the treatment needs to be changed. You can call in as directed for the results. If X-rays were taken, they will be reviewed by a specialist. You will be given the results, especially if they affect treatment.Call [phone] if any of these occur: Trouble breathing [...] by your healthcare provider 6 General Instructions [facility] Emergency Department [address] [place], [place] [address] Phone #: ext- [phone] 08/23/2020 21:50 Patient: MARIA TERESA MATTHEW Sex: F : 1995 Age: 25y Unusual drowsiness, a headache or stiff neck, or weakness Pus drains from the gum or tooth You can't open your mouth wide 1982-0519 [employer]. [address] [place] [address], [place] [address]. All rights reserved. This information is not intended as asubstitute for professional medical care. Always follow your healthcare professional's instructions. You have been given the following additional information: Dental Pain Tooth Abscess(Electronically signed by Lizy Alfred 08/24/2020 05:10) Name Value Range Interpretation Code Description Data Sera rce(s) Supporting Document(s) ID Date Data Source [id number] 08/23/2020 09:50:00 PM EST [facility] 1 Clinical Report - Nurses [facility] Emergency Department [address] [place] [address] Phone #: ext- [phone] 08/23/2020 21:50 Patient: MARIA TERESA MATTHEW Sex: F : 1995 Age: 25yTRIAGEArrived by private vehicle. Historian: patient.Triage time: 21:45 08/23/2020. Acuity: LEVEL 5.Chief Complaint: JAW PAIN.Alert. No acute distress.Symptoms are intermittent (2 months). She has had facial pain. She has had swelling of the jaw.SEPSIS SCREEN: SEPSIS SCREEN NEGATIVE. No suspected or confirmed signs of infection present.--22:00 08/23/20 Yumiko Osorio:52 08/23/20. BP: 151/87 taken on the right [...] no deficiencies. 2 Clinical Report - Nurses [facility] Emergency Department [address] [place] [address] Phone #: ext- [phone] 08/23/2020 21:50 Patient: [facility] TERESA [facility]THEW [id number] Sex: F : 1995 Age: 25y FUNCTIONAL [...] Patient verbalized understanding. Written instructions provided in Portuguese. The patient was discharged by the physician. She was discharged home and accompanied by family. 3 Clinical Report - Nurses [facility] Emergency Department [address] [place] [address] Phone #: ext- [phone] 08/23/2020 21:50 Patient: [...] rce(s) Supporting Document(s) ID Date Data Source [id number] 08/23/2020 09:50:00 PM [facility] 1 Clinical Report - Physicians/Mid Levels [facility] Emergency Department [address] [place] [address] Phone #: ext- [phone] 08/23/2020 21:50 Patient: [...] Tonsillectomy. 2 Clinical Report - Physicians/Mid Levels [facility] Emergency Department [address] [place] [address] Phone #: ext- [phone] 08/23/2020 21:50 Patient: MARIA TERESA MATTHEW [facility]#: [id number] Sex: F : 1995 Age: 25y Tympanostomy [...] is 3 Clinical Report - Physicians/Mid Levels [facility] Emergency Department [address] [place] [address] Phone #: ext- [phone] 08/23/2020 21:50 Patient: [...] capsule. Refills: 0. Substitution permitted. Pharmacy - [facility] #04 - [id number] ; [place] [address]. . Follow-up: Follow up with your healthcare [...] rce(s) Supporting Document(s) ID Date Data Source [id number] 08/02/2020 11:04:00 PM EST [facility] 1 OrderSheet [facility] Emergency Department [address] [place] [address] Phone #: ext- [phone] 08/02/2020 22:50 Patient: [...] RNPepcid IVPB 20 00:03 08/03/2020 00:29 Lupillomg/50mL (Hanny Ness Norma MD; Rebecca LOPEZInfuse over 30minutes.)SOLU-Medrol IVP 00:03 08/03/2020 00:28 José Corcoran MD; Rebecca LOPEZGENERAL ORDERSOrder Description Priority Entered Acknowledged Initialed[Electronically signed by Lupillo Fernandez RN (01:40 08/03/2020)][Electronically signed by José Gamino MD (02:53 08/03/2020)] 2 OrderSheet [facility] Emergency Department [address] [place] [address] Phone #: ext- [phone] 08/02/2020 22:50 Patient: MARIA TERESA MATTHEW Sex: F : 1995 Age: 24y[Electronically locked by Lupillo Fernandez RN (01:40 08/03/2020)] Name Value Range Interpretation Code Description Data Sera rce(s) Supporting Document(s) ID Date Data Source [id number] 08/02/2020 11:04:00 PM EST [facility] 1 Medication Reconciliation Report [facility] Emergency Department [address] [place] [address] Phone #: ext- [phone] 08/02/2020 22:50 Patient: [...] days -- Dispense 40 capsule.Refills: 0. Substitution permitted.[facility] #79 - [id number] ; [place] [address]. FaxNumber: [phone].prednisone 20 mg tablet Take 3 tablet once a day -- Dispense 15 tablet. Refills: 0. Substitutionpermitted.[facility] #22 - [id number] ; [place] [address]. 2 Medication Reconciliation Report [facility] Emergency Department [address] [place] [address] Phone #: [phone] yqd- [phone] 08/02/2020 22:50 Patient: MARIA TERESA MATTHEW Sex: F : 1995 Age: 24yFaxNumber: . -- José Gamino MD Name Value Range Interpretation Code Description Data Sera rce(s) Supporting Document(s) ID Date Data Source [id number] 08/02/2020 11:04:00 PM EST [facility] 1 Medication Administration Record [facility] Emergency Department [address] [place] [address] Phone #: hrz- [phone] 08/02/2020 22:50 Patient: MARIA TERESA MATTHEW Sex: [...] 50 mL bagStop Site: #1 left AC00:51 08/03/2020teven JOHN FernandezGiven SOLU-MEDROL [IVP] SOLU-Medrol IVP 125 mg00:23 08/03/2020 (METHYLPREDNISOLONE SODIUMStevmoreno Fernandez RN SUCC) Dose: 125 mg IVP Site: #1 left AC Name Value Range Interpretation Code Description Data Sera rce(s) Supporting Document(s) ID Date Data Source [id number] 08/02/2020 11:04:00 PM EST [facility] 1 General Instructions [facility] Emergency Department [address] [place] [address] Phone #: ext- [phone] 08/02/2020 22:50 Patient: [...] days -- Dispense 40 capsule.Refills: 0. Substitution permitted.[facility] #50 - [address] ; [place] [address]. FaxNumber: .prednisone 20 mg tablet Take 3 tablet once a day -- Dispense 15 tablet. Refills: 0. Substitutionpermitted.[facility] #04 - [id number] ; [place] [address]. FaxNumber: .Follow- up:Follow up with your doctor in two days even if well. Call for an appointment. Reason for referral: evaluation.Summary of care provided to patient via paper. 2 General Instructions [facility] Emergency Department [address] [place] [address] Phone #: ext- [phone] 08/02/2020 22:50 Patient: MARIA TERESA MATTHEW Sex: [...] your throat is closing 3 General Instructions [facility] Emergency Department [address] [place] [address] Phone #: ext- [phone] 08/02/2020 22:50 Patient: MARIA TERESA MATTHEW Sex: [...] products Chemicals or dyes in clothing, linen, boom truck driver, hair dyes, soaps, iodineMany viruses and common colds can cause a rash that is not an allergic reaction. Sometimes it ishard to tell the difference between allergies, sensitivity, or an intolerance to something. This is 4 General Instructions [facility] Emergency Department [address] [place] [address] Phone #: ext- [phone] 08/02/2020 22:50 Patient: MARIA TERESA MATTHEW Sex: [...] damage the skin. Oral diphenhydramine is an txyr-mzz-vsrlntr antihistamine sold at pharmacies and grocery stores. [...] Always check the affected 5 General Instructions [facility] Emergency Department [address] [place] [address] Phone #: ext- [phone] 08/02/2020 22:50 Patient: MARIA TERESA MATTHEW Sex: [...] swallowing, ask your provider about carryingauto-injectable epinephrine.Call [phone] [phone] if any of these occur: Trouble breathing or swallowing, wheezing Cool, moist, pale skin Shortness of breath Hoarse voice or trouble speaking Confusion Very drowsy or trouble awakening Fainting or loss of consciousness Rapid heart rate Feeling of dizziness or weakness or a sudden drop in blood pressure Feeling of doom Feeling lightheaded 6 General Instructions [facility] Emergency Department [address] [place] [address] Phone #: ext- [phone] 08/02/2020 22:50 Patient: MARIA TERESA MATTHEW Sex: [...] as directed by your provider 2019 [employer]. [address] [place] [address]. All rights reserved. This information is not [...] sulfonamides (sulfa ,medicines) Aspirin 7 General Instructions [facility] Emergency Department [address] [place] [address] Phone #: ext- [phone] 08/02/2020 22:50 Patient: [...] on the genitalsHome care 8 General Instructions [facility] Emergency Department [address] [place] [address] Phone #: ext- [phone] 08/02/2020 22:50 Patient: [...] a prescription antihistamine, oral diphenhydramine is an mlfo-hpv-hwogqtd antihistamine available at pharmacies and grocery stores. [...] with trouble urinating due to an 9 [facility] Emergency Department [address] [place] [address] Phone #: ext- [phone] 08/02/2020 22:50 Patient: [...] not continue to improveor they get worse.Call [phone] [phone] if any of these occur: Shortness of [...] Continuing or recurring symptoms 10 General Instructions [facility] Emergency Department [address] [place] [address] Phone #: ext- [phone] 08/02/2020 22:50 Patient: [...] or colored drainage from the affected area [employer]. [address] [place] [address]. All rights reserved. This information is not [...] area clean and dry. 11 General Instructions [facility] Emergency Department [address] [place] [address] Phone #: ext- [phone] 08/02/2020 22:50 Patient: [...] or higher after 2 days on antibiotics [id number] [employer]. [address] [place] [address]. All rights reserved. This information is not intended as asubstitute for professional medical care. A lways follow your healthcare professional's instructions. You have been given the following additional information: General Allergic Reactions Medicine Reaction: Allergic Cellulitis(Electronically signed by José Gamino MD 08/03/2020 02:53) Name Value Range Interpretation Code Description Data Sera rce(s) Supporting Document(s) ID Date Data Source [id number] 08/02/2020 11:04:00 PM EST [facility] 1 Clinical Report - Nurses [facility] Emergency Department [address] [place] [address] Phone #: ext- [phone] 08/02/2020 22:50 Patient: MARIA TERESA MATTHEW Sex: F : 1995 Age: 24yTRIAGEArrived by private vehicle. Historian: patient.Triage time: 22:54 08/02/2020. Acuity: LEVEL 4.Chief Complaint: (swelling to upper lip).Onset was gradual. (2 days ago). ( around upper gum and has moved to upper lip with pain going intonose and left eye).Treatment TAX CLERK:(Amoxi cillin,hydrocodone 5-325).SEPSIS SCREEN: SIRS SCREEN NEGATIVE. SEPSIS SCREEN NEGATIVE. No suspected or confirmedsigns of infection present. --23:01 08/02/20 Lupillo Fernandez RN22:54 08/02/20. BP: 146/99 (regular adult cuff) taken on the right arm, via an automated monitor, whilelying. MAP: 114. HR: 106 (regular, normal rate and strong). RR: 16 (regular, unlabored and normal). W2mfdwdheqsc: 99% on room air. Temp: 97.2 F [...] but declined. 2 Clinical Report - Nurses [facility] Emergency Department [address] [place] [address] Phone #: ext- [phone] 08/02/2020 22:50 Patient: [...] Fernandez RN 3 Clinical Report - Nurses [facility] Emergency Department [address] [place] [address] Phone #: ext- [phone] 08/02/2020 22:50 --- Patient: MARIA TERESA MATTHEW [facility]#: [id number] Sex: F : 1995 Age: 24y 00:23 [...] Patient verbalized understanding. Written instructions provided in Portuguese. The patient was discharged home and accompanied by mold presser. She left ambulatory and via private vehicle. 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 --01:40 08/03/20 Lupillo Fernandez RN 01:38 [...] rce(s) Supporting Document(s) ID Date Data Source [id number] 08/02/2020 11:04:00 PM EST [facility] 1 Clinical Report - Physicians/Mid Levels [facility] Emergency Department [address] [place] [address] Phone #: ext- [phone] 08/02/2020 22:50 Patient: [facility]W [id number] Sex: F : 1995 Age: 24y Arrived- [...] reviewed. 2 Clinical Report - Physicians/Mid Levels [facility] Emergency Department [address] [place] [address] Phone #: ext- [phone] 08/02/2020 22:50 Patient: [...] 0.20) 3 Clinical Report - Physicians/Mid Levels [facility] Emergency Department [address] [place] [address] Phone #: ext- [phone] 08/02/2020 22:50 Patient: [...] Male GFR Interprentation 20-49 yrs >60 mL/min Juxusx49-75 yrs >56 mL/min Normal 60-69 yrs >49 mL/min Normal 70-79yrs>42 mL/min Normal 80 and above >35 mL/min Normal Female GFRInterpretation 20-39 yrs >60 mL/min Normal 40-49 yrs >58 mL/minNormal 50- 59 yrs >51 mL/min Normal 60-69 yrs >45 mL/min Xrhfpm38-65 yrs >39 mL/min Normal 80 and above >32 mL/min NormalBeta-HCG, Qual Serum: (NAS: 08/02/2020 23:26) ( MsgRcvd 08/02/2020 23:58) Final results Test Result Flag Units (Reference) HCG SERUM QUAL NEGATIVE (NORMAL: NEGAT HCG SERUM QL REENTER NEGATIVE (NORMAL: NEGAT { KIT LOT # [id number] ){ KIT EXP [id number] ){ PROCEDURAL CONTROL VALID)CT Maxillofacial W/ Cont: (NAS: 08/02/2020 23:17) ( MsgRcvd 08/03/2020 00:39) Final results Exam CT MAXILLOFACIAL W/CONTRAST [facility] [address] [place] [address] ---------NAME--------- NUMBER SEX AGE ADMIT DISC. XRAY# F/C TYPE VIPUL [place] [id number] F 24 08/02/20 [id number] NA E/R DATE OF : 1995 M/R# [id number] #: [id number] TR-04 LOCATION: EMERGENCY DEPT TRANSCRIBED: 08/03/[address] MAXILLOFACIAL W/CONTRAST [id number] COMPLETED:08/03/20 27 DLA 2102 4 Clinical Report - Physicians/Mid Levels [facility] Emergency Department [address] [place] [address] Phone #: ext- [phone] 08/02/2020 22:50 Patient: [...] to examination. Exam has been sent to [facility] Radiology - If further information is [...] to examination. Exam has been sent to [facility] Radiology - If further information is [...] swelling. she 5 Clinical Report - Physicians/Mid [facility] Emergency Department [address] [place] [address] Phone #: mew- [phone] 08/02/2020 22:50 Patient: MARIA TERESA MATTHEW Sex: [...] capsule. Refills: 0. Substitution permitted. Pharmacy - [facility] #04 - [id number] ; [place] [address]. . 6 Clinical Report - Physicians/Mid Levels [facility] Emergency Department [address] [place] [address] Phone #: ext- [phone] 08/02/2020 22:50 Patient: JACQUIE MATTHEWTLARLEEN Hampton Sex: F : 1995 Age: 24y prednisone 20 mg tablet Take 3 tablet once a day -- Dispense 15 tablet. Refills: 0. Substitution permitted. Pharmacy - [facility] #04 - [id number] ; [place] [address]. . Follow-up: Follow up with your doctor in two days even if well. Call for an appointment. Reason for referral: evaluation. Summary of care provided to patient via paper. Understanding of the discharge instructions verbalized by patient.(Electronically signed by José Gamino MD 08/03/2020 02:53) Name Value Range Interpretation Code Description Data Sera rce(s) Supporting Document(s) ID Date Data Source [id number] 08/03/2020 12:38:00 AM [facility] [address] [place] [address] ---------NAME--------- NUMBER SEX AGE ADMIT DISC. XRAY# F/C TYPE VIPUL [place] [id number] F 24 08/02/20 [id number] NA E/R DATE OF : 1995 M/R# [id number] #: [id number] TR-04 LOCATION: EMERGENCY DEPT TRANSCRIBED: 08/03/[address] MAXILLOFACIAL W/CONTRAST [id number] COMPLETED:08/03/20 27 DLA 5 Reason(s): Infection Swelling PHYSICIAN: ALEC======= R A D I O L O G Y R E P O R T PATIENT HISTORY:ACTUAL DOSE 299.2 mGy*cm swollen lipPatient has negative beta. Verification of 2 patient identifiers performed.Time Out performed. correct body part and side all verified prior toexamination. Exam has been sent to [facility] Radiology - If further informationis needed, the number is . Report will be faxed to ED and/orXray. / COR (DICOM Hx)EXAM: CT Maxillofacial Without IV contrast.CLINICAL HISTORY:ACTUAL DOSE 299.2 mGy*cm swollen lip Patient has negative beta.Verification of 2 patient identifiers performed. Time Out performed. correctbody part and side all verified prior to examination. [facility] If further information is needed, the number [phone]. Report will be faxed to ED and/or [...] rce(s) Supporting Document(s) ID Date Data Source [id number] 08/03/2020 12:11:00 AM EST [facility] Name Value Range Interpretation Code Description Data Sera rce(s) Supporting Document(s) COMPREHENSIVE METABOLIC PANEL [facility] COMPREHENSIVE METABOLIC PANEL Sodium [Moles/volume] in Serum or Plasma 138 mEq/L 134 - 153 [facility] Potassium [Moles/volume] in Serum or Plasma 4.0 mEq/L 3.6 - 5.0 [facility] Chloride [Moles/volume] in Serum or Plasma 103 mEq/L 98 - 107 [facility] Carbon dioxide, total [Moles/volume] in Serum or Plasma 26 MEQ/L 22 - 30 [facility] Glucose [Mass/volume] in Serum or Plasma 112 MG/DL 65 - 110 H [facility] BUN <4 MG/DL 7 - 21 L [facility] Creatinine [Mass/volume] in Serum or Plasma 0.6 MG/DL 0.7 - 1.5 L [facility] BUN/CREAT 7 8 - 27 L [facility] Protein [Mass/volume] in Serum or Plasma 6.4 G/DL 6.3 - 8.2 [facility] Albumin [Mass/volume] in Serum or Plasma 3.9 G/DL 3.9 - 5.0 [facility] Globulin [Mass/volume] in Serum by calculation 2.5 GM/DL 2.4 - 3.2 [facility] A/G RATIO 1.6 0.8 - 2.0 [facility] Calcium [Mass/volume] in Serum or Plasma 8.9 MG/DL 8.4 - 10.2 [facility] Bilirubin.total [Mass/volume] in Serum or Plasma <0.7 MG/DL 0.2 - 1.3 [facility] Alkaline phosphatase [Enzymatic activity/volume] in Serum or Plasma 69 U/L 38 - 126 [facility] Aspartate aminotransferase [Enzymatic activity/volume] in Se rum or Plasma 9 U/L 5 - 40 [facility] Alanine aminotransferase [Enzymatic activity/volume] in Seru m or Plasma 15 U/L 7 - 56 [facility] Anion gap 3 in Serum or Plasma 9.0 mmol/L 8.0 - 16.0 [facility] AGE 24 yrs [facility] al NON-AA GFR >60 mL/min [facility] ital AFR AMER GFR >60 mL/min [facility] Ho spital Male GFR In terprentation [...] >32 mL/min Normal ID Date Data Source [id number] 08/02/2020 11:56:00 PM EST [facility] Name Value Range Interpretation Code Description Data Sera rce(s) Supporting Document(s) HCG SERUM QUAL NEGATIVE NORMAL: NEGATIVE [facility] HCG SERUM QL REENTER NEGATIVE NORMAL: NEGATIVE [facility] { KIT LOT # [id number] ){ KIT EXP DATE 04-26-21 ){ PROCEDURAL CONTROL VALID ) ID Date Data Source [id number] 08/02/2020 11:38:00 PM EST [facility] Name Value Range Interpretation Code Description Data Sera rce(s) Supporting Document(s) CBC W/AUTOMATED DIFF [facility] COMPLETE BLOOD COUNT Leukocytes [#/volume] in Blood by Automated count 13.2 10^3/uL 4.2 - 11.0 H [facility] Erythrocytes [#/volume] in Blood by Automated count 5.04 10^6/uL 4. 20 - 5.40 [facility] Hemoglobin [Mass/volume] in Blood 14.1 g/dL 12.0 - 16.0 [facility] Hematocrit [Volume Fraction] of Blood by Automated count 42.1 % 3 7.0 - 47.0 [facility] Erythrocyte mean corpuscular volume [Entitic volume] by Auto mated count 83.5 fL 81.0 - 101 [facility] Erythrocyte mean corpuscular hemoglobin [Entitic mass] by Automated count 28.0 pg 27.0 - 34.0 [facility] Erythrocyte mean corpuscular hemoglobin concentration [Mass/volume] by Automated count 33.5 g/dL 31.0 - 36.0 [facility] Erythrocyte distribution width [Ratio] by Automated count 13.2 % 11.5 - 14.5 [facility] Platelets [#/volume] in Blood by Automated count 364 10^3/uL 150 - 45 0 [facility] Platelet mean volume [Entitic volume] in Blood by Automated count 9.7 fL 7.4 - 10.4 [facility] Neutrophils/100 leukocytes in Blood by Automated count 61.0 % 37. 0 - 80.0 [facility] Lymphocytes/100 leukocytes in Blood by Manual count 30.1 % 25.0 - 40.0 [facility] Monocytes/100 leukocytes in Blood by Automated count 6.5 % 3.0 - 8.0 [facility] Eosinophils/100 leukocytes in Blood by Automated count 1.6 % 0.0 - 7.0 [facility] Basophils/100 leukocytes in Blood by Automated count 0.4 % 0.0 - 2.5 [facility] %IG 0.4 % 0.0 - 0.0 H [facility] al %NRBC 0.0 % 0.0 - 0.0 [facility] al Neutrophils [#/volume] in Blood by Automated count 8.06 10^3/uL 2.00 - 6.90 H [facility] Lymphocytes [#/volume] in Blood by Automated count 3.98 10^3/uL 0.60 - 3.40 H [facility] Monocytes [#/volume] in Blood by Automated count 0.86 10^3/uL 0.00 - 0.90 [facility] Eosinophils [#/volume] in Blood by Automated count 0.21 10^3/uL 0.00 - 0.70 [facility] Basophils [#/volume] in Blood by Automated count 0.05 10^3/uL 0.00 - 0.20 [facility] #IG 0.05 10^3/uL 0.00 - 0.10 [facility] ospital #NRBC 0.00 10^3/uL 0.00 - 0.00 [facility] ospital MANUAL DIFF NOT INDICATED [facility] RBC MORPH NOT INDICATED [facility] spital Procedure Social History No Information Vital Signs ID Date Data Source UNK Name Value Range Interpretation Code Description Data Source(s) Systolic blood pressure 118 mm[Hg] 118 mm[Hg] [facility] ([facility]) Diastolic blood pressure 76 mm[Hg] 76 [facility] Heart rate 106 /min 106 /min [facility] ([facility]) Body temperature 97.6 [degF] 97.6 [degF] [facility] ([facility]) Oxygen saturation in Arterial blood by Pulse oximetry 97 % 97 % [facility] ([facility]) Body weight 228.25 [lb_av] 228.25 [lb_av[facility] Body weight 103.534 kg 103.534 kg [facility] ([facility]) Body height 64 [in_i] 64 [in_i] [facility] ([facility]) 5'4" Body mass index (BMI) [Ratio] 39.2 kg/m2 39.2 k g/m2 [facility] ([facility]) Body surface area Derived from formula 2.07 m2 2.07 m2 [facility] ([facility])
--- OUTSIDE RECORDS SUMMARY | 2021-06-27 21:38 | CCD | Continuity of Care Document ---
Author Author Edilma CABRERA DO Organization Unknown Address [address] [place] [address] Phone [phone] Problems Description No Information Available Social History [...] Test Result H/L Range Note Xray 06/22/2021 [facility] [address] [place] [address] [phone] Pelvic <pending> Procedures Date Code Description Status 06/22/2021 [id number] Office/Outpatient [place] [facility] 30 -44 Minutes Completed Medical Devices [...]
[2021-06-27 23:32] VITALS: BP 138/84
--- OUTSIDE RECORDS SUMMARY | 2021-06-28 02:18 | CCD ---
Author Author [facility] Organization [facility] Address Unknown Phone Unavailable Care Team Providers Care Cone Runner Name Role Phone Nwogu, U Eriberto DO [...] is protected by Article 27-F of the [facility] Public Health law. If you continue you may have access to information: Regarding HIV / AIDS; Provided by facilities licensed or operated by the [facility] Office of Mental Health; or Provided by the [facility] Office for People With Developmental Disabilities. If such information is present, then the following [facility] mandated warning applies: This information has [...] law may result in a fine or fpc sentence or both. A general authorization for the release of medical or other information is NOT sufficient authorization for further disc losure. Allergies and Adverse Reactions Type Description Substance Reaction Status Data Source(s ) No Known Drug Allergies No Known Drug Allergies [facility] No Known Environmental Allergies No Known Environmental Al lergies [facility] No Known Food Allergies No Known Food Allergies [facility] Family History Family Member Name Family Member Gender Family Member Status Date o f Status Description Data Source(s) Unknown Unknown Problem [facility] ([facility]) Encounters Encounter Providers Location Date Indications Data Source(s ) Outpatient Attender: Eriberto Cabrera DOConsultant: PCP NO 06/23/2021 12:16:22 PM [facility] Outpatient Attender: Eriberto Cabrera DOConsultant: PCP NO 06/22/2021 01:57:00 PM EST - 06/22/2021 01:57:00 PM EST [facility] Outpatient Attender: Eriberto Cabrera DO Family Practice 08/2020 01:15:00 PM EST [facility] ([facility]) Emergency Attender: EUFEMIA Tuttlesultant: PCP NO 03/29/2021 11:50:00 AM EDT - 03/29/2021 08:09:00 PM EDT [facility] l Patient discharged. Emergency Attender: LIZY ALFRED MDConsultant: PCP NO 08/23/2020 09:50:00 PM EST - 08/23/2020 11:15:00 PM EST [facility] Patient discharged. Emergency Attender: JOSÉ GAMINO MDConsultant: PCP NO 08/02/2020 11:04:00 PM EST - 08/03/2020 01:40:00 AM EST [facility] Patient discharged. Medications Medication Brand Name Start [...] type / Coverage type Policy ID Covered constitution party ID Covered constitution party's relationship to peters Policy Peters Plan Information TULIO [id number] SP [id number] [facility] [place] [id number] 18 [id number] [place] [facility] [place] [id number] 18 [id number] [facility] COMMUNITY PLAN [facility] [id number] SP [id number] UN AMERICHOICE XIX -O [id number] 18 [id number] MEDICAID [id number] SP [id number] MEDICAID M [id number] S [id number] [facility] Health Maintenance Organization ([facility]) [id number] Self 1 [id number] [facility] Maintenance Organization ([facility]) [id number] Self [id number] [facility] Health Maintenance Organization ([facility]) [id number] Self [id number] [facility] Health Maintenance Organization ([facility]) [id number] Self [id number] [facility] Health Maintenance Organization ([facility]) [id number] Self [id number] [facility] Health Maintenance Organization ([facility]) [id number] Self 1 [id number] [facility] COMMUNITY [facility] [id number] SP [id number] MEDICAID -O/P EMERGENCY ROOM [id number] 18 [id number] AMERICHOICE UNHC XIX HMO -I/P [id number] 18 [id number] AMERICHOICE UNHC XIX HMO -I/P [id number] 18 [id number] UNHC AMERICHOICE XIX -HMO [id number] 18 [id number] [facility](MCAID) P [id number] S [id number] [facility](MCAID) P [id number] S [id number] UNHC XIX HMO-O/P [id number] 18 [id number] [employer] [id number] MEDICAID - CLINIC [id number] 18 [id number] Problems, Conditions, and Diagnoses Code Display Name Description Problem Type Effective Dates Data Source(s) O039 Complete or unspecified spontaneous abor tion without complication Complete or unspecified spontaneous without complication Diagnosis 06/22/2021 01:57:00 PM [facility] Z3A00 Weeks of gestation of not spec ified Weeks of gestation of not specified Diagnosis 03/29/2021 11:50:00 AM EDT [facility] [id number] CONTACT WITH AND SUSPECTED EXPOSURE TO C OVID-19 CONTACT WITH AND SUSPECTED EXPOSURE TO COVID-19 Diagnosis 03/29/2021 11:50:[address] [facility] R36143 Nicotine dependence, cigarettes, uncompl icated Nicotine dependence, cigarettes, uncomplicated Diagnosis 03/29/2021 11:50:00 AM EDT Health system U78407 Smoking (tobacco) complicating , first trimester Smoking (tobacco) complicating , first trimester Diagnosis 02/2021 11:50:00 AM EDT [facility] J159 Unspecified bacterial pneumonia Unspecified bacterial pneumonia Diagnosis 03/29/2021 11:50:00 AM EDT [facility] S41895 Diseases of the respiratory system complicating , first trimester Diseases of the respiratory system compl icating , first trimester Diagnosis 03/29/2021 11:50:00 AM EDT [facility] K12722 Other specified related condit ions, first trimester Other specified related conditions, first trimester Diagnosis 03/29/2021 11:50:00 AM EDT [facility] K047 Periapical abscess without sinus Periapical absc ess without sinus Diagnosis 08/23/2020 09:50:00 PM [facility] K0889 Other specified disorders of teeth and s upporting structures Other specified disorders of teeth and supporting structures Diagnosis 08/23/2020 09:50:00 PM [facility] G47518 Unspecified place in unspeci fied non-institutional (private) residence as the place of occurrence of the external cause Unspecified place in unspecified non-institutional (private) residence as the place of occurrence of the external cause Diagnosis 08/02/2020 11:04:00 PM [facility] [id number] Striking against or struck by other obje cts, initial encounter Striking against or struck by other objects, initial encounter Diagnosis 08/02/2020 11:04:00 PM [facility] [id number] Allergy, unspecified, initial encounter Allergy, unspecified, initial encounter Diagnosis 08/02/2020 11:04:00 PM [facility] H77046 Cellulitis of face Cellulitis of face Diagnosis 06/2021 11:04:00 PM [facility] [id number] Unspecified injury of neck, initial enco unter Unspecified injury of neck, initial encounter Diagnosis 08/02/2020 11:04:00 PM [facility] Surgeries/Procedures Procedure Description Date Indications Data Source(s) OFFICE OUTPATIENT NEW 30 MINUTES 06/22/2021 12:00:00 A M EST [facility] ([facility]) Results ID Date Data Source [id number] 06/22/2021 03:16:00 PM EST [facility] ([facility]) Name Value Range Interpretation Code Description Data Srea rce(s) Supporting Document(s) US Pelvic Laboratory test result [facility] ([facility]) ID Date Data Source [id number] 03/29/2021 11:50:00 AM EDT [facility] 1 OrderSheet [facility] Emergency Department [address] [place] [address] Phone #: ext- [phone] 03/29/2021 11:39 [facility]: [id number] Sex: F : 1995 Age: 25yWEIGHT:90.7 kg [...] STAT 12:19 03/29/2021 12:31 Naman Gan OrderSheet [facility] Emergency Department [address] [place] [address] Phone #: ext- [phone] 03/29/2021 11:39 Patient: MARIA TERESA MATTHEW Sex: [...] unvaccinated and noted slight rhonic 3 OrderSheet [facility] Emergency Department [address] [place] [address] Phone #: ext- [phone] 03/29/2021 11:39 Patient: [...] 18:11 03/29/2021 18:25 Mili(1gm/50mL) IVPB David Ratliff TX9038 mg with P.A.-C;Dextrose 50 mlspike bag (D5W) Reason for ordering with alerts: Clinical consideration given -- 18:11 03/29/2021 David KohlerAAmador-CAzithromycin PO 18:11 03/29/2021 18:25 Egsco587 mg X1 Dose: David Ratliff RN500 mg (NOW x1) P.Derick; Reason for ordering with alerts: Clinical consideration given -- 18:11 03/29/2021 David RALPHENERAL ORDERSOrder Description Priority Entered Acknowledged InitialedBlood Pressure 12:06 03/29/2021 12:06 Malik,Monitor David Coronel P.A.-C;Machine Featheredger And Reducer 12:03/29/2021 12:06 Malik(continuous) David Coronel P.A.-C;EKG 12:06 03/29/2021 12:19 Tristan ED Tori Mejia P.A.-C; Mmhu1HRL 12:06 03/29/2021 12:06 David Gan P.A.-C;Obtain Old EKG 12:06 03/29/2021 12:06 David Gan P.A.-C;Obtain Old Records 12:06 03/29/2021 12:07 Malik, 4 OrderSheet [facility] Emergency Department [address] [place] [address] Phone #: ext- [phone] 03/29/2021 11:39 Patient: [...] rce(s) Supporting Document(s) ID Date Data Source [id number] 03/29/2021 11:50:00 AM EDT [facility] 1 Medication Reconciliation Report [facility] Emergency Department [address] [place] [address] Phone #: [phone]- [phone] 03/29/2021 11:39 Patient: MARIA TERESA MATTHEW Sex: [...] the ER. Dispense 4tablet. Refills: 0. Substitution permitted.[facility] #52 - [id number] ; [place] [address]. FaxNumber: .cefdinir 300 mg capsule Take 1 capsule twice a day for 7 days -- Dispense 14 capsule. Refills: 0.Substitution permitted.[facility] #00 - [id number] ; [place] [address]. FaxNumber: . -- David Lieberman P.A.-C Name Value Range Interpretation Code Description Data Sera rce(s) Supporting Document(s) ID Date Data Source [id number] 03/29/2021 11:50:00 AM EDT [facility] 1 Medication Administration Record [facility] Emergency Department [address] [place] [address] Phone #: ext- [phone] 03/29/2021 11:39 Patient: MARIA TERESA MATTHEW Sex: F : 1995 Age: 25yWeight: 90.7 kgHeight/Length: 64 inBMI: 34.3ALLERGIES: Penicillins Date/Time Medication Administered Medication OrderedStart IV NS IV NS : Bolus 500 mL, then 11865:35 03/29/2021 Dose: IV Fluids mL/hrHomer Gan, Rate: [...] ACStart ROCEPHIN (1GM/50ML) [IVPB] Rocephin (1gm/50mL) IVPB 126740:20 03/29/2021 (CEFTRIAXONE SODIUM) mg with Dextrose 50 [...] rce(s) Supporting Document(s) ID Date Data Source [id number] 03/29/2021 11:50:00 AM EDT [facility] 1 General Instructions [facility] Emergency Department [address] [place] [address] Phone #: ext- [phone] 03/29/2021 11:39 Patient: [...] Drink plenty of fluids. No dietary restrictions. ([facility]: [phone]. Please contact them in approx 3-4 days [...] Dispense 4 tablet. Refills: 0. Substitution permitted. [facility] #17 - [id number] ; [place] [address]. . cefdinir 300 mg capsule Take 1 capsule twice a day for 7 days -- Dispense 14 capsule. Refills: 0. Substitution permitted. [facility] #19 - [id number] ; [place] [address]. . Follow-up: Return to the emergency department as needed. Follow up with your healthcare provider in about two 2 General Instructions [facility] Emergency Department [address] [place] [address] Phone #: ext- [phone] 03/29/2021 11:39 Patient: MARIA TERESA MATTHEW Sex: [...] COVID-19 was first found in people in [facility], in late 2019. In 2020,several cases of [...] ask about your recent 3 General Instructions [facility] Emergency Department [address] [place] [address] Phone #: ext- [phone] 03/29/2021 11:39 Patient: [...] the CDC website atwww.cdc.gov/coronavirus/2019-ncov/travelers. 4 General Instructions [facility] Emergency Department [address] [place] [address] Phone #: ext- [phone] 03/29/2021 11:39 Patient: MARIA TERESA MATTHEW Sex: F : 1995 Age: 25y To help prevent spreading the infection, wash your hands often, or use an alcohol-based hand assembly line robot operator.The CDC advises that you shouldn't wear a face mask if you are not sick.To protect yourself from COVID-19: Wash your hands often with soap and clean, running water for at least 20 seconds. If you don't have access to soap and water, use an alcohol-based hand assembly line robot operator often. Make sure it has at least [...] that may be sick. 5 General Instructions [facility] Emergency Department [address] [place] [address] Phone #: ext- [phone] 03/29/2021 11:39 -- [...] in contact with. Follow all instructions the [facility] staff give you.If you have been diagnosed with COVID-19 6 General Instructions [facility] Emergency Department [address] [place] [address] Phone #: ajk- [phone] 03/29/2021 11:39 Patient: MARIA TERESA MATTHEW Sex: [...] with COVID-19 and your symptoms are worse [id number] [employer]. [address] [place] [address]. All rights reserved. This information is not intended as asubstitute for professional medical care. Always follow your healthcare professional's instructions. 7 Ge [facility] Instructions [facility] Emergency Department [address] [place] [address] Phone #: ext- [phone] 03/29/2021 11:39 Patient: [...] week of treatment.Home care 8 General Instructions [facility] Emergency Department [address] [place] [address] Phone #: ext- [phone] 03/29/2021 11:39 Patient: [...] often with soap and water. Use hand assembly line robot operator when you can't wash your hands. Stay [...] helping you get better. 9 General Instructions [facility] Emergency Department [address] [place] [address] Phone #: ext- [phone] 03/29/2021 11:39 Patient: [...] about whichpneumococcal vaccine is best for you.Call 168Wean 456if any of these occur: Unable to speak [...] or a stiff neck 10 General Instructions [facility] Emergency Department [address] [place] [address] Phone #: ext- [phone] 03/29/2021 11:39 Patient: MARIA TERESA MATTHEW Sex: F : 1995 Age: 25y Chest pain with breathing or coughing Symptoms that get worse or not improving [phone] [employer]. [address] [place] [address]. All rights reserved. This information is not [...] Dizziness Indigestion or heartburn 11 General Instructions [facility] Emergency Department [address] [place], [place] [address] Phone #: ext- [phone] 03/29/2021 11:39 Patient: [...] You can seeyour family provider, a specialist (medicinal chemist), a client manager, or a primary care clinic. 12 General Instructions [facility] Emergency Department [address] [place] [address] Phone #: ext- [phone] 03/29/2021 11:39 --- Patient: MARIA TERESA MATTHEW [...] gain Fever Vision changes or blurred vision [phone] [employer]. [address] [place] [address], [place] [address]. All rights reserved. This information is not intended as asubstitute for professional medical care. Always follow your healthcare professional's instructions.PregnancyYour exam today shows that you are . symptomsDuring your body's hormones change. This causes physical and emotional changes. This 13 General Instructions [facility] Emergency Department [address] [place] [address] Phone #: ext- [phone] 03/29/2021 11:39 Patient: [...] cause permanent brain damage. 14 General Instructions [facility] Emergency Department [address] [place] [address] Phone #: ext- [phone] 03/29/2021 11:39 Patient: [facility] TERESA [facility]THEW [id number] Sex: F : 1995 Age: 25y Don't [...] You can seeyour family provider, a specialist (medicinal chemist), a client manager, or a primary care clinic.When to [...] Fever Vision changes or blurred vision [employer]. [address] [place] [address], [place] [address]. All rights reserved. This information is not [...] home, you will be monitored by [facility] or state health department. You should follow the prevention steps below until a healthcare provider [facility] or [facility] health department says you can return to your normal activities. 15 General Instructions [facility] Emergency Department [address] [place] [address] Phone #: wfi- [phone] 03/29/2021 11:39 Patient: MARIA TERESA MATTHEW Sex: [...] with pets and wear a facemask. See https://www.cdc.gov/coronavirus/2019-ncov/faq.html#7016-hKhO-tas-animals for more information. Call ahead before visiting [...] available, clean your hands with analcohol-based hand assembly line robot operator that contains at least 60% alcohol. Clean [...] during use of the product. Monitor your symptomshttps://www.[employer]/index.php Seek prompt medical attention if your illness is worsening {e.g., difficulty breathing}. Before seeking care, call your healthcareprovider and tell them that you have, or are being evaluated for, COVID-19. Put on a facemask before you enter the facility. 16 General Instructions [facility] Emergency Department [address] [place] [address] Phone #: ext- [phone] 03/29/2021 11:39 Patient: MARIA TERESA MATTHEW Sex: [...] isolation precautions should be made on a tzvh-lo-adoa basis, inconsultation with healthcareproviders and state and local health departments.Contacts ONtheAIROnline informationhttps://www.cdc.gov/coronavirus/2019- ncov/about/index.html Content source: National Center for [...] of Persons with Potential 17 General Instructions [facility] Emergency Department [address] [place] [address] Phone #: [phone]- [phone] 03/29/2021 11:39 Patient: MARIA TERESA MATTHEW Sex: [...] p sagar to call the local or [facility] health department for additional guidance. If [...] 20 seconds or use an alcohol-based hand assembly line robot operator that contains 60 to 95% alcohol, covering [...] soap and water or alcohol- based hand assembly line robot operator. Next, remove and dispose of facemask, and immediately clean your hands again with soap and water or alcohol-based hand assembly line robot operator. Avoid sharing household items with the patient. [...] soap and water or an alcohol-based hand assembly line robot operator} immediately after removing your gloves. https://www.[employer]/index.php Read and follow directions on labels of laundry or clothing items and detergent. In general, using a normal laundry detergent according to washing machine instructions and dry thoroughly using the warmest temperatures recommended on the clothing label. 18 General Instructions [facility] Emergency Department [address] [place] [address] Phone #: ext- [phone] 03/29/2021 11:39 Patient: MARIA TERESA MATTHEW Sex: F : 1995 Age: 25y Place all used disposable gloves, facemasks, and other contaminated items in a lined container before disposing of them with other household waste. Clean your hands {with soap and water or an alcohol-based hand assembly line robot operator} immediately after handling these items. Soap and water should be used preferentially if hands are visibly dirty. Discuss any additional questions with your state or local health department or healthcare provider. Check available hours when contacting your local health department.Contacts 2020 My [employer]ist.Online information https://www.cdc.gov/coronavirus/2019-ncov/about/index.htmlContent source: National Center for Immunization [...] (e.g., being coughed on 19 General Instructions [facility] Emergency Department [address] [place] [address] Phone #: ext- [phone] 03/29/2021 11:39 Patient: [...] rce(s) Supporting Document(s) ID Date Data Source [id number] 03/29/2021 11:50:00 AM EDT [facility] 1 Clinical Report - Nurses [facility] Emergency Department [address] [place] [address] Phone #: ext- [phone] 03/29/2021 11:39 Patient: [...] problems.ADDITIONAL SURGERIES:Adenoidectomy.Tonsillectomy.Tympanostomy Tubes. --11:44 03/29/21 Mili Ratliff RN.Oeycnqz31:40 03/29/21.PAST MEDICAL HX: Immunizations: up-to-date. Last normal menstrual period was 2 weeks ago.SOCIAL HX: Heavy tobacco smoker (cigarette)- less than 1 pack per day. No alcohol use or drug use.The patient was offered HIV testing but declined. Hepatitis C testing offered to patient. The patient hasnot traveled outside the [place] 2 Clinical Report - Nurses [facility] Emergency Department [address] [place] [address] Phone #: ext- [phone] 03/29/2021 11:39 Patient: [...] 16. O2 saturation: 97%. --12:03 03/29/21 Tristan pie maker machineTori Boykin ER Tech1 EKG time: (12:13 03/29/2021). EKG was performed by a mary and shown to the PA. --12:19 03/29/21 Tristan 3 Cl inical Report - Nurses [facility] Emergency Department [address] [place] [address] Phone #: ext- [phone] 03/29/2021 11:39 Patient: MARIA TERESA MATTHEW Sex: F : 1995 Age: 25yED Tori Boykin Npjk152:35 03/29/2021 Site #1 started via IV in [...] 99. RR: 29. O2 saturation: 98%. --13:03/29/21 [facility] Tgbk736:03/29[facility]21. BP: 124/76. HR: 103. RR: 29. O2 saturation: 93%. --14:03/29/21 [facility] Mqcl5Hfdatrzedn of patient in place. Reassurance given to [...] 91. RR: 22. O2 saturation: 97%. --15:03/29/21 [employer] pie maker machine, Tori,ER Vvbg887:03/29/21. BP: 106/57. HR: 91. RR: 28. O2 saturation: 95%. --16:06 03/29/21 [employer] pie maker machine, Tori,ER Tech1 4 Clinical Report - Nurses [facility] Emergency Department [address] [place] [address] Phone #: ext- [phone] 03/29/2021 11:39 Patient: MARIA TERESA MATTHEW Sex: [...] RR: 21. O2 saturation: 98%. --17:26 03/29/21 [facility] ER1Monitoring of patient in place. Reassurance given to [...] 103. RR: 26. O2 saturation: 99%. --18:03/29/21 [facility] Jddc224:20 03/29/2021 Started 1 gm of ROCEPHIN (1GM/50ML) [...] RR: 21. O2 saturation: 97%. --19:03 03/29/21 [facility] Tori Boykin, Clinical Report - Nurses [facility] Emergency Department [address] [place] [address] Phone #: ext- [phone] 03/29/2021 11:39 Patient: MARIA TERESA MATTHEW Sex: F : 1995 Age: 25y ER Tech1.DISPOSITION / DISCHARGE 19:57 03/29/21. BP: 124/78. HR: 91. RR: 17. O2 saturation: 100%. Temp: 97.9 F. --19:57 03/29/21 [facility] Tori Boykin, Tech1 20:07 03/29/2021 Site #1 [...] Patient verbalized understanding. Written instructions provided in Austrian. The patient was discharged by the physician. She was discharged home and unaccompanied at time of discharge. She left ambulatory and via private vehicle. [employer] Equipment [employer]airmen driving. --20:08 03/29/21 Kristina Soler 20:08 03/29/21. [...] rce(s) Supporting Document(s) ID Date Data Source [id number] 03/29/2021 11:50:00 AM EDT [facility] 1 Clinical Report - Physicians/Mid Levels [facility] Emergency Department [address] [place] [address] Phone #: ext- [phone] 03/29/2021 11:39 Patient: [...] Exam. 2 Clinical Report - Physicians/Mid Levels [facility] Emergency Department [address] [place] [address] Phone #: ext- [phone] 03/29/2021 11:39 Patient: [facility] TERESA [facility]THEW [id number] Sex: F : 1995 Age: 25y Tonsillitis [...] deficit. 3 Clinical Report - Physicians/Mid Levels [facility] Emergency Department [address] [place] [address] Phone #: ext- [phone] 03/29/2021 11:39 Patient: MARIA TERESA MATTHEW Sex: F : 1995 Age: 25y Psych: Cognition normal. Thought process and content normal. Insight and judgement normal.LABS, X-RAYS, AND EKGEKG: sinus rhythm w/ PAC; o/w normal ECG. Reviewed by attendgn. Laboratory Tests: CT CTA CHEST NON-CORONARY W [facility] PP: (NAS: 03/29/2021 14:52) ( MsgRcvd 03/29/2021 19:36) In Progress Test Result Flag Units (Reference) CT CTA CHEST NON-CORONARY W [facility] [address] [place] [address] PHONE: [phone] FAX: [phone] -- Name .................. : VIPUL Hampton Acct Number.................. : [id number] ROOM. ................. : TR-05 MR Number ................... : [id number] Stay type ............. : E/R Discharge Date......... ... : Admit Date ......... : 03/29/21 Admit Phys .................... : KASANDRA DAWN Date of ....... : 1995 Family Phys ................... : NO PCP Phone .................. : [phone] Age ................................ : 25 Film# .................. .:[id number] Sex ................................. : F -- Unsigned transcriptions are preliminary reports and do not represent a medical or legal document CT CTA CHEST NON-CORONARY Rick Oconnell [id number] COMPLETE:03/29/21 14:52 Reason(s): Tachy, low o2; ? [...] limits. 4 Clinical Report - Physicians/Mid Levels [facility] Emergency Department [address] [place] [address] Phone #: ext- [phone] 03/29/2021 11:39 Patient: MARIA TERESA MATTHEW Sex: F : 1995 Age: 25y -- UPPER ABDOMEN: Unremarkable. -- -- IMPRESSION: -- -- Page [address] 2 [place] [address] PHONE: [phone] FAX: [phone] -- Name .................. : VIPUL Hampton Acct Number.................. : [id number] ROOM. ................. : TR05 MR Number ................... : [id number] Stay type ............. : E/R Discharge Date......... ... : Admit Date ......... : 03/29/21 Admit Phys .................... : KASANDRA DAWN Date of ....... : 1995 Family Phys ................... : NO PCP Phone .................. : [phone] Age ................................ : 25 Film# .................. .:[id number] Sex ................................. : F -- Unsigned transcriptions are preliminary reports and do not represent a medical or legal document CT CTA CHEST NON-CORONARY W C [id number] COMPLETE:03/29/21 14:52 Reason(s): Tachy, low o2; ? [...] (mU/mL) Weeks post LMP 5.4-708 mU/mL 3-4 Infjc821-65755 mU/mL 5-6 Weeks 4059-718393 mU/mL 7-8 Kvzgx70831-120810 mU/mL 9-10 Weeks 31164-11079 mU/mL 12-14 Eupch27910-92103 mU/mL 15-16 Weeks 8240-89955 mU/mL 17-18 WeeksInfluenza Nasal A B: (NAS: 03/29/2021 12:31) ( MsgRcvd 03/29/2021 12:50) CanceledCOVID-19 CAH: (NAS: 03/29/2021 12:31) ( MsgRcvd 03/29/2021 13:02) Final results 5 Clinical Report - Physicians/Mid Levels [facility] Emergency Department [address] [place] [address] Phone #: ext- [phone] 03/29/2021 11:39 Patient: [...] 27) 6 Clinical Report - Physicians/Mid Levels [facility] Emergency Department [address] [place] [address] Phone #: ext- [phone] 03/29/2021 11:39 Patient: [...] Male GFR Interprentation 20-49 yrs >60 mL/min Echlia25-59 yrs >56 mL/min Normal 60-69 yrs >49 mL/min Normal 70-79yrs>42 mL/min Normal 80 and above >35 mL/min Normal Female GFRInterpretation 20-39 yrs >60 mL/min Normal 40-49 yrs >58 mL/minNormal 50-59 yrs >51 mL/min Normal 60-69 yrs >45 mL/min Roeywu78-20 yrs >39 mL/min Normal 80 and above >32 mL/min NormalLipase: (NAS: 03/29/2021 12:31) ( [facility] 03/29/2021 13:07) Final results Test Result Flag Units (Reference) LIPASE 18 U/L (13 - 60)PT/PTT: (NAS: 03/29/2021 12:06) ( [facility] 03/29/2021 12:39) CanceledTroponin-T: (NAS: 03/29/2021 12:31) ( [facility] 03/29/2021 13:08) Final results Test Result Flag Units (Reference) TROPONIN T <0.01 NG/ML (0.00 - 0.10) TROPONIN T0.1 ng/ml Recommended as the clinical threshold value forTroponin T.TSH: (NAS: 03/29/2021 12:31) ( [facility] 03/29/2021 13:18) Final results Test Result Flag Units (Reference) TSH 2.75 uIU/mL (0.47 - 5.01)Beta-HCG, Qual Serum: (NAS: 03/29/2021 12:31) ( [facility] 03/29/2021 13:03) Final results Test Result Flag Units (Reference) HCG SERUM QUAL POSITIVE (NORMAL: NEGAT HCG SERUM QL REENTER POSITIVE (NORMAL: NEGAT { KIT LOT # [id number] ){ KIT EXP DATE07.21.22 ){ PROCEDURAL CONTROL VALID)Influenza Nasal A B: (NAS: 03/29/2021 12:31) ( [facility] 03/29/[facility]21 12:59) Final results Test Result Flag [...] should 7 Clinical Report - Physicians/Mid Levels [facility] Emergency Department [address] [place] [address] Phone #: ext- [phone] 03/29/2021 11:39 Patient: [...] vs COVID vs other. 14:53 03/29/21. Discussed [facility] pt and sts she is willing to [...] discharge. 8 Clinical Report - Physicians/Mid Levels [facility] Emergency Department [address] [place] [address] Phone #: ext- [phone] 03/29/2021 11:39 Patient: [...] Drink plenty of fluids. No dietary restrictions. ([facility]: [phone]. Please contact them in approx 3-4 days [...] condition 9 Clinical Report - Physicians/Mid Levels [facility] Emergency Department [address] [place] [address] Phone #: ext- [phone] 03/29/2021 11:39 Patient: [...] Dispense 4 tablet. Refills: 0. Substitution permitted. [facility] #[facility] - [id number] ; [place] [address]. . cefdinir 300 mg capsule Take 1 capsule twice a day for 7 days -- Dispense 14 capsule. Refills: 0. Substitution permitted. [facility] #47 - [id number] ; [place] [address]. FaxNumber: [phone]. Follow-up: Return to the emergency department as needed. Follow up with your healthcare provider in about two days if not better. Call for an appointment. 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 - 04/02/2021 10:43) Name Value Range Interpretation Code Description Data Sera rce(s) Supporting Document(s) ID Date Data Source [id number] 03/30/2021 01:27:00 PM EDT [facility] [address] [place] [address] PHONE: [phone] FAX: [phone] Name ..............: VIPUL Hampton Acct Number ...........................: [id number] ROOM. ............: TR-05 MR Number ............................: [id number] Stay type.........: E/R Discharge Date...............:03/29/21 Admit Date .....: 03/29/21 Admit Phys .............................: KASANDRA DAWN Date of ..: 1995 Family Phys ...........................: NO PCP Phone..............: [phone] Age.................................:25 Film# ...............:[id number] Sex.................................:F Unsigned transcriptions are preliminary reports and do not represent a medical or legal document EKG [id number] COMPLETE:03/29/21 15:17 BIS [id number] Please See Scanned Results. Name Value Range Interpretation Code Description Data Sera rce(s) Supporting Document(s) ID Date Data Source [id number] 03/29/2021 09:08:00 PM EDT [facility] [address] [place] [address] PHONE: [phone] FAX: [phone] Name .................. : VIPUL Hampton Acct Number.................. : [id number] ROOM. ................. : TR-05 Number ................... : [id number] Stay type ............. : E/R Discharge Date......... ... : Admit Date ......... : 03/29/21 Admit Phys .................... : KASANDRA DAWN Date of ....... : 1995 Family Phys ................... : NO PCP Phone .................. : [phone] Age ................................ : 25 Film# .................. .:[id number] Sex ................................. : F Unsigned transcriptions are preliminary reports and do not represent a medical or legal document CT CTA CHEST NON-CORONARY Rick Oconnell [id number] COMPLETE:03/29/21 14:52 [id number] Reason(s): Tachy, low o2; ? PE vs [...] ABDOMEN: Unremarkable. IMPRESSION: Page 1 of 2 [place] [address] PHONE: [phone] FAX: [phone] Name .................. : VIP[facility]OREL [id number] ROOM. ................. : TR-05 Number ................... : [id number] Stay type ............. : E/R Discharge Date......... ... : Admit Date ......... : 03/29/21 Admit Phys .................... : KASANDRA NEREYDA Date of ....... : 1995 Family Phys ................... : NO PCP Phone .................. : [phone] Age ................................ : 25 Film# .................. .:[id number] Sex ................................. : F Unsigned transcriptions are preliminary reports and do not represent a medical or legal document CT CTA CHEST NON-CORONARY W C [id number] COMPLETE:03/29/21 14:52 [id number] Reason(s): Tachy, low o2; ? PE vs [...] rce(s) Supporting Document(s) ID Date Data Source [id number] 03/29/2021 02:55:00 PM EDT [facility] Name Value Range Interpretation Code Description Data Sera rce(s) Supporting Document(s) SARS coronavirus 2 RNA Not Detected [facility] This lab was ordered by Caren vee and reported by [facility]. ID Date Data Source [id number] 04/01/2021 03:49:00 PM EDT [facility] Name Value Range Interpretation Code Description Data Sera rce(s) Supporting Document(s) SARS-CoV-2, YESSI Not Detected Not Detected [facility] This nucleic acid amplification test was developed and its performancecharacteristics determined by [facility]. Nucleic acidamplification tests include RT-PCR and TMA. [...] in this assay. ID Date Data Source [id number] 03/29/2021 12:31:00 PM EDT [facility] Name Value Range Interpretation Code Description Data [facility] rce(s) Supporting Document(s) COVID19 Case rprt NOT DETECTED [facility] This lab was ordered by [facility]AL[facility] and reported by [facility]. ID Date Data Source [id number] 03/29/2021 01:02:00 PM EDT [facility] NOT DETECTEDNOT DETECTED{ PROC EDURAL CONTROL [...] rce(s) Supporting Document(s) ID Date Data Source [id number] 03/29/2021 03:51:00 PM EDT [facility] Name Value Range Interpretation Code Description Data Sera rce(s) Supporting Document(s) Choriogonadotropin.intact [Units/volume] in Serum or Plasma 103.7 mIU /mL [facility] Interpr etation: Less than 5 mU/mL: Negative 6-10 mU/mL: Borderline (suggest repeat in 48 hours) >10: Positive Approx HCG range (mU/mL) Weeks post LMP 5.4-708 mU/mL 3-4 Weeks 217-03968 mU/mL 5-6 Weeks 4059-036553 mU/mL 7-8 Weeks 73274-867906 mU/mL 9-10 Weeks 64076-90577 mU/mL 12-14 Weeks 22512-85160 mU/mL 15-16 Weeks 8240- 36194 mU/mL 17-18 Weeks ID Date Data Source [id number] 03/29/2021 01:18:00 PM EDT [facility] Name Value Range Interpretation Code Description Data [facility] Supporting Document(s) Thyrotropin [Units/volume] in Serum or Plasma by Detec tion limit <= 0.05 mIU/L 2.75 uIU/mL 0.47 - 5.01 [facility] ID Date Data Source [id number] 03/29/2021 01:08:00 PM EDT [facility] Name Value Range Interpretation Code Description Data Sera e(s) Supporting Document(s) COMPREHENSIVE METABOLIC PANEL [facility] COMPREHENSIVE METABOLIC PANEL Sodium [Moles/volume] in Serum or Plasma 138 mEq/L 134 - 153 [facility] Potassium [Moles/volume] in Serum or Plasma 3.7 mEq/L 3.6 - 5.0 [facility] Chloride [Moles/volume] in Serum or Plasma 102 mEq/L 98 - 107 [facility] Carbon dioxide, total [Moles/volume] in Serum or Plasma 20 MEQ/L 22 - 30 L [facility] Glucose [Mass/volume] in Serum or Plasma 115 MG/DL 70 - 99 H [facility] BUN 3 MG/DL 7 - [address] [facility] al Creatinine [Mass/volume] in Serum or Plasma 0.6 MG/DL 0.7 - 1.5 L [facility] BUN/CREAT 5 8 - 27 L [facility] Protein [Mass/volume] in Serum or Plasma 6.5 G/DL 6.3 - 8.2 [facility] Albumin [Mass/volume] in Serum or Plasma 4.2 G/DL 3.9 - 5.0 [facility] Globulin [Mass/volume] in Serum by calculation 2.3 GM/DL 2.4 - 3.2 L [facility] A/G RATIO 1.8 0.8 - 2.0 [facility] Calcium [Mass/volume] in Serum or Plasma 9.3 MG/DL 8.4 - 10.2 [facility] Bilirubin.total [Mass/volume] in Serum or Plasma <0.7 MG/DL 0.2 - 1.3 [facility] Alkaline phosphatase [Enzymatic activity/volume] in Serum or Plasma 71 U/L 38 - 126 [facility] Aspartate aminotransferase [Enzymatic activity/volume] in Serum or Plasma 14 U/L 5 - 40 [facility] Alanine aminotransferase [Enzymatic activity/volume] in Seru m or Plasma 14 U/L 7 - 56 [facility] Anion gap 3 in Serum or Plasma 16.0 mmol/L 8.0 - 16.0 [facility] AGE [address] [facility] al NON-AA GFR >60 mL/min [facility] ital AFR AMER GFR >60 mL/min [facility] spital Male GFR In terprentation [...] >32 mL/min Normal ID Date Data Source [id number] 03/29/2021 01:08:00 PM EDT [facility] Value Range Interpretation Code Description Data Sera rce(s) Supporting Document(s) TROPONIN T <0.01 NG/ML 0.00 - 0.10 [facility] ospital TROPONIN T0.1 ng/ml Recommended as the c linical threshold value forTroponin T. ID Date Data Source [id number] 03/29/2021 01:07:00 PM EDT [facility] Value Range Interpretation Code Description Data Sera rce(s) Supporting Document(s) Lipase [Enzymatic activity/volume] in Serum or Plasma 18 U/L 13 - 60 [facility] ID Date Data Source [id number] 03/29/2021 01:02:00 PM EDT [facility] Value Range Interpretation Code Description Data Sera rce(s) Supporting Document(s) HCG SERUM QUAL POSITIVE NORMAL: NEGATIVE [facility] HCG SERUM QL REENTER POSITIVE NORMAL: NEGATIVE [facility] { KIT LOT # [id number] ){ KIT EXP DATE 07.21.22 ){ PROCEDURAL CONTROL VALID ) ID Date Data Source [id number] 03/29/2021 12:56:00 PM [facility] Value Range Interpretation Code Description Data Sera rce(s) Supporting Document(s) Influenza virus A Ag [Presence] in Nasopharynx by Immunoassa y NEGATIVE NORMAL: NEGATIVE [facility] Influenza virus B Ag [Presence] in Nasopharynx by Immunoassa y NEGATIVE NORMAL: NEGATIVE [facility] NEGATIVENEGATIVE PROCEDURAL CO NTROL VALID KIT [...] other patient managementdecisions. ID Date Data Source [id number] 03/29/2021 12:44:00 PM EDT [facility] Name Value Range Interpretation Code Description Data Sera rce(s) Supporting Document(s) CBC W/AUTOMATED DIFF [facility] COMPLETE BLOOD COUNT Leukocytes [#/volume] in Blood by Automated count 11.6 10^3/uL 4.2 - 11.0 H [facility] Erythrocytes [#/volume] in Blood by Automated count 4.99 10^6/uL 4. 20 - 5.40 [facility] Hemoglobin [Mass/volume] in Blood 14.0 g/dL 12.0 - 16.0 [facility] Hematocrit [Volume Fraction] of Blood by Automated count 40.5 % 3 7.0 - 47.0 [facility] Erythrocyte mean corpuscular volume [Entitic volume] by Auto mated count 81.2 fL 81.0 - 101 [facility] Erythrocyte mean corpuscular hemoglobin [Entitic mass] by Automated count 28.1 pg 27.0 - 34.0 [facility] Erythrocyte mean corpuscular hemoglobin concentration [Mass/volume] by Automated count 34.6 g/dL 31.0 - 36.0 [facility] Erythrocyte distribution width [Ratio] by Automated count 12.9 % 11.5 - 14.5 [facility] Platelets [#/volume] in Blood by Automated count 288 10^3/uL 150 - 45 0 [facility] Platelet mean volume [Entitic volume] in Blood by Automated count 10.0 fL 7.4 - 10.4 [facility] Neutrophils/100 leukocytes in Blood by Automated count 71.8 % 37. 0 - 80.0 [facility] Lymphocytes/100 leukocytes in Blood by Manual count 18.0 % 25.0 - 40.0 L [facility] Monocytes/100 leukocytes in Blood by Automated count 8.4 % 3.0 - 8.0 H [facility] Eosinophils/100 leukocytes in Blood by Automated count 1.0 % 0.0 - 7.0 [facility] Basophils/100 leukocytes in Blood by Automated count 0.4 % 0.0 - 2.5 [facility] %IG 0.4 % 0.0 - 0.0 H [facility] al %NRBC 0.0 % 0.0 - 0.0 [facility] al Neutrophils [#/volume] in Blood by Automated count 8.32 10^3/uL 2.00 - 6.90 H [facility] Lymphocytes [#/volume] in Blood by Automated count 2.09 10^3/uL 0.60 - 3.40 [facility] Monocytes [#/volume] in Blood by Automated count 0.97 10^3/uL 0.00 - 0.90 H [facility] Eosinophils [#/volume] in Blood by Automated count 0.12 10^3/uL 0.00 - 0.70 [facility] Basophils [#/volume] in Blood by Automated count 0.05 10^3/uL 0.00 - 0.20 [facility] #IG 0.05 10^3/uL 0.00 - 0.10 [facility] ospital #NRBC 0.00 10^3/uL 0.00 - 0.00 [facility] ospital MANUAL DIFF NOT INDICATED [facility] RBC MORPH NOT INDICATED [facility] spital ID Date Data Source [id number] 08/23/2020 09:50:00 PM EST [facility] 1 OrderSheet [facility] Emergency Department [address] [place] [address] Phone #: ext- [phone] 08/23/2020 21:50 Patient: [...] by Lizy Alfred (05:10 08/24/2020)] 2 OrderSheet [facility] Emergency Department [address] [place] [address] Phone #: ext- [phone] 08/23/2020 21:50 Patient: MARIA TERESA MATTHEW Sex: F : 1995 Age: 25y[Electronically locked by Britt Petersen R.N. (23:35 08/23/2020)] Name Value Range Interpretation Code Description Data Sera rce(s) Supporting Document(s) ID Date Data Source [id number] 08/23/2020 09:50:00 PM [facility] 1 Medication Reconciliation Report [facility] Emergency Department [address] [place] [address] Phone #: ext- [phone] 08/23/2020 21:50 Patient: [...] Dispense 28 capsule.Refills: 0. Substitution permitted.Pharmacy - [facility] #04 - [id number] ; [place] [address]. Phone: FaxNumber: . -- Lizy Alfred Name Value Range Interpretation Code Description Data Sera rce(s) Supporting Document(s) ID Date Data Source [id number] 08/23/2020 09:50:00 PM [facility] 1 Medication Administration Record [facility] Emergency Department [address] [place] [address] Phone #: ext- [phone] 08/23/2020 21:50 [facility]: [id number] Sex: F : 1995 Age: 25yWeight: 81.6 [...] rce(s) Supporting Document(s) ID Date Data Source [id number] 08/23/2020 09:50:00 PM EST [facility] 1 General Instructions [facility] Emergency Department [address] [place] [address] Phone #: ext- [phone] 08/23/2020 21:50 Patient: [...] Dispense 28 capsule.Refills: 0. Substitution permitted.Pharmacy - [facility] #04 - [id number] ; [place] [address]. FaxNumber: .Follow-up:Follow up with your healthcare provider your dentist tomorrow. Call for an appointment. Reason for referral:evaluation and treatment. Summary of care provided to patient via paper. Screening today revealed thepatient's blood pressure to be in the hypertensive stage 2 range. The patient should follow up with [facility] care provider for blood pressure management. ADDITIONAL INFORMATIONDental Pain 2 General Instructions [facility] Emergency Department [address] [place] [address] Phone #: ext- [phone] 08/23/2020 21:50 Patient: MARIA TERESA MATTHEW Sex: [...] temperature. Use toothpaste made for sensitive teeth. [place] gently up and down instead of sideways. Brushing sideways can wear away root surfaces if they are exposed. If your tooth is chipped or cracked, see a dentist right away. For short-term pain relief, put clove oil right on the tooth. You can buy clove oil at pharmacies. Some pharmacies carry an ixmw-lrn-lfyujmi toothache kit. This has a paste you can put on the exposed tooth to make it less sensitive. 3 General Instructions [facility] Emergency Department [address] [place] [address] Phone #: ext- [phone] 08/23/2020 21:50 Patient: MARIA TERESA MATTHEW Sex: F : 1995 Age: 25y Use a cold pack. Put a cold pack on your jaw over the sore area to help reduce pain. Ask your healthcare provider about using qgqe-myz-ywznvrc medicine for pain. You may use this [...] This will keep the pain from comingback.Call [phone] if any of these occur: Abnormal [...] your provider Pus drains from the tooth [phone] [employer]. [address] [place] [address], [place] [address]. All rights reserved. This information is not intended as asubstitute for professional medical care. Always follow your healthcare professional's instructions.Dental AbscessA dental abscess is an infection of the tooth socket. It often starts with a crack or cavity in the tooth. Apocket of pus forms between the tooth and the bone. The infection causes pain and swelling of the 4 General Instructions [facility] Emergency Department [address] [place] [address] Phone #: ext- [phone] 08/23/2020 21:50 Patient: [...] reduce pain. Oil of cloves is sold rqcv-ycg-jiqxplx in pharmacies. Some pharmacies carry an cbfi-rxc-fboxxsw "toothache kit." This contains oil of cloves [...] a plastic bag that 5 General Instructions [facility] Emergency Department [address] [place] [address] Phone #: ext- [phone] 08/23/2020 21:50 Patient: [...] sooner.Follow-up careFollow up as advised with an excellence manager, or oral surgeon. Even though your pain may improve withthe treatment given today, only a dentist, excellence manager, or oral surgeon can provide full treatment forthis problem. If a culture was done, you will be told if the treatment needs to be changed. You can call in as directed for the results. If X-rays were taken, they will be reviewed by a specialist. You will be given the results, especially if they affect treatment.Call [phone] if any of these occur: Trouble breathing [...] by your healthcare provider 6 General Instructions [facility] Emergency Department [address] [place], [place] [address] Phone #: ext- [phone] 08/23/2020 21:50 Patient: MARIA TERESA MATTHEW Sex: F : 1995 Age: 25y Unusual drowsiness, a headache or stiff neck, or weakness Pus drains from the gum or tooth You can't open your mouth wide [phone] [employer]. [address] [place] [address], [place] [address]. All rights reserved. This information is not intended as asubstitute for professional medical care. Always follow your healthcare professional's instructions. You have been given the following additional information: Dental Pain Tooth Abscess(Electronically signed by Lizy Alfred 08/24/2020 05:10) Name Value Range Interpretation Code Description Data Sera rce(s) Supporting Document(s) ID Date Data Source [id number] 08/23/2020 09:50:00 PM EST [facility] 1 Clinical Report - Nurses [facility] Emergency Department [address] [place] [address] Phone #: ext- [phone] 08/23/2020 21:50 Patient: [...] no deficiencies. 2 Clinical Report - Nurses [facility] Emergency Department [address] [place] [address] Phone #: ext- [phone] 08/23/2020 21:50 Patient: [id number] Sex[facility] F : 1995 Age: 25y FUNCTIONAL [...] Patient verbalized understanding. Written instructions provided in Austrian. The patient was discharged by the physician. She was discharged home and accompanied by family. 3 Clinical Report - Nurses [facility] Emergency Department [address] [place] [address] Phone #: ext- [phone] 08/23/2020 21:50 Patient: [...] rce(s) Supporting Document(s) ID Date Data Source [id number] 08/23/2020 09:50:00 PM [facility] 1 Clinical Report - Physicians/Mid Levels [facility] Emergency Department [address] [place] [address] Phone #: ext- [phone] 08/23/2020 21:50 Patient: [...] Tonsillectomy. 2 Clinical Report - Physicians/Mid Levels [facility] Emergency Department [address] [place] [address] Phone #: ext- [phone] 08/23/2020 21:50 Patient: MARIA TERESA MATTHEW [facility]#: [id number] Sex: F : 1995 Age: 25y Tympanostomy [...] is 3 Clinical Report - Physicians/Mid Levels [facility] Emergency Department [address] [place] [address] Phone #: ext- [phone] 08/23/2020 21:50 Patient: [...] capsule. Refills: 0. Substitution permitted. Pharmacy - [facility] #04 - [id number] ; [place] [address]. . Follow-up: Follow up with your healthcare [...] rce(s) Supporting Document(s) ID Date Data Source [id number] 08/02/2020 11:04:00 PM EST [facility] 1 OrderSheet [facility] Emergency Department [address] [place] [address] Phone #: ext- [phone] 08/02/2020 22:50 Patient: [...] José Gamino MD (02:53 08/03/2020)] 2 OrderSheet [facility] Emergency Department [address] [place] [address] Phone #: ext- [phone] 08/02/2020 22:50 Patient: MARIA TERESA MATTHEW Sex: F : 1995 Age: 24y[Electronically locked by Lupillo Fernandez RN (01:40 08/03/2020)] Name Value Range Interpretation Code Description Data Sera rce(s) Supporting Document(s) ID Date Data Source [id number] 08/02/2020 11:04:00 PM EST [facility] 1 Medication Reconciliation Report [facility] Emergency Department [address] [place] [address] Phone #: ext- [phone] 08/02/2020 22:50 Patient: [...] days -- Dispense 40 capsule.Refills: 0. Substitution permitted.[facility] #65 - [id number] ; [place] [address]. FaxNumber: .prednisone 20 mg tablet Take 3 tablet once a day -- Dispense 15 tablet. Refills: 0. Substitutionpermitted.[facility] #00 - [id number] ; [place] [address]. 2 Medication Reconciliation Report [facility] Emergency Department [address] [place] [address] Phone #: axo- [phone] 08/02/2020 22:50 Patient: MARIA TERESA MATTHEW Sex: F : 1995 Age: 24yFaxNumber: . -- José Gamino MD Name Value Range Interpretation Code Description Data Sera rce(s) Supporting Document(s) ID Date Data Source [id number] 08/02/2020 11:04:00 PM EST [facility] 1 Medication Administration Record [facility] Emergency Department [address] [place] [address] Phone #: srb- [phone] 08/02/2020 22:50 Patient: MARIA TERESA MATTHEW Sex: [...] rce(s) Supporting Document(s) ID Date Data Source [id number] 08/02/2020 11:04:00 PM EST [facility] 1 General Instructions [facility] Emergency Department [address] [place] [address] Phone #: ext- [phone] 08/02/2020 22:50 Patient: [...] days -- Dispense 40 capsule.Refills: 0. Substitution permitted.[facility] #59 - [id number] ; [place] [address]. FaxNumber: [phone].prednisone 20 mg tablet Take 3 tablet once a day -- Dispense 15 tablet. Refills: 0. Substitutionpermitted.[facility] #04 - [id number] ; [place] [address]. FaxNumber: .Follow- up:Follow up with your doctor in two days even if well. Call for an appointment. Reason for referral: evaluation.Summary of care provided to patient via paper. 2 General Instructions [facility] Emergency Department [address] [place] [address] Phone #: ext- [phone] 08/02/2020 22:50 Patient: MARIA TERESA MATTHEW Sex: [...] your throat is closing 3 General Instructions [facility] Emergency Department [address] [place] [address] Phone #: ext- [phone] 08/02/2020 22:50 Patient: MARIA TERESA MATTHEW Sex: [...] products Chemicals or dyes in clothing, linen, parquet floor layer's helper, hair dyes, soaps, iodineMany viruses and common colds can cause a rash that is not an allergic reaction. Sometimes it ishard to tell the difference between allergies, sensitivity, or an intolerance to something. This is 4 General Instructions [facility] Emergency Department [address] [place] [address] Phone #: [phone] ext- [phone] 08/02/2020 22:50 Patient: MARIA TERESA MATTHEW Sex: [...] damage the skin. Oral diphenhydramine is an xmqy-cid-axusyly antihistamine sold at pharmacies and grocery stores. [...] Always check the affected 5 General Instructions [facility] Emergency Department [address] [place] [address] Phone #: ext- [phone] 08/02/2020 22:50 Patient: MARIA TERESA MATTHEW Sex: [...] swallowing, ask your provider about carryingauto-injectable epinephrine.Call [phone] if any of these occur: Trouble breathing or swallowing, wheezing Cool, moist, pale skin Shortness of breath Hoarse voice or trouble speaking Confusion Very drowsy or trouble awakening Fainting or loss of consciousness Rapid heart rate Feeling of dizziness or weakness or a sudden drop in blood pressure Feeling of doom Feeling lightheaded 6 General Instructions [facility] Emergency Department [address] [place] [address] Phone #: ext- [phone] 08/02/2020 22:50 Patient: MARIA TERESA MATTHEW Sex: [...] as directed by your provider 2019 [employer]. [address] [place] [address]. All rights reserved. This information is not [...] sulfonamides (sulfa ,medicines) Aspirin 7 General Instructions [facility] Emergency Department [address] [place] [address] Phone #: ext- [phone] 08/02/2020 22:50 Patient: [...] on the genitalsHome care 8 General Instructions [facility] Emergency Department [address] [place] [address] Phone #: ext- [phone] 08/02/2020 22:50 Patient: [...] a prescription antihistamine, oral diphenhydramine is an upab-zfb-snaiwgr antihistamine available at pharmacies and grocery stores. [...] with trouble urinating due to an 9 [facility] Emergency Department [address] [place] [address] Phone #: ext- [phone] 08/02/2020 22:50 Patient: [...] not continue to improveor they get worse.Call [phone] if any of these occur: Shortness of [...] Continuing or recurring symptoms 10 General Instructions [facility] Emergency Department [address] [place] [address] Phone #: ext- [phone] 08/02/2020 22:50 Patient: [...] or colored drainage from the affected area [employer]. [address] [place] [address]. All rights reserved. This information is not [...] area clean and dry. 11 General Instructions [facility] Emergency Department [address] [place] [address] Phone #: ext- [phone] 08/02/2020 22:50 Patient: [...] or higher after 2 days on antibiotics [id number] [employer]. [address] [place] [address]. All rights reserved. This information is not intended as asubstitute for professional medical care. A lways follow your healthcare professional's instructions. You have been given the following additional information: General Allergic Reactions Medicine Reaction: Allergic Cellulitis(Electronically signed by José Gamino MD 08/03/2020 02:53) Name Value Range Interpretation Code Description Data Sera rce(s) Supporting Document(s) ID Date Data Source [id number] 08/02/2020 11:04:00 PM EST [facility] 1 Clinical Report - Nurses [facility] Emergency Department [address] [place] [address] Phone #: ext- [phone] 08/02/2020 22:50 Patient: MARIA TERESA MATTHEW Sex: F : 1995 Age: 24yTRIAGEArrived by private vehicle. Historian: patient.Triage time: 22:54 08/02/2020. Acuity: LEVEL 4.Chief Complaint: (swelling to upper lip).Onset was gradual. (2 days ago). 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 SEPSIS SCREEN NEGATIVE. No suspected or confirmedsigns of infection present. --23:01 08/02/20 Lupillo Fernandez RN22:54 08/02/20. BP: 146/99 (regular adult cuff) taken on the right arm, via an automated monitor, whilelying. MAP: 114. HR: 106 (regular, normal rate and strong). RR: 16 (regular, unlabored and normal). W5fqnwnubkss: 99% on room air. Temp: 97.2 F [...] but declined. 2 Clinical Report - Nurses [facility] Emergency Department [address] [place] [address] Phone #: ext- [phone] 08/02/2020 22:50 Patient: [...] Fernandez RN 3 Clinical Report - Nurses [facility] Emergency Department [address] [place] [address] Phone #: ext- [phone] 08/02/2020 22:50 --- Patient: MARIA TERESA MATTHEW [facility]#: [id number] Sex: F : 1995 Age: 24y 00:23 [...] Patient verbalized understanding. Written instructions provided in Austrian. The patient was discharged home and accompanied by micrographics services supervisor. She left ambulatory and via private vehicle. Electronic Equipment Repairmen driving. --01:40 08/03/20 Lupillo Fernandez RN 01:38 [...] rce(s) Supporting Document(s) ID Date Data Source [id number] 08/02/2020 11:04:00 PM EST [facility] 1 Clinical Report - Physicians/Mid Levels [facility] Emergency Department [address] [place] [address] Phone #: ext- [phone] 08/02/2020 22:50 Patient: [facility]THEW [id number] Sex: F : 1995 Age: 24y Arrived- [...] reviewed. 2 Clinical Report - Physicians/Mid Levels [facility] Emergency Department [address] [place] [address] Phone #: ext- [phone] 08/02/2020 22:50 Patient: [...] 0.20) 3 Clinical Report - Physicians/Mid Levels [facility] Emergency Department [address] [place] [address] Phone #: ext- [phone] 08/02/2020 22:50 Patient: [...] Male GFR Interprentation 20-49 yrs >60 mL/min Hlyyfo29-22 yrs >56 mL/min Normal 60-69 yrs >49 mL/min Normal 70-79yrs>42 mL/min Normal 80 and above >35 mL/min Normal Female GFRInterpretation 20-39 yrs >60 mL/min Normal 40-49 yrs >58 mL/minNormal 50- 59 yrs >51 mL/min Normal 60-69 yrs >45 mL/min Vinkhp80-57 yrs >39 mL/min Normal 80 and above >32 mL/min NormalBeta-HCG, Qual Serum: (NAS: 08/02/2020 23:26) ( MsgRcvd 08/02/2020 23:58) Final results Test Result Flag Units (Reference) HCG SERUM QUAL NEGATIVE (NORMAL: NEGAT HCG SERUM QL REENTER NEGATIVE (NORMAL: NEGAT { KIT LOT # [id number] ){ KIT EXP [id number] ){ PROCEDURAL CONTROL VALID)CT Maxillofacial W/ Cont: (NAS: 08/02/2020 23:17) ( MsgRcvd 08/03/2020 00:39) Final results Exam CT MAXILLOFACIAL W/CONTRAST [facility] [address] [place] [address] ---------NAME--------- NUMBER SEX AGE ADMIT DISC. XRAY# F/C TYPE VIPUL Hampton [id number] F 24 08/02/20 [id number] NA E/R DATE OF : 1995 M/R# [id number] #: [id number] TR-04 LOCATION: EMERGENCY DEPT TRANSCRIBED: 08/03/[address] MAXILLOFACIAL W/CONTRAST [id number] COMPLETED:08/03/20 27 DLA 2102 4 Clinical Report - Physicians/Mid Levels [facility] Emergency Department [address] [place] [address] Phone #: ext- [phone] 08/02/2020 22:50 Patient: [...] to examination. Exam has been sent to [facility] Radiology - If further information is [...] to examination. Exam has been sent to [facility] Radiology - If further information is [...] swelling. she 5 Clinical Report - Physicians/Mid [facility] Emergency Department [address] [place] [address] Phone #: [phone] afm- [phone] 08/02/2020 22:50 Patient: MARIA TERESA MATTHEW Sex: [...] capsule. Refills: 0. Substitution permitted. Pharmacy - [facility] #04 - [id number] ; [place] [address]. . 6 Clinical Report - Physicians/Mid Levels [facility] Emergency Department [address] [place] [address] Phone #: ext- [phone] 08/02/2020 22:50 Patient: JCAQUIE MATTHEWTLARLEEN Hampton Sex: F : 1995 Age: 24y prednisone 20 mg tablet Take 3 tablet once a day -- Dispense 15 tablet. Refills: 0. Substitution permitted. Pharmacy - [facility] #04 - [id number] ; [place] [address]. . Follow-up: Follow up with your doctor in two days even if well. Call for an appointment. Reason for referral: evaluation. Summary of care provided to patient via paper. Understanding of the discharge instructions verbalized by patient.(Electronically signed by José Gamino MD 08/03/2020 02:53) Name Value Range Interpretation Code Description Data Sera rce(s) Supporting Document(s) ID Date Data Source [id number] 08/03/2020 12:38:[address] [facility] [address] [facility] [place] [address] ---------NAME--------- NUMBER SEX AGE ADMIT DISC. XRAY# F/C TYPE VIPUL Hampton [id number] F 24 08/02/20 [id number] NA E/R DATE OF : 1995 M/R# [id number] #: [id number] TR-04 LOCATION: EMERGENCY DEPT TRANSCRIBED: 08/03/[address] MAXILLOFACIAL W/CONTRAST [id number] COMPLETED:08/03/20 27 DLA 6 Reason(s): Infection Swelling PHYSICIAN: ALEC======= R A D I O L O G Y R E P O R T PATIENT HISTORY:ACTUAL DOSE 299.2 mGy*cm swollen lipPatient has negative beta. Verification of 2 patient identifiers performed.Time Out performed. correct body part and side all verified prior toexamination. Exam has been sent to [facility] Radiology - If further informationis needed, the number is . Report will be faxed to ED and/orXray. / COR (DICOM Hx)EXAM: CT Maxillofacial Without IV contrast.CLINICAL HISTORY:ACTUAL DOSE 299.2 mGy*cm swollen lip Patient has negative beta.Verification of 2 patient identifiers performed. Time Out performed. correctbody part and side all verified prior to examination. [facility] If further information is needed, the number [id number]. Report will be faxed to ED and/or [...] rce(s) Supporting Document(s) ID Date Data Source [id number] 08/03/2020 12:11:00 AM EST [facility] Name Value Range Interpretation Code Description Data Sera rce(s) Supporting Document(s) COMPREHENSIVE METABOLIC PANEL [facility] COMPREHENSIVE METABOLIC PANEL Sodium [Moles/volume] in Serum or Plasma 138 mEq/L 134 - 153 [facility] Potassium [Moles/volume] in Serum or Plasma 4.0 mEq/L 3.6 - 5.0 [facility] Chloride [Moles/volume] in Serum or Plasma 103 mEq/L 98 - 107 [facility] Carbon dioxide, total [Moles/volume] in Serum or Plasma 26 MEQ/L 22 - 30 [facility] Glucose [Mass/volume] in Serum or Plasma 112 MG/DL 65 - 110 H [facility] BUN <4 MG/DL 7 - 21 L [facility] Creatinine [Mass/volume] in Serum or Plasma 0.6 MG/DL 0.7 - 1.5 L [facility] BUN/CREAT 7 8 - 27 L [facility] Protein [Mass/volume] in Serum or Plasma 6.4 G/DL 6.3 - 8.2 [facility] Albumin [Mass/volume] in Serum or Plasma 3.9 G/DL 3.9 - 5.0 [facility] Globulin [Mass/volume] in Serum by calculation 2.5 GM/DL 2.4 - 3.2 [facility] A/G RATIO 1.6 0.8 - 2.0 [facility] Calcium [Mass/volume] in Serum or Plasma 8.9 MG/DL 8.4 - 10.2 [facility] Bilirubin.total [Mass/volume] in Serum or Plasma <0.7 MG/DL 0.2 - 1.3 [facility] Alkaline phosphatase [Enzymatic activity/volume] in Serum or Plasma 69 U/L 38 - 126 [facility] Aspartate aminotransferase [Enzymatic activity/volume] in Se rum or Plasma 9 U/L 5 - 40 [facility] Alanine aminotransferase [Enzymatic activity/volume] in Seru m or Plasma 15 U/L 7 - 56 [facility] Anion gap 3 in Serum or Plasma 9.0 mmol/L 8.0 - 16.0 [facility] AGE [address] [facility] al NON-AA GFR >60 mL/min [facility] ital AFR AMER GFR >60 mL/min [facility] Ho spital Male GFR In terprentation [...] >32 mL/min Normal ID Date Data Source [id number] 08/02/2020 11:56:00 PM EST [facility] Name Value Range Interpretation Code Description Data Sera rce(s) Supporting Document(s) HCG SERUM QUAL NEGATIVE NORMAL: NEGATIVE [facility] HCG SERUM QL REENTER NEGATIVE NORMAL: NEGATIVE [facility] { KIT LOT # [id number] ){ KIT EXP DATE 04-26-21 ){ PROCEDURAL CONTROL VALID ) ID Date Data Source [id number] 08/02/2020 11:38:00 PM EST [facility] Name Value Range Interpretation Code Description Data Sera rce(s) Supporting Document(s) CBC W/AUTOMATED DIFF [facility] COMPLETE BLOOD COUNT Leukocytes [#/volume] in Blood by Automated count 13.2 10^3/uL 4.2 - 11.0 H [facility] Erythrocytes [#/volume] in Blood by Automated count 5.04 10^6/uL 4. 20 - 5.40 [facility] Hemoglobin [Mass/volume] in Blood 14.1 g/dL 12.0 - 16.0 [facility] Hematocrit [Volume Fraction] of Blood by Automated count 42.1 % 3 7.0 - 47.0 [facility] Erythrocyte mean corpuscular volume [Entitic volume] by Auto mated count 83.5 fL 81.0 - 101 [facility] Erythrocyte mean corpuscular hemoglobin [Entitic mass] by Automated count 28.0 pg 27.0 - 34.0 [facility] Erythrocyte mean corpuscular hemoglobin concentration [Mass/volume] by Automated count 33.5 g/dL 31.0 - 36.0 [facility] Erythrocyte distribution width [Ratio] by Automated count 13.2 % 11.5 - 14.5 [facility] Platelets [#/volume] in Blood by Automated count 364 10^3/uL 150 - 45 0 [facility] Platelet mean volume [Entitic volume] in Blood by Automated count 9.7 fL 7.4 - 10.4 [facility] Neutrophils/100 leukocytes in Blood by Automated count 61.0 % 37. 0 - 80.0 [facility] Lymphocytes/100 leukocytes in Blood by Manual count 30.1 % 25.0 - 40.0 [facility] Monocytes/100 leukocytes in Blood by Automated count 6.5 % 3.0 - 8.0 [facility] Eosinophils/100 leukocytes in Blood by Automated count 1.6 % 0.0 - 7.0 [facility] Basophils/100 leukocytes in Blood by Automated count 0.4 % 0.0 - 2.5 [facility] %IG 0.4 % 0.0 - 0.[address] [facility] al %NRBC 0.0 % 0.0 - 0.0 [facility] al Neutrophils [#/volume] in Blood by Automated count 8.06 10^3/uL 2.00 - 6.90 H [facility] Lymphocytes [#/volume] in Blood by Automated count 3.98 10^3/uL 0.60 - 3.40 H [facility] Monocytes [#/volume] in Blood by Automated count 0.86 10^3/uL 0.00 - 0.90 [facility] Eosinophils [#/volume] in Blood by Automated count 0.21 10^3/uL 0.00 - 0.70 [facility] Basophils [#/volume] in Blood by Automated count 0.05 10^3/uL 0.00 - 0.20 [facility] #IG 0.05 10^3/uL 0.00 - 0.10 [facility] ospital #NRBC 0.00 10^3/uL 0.00 - 0.00 [facility]spital MANUAL DIFF NOT INDICATED [facility] RBC MORPH NOT INDICATED [facility] spital Procedure Social History No Information Vital Signs ID Date Data Source UNK Name Value Range Interpretation Code Description Data Source(s) Systolic blood pressure 118 mm[Hg] 118 mm[Hg] [facility] ([facility]) Diastolic blood pressure 76 mm[Hg] 76 mm[Hg] [facility] ([facility]) Heart rate 106 /min 106 /min [facility] ([facility]) Body temperature 97.6 [degF] 97.6 [degF] [facility] ([facility]) Oxygen saturation in Arterial blood by Pulse oximetry 97 % 97 % [facility] ([facility]) Body weight 228.25 [lb_av] 228.25 [lb_av] [facility] Body weight 103.534 kg 103.534 kg [facility] ([facility]) Body height 64 [in_i] 64 [in_i] [facility] ([facility]) 5'4" Body mass index (BMI) [Ratio] 39.2 kg/m2 39.2 k g/m2 [facility] ([facility]) Body surface area Derived from formula 2.07 m2 2.07 m2 [facility] ([facility])
--- NOTE | 2021-06-29 07:36 | ECGEPIP ---
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
== END 2021-06-28 02:13 | disposition left against medical advice (07) ==
LOC: M ED 21:32
DX: Z53.21 Procedure and treatment not carried out due to patient leaving prior to being seen by health care provider (principal)

== ENCOUNTER 2021-07-21 22:42 | Emergency (ER) | payer OTHER ==
[~2021-07-21] VITALS: Ht 162.6 cm; Wt 101.8 kg
[2021-07-21] MEDS ORDERED: OMEP-221 (22:55)
[2021-07-22] MEDS ORDERED: NS 1,000 ML IV ONE
[2021-07-22 00:47] LABS: BASO % 0.2 % (0.0-1.0); EOS # 0.1 10^3/uL (0.0-0.5); EOS % 0.6 % (0.0-3.0); HEMATOCRIT 42.7 % (36.0-47.0); HEMOGLOBIN 14.1 g/dl (12.0-15.5); LYMPH # 3.3 10^3/uL (1.5-5.0); LYMPH % 31.7 % (24.0-44.0); MEAN CORPUSCULAR HEMOGLOBIN 26.7 pg (27.0-33.0); MEAN CORPUSCULAR VOLUME 80.7 fl (80.0-96.0); MONO # 0.6 10^3/uL (0.0-0.8); MONO % 5.4 % (2.0-8.0); NEUTROPHILS # 6.5 10^3/uL (1.5-8.5); NEUTROPHILS % 61.7 % (36.0-66.0); PLATELET COUNT, AUTOMATED 330 10^3/uL (150-450); RED BLOOD COUNT 5.29 10^6/uL (4.00-5.40); WHITE BLOOD COUNT 10.5 10^3/uL (4.0-10.0)
[2021-07-22 00:55] LABS: AMPHETAMINES LEVEL URINE NEGATIVE (NEGATIVE); BARBITURATES URINE NEGATIVE (NEGATIVE); BENZODIAZEPINES URINE NEGATIVE (NEGATIVE); CANNABINOIDS URINE NEGATIVE (NEGATIVE); COCAINE METABOLITE URINE NEGATIVE (NEGATIVE); METHADONE URINE NEGATIVE (NEGATIVE); OPIATES URINE NEGATIVE (NEGATIVE); PHENCYCLIDINE URINE NEGATIVE (NEGATIVE)
[2021-07-22 01:14] LABS: CK-MB VALUE MASS < 1.0 NG/ML (<3.6); CPK CREATINE PHOSPHOKINASE 51 U/L (26-192); MB/CK RELATIVE INDEX 1.96 (< OR =4)
[2021-07-22 01:20] LABS: ALBUMIN 3.6 GM/DL (3.2-5.2); ALT/SGPT 31 U/L (12-78); BILIRUBIN,DIRECT < 0.1 MG/DL (0.0-0.2); BILIRUBIN,TOTAL 0.1 MG/DL (0.2-1.0); BLOOD UREA NITROGEN 7 MG/DL (7-18); CALCIUM LEVEL 8.7 MG/DL (8.5-10.1); CARBON DIOXIDE LEVEL 25 MEQ/L (21-32); CHLORIDE LEVEL 109 MEQ/L (98-107); CREATININE FOR GFR 0.58 MG/DL (0.55-1.30); GLOMERULAR FILTRATION RATE > 60.0 (>60); GLUCOSE, FASTING 87 MG/DL (70-100); LIPASE 100 U/L (73-393); MAGNESIUM LEVEL 1.9 MG/DL (1.8-2.4); POTASSIUM SERUM 3.8 MEQ/L (3.5-5.1); SODIUM LEVEL 141 MEQ/L (136-145)
[2021-07-22 01:24] LABS: RSV AMPLIFICATION NEGATIVE (NEGATIVE)
[2021-07-22 01:31] LABS: INR 0.9; PROTHROMBIN TIME 12.5 SECONDS (12.7-14.5)
[2021-07-22 01:32] LABS: PARTIAL THROMBOPLASTIN TIME 35.5 SECONDS (25.9-37.0)
[2021-07-22 01:34] LABS: D-DIMER QUANT 1046.57 ng/ml (<500)
[2021-07-22 01:50] LABS: HCG, SERUM QUALITATIVE NEGATIVE (NEGATIVE)
[2021-07-22] MEDS ORDERED: ISOVUE-370 76% 100ML VIAL As Ordered ONE (01:55)
--- NOTE | 2021-07-22 03:19 | REPVR ---
PROCEDURE INFORMATION: Exam: CT Cervical Spine Without Contrast Exam date and time: 07/22/2021 12:00 AM Age: 25 years old Clinical indication: Dizzy; Additional info: Syncope TECHNIQUE: Imaging protocol: Computed tomography images of the cervical spine without contrast. Radiation optimization: All CT scans at this facility use at least one of these dose optimization techniques: automated exposure control; mA and/or kV adjustment per patient size (includes targeted exams where dose is matched to clinical indication); or iterative reconstruction. COMPARISON: CT Maxillofacial with contrast 09/03/2020 3:39 PM (The report from this study was not available for review at the time of this interpretation.) FINDINGS: Bones/joints: There is a mild reversal of the normal cervical lordosis. There is no fracture in the cervical spine. There is a 1 mm grade 1 anterolisthesis of C4 on C5, which is stable compared to the maxillofacial CT on 09/03/2020. Discs/Spinal canal/Neural foramina: The disc heights are preserved. No disc herniation, spinal canal stenosis, or neural foraminal stenosis is identified at any of the imaged levels. The facet joints are unremarkable. Prevertebral Space: No prevertebral soft tissue swelling. Lungs: Refer to the CT chest report on 07/22/2021 for details. Soft tissues: Unremarkable. No soft tissue fluid collection. IMPRESSION: No fracture in the cervical spine. Electronically signed by: Jama Lazaro On 07/22/2021 03:18:45 AM
--- NOTE | 2021-07-22 03:19 | REPVR ---
PROCEDURE INFORMATION: Exam: CT Head Without Contrast Exam date and time: 07/22/2021 12:00 AM Age: 25 years old Clinical indication: Dizziness; Additional info: Syncope TECHNIQUE: Imaging protocol: Computed tomography of the head without contrast. Radiation optimization: All CT scans at this facility use at least one of these dose optimization techniques: automated exposure control; mA and/or kV adjustment per patient size (includes targeted exams where dose is matched to clinical indication); or iterative reconstruction. COMPARISON: CT Maxillofacial with contrast 09/03/2020 3:39 PM (The report from this study was not available for review at the time of this interpretation.) FINDINGS: Brain: There is no CT evidence for an acute large vessel territorial infarct. No acute intracranial hemorrhage is seen. No mass, mass effect, midline shift, or herniation is noted. The cortical gyration pattern, basal ganglia, thalami, brainstem, and cerebellum are normal in appearance. Incidental note is made of calcifications along the anterior aspect of the falx, which can also be seen in the maxillofacial CT on 09/03/2020. Cerebral ventricles: Normal. No hydrocephalus. Paranasal sinuses: There is mild mucosal thickening at the base of both maxillary sinuses, right greater than left. No air-fluid levels are seen in the sinuses. The maxillary sinuses were not fully imaged. Mastoid air cells: The mastoid air cells are well aerated. Auditory system: The middle ear spaces are clear. Orbital cavity: The globes and orbits are intact and normal in appearance. Bones/joints: The skull is intact. No suspicious osteolytic or osteoblastic lesion. Soft tissues: Unremarkable. No soft tissue fluid collection. IMPRESSION: No acute intracranial abnormality. Electronically signed by: Jama Lazaro On 07/22/2021 03:18:59 AM
--- NOTE | 2021-07-22 03:26 | REPVR ---
PROCEDURE INFORMATION: Exam: CTA Chest With Contrast Exam date and time: 07/22/2021 1:51 AM Age: 25 years old Clinical indication: Other: Dizzy; Additional info: Sob/diizzy/palpitations TECHNIQUE: Imaging protocol: Computed tomographic angiography of the chest with contrast. 3D rendering (Not supervised by radiologist): MIP and/or 3D reconstructed images were created by the technologist. Radiation optimization: All CT scans at this facility use at least one of these dose optimization techniques: automated exposure control; mA and/or kV adjustment per patient size (includes targeted exams where dose is matched to clinical indication); or iterative reconstruction. Contrast material: ISO; Contrast volume: 75 ml; Contrast route: INTRAVENOUS (IV); COMPARISON: 1. CT Spine,cervical w/o contrast 2021-07-22 01:[address] ABD/PEL W/IV CONTRAST ONLY 2021-06-21 19:53 FINDINGS: Limitations: Limited by patient's body habitus. Pulmonary arteries: No filling defects in the pulmonary arteries to suggest pulmonary emboli. Aorta: Unremarkable. No aortic aneurysm. No aortic dissection. Lungs: Dependent subsegmental pulmonary atelectasis. Pleural spaces: Unremarkable. No pneumothorax. No pleural effusion. Heart: Unremarkable. No cardiomegaly. No pericardial effusion. Lymph nodes: Unremarkable. No enlarged lymph nodes. Bones/joints: Unremarkable. No acute fracture. Soft tissues: Unremarkable. IMPRESSION: No filling defects in the pulmonary arteries to suggest pulmonary emboli. Electronically signed by: Romero Hurtado On 07/22/2021 03:26:20 AM
[2021-07-22 04:23] VITALS: BP 131/63
--- NOTE | 2021-07-22 07:51 | ECGEPIP ---
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
== END 2021-07-22 04:38 | disposition home or self-care (01) ==
LOC: M ED 22:42
DX: R00.2 Palpitations (principal); R42 Dizziness and giddiness; R06.02 Shortness of breath; M54.2 Cervicalgia; R68.84 Jaw pain; R11.0 Nausea; E66.9 Obesity, unspecified; R25.1 Tremor, unspecified; R10.9 Unspecified abdominal pain; R05.9 Cough, unspecified; R19.7 Diarrhea, unspecified; R22.43 Localized swelling, mass and lump, lower limb, bilateral; F17.200 Nicotine dependence, unspecified, uncomplicated; Z88.0 Allergy status to penicillin
CPT/HCPCS: 70450; 71275; 72125; 80048; 80076; 80307; 81001; 82550; 82553; 83036; 83605; 83690; 83735; 84439; 84443; 84703; 85025; 85379; 85610; 85730; 87086; 87631; 93005; 96360; 96361; 99284; Q9967

== ENCOUNTER 2021-07-23 23:13 | Emergency (ER) | payer OTHER ==
[~2021-07-23] VITALS: Ht 162.6 cm; Wt 90.9 kg
[~2021-07-23 23:13] MED LIST changes: +OMEP-221
[2021-07-24 04:14] LABS: BASO % 0.3 % (0.0-1.0); EOS # 0.1 10^3/uL (0.0-0.5); HEMOGLOBIN 13.2 g/dl (12.0-15.5); LYMPH # 3.8 10^3/uL (1.5-5.0); LYMPH % 33.2 % (24.0-44.0); MEAN CORPUSCULAR HEMOGLOBIN 27.1 pg (27.0-33.0); MEAN CORPUSCULAR VOLUME 82.1 fl (80.0-96.0); MONO # 0.6 10^3/uL (0.0-0.8); MONO % 5.5 % (2.0-8.0); NEUTROPHILS # 6.9 10^3/uL (1.5-8.5); NEUTROPHILS % 59.7 % (36.0-66.0); PLATELET COUNT, AUTOMATED 294 10^3/uL (150-450); RED BLOOD COUNT 4.87 10^6/uL (4.00-5.40); WHITE BLOOD COUNT 11.5 10^3/uL (4.0-10.0)
--- NOTE | 2021-07-24 04:42 | REPVR ---
PROCEDURE INFORMATION: Exam: XR Chest Exam date and time: 07/24/2021 4:27 AM Age: 25 years old Clinical indication: Other: Palpitations TECHNIQUE: Imaging protocol: XR of the chest. Views: 2 views. COMPARISON: CT ANGIO CHEST 07/22/2021 2:01 AM FINDINGS: Lungs: Unremarkable. No consolidation. Pleural spaces: Unremarkable. No pleural effusion. No pneumothorax. Heart/Mediastinum: Unremarkable. No cardiomegaly. Bones/joints: Unremarkable. Soft tissues: There are moderately generous overlying soft tissues. IMPRESSION: Negative chest. Electronically signed by: Gerald King On 07/24/2021 04:42:17 AM
[2021-07-24 05:05] LABS: ALBUMIN 3.4 GM/DL (3.2-5.2); ALT/SGPT 27 U/L (12-78); BILIRUBIN,DIRECT < 0.1 MG/DL (0.0-0.2); BILIRUBIN,TOTAL 0.2 MG/DL (0.2-1.0); BLOOD UREA NITROGEN 11 MG/DL (7-18); CALCIUM LEVEL 8.5 MG/DL (8.5-10.1); CARBON DIOXIDE LEVEL 24 MEQ/L (21-32); CHLORIDE LEVEL 111 MEQ/L (98-107); CREATININE FOR GFR 0.67 MG/DL (0.55-1.30); GLOMERULAR FILTRATION RATE > 60.0 (>60); GLUCOSE, FASTING 94 MG/DL (70-100); LIPASE 91 U/L (73-393); PHOSPHORUS LEVEL 4.5 MG/DL (2.5-4.9); SODIUM LEVEL 144 MEQ/L (136-145); TOTAL PROTEIN 6.7 GM/DL (6.4-8.2)
[2021-07-24 06:15] VITALS: BP 132/66
--- NOTE | 2021-07-24 18:31 | ECGEPIP ---
[facility] - ED Test Date: 2021-07-24 Pat Name: MARIA TERESA MATTHEW Department: Room: - Gender: Female Publishing Director: Jose CURTIS : 1995 Requested By: STARR Ames Order Number: [id number] Reading MD: Jena Fatima Measurements Intervals [place] Rate: 85 P: 30 NV: 176 QRS: 9 QRSD: 84 T: 22 QT: 340 QTc: 404 Interpretive Statements Normal sinus rhythm NSTTW abnormalities decreased rate 07/21/21 Electronically Signed on 07-24-2021 18:31:21 EST by Jena Fatima
== END 2021-07-24 06:27 | disposition home or self-care (01) ==
LOC: EDBD 23:13 → EDUNIT# 23:13 → M ED 23:13
DX: R00.2 Palpitations (principal); F17.200 Nicotine dependence, unspecified, uncomplicated; Z88.0 Allergy status to penicillin; Z87.42 Personal history of other diseases of the female genital tract

== ENCOUNTER 2021-08-17 11:02 | Emergency (ER) | payer OTHER ==
[~2021-08-17] VITALS: Ht 165.1 cm; Wt 100.6 kg
[~2021-08-17 11:02] MED LIST changes: +FAMO20TA5; -OMEP-221; +OMEP40CA5; +ONDA4TAB6; +SUCR1TAB56
[2021-08-17 11:03] VITALS: BP 128/100
== END 2021-08-17 14:58 | disposition left against medical advice (07) ==
LOC: M ED 11:02
DX: Z53.21 Procedure and treatment not carried out due to patient leaving prior to being seen by health care provider (principal)

== ENCOUNTER → 2021-08-26 | Outpatient (CLI) | payer OTHER | LOC: M EKG 13:59 | PROVIDERS: ATTEND Physician Assistant Medical | DX: R00.0 Tachycardia, unspecified (principal) ==

== ENCOUNTER → 2021-11-24 | Outpatient (CLI) | payer OTHER | LOC: M PLAIMG 13:45 | PROVIDERS: ATTEND Physician Assistant Medical | DX: R93.0 Abnormal findings on diagnostic imaging of skull and head, not elsewhere classified (principal); R42 Dizziness and giddiness; G44.019 Episodic cluster headache, not intractable ==

== ENCOUNTER 2021-12-04 10:32 | Emergency (ER) | payer OTHER ==
[~2021-12-04] VITALS: Ht 162.6 cm; Wt 100.0 kg
[2021-12-04] MEDS ORDERED: NADO20TA (10:54)
[2021-12-04] MEDS ORDERED: METOCLOPRAMIDE 10MG TAB PO ONE (12:00)
[2021-12-04] MEDS ORDERED: MECLIZINE 25 MG TABLET PO ONE (12:00)
[2021-12-04 12:07] VITALS: BP 139/82
== END 2021-12-04 12:09 | disposition home or self-care (01) ==
LOC: M ED 10:32
DX: S06.0X0A Concussion without loss of consciousness, initial encounter (principal); S00.81XA Abrasion of other part of head, initial encounter; W54.1XXA Struck by dog, initial encounter; F17.200 Nicotine dependence, unspecified, uncomplicated; I10 Essential (primary) hypertension; Y92.009 Unspecified place in unspecified non-institutional (private) residence as the place of occurrence of the external cause; Y93.9 Activity, unspecified; Y99.9 Unspecified external cause status; Z88.0 Allergy status to penicillin

== ENCOUNTER 2022-11-19 17:48 | Emergency (ER) | payer OTHER ==
[~2022-11-19] VITALS: Ht 162.6 cm; Wt 103.3 kg
[~2022-11-19 17:48] MED LIST changes: +NADO20TA
[2022-11-19 17:50] VITALS: BP 136/84
[2022-11-19 19:49] LABS: HEMATOCRIT 46.6 % (36.0-47.0); HEMOGLOBIN 15.6 g/dl (12.0-15.5); MEAN CORPUSCULAR HEMOGLOBIN 28.4 pg (27.0-33.0); MEAN CORPUSCULAR HGB CONC 33.5 g/dl (32.0-36.5); MEAN CORPUSCULAR VOLUME 84.9 fl (80.0-96.0); PLATELET COUNT, AUTOMATED 312 10^3/uL (150-450); RED BLOOD COUNT 5.49 10^6/uL (4.00-5.40); WHITE BLOOD COUNT 14.8 10^3/uL (4.0-10.0)
[2022-11-19 20:00] LABS: APPEARANCE, URINE HAZY (CLEAR); BACTERIA, URINE AUTO 2+ (NEGATIVE); BILIRUBIN, URINE AUTO NEGATIVE (NEGATIVE); BLOOD, URINE BLOOD NEGATIVE (NEGATIVE); COLOR, URINE YELLOW (YELLOW); GLUCOSE, URINE (UA) AUTO NEGATIVE (NEGATIVE); KETONE, URINE AUTO NEGATIVE (NEGATIVE); LEUKOCYTE ESTERASE, URINE AUTO 2+ (NEGATIVE); MUCUS, URINE SMALL (NEGATIVE); NITRITE, URINE AUTO POSITIVE (NEGATIVE); PROTEIN, URINE AUTO NEGATIVE (NEGATIVE); RBC, URINE AUTO 2 /HPF (0-3); SPECIFIC GRAVITY URINE AUTO 1.019 (1.002-1.035); SQUAMOUS EPITHELIAL CELL UR AU 10 /HPF (0-6); UROBILINOGEN, URINE AUTO 0.2 mg/dL (0.0-2.0); WBC, URINE AUTO 25 /HPF (0-3)
[2022-11-19 20:11] LABS: LIPASE 33 U/L (12-53)
[2022-11-19 20:13] LABS: ALBUMIN 3.9 G/DL (3.2-5.2); ALKALINE PHOSPHATASE 72 U/L (46-116); ALT/SGPT 25 U/L (7.0-40); AST/SGOT 11 U/L (<34); BILIRUBIN,TOTAL 0.2 MG/DL (0.3-1.2); BLOOD UREA NITROGEN 7 MG/DL (9-23); CALCIUM LEVEL 9.1 MG/DL (8.5-10.1); CARBON DIOXIDE LEVEL 26 MMOL/L (20-31); CHLORIDE LEVEL 106 MMOL/L (98-107); CREATININE FOR GFR 0.68 MG/DL (0.55-1.30); GLOMERULAR FILTRATION RATE > 60.0 (>60); GLUCOSE, FASTING 79 MG/DL (60-100); SODIUM LEVEL 140 MMOL/L (136-145); TOTAL PROTEIN 7.1 G/DL (5.7-8.2)
[2022-11-19 20:22] LABS: HCG, SERUM QUALITATIVE NEGATIVE (NEGATIVE)
== END 2022-11-20 00:11 | disposition left against medical advice (07) ==
LOC: M ED 17:48
DX: Z53.21 Procedure and treatment not carried out due to patient leaving prior to being seen by health care provider (principal)

== ENCOUNTER → 2024-09-09 | Outpatient (CLI) | payer OTHER ==
[~2024-09-09] MED LIST changes: +ONDA-282; -ONDA4TAB6
[2024-09-09 10:55] LABS: BASO % 0.4 % (0.0-1.0); EOS # 0.2 10^3/uL (0.0-0.5); EOS % 1.8 % (0.0-3.0); HEMATOCRIT 41.7 % (36.0-47.0); HEMOGLOBIN 13.6 g/dl (12.0-15.5); LYMPH # 3.2 10^3/uL (1.5-5.0); LYMPH % 32.4 % (24.0-44.0); MEAN CORPUSCULAR HEMOGLOBIN 27.4 pg (27.0-33.0); MEAN CORPUSCULAR HGB CONC 32.6 g/dl (32.0-36.5); MEAN CORPUSCULAR VOLUME 84.1 fl (80.0-96.0); MONO # 0.6 10^3/uL (0.0-0.8); MONO % 6.4 % (2.0-8.0); NEUTROPHILS # 5.7 10^3/uL (1.5-8.5); NEUTROPHILS % 58.7 % (36.0-66.0); PLATELET COUNT, AUTOMATED 338 10^3/uL (150-450); RED BLOOD COUNT 4.96 10^6/uL (4.00-5.40); WHITE BLOOD COUNT 9.7 10^3/uL (4.0-10.0)
[2024-09-09 11:27] LABS: ALBUMIN 3.7 G/DL (3.2-5.2); ALKALINE PHOSPHATASE 67 U/L (35-104); ALT/SGPT 30 U/L (7.0-40); AST/SGOT 11 U/L (<34); BILIRUBIN,TOTAL 0.3 MG/DL (0.3-1.2); BLOOD UREA NITROGEN 11 MG/DL (9-23); CALCIUM LEVEL 9.3 MG/DL (8.5-10.1); CARBON DIOXIDE LEVEL 27 MMOL/L (20-31); CHLORIDE LEVEL 106 MMOL/L (98-107); CHOLESTEROL LEVEL 201 MG/DL (<200); CHOLESTEROL RISK RATIO 4.71 (<5); CREATININE FOR GFR 0.71 MG/DL (0.55-1.30); GLOMERULAR FILTRATION RATE > 60.0 (>60); GLUCOSE, FASTING 87 MG/DL (60-100); HDL CHOLESTEROL 42.6 MG/DL (>40); LDL CHOLESTEROL 128.2 MG/DL (<100); NON-HDL-C 158.4 MG/DL; POTASSIUM SERUM 4.5 MMOL/L (3.5-5.1); SODIUM LEVEL 142 MMOL/L (136-145); THYROID STIMULATING HORMONE 2.804 uIU/ML (0.55-4.78); TOTAL PROTEIN 7.3 G/DL (5.7-8.2); TRIGLYCERIDES LEVEL 151 MG/DL (<150)
[2024-09-09 11:28] LABS: TOTAL 25(OH) VITAMIN D 9.1 NG/ML (20.0-100.0)
[2024-09-09 11:29] LABS: FREE T4 1.18 NG/DL (0.89-1.76)
== END ==
LOC: M SLEEP 07:39 → M LAB 07:39
PROVIDERS: ATTEND Physician Assistant Medical
DX: Z00.00 Encounter for general adult medical examination without abnormal findings (principal); R00.2 Palpitations; R55 Syncope and collapse; E66.01 Morbid (severe) obesity due to excess calories; R40.0 Somnolence; K76.0 Fatty (change of) liver, not elsewhere classified; K21.9 Gastro-esophageal reflux disease without esophagitis

== ENCOUNTER 2024-10-01 13:27 | Emergency (ER) | payer OTHER ==
[~2024-10-01] VITALS: Ht 175.3 cm; Wt 109.5 kg
[2024-10-01] MEDS ORDERED: ERGO500029 (13:43)
[2024-10-01] MEDS ORDERED: ONDA-84 (13:43)
[2024-10-01] MEDS ORDERED: OMEP10CASR PO (13:43)
[2024-10-01 14:19] LABS: KETONE, URINE AUTO RFX NEGATIVE (NEGATIVE); MUCUS, URINE RFX SMALL (NEGATIVE); NITRITE, URINE AUTO RFX NEGATIVE (NEGATIVE); RBC, URINE AUTO RFX 1 /HPF (0-3); SQUAM EPITHELIAL CELL UR AURFX 5 /HPF (0-6); WBC, URINE AUTO RFX 9 /HPF (0-3)
[2024-10-01 14:25] LABS: BASO # 0.1 10^3/uL (0.0-0.2); BASO % 0.6 % (0.0-1.0); EOS # 0.1 10^3/uL (0.0-0.5); EOS % 1.5 % (0.0-3.0); HEMATOCRIT 40.7 % (36.0-47.0); HEMOGLOBIN 13.7 g/dl (12.0-15.5); LYMPH # 2.5 10^3/uL (1.5-5.0); LYMPH % 29.6 % (24.0-44.0); MEAN CORPUSCULAR HGB CONC 33.7 g/dl (32.0-36.5); MEAN CORPUSCULAR VOLUME 83.2 fl (80.0-96.0); MONO # 0.5 10^3/uL (0.0-0.8); MONO % 6.4 % (2.0-8.0); NEUTROPHILS # 5.2 10^3/uL (1.5-8.5); NEUTROPHILS % 61.7 % (36.0-66.0); PLATELET COUNT, AUTOMATED 377 10^3/uL (150-450); RED BLOOD COUNT 4.89 10^6/uL (4.00-5.40); WHITE BLOOD COUNT 8.5 10^3/uL (4.0-10.0)
[2024-10-01 14:36] LABS: LEUKOCYTE ESTERASE UR AUTO RFX 1+ (NEGATIVE)
[2024-10-01 14:46] LABS: LIPASE 33 U/L (12-53)
[2024-10-01 14:48] LABS: ALBUMIN 3.9 G/DL (3.2-5.2); ALKALINE PHOSPHATASE 68 U/L (35-104); ALT/SGPT 25 U/L (7.0-40); AST/SGOT 9 U/L (<34); BILIRUBIN,DIRECT 0.1 MG/DL (<0.4); BILIRUBIN,TOTAL 0.4 MG/DL (0.3-1.2); BLOOD UREA NITROGEN 11 MG/DL (9-23); CALCIUM LEVEL 9.4 MG/DL (8.5-10.1); CARBON DIOXIDE LEVEL 28 MMOL/L (20-31); CHLORIDE LEVEL 105 MMOL/L (98-107); CREATININE FOR GFR 0.61 MG/DL (0.55-1.30); GLOMERULAR FILTRATION RATE > 60.0 (>60); GLUCOSE, FASTING 89 MG/DL (60-100); MAGNESIUM LEVEL 1.7 MG/DL (1.8-2.4); POTASSIUM SERUM 4.1 MMOL/L (3.5-5.1); SODIUM LEVEL 142 MMOL/L (136-145); TOTAL PROTEIN 7.5 G/DL (5.7-8.2)
[2024-10-01 14:52] LABS: HCG, SERUM QUALITATIVE NEGATIVE (NEGATIVE)
[2024-10-01 17:31] LABS: FREE T4 1.15 NG/DL (0.89-1.76); THYROID STIMULATING HORMONE 1.904 uIU/ML (0.55-4.78)
[2024-10-01] MEDS ORDERED: ONDANSETRON 4MG TAB PO ONE (17:40)
[2024-10-01] MEDS ORDERED: ONDANSETRON 4MG 2ML VIAL As Ordered ONE (17:43)
[2024-10-01] MEDS: ONDANSETRON 4MG 2ML VIAL IV ONE (17:47)
[2024-10-01] MEDS ORDERED: HYDR-3363 PO (18:03)
[2024-10-01] MEDS ORDERED: SUCR1SS PO (18:03)
[2024-10-01] MEDS ORDERED: PEPC20TA18 PO (18:03)
[2024-10-01 18:09] VITALS: BP 110/60; TEMP 97.8; O2SAT 97
== END 2024-10-01 18:17 | disposition home or self-care (01) ==
LOC: M ED 13:27 → EDBD 13:27 → M ED 18:17
DX: K27.9 Peptic ulcer, site unspecified, unspecified as acute or chronic, without hemorrhage or perforation (principal); F41.9 Anxiety disorder, unspecified; R11.0 Nausea; I10 Essential (primary) hypertension; K21.9 Gastro-esophageal reflux disease without esophagitis; Z88.0 Allergy status to penicillin; Z79.899 Other long term (current) drug therapy; Z79.83 Long term (current) use of bisphosphonates
CPT/HCPCS: 80048; 80076; 81001; 83690; 83735; 84439; 84443; 84703; 85025; 87088; 87186; 87486; 87581; 87633; 87798; 93005; 96374; 99284; J2405

== ENCOUNTER → 2025-02-24 | Outpatient (REF) | payer OTHER ==
[~2025-02-24] MED LIST changes: +ERGO500029; +HYDR-3363 PO; -NADO20TA; +NADO20TA38; +OMEP10CASR PO; +ONDA-84; +PEPC20TA18 PO; +SUCR1SS PO
[2025-02-24 13:12] LABS: MAGNESIUM LEVEL 1.9 MG/DL (1.8-2.4)
[2025-02-24 13:13] LABS: C REACTIVE PROTEIN QUANTITATIV 1.43 MG/DL (<1.0)
[2025-02-24 13:14] LABS: IRON (FE) 47 UG/DL (50-170); TOTAL 25(OH) VITAMIN D 25.4 NG/ML (20.0-100.0); VITAMIN B12 LEVEL 333 PG/ML (211-911)
[2025-02-25 02:44] LABS: RHEUMATOID FACTOR QUANT < 3.5 IU/ML (<14)
== END ==
LOC: M SFHCADAM 09:36
PROVIDERS: ATTEND Physician Assistant
DX: R06.09 Other forms of dyspnea (principal); R00.0 Tachycardia, unspecified; G89.4 Chronic pain syndrome; R60.0 Localized edema; K21.9 Gastro-esophageal reflux disease without esophagitis; K52.9 Noninfective gastroenteritis and colitis, unspecified

== ENCOUNTER → 2025-04-01 | Outpatient (REF) | payer OTHER ==
[2025-04-01 17:23] LABS: C REACTIVE PROTEIN QUANTITATIV 2.22 MG/DL (<1.0); COMPLEMENT C4 35.5 MG/DL (12-36)
[2025-04-01 17:25] LABS: THYROID PEROXIDASE ANTIBODY < 28.0 U/ML (<60.0)
[2025-04-01 17:26] LABS: FREE T4 1.10 NG/DL (0.89-1.76)
[2025-04-01 17:36] LABS: BASO # 0.1 10^3/uL (0.0-0.2); BASO % 0.4 % (0.0-1.0); EOS # 0.2 10^3/uL (0.0-0.5); EOS % 1.4 % (0.0-3.0); LYMPH # 3.0 10^3/uL (1.5-5.0); LYMPH % 26.4 % (24.0-44.0); MONO # 0.7 10^3/uL (0.0-0.8); MONO % 6.0 % (2.0-8.0); NEUTROPHILS # 7.5 10^3/uL (1.5-8.5); NEUTROPHILS % 65.5 % (36.0-66.0); PLATELET COUNT, AUTOMATED 377 10^3/uL (150-450)
[2025-04-01 18:00] LABS: ESTIMATED AVERAGE GLUCOSE 103.0 MG/DL (60-110)
[2025-04-02 09:19] LABS: DRVV SCREEN 36.4 SECONDS
[2025-04-02 09:57] LABS: PTT LUPUS TYPE ANTICOAG SCREEN 0.92 (0-1.20)
[2025-04-08 15:42] LABS: HLA-B27 Negative (Negative)
== END ==
LOC: M SFHCADAM 14:17
PROVIDERS: ATTEND Physician Assistant Medical
DX: R79.82 Elevated C-reactive protein (CRP) (principal)

== ENCOUNTER → 2025-05-10 | Outpatient (CLI) | payer OTHER | LOC: M CARPUL 08:50 | PROVIDERS: ATTEND Physician Assistant | DX: R06.09 Other forms of dyspnea (principal); R00.0 Tachycardia, unspecified; G89.4 Chronic pain syndrome; R60.0 Localized edema ==

== ENCOUNTER → 2025-07-18 | Outpatient (REF) | payer OTHER ==
[2025-07-18 17:14] LABS: APPEARANCE, URINE CLOUDY (CLEAR); BACTERIA, URINE AUTO 1+ (NEGATIVE); BILIRUBIN, URINE AUTO NEGATIVE (NEGATIVE); BLOOD, URINE BLOOD 2+ (NEGATIVE); GLUCOSE, URINE (UA) AUTO NEGATIVE (NEGATIVE); KETONE, URINE AUTO NEGATIVE (NEGATIVE); LEUKOCYTE ESTERASE, URINE AUTO 2+ (NEGATIVE); MUCUS, URINE SMALL (NEGATIVE); NITRITE, URINE AUTO NEGATIVE (NEGATIVE); PROTEIN, URINE AUTO 1+ mg/dL (NEGATIVE); RBC, URINE AUTO 31 /HPF (0-3); SPECIFIC GRAVITY URINE AUTO 1.025 (1.002-1.035); SQUAMOUS EPITHELIAL CELL UR AU 9 /HPF (0-6); UROBILINOGEN, URINE AUTO 0.2 mg/dL (0.0-2.0); WBC, URINE AUTO TNTC /HPF (0-3)
== END ==
LOC: M LAB REF 16:18
PROVIDERS: ATTEND Physician Assistant Medical
DX: N39.0 Urinary tract infection, site not specified (principal)